=== PATIENT | female | born 1965 | race Caucasian/White ===

== ENCOUNTER 2023-11-10 11:01 | Outpatient (REF) | payer OTHER, SELFPAY ==
--- NOTE | ~2023-11-10 | XR_ITS ---
EXAMINATION: XR LUMBAR SPINE CLINICAL INFORMATION: Lumbar radiculopathy. COMPARISON: None available. TECHNIQUE: Three views of the lumbosacral spine. FINDINGS: Vertebral body heights are normal. No fracture or spondylolisthesis. Intervertebral disc heights are maintained. Small endplate osteophytes are present at most levels. There is mild degenerative disease in the lower thoracic spine at T10-T11 and T11-T12 with loss of intervertebral disc height. Facet arthropathy is suspected in the lower lumbar spine at L4-L5 and L5-S1. Bones appear osteopenic. Atherosclerotic calcifications are present in the abdominal aorta and iliac arteries. SI joints are unremarkable. XR/XR lumbar spine 2-3V IMPRESSION: 1. No acute fracture or malalignment in the lumbar spine. 2. Mild facet arthropathy in the lower lumbar spine. Minimal degenerative disc disease. Electronically signed by: Helder Bro MD 12/05/2023 05:37 PM EDT
[2023-11-10 11:26] LABS: MANUAL DIFF FLAG NO
[2023-11-10 12:14] LABS: Basophils Absolute Auto 0.1 X10*3/uL (0.0-0.2); Eosinophils Absolute Auto 0.2 X10*3/uL (0.0-0.4); Eosinophils Percent Auto 2.5 % (0-4); Hematocrit 44.6 % (37.0-47.0); Hemoglobin 14.2 g/dl (12.0-16.0); Imm Gran Abs Auto 0.03 X10*3/uL (0.00-0.03); Imm Gran Pct Auto 0.3 % (0.0-0.4); Lymphocytes Absolute Auto 2.6 X10*3/uL (1.2-4.9); Lymphocytes Percent Auto 27.8 % (20-40); Mean Corpuscular HGB Conc 31.8 g/dl (31.0-35.0); Mean Corpuscular Hemoglobin 29.3 pg (27.0-33.0); Mean Platelet Volume 11.5 fL (9.4-12.3); Monocytes Absolute Auto 0.8 X10*3/uL (0.1-1.2); Monocytes Percent Auto 8.1 % (2-11); Neutrophils Absolute Auto 5.6 x10*3/uL (2.0-8.3); Neutrophils Percent Auto 60.3 % (45-73); Platelet Count 321 X10*3/uL (160-400); Red Blood Count 4.85 X10*6/uL (4.20-5.50); Red Cell Distribution Width 13.1 % (11.0-16.0); White Blood Count 9.3 X10*3/uL (4.8-10.8)
[2023-11-10 12:46] LABS: Anion Gap 12 (12-20); Blood Urea Nitrogen 13 mg/dL (9-16); Calcium 10.5 mg/dL (8.4-10.2); Carbon Dioxide 29 mmol/L (22-29); Chloride 106 mmol/L (96-108); Estimated Glomerular Filt Rate > 60; Glucose Random 94 mg/dL (60-115); Potassium 4.6 mmol/L (3.3-5.1); Sodium 142 mmol/L (135-145)
[2023-11-10 13:07] LABS: T4 Thyroxine 4.9 ug/dL (4.5-12.0); Thyroid Stimulating Hormone 0.94 uIU/mL (0.32-4.0)
[2023-11-14 21:28] LABS: Lyme Abs Screen <0.90 index
[2023-11-15 14:53] LABS: Aldolase 4.7 U/L (<=8.1)
[2023-11-16 20:04] LABS: Anti Nuclear Antibody Screen NEGATIVE (NEGATIVE)
== END 2023-11-10 11:02 | disposition home or self-care (01) ==
LOC: HO.LAB 11:01
PROVIDERS: PCP Internal Medicine; Visit Provider Registered Nurse
DX: M79.10 Myalgia, unspecified site (principal); M54.16 Radiculopathy, lumbar region
CPT/HCPCS: 36415; 72100; 80048; 82085; 82550; 84436; 84443; 85025; 86038; 86617; 86618

== ENCOUNTER 2024-08-09 13:55 | Outpatient (REF) | payer OTHER, SELFPAY ==
--- NOTE | ~2024-08-09 | XR_ITS ---
CLINICAL HISTORY: KNEE PAIN --- Additional Notes or Special Instructions: WO 4 view right knee Comparison: None Findings: No fractures or dislocations. There are mild changes of osteoarthritis in the lateral compartment. No joint effusion. No radiopaque foreign body. IMPRESSION: 1. No acute findings. This document has been electronically signed by: Stanislav Carr MD on 08/10/2024 16:15:28
--- OUTSIDE RECORDS SUMMARY | 2024-08-09 14:01 | XMS_ITS | Continuity of Care Document ---
Author Organization [facility] [address] [place] [address] Phone [phone] Care Team Providers Care Toolroom Keeper Name Role Phone Josh Naranjo M.D. Care Team Information Recei sheila [phone] Problems Active Problems Provider Date Type 2 diabetes mellitus Sancho Bautista M.D. Onset: 10/06/2021 Obesity Sancho Bautista M.D. Onset: 0 10/06/2021 Coronary atherosclerosis Sancho Bautista M.D. Onset: 2022 Diabetic peripheral neuropathy Sancho Bautista M.D. Onset: 2022 Hyperlipidemia Sancho Bautista M.D. Onset: 0 2022 Essential hypertension Sancho Bautista M.D. O nset: 2022 Placement of stent in coronary artery Sancho Ahuja M.D. Onset: 2022 Social History Type Date Description Comments Sex Unknown Lives With Spouse Tobacco Use Start: Unknown End: Unknown Patient is a former smoker Smoking Status Reviewed: 10/22/22 Patient is a former smoker Allergies and adverse reactions Description No Known Drug Allergies Medications Active Medications SIG Qnty Indications Order ing Provider Date Ozempic (1 MG/Dose)4mg/3ML Solution Pen-Inject Inject 1 MG Subcutaneously One Time Per Week 3units Sancho Bautista M.D. 08/06/2024 [id number] Capsules 1 tab by mouth twice a day Sancho Bautista M.D. 02/28/2024 Mounjaro7.5mg/0.5ML Solution Auto-Inject Inject 7.5 MG Subcutaneously Once Every Week 2units Sancho Bautista M.D. 10/14/2023 Freestyle Lite Blood Glucose Monitoring SystemDevice as directed 1units Sancho Bautista M.D. 07/20/2022 Aspirin Low [id number] Tablets DR Take 1 Tablet By Mouth Every Day Josh Naranjo M.D. Freestyle Lite TestStrips Use as Directed 4 Times A Day For 90 Days 400units E11.9 Sancho Bautista M.D. [id number] Capsules DR Take 1 Capsule By Mouth Every Day Josh Naranjo M.D. [id number] Tablets Take 1 Tablet By Mouth Every Day Josh Naranjo M.D. Rosuvastatin [id number] Tablets Take 1 Tablet By Mouth Every Day 90tabs Sancho Bautista M.D. History Medications Ozempic (1 MG/Dose)4mg/3ML Solution Pen-Inject inject 1mg subcutaneously once weekly 3ml Sancho Bautista M.D. 09/13/2023 - 10/14/2023 Vital Signs Date Vital Result Comment 02/28/2024 3:51pm BP Systolic 110 mmHg BP Diastolic 70 mmHg Heart Rate 76 /min Height 69 inches 5'9 Weight 227.12 lb BMI (Body Mass Index) 33.5 kg/m2 Results Test Acquired Date Facility Test Result H/L Range N ote Hemoglobin A1c 02/28/2024 Inhouse Hemoglobin A1c 5.8% Glucose Fingerstick 02/28/2024 Inhouse Glucose Fingerstick 128 Glucose Fingerstick 11/08/2023 Inhouse Glucose Fingerstick 59 Hemoglobin A1c 11/08/2023 Inhouse Hemoglobin A1c 5.8% Glucose Fingerstick 08/03/2023 Inhouse Glucose Fingerstick 271 Hemoglobin A1c 08/03/2023 Inhouse Hemoglobin A1c 9.1% Glucose Fingerstick 04/29/2023 Inhouse Glucose Fingerstick 130 Hemoglobin A1c 04/29/2023 Inhouse Hemoglobin A1c 6.1% Glucose Fingerstick 01/25/2023 Inhouse Glucose Fingerstick 155 Hemoglobin A1c 01/25/2023 Inhouse Hemoglobin A1c 5.5% Glucose Fingerstick 10/22/2022 Inhouse Glucose Fingerstick 104 Hemoglobin A1c 10/22/2022 Inhouse Hemoglobin A1c 6.2% Glucose Fingerstick 07/20/2022 Inhouse Glucose Fingerstick 147 Hemoglobin A1c 07/20/2022 Inhouse Hemoglobin A1c 6.5% Glucose Fingerstick 2022 Inhouse Glucose Fingerstick 91 Hemoglobin A1c 2022 Inhouse Hemoglobin A1c 6.6 Glucose Fingerstick 01/15/2022 Inhouse Glucose Fingerstick 134 Hemoglobin A1c 01/15/2022 Inhouse Hemoglobin A1c 6.6 Glucose Fingerstick 10/09/2021 Inhouse Glucose Fingerstick 123 Hemoglobin A1c 10/09/2021 Inhouse Hemoglobin A1c 6.6 Medical Devices Description No Information Available Encounters Type Date Location Provider Dx Diagnosis Office Visit 02/28/2024 4:00p Main Office Sancho Bautista M.D. E11.9 Type 2 diabetes mellitus without complications I25.10 Athscl heart disease of [place] coronary artery w/o ang pctrs E66.9 Obesity, unspecified Assessments Date Code Description Provider 02/28/2024 E11.9 Type 2 diabetes mellitus without complications Sancho Bautista M.D. 02/28/2024 I25.10 Coronary atherosclerosis Elvira Bautista M.D. 02/28/2024 E66.9 Obesity Sancho phelan M.D. Plan of Treatment Future Appointment(s):* 10/02/2024 2:45 pm - Sancho Bautista M.D. at Main Office 02/28/2024 - Sancho Bautista M.D.* E11.9 Type 2 diabetes mellitus without complications * I25.10 Coronary atherosclerosis * E66.9 Obesity * * New Labs:* Lipid Panel, Ordered: 02/28/24 Functional Status Description No Information Available Mental Status Description No Information Available Referrals Description No Information Available
== END 2024-08-09 13:56 | disposition home or self-care (01) ==
LOC: HO.XRAY 13:55
PROVIDERS: PCP Internal Medicine; Visit Provider Registered Nurse
DX: M25.561 Pain in right knee (principal)
CPT/HCPCS: 73564

== ENCOUNTER → 2024-08-09 14:02 | Outpatient (BNV) | payer OTHER, SELFPAY | PROVIDERS: PCP Internal Medicine; Visit Provider Specialist | DX: M17.11 Unilateral primary osteoarthritis, right knee (principal) | CPT/HCPCS: 73564 ==

== ENCOUNTER 2024-08-25 01:27 | Inpatient (IN) | payer OTHER, SELFPAY ==
[2024-08-25] VITALS (13 sets, daily range): BP systolic 90–114; BP diastolic 38–78; PULSE 85–101; RESP 14–20; TEMP 35.7–37.1; O2SAT 88–100; BMI 35.7
--- NOTE | ~2024-08-25 | CT_ITS ---
CLINICAL HISTORY: tachy CT angiography chest using contrast. 3-D postprocessing Comparison: None Findings: Filling defects are identified within the right middle and right lower lobe pulmonary arteries as well as segmental right middle and right lower lobe branches and subsegmental right lower lobe branches. Filling defects present at the left lower lobe pulmonary artery, extending into segmental and subsegmental left lower lobe pulmonary arterial branches. No thoracic aorta aneurysm. Heart size within normal limits. Coronary artery calcifications and/or coronary artery stents are visualized. Mildly motion limited evaluation of the bilateral lungs. Azygous lobe present. Minimal bilateral lower lobe subsegmental atelectasis. No focal pulmonary consolidation, pneumothorax, or pleural effusion. Visualized upper abdomen unremarkable. No acute fractures. Multilevel degenerative endplate changes are present at the thoracic spine. Impression: 1. Mildly motion limited examination with a [id number] PE burden involving right middle and bilateral lower lobe pulmonary arterial branches as described above. No CT evidence for right heart strain. 2. Minimal bibasilar subsegmental atelectasis. This document has been electronically signed by: Gordon Ruiz MD on 08/27/2024 04:23:04
--- NOTE | ~2024-08-25 | FL_ITS ---
EXAMINATION: FL GUIDANCE ONLY HISTORY: left retrograde IM nail COMPARISON: Correlation is made with plain films of the left knee dated 08/25/2024. TECHNIQUE: Fluoroscopy time: 1.1 minutes. Cumulative Dose: 22.3 mGy. DAP: 0.286 mGym2 Images: 5. FINDINGS: Fluoroscopic spot films of the left knee demonstrate placement of an intramedullary geovany maintaining the previously seen comminuted fracture of the distal metaphysis in near anatomic alignment. FL/FL guidance in OR IMPRESSION: Fluoroscopy during procedure. Please see procedure report for additional information. Electronically signed by: Arnold Carnes MD 08/27/2024 07:06 AM EDT
--- NOTE | ~2024-08-25 | XR_ITS ---
CLINICAL HISTORY: preop Exam: AP portable chest x-ray. Comparison: None. Findings: Lungs are hypoinflated. Cardiac silhouette is within normal limits for degree of inflation. Streaky interstitial prominence in the lung bases suggest atelectasis. There may be a small left pleural effusion. No large area of consolidation. No pneumothorax. Impression: Likely linear bibasilar atelectasis with small left pleural effusion. This document has been electronically signed by: Josh Modi MD on 08/25/2024 06:39:27
--- NOTE | ~2024-08-25 | XR_ITS ---
CLINICAL HISTORY: fall 2 view left knee Comparison: None Findings: A left knee prosthesis is in place. The surgical hardware appears intact. Comminuted, displaced fracture present at the distal left femoral metadiaphysis with anterolateral displacement of the distal fracture fragment. Moderate suprapatellar enthesophyte at the site of the quadriceps tendon insertion. No significant suprapatellar effusion identified. IMPRESSION: 1. Comminuted, displaced fracture present at the distal left femoral metadiaphysis. This document has been electronically signed by: Gordon Ruiz MD on 08/25/2024 03:09:27
--- NOTE | ~2024-08-25 | CT_ITS ---
CLINICAL HISTORY: confusion, fall [address] head without contrast Comparison: None Findings: No intra-axial mass, midline shift, hydrocephalus, or acute hemorrhage. Age appropriate cerebral volume loss. Patchy low-density within the periventricular and subcortical white matter. Moderate left maxillary sinus mucosal thickening. The orbits are within normal limits. There is no acute fracture. IMPRESSION: 1. No acute intracranial findings. This document has been electronically signed by: Bridgette Perez MD on 08/29/2024 18:36:03
--- NOTE | ~2024-08-25 | US_ITS ---
EXAMINATION: US LOWER EXTREMITY VEINS BILATERAL HISTORY: ?DVT COMPARISON: There are no prior studies available for comparison. TECHNIQUE: Duplex and color Doppler sonographic examination of the deep venous system of the bilateral lower extremities was performed. FINDINGS: The right common femoral, superficial femoral, and popliteal veins are patent demonstrating normal compressibility, spontaneous flow, and augmentation. There is a normal color and spectral Doppler waveform appearance of the visualized deep venous system above the knee. The posterior tibial and peroneal veins are patent. The left common femoral and superficial femoral veins are patent demonstrating normal compressibility, spontaneous flow, and augmentation. There is thrombus in the left popliteal vein which is noncompressible. Thrombus is also seen in the posterior tibial and peroneal veins. US/US venous duplex LE BI IMPRESSION: 1. Deep venous thrombosis of the left popliteal vein extending into the calf veins. 2. No evidence of acute DVT in the right lower extremity. 3. Findings were sent to Dr. Yonatan Charles on 08/27/2024 at 11:45 AM. Electronically signed by: Arnold Carnes MD 08/27/2024 11:48 AM EDT
--- NOTE | 2024-08-25 01:35 | ED_ITS ---
HPI - Fall General Chief Complaint: Extremity Injury, Lower Stated Complaint: FELL DOWN STAIRS & TWISTED LFT KNEE Time Seen by Provider: 08/25/24 01:35 Source: patient Mode of arrival: ambulatory Limitations: no limitations History of Present Illness ED Provider: HPI Narrative: Patient status post left knee replacement about 10 years ago was going down stairs tripped and fell from last 3 steps landed on her left knee with obvious deformity unable to stand up no other injuries patient has received 100 mcg of fentanyl by EMS Related Data Allergies Allergy/AdvReac Type Severity Reaction Status Date / Time No Known Allergies Allergy Verified 08/25/24 01:38 [No Known Allergies*] Review of Systems 2 Review of Systems: Yes all other systems are reviewed and are negative PMFSH Social History Social History Smoked in Last 30 Days: No Use of substances other than those prescribed or required for medical reasons: No Advance Directives: No Advance Directives Information Provided: Yes Do you have a plan to hurt others: No Plan Physical Exam 2 Vital Signs: Vital Signs: Last Vital Signs Temp 97.4 F 08/25/24 07:08 Pulse 91 08/25/24 07:08 Resp 14 08/25/24 07:08 BP 94/51 L 08/25/24 07:08 Pulse Ox 97 08/25/24 07:08 O2 Del Method Room Air 08/25/24 07:08 O2 Flow Rate 2 08/25/24 05:46 BMI result Body Mass Index 35.7 Appearance: Alert. Oriented X3. Not do Eyes: No pallor or icterus ENT: Pharynx normal. Oral Mucosa moist Neck: Normal inspection. Neck supple. CVS: Normal heart rate and rhythm. Pulses normal. Respiratory: No respiratory distress. Equal air entry bilateral, no wheezing/rales/rhonchi Abdomen: Soft and nontender. Bowel sounds are present, no mass palpable, no CVA tenderness Skin: Skin warm and dry. Normal skin color. Normal skin turgor. Extremities: Left leg obvious deformity with soft swelling of lower thigh neurovascular intact dorsalis pedis 2+ sensations intact Neuro: Oriented X 3. No motor deficit. No sensory deficit.No cerebellar signs , cranial nerves II-XII intact Medications Administered Generic Name Dose Route Start Last Admin Trade Name Freq PRN Reason Stop Dose Admin Lactated Ringer's 1,000 mls @ 100 mls/hr 08/25/24 05:45 08/25/24 06:29 Lr IVCONT 100 mls/hr .Q10H KAITLIN Administration Insulin Human Lispro 0 unit 08/25/24 07:30 08/25/24 07:19 Insulin Lispro 100 Unit/Ml 3 Ml Vial SUBCUT Not Given QIDACHS KAITLIN Protocol Sodium Chloride 3 ml 08/25/24 08:00 08/25/24 07:19 0.9 % Sodium Chloride Flush 3 Ml Syringe IVFLUSH Not Given QSHIFT KAITLIN Discontinued Medications Generic Name Dose Route Start Last Admin Trade Name Harshal PRN Reason Stop Dose Admin Fentanyl 50 mcg 08/25/24 02:57 08/25/24 03:20 Fentanyl Citrate/Pf 100 Mcg/2 Ml Vial IVPUSH 08/25/24 02:58 50 mcg ONCE ONE Administration Protocol Sodium Chloride 1,000 mls @ 999 mls/hr 08/25/24 01:42 08/25/24 02:45 Ns IV 08/25/24 02:42 Infused .Q1H1M ONE Infusion Sodium Chloride 1,000 mls @ 999 mls/hr 08/25/24 04:58 08/25/24 06:29 Ns IV 08/25/24 05:58 Infused .Q1H1M ONE Infusion Medical Decision Making Medical Decision Making [facility] Narrative: Patient is status post mechanical fall with left knee prosthesis x-ray showed comminuted displaced fracture just above the prosthesis patient does have significant swelling of the lower thigh but it is soft no signs of compartment syndrome at this time neurovascular intact case discussed with ortho PA will take the patient to OR later after discussion with Dr. Harrison NPO for now Differential Diagnosis Differential Diagnoses: The differential diagnosis associated with the presentation includes Admission/Observation Consideration of admission/observation: Escalation of care including admission/observation considered Consult Healthcare Provider Management of the patient was discussed with: Hospitalist Lab Data [facility] Lab Attestation statement: I reviewed the patient's lab results. 08/25/24 04:31 08/25/24 04:31 Labs: Lab Results 08/25/24 08/25/24 Range/Units 02:17 03:29 WBC 14.5 H (4.8-10.8) X10*3/uL RBC 3.85 L D (4.20-5.50) X10*6/uL Hgb 11.4 L (12.0-16.0) g/dl Hct 34.2 L D (37.0-47.0) % MCV 88.8 (80.0-98.0) fL MCH 29.6 (27.0-33.0) pg MCHC 33.3 (31.0-35.0) g/dl RDW 13.1 (11.0-16.0) % Plt Count 220 D (160-400) X10*3/uL MPV 11.1 (9.4-12.3) fL Immature Gran % (Auto) 0.5 H (0.0-0.4) % Neut % (Auto) 72.0 (45-73) % Lymph % (Auto) 18.9 L (20-40) % [place] % (Auto) 6.7 (2-11) % Eos % (Auto) 1.4 (0-4) % Baso % (Auto) 0.5 (0-2) % Lymph # (Auto) 2.7 (1.2-4.9) X10*3/uL [place] # (Auto) 1.0 (0.1-1.2) X10*3/uL Eos # (Auto) 0.2 (0.0-0.4) X10*3/uL Baso # (Auto) 0.1 (0.0-0.2) X10*3/uL Abs Immat Gran (auto) 0.07 H (0.00-0.03) X10*3/uL Absolute Neuts (auto) 10.5 H (2.0-8.3) x10*3/uL Absolute Nucleated RBC 0.000 (0.0-0.012) X10*3/uL Nucleated RBC % (auto) 0.0 (0.0-0.2) /100WBC PT 11.5 (10.9-12.4) SEC INR 1.0 (0.9-1.1) Sodium 138 (135-145) mmol/L Potassium 4.0 (3.3-5.1) mmol/L Chloride 106 (96-108) mmol/L Carbon Dioxide 23 (22-29) mmol/L Anion Gap 13 (12-20) BUN 18 H (9-16) mg/dL Creatinine 0.84 (0.5-1.4) mg/dL Estim Creat Clear Calc 92.8 Estimated GFR > 60 Random Glucose 256 H (60-115) mg/dL Calcium 8.7 D (8.4-10.2) mg/dL Total Bilirubin 0.3 (0.0-1.0) mg/dL AST 20 (5-31) U/L ALT 14 (0-31) U/L Alkaline Phosphatase 66 (39-117) U/L Total Protein 6.2 L (6.5-8.0) g/dL Albumin 3.7 (3.5-5.0) g/dL Blood Type O Positive Antibody Screen NEGATIVE Independent Interpretation I performed an independent interpretation of an: EKG Interpretation: Normal sinus rhythm heart rate 80 beats per minute normal interval normal axis no acute ST-T changes no acute ischemia Radiology Impression Discussion of test interpretation with radiology: I have reviewed the radiologist's reading. Discharge Plan Discharge Clinical Impression: Femur fracture Qualifiers: Encounter type: initial encounter Femur location: distal, unspecified portion F racture type: open Open fracture type: open type I or II Fracture morphology: u nspecified fracture morphology Laterality: left Qualified Code(s): S72.402B - Unspecified fracture of lower end of left femur, initial encounter for open fracture type I or II Patient Disposition: Admitted As Inpatient
--- NOTE | 2024-08-25 01:35 | PC.NURSE ---
pt reports pain is at 6/10, slightly tolerable. took ibuprofen, tylenol and tramadol approx 2200, 100mcg fentanyl by ems. bp low as documented. pt in agreement to receive ivf and use ice pack for now.
[2024-08-25] MEDS: 0.9 % Sodium Chloride 1,000 ML 999 ML IV ×2 (01:44→05:20)
--- OUTSIDE RECORDS SUMMARY | 2024-08-25 01:51 | XMS_ITS | Continuity of Care Document ---
Author Organization [facility] [address] [place] [address] Phone [phone] Care Team Providers Care Bolt Man Name Role Phone Josh Naranjo M.D. Care Team Information Recei sheila [phone] Problems Active Problems Provider Date Type 2 [...] Per Week 3units Sancho Bautista M.D. 08/06/2024 [id number] Capsules 1 tab by mouth twice a day Sancho Bautista M.D. 02/28/2024 Mounjaro7.5mg/0.5ML Solution Auto-Inject Inject 7.5 MG Subcutaneously Once Every Week 2units Sancho Bautista M.D. 10/14/2023 Freestyle Lite Blood Glucose Monitoring SystemDevice as directed 1units Sancho Bautista M.D. 07/20/2022 Aspirin Low Gprw15xi Tablets DR Take 1 Tablet By Mouth Every Day Josh Naranjo M.D. Freestyle Lite TestStrips Use as Directed 4 Times A Day For 90 Days 400units E11.9 Sancho Bautista M.D. [id number] Tablets take 1 tablet by mouth in Am 90tabs Sancho Bautista M.D. [id number] Capsules DR Take 1 Capsule By Mouth Every Day Josh Naranjo M.D. Dqtvqupwmc5pw Tablets Take 1 Tablet By Mouth Every Day Josh Naranjo M.D. Rosuvastatin Iuhfimt01my Tablets Take 1 Tablet By Mouth Every [...] without complications I25.10 Athscl heart disease of [place] coronary artery w/o ang pctrs E66.9 Obesity, [...]
--- NOTE | 2024-08-25 02:20 | MHC.EDTECH ---
Patient wm mohre a fall ,vitals taken blood drawn and sent to lab ,All safety measure in Place .Call swan within Pt reach .
[2024-08-25 02:21] LABS: Basophils Absolute Auto 0.1 X10*3/uL (0.0-0.2); Basophils Percent Auto 0.5 % (0-2); Eosinophils Absolute Auto 0.2 X10*3/uL (0.0-0.4); Eosinophils Percent Auto 1.4 % (0-4); Hematocrit 34.2 % (37.0-47.0); Hemoglobin 11.4 g/dl (12.0-16.0); Imm Gran Abs Auto 0.07 X10*3/uL (0.00-0.03); Imm Gran Pct Auto 0.5 % (0.0-0.4); Lymphocytes Absolute Auto 2.7 X10*3/uL (1.2-4.9); Lymphocytes Percent Auto 18.9 % (20-40); Mean Corpuscular HGB Conc 33.3 g/dl (31.0-35.0); Mean Corpuscular Hemoglobin 29.6 pg (27.0-33.0); Mean Corpuscular Volume 88.8 fL (80.0-98.0); Mean Platelet Volume 11.1 fL (9.4-12.3); Monocytes Percent Auto 6.7 % (2-11); Neutrophils Absolute Auto 10.5 x10*3/uL (2.0-8.3); Platelet Count 220 X10*3/uL (160-400); Red Blood Count 3.85 X10*6/uL (4.20-5.50); Red Cell Distribution Width 13.1 % (11.0-16.0); White Blood Count 14.5 X10*3/uL (4.8-10.8)
[2024-08-25 02:22] LABS: MANUAL DIFF FLAG NO
--- NOTE | 2024-08-25 02:24 | PC.NURSE ---
pt screamed, reports pain worsened shooting to upper leg. leg appears to be increasing in swelling. MD Grove called to bedside.
[2024-08-25 02:27] LABS: Prothrombin Time 11.5 SEC (10.9-12.4)
[2024-08-25 02:44] LABS: Alanine Aminotransferase 14 U/L (0-31); Albumin Level 3.7 g/dL (3.5-5.0); Alkaline Phosphatase 66 U/L (39-117); Anion Gap 13 (12-20); Aspartate Amino Transferase 20 U/L (5-31); Bilirubin Total 0.3 mg/dL (0.0-1.0); Blood Urea Nitrogen 18 mg/dL (9-16); Calcium 8.7 mg/dL (8.4-10.2); Carbon Dioxide 23 mmol/L (22-29); Chloride 106 mmol/L (96-108); Creatinine Clr Calc Pharmacy 92.8; Estimated Glomerular Filt Rate > 60; Glucose Random 256 mg/dL (60-115); Sodium 138 mmol/L (135-145); Total Protein 6.2 g/dL (6.5-8.0)
[2024-08-25] MEDS: fentaNYL citrate/PF 100 MCG/2 ML VIAL 50 MCG IVPUSH (03:20)
--- NOTE | 2024-08-25 03:24 | PC.NURSE ---
o2 low after fentanyl ivp, placed on 2L NC. aware.
[2024-08-25 04:37] LABS: Basophils Absolute Auto 0.1 X10*3/uL (0.0-0.2); Basophils Percent Auto 0.4 % (0-2); Eosinophils Absolute Auto 0.1 X10*3/uL (0.0-0.4); Eosinophils Percent Auto 0.5 % (0-4); Hematocrit 34.3 % (37.0-47.0); Hemoglobin 11.5 g/dl (12.0-16.0); Imm Gran Abs Auto 0.06 X10*3/uL (0.00-0.03); Imm Gran Pct Auto 0.4 % (0.0-0.4); Lymphocytes Absolute Auto 1.9 X10*3/uL (1.2-4.9); Lymphocytes Percent Auto 12.1 % (20-40); MANUAL DIFF FLAG NO; Mean Corpuscular HGB Conc 33.5 g/dl (31.0-35.0); Mean Corpuscular Hemoglobin 29.7 pg (27.0-33.0); Mean Corpuscular Volume 88.6 fL (80.0-98.0); Mean Platelet Volume 11.2 fL (9.4-12.3); Monocytes Absolute Auto 0.9 X10*3/uL (0.1-1.2); Neutrophils Absolute Auto 12.7 x10*3/uL (2.0-8.3); Neutrophils Percent Auto 80.6 % (45-73); Platelet Count 221 X10*3/uL (160-400); Red Blood Count 3.87 X10*6/uL (4.20-5.50); White Blood Count 15.7 X10*3/uL (4.8-10.8)
[2024-08-25 04:51] LABS: Alanine Aminotransferase 15 U/L (0-31); Albumin Level 3.8 g/dL (3.5-5.0); Alkaline Phosphatase 67 U/L (39-117); Anion Gap 11 (12-20); Aspartate Amino Transferase 21 U/L (5-31); Bilirubin Total 0.3 mg/dL (0.0-1.0); Blood Urea Nitrogen 18 mg/dL (9-16); Calcium 8.6 mg/dL (8.4-10.2); Carbon Dioxide 26 mmol/L (22-29); Chloride 106 mmol/L (96-108); Creatinine Clr Calc Pharmacy 95.1; Estimated Glomerular Filt Rate > 60; Glucose Random 207 mg/dL (60-115); Potassium 4.1 mmol/L (3.3-5.1); Sodium 139 mmol/L (135-145); Total Protein 6.3 g/dL (6.5-8.0)
--- NOTE | 2024-08-25 04:54 | PC.NURSE ---
Addendum entered by Edilia Villalpando 08/25/24 04:58: another 1L NS bolus per MD. Original Note: pillows placed under back, neck, R. hip, L. knee and L. foot. pt reports improvement in pain. ice pack given. current bp 91/49, MD made aware.
--- NOTE | 2024-08-25 05:00 | ECG_ITS ---
Test Reason : PRE-OP Blood Pressure : */* mmHG Vent. Rate : 80 BPM Atrial Rate : 80 BPM P-R Int : 148 ms QRS Dur : 90 ms QT Int : 386 ms P-R-T Axes : 11 -2 4 degrees QTcB Int : 445 ms Normal sinus rhythm Inferior infarct , age undetermined Abnormal ECG When compared with ECG of 04-Dec-2013 11:15, Inferior infarct is now Present ST no longer elevated in Inferior leads Referred By: [place] Electronically Signed By: VIV FOSTER
--- NOTE | 2024-08-25 05:36 | P.HPHOSP_ITS ---
History of Present Illness Date of Service: 08/25/24 Chief Complaint: fall 59-year-old female with a past medical history of HTN, HLD, dm, CAD, arthritis presented to the hospital today with a chief complaint of fall. Patient reports that she was climbing down the stairs, and was at the 4 step from the bottom she tripped and fell and landed to the friend; denies any head strike or loss of consciousness. Denies any neck pain or back pain. Reports she had severe pain in her left thigh and was not able to move; her called ambulance and subsequently came to the ER for further evaluation. Reports ambulance gave her fentanyl. Denies any lightheadedness or dizziness. Denies any numbness tingling or focal weakness. Denies any chest pain or palpitations. Review of all other systems is negative except mentioned above ER course: Per ER team, patient noted to have left thigh swelling and tenderness; no ecchymosis; ROM limited secondary to the pain. X-ray showed femur fracture. Pulses palpable. Neurovascularly intact. Suspected small hematoma; patient's hemoglobin dropped from her baseline of 14.2-11.4. Repeat hemoglobin stable at 11.5. Patient blood pressure was on the soft side-presumed to be secondary to opiate medications. Given IV fluids. Orthopedics team was notified who mentioned to keep the patient NPO for possible surgery in a.m.. [facility] Social History Smoked in Last 30 Days: No Use of substances other than those prescribed or required for medical reasons: No Advance Directives: No Advance Directives Information Provided: Yes Do you have a plan to hurt others: No Plan Meds Allergies Allergy/AdvReac Type Severity Reaction Status Date / Time No Known Allergies Allergy Verified 08/25/24 01:38 [No Known Allergies*] Active Medications: Current Medications Acetaminophen (Acetaminophen 325 Mg Tablet) 650 mg PO Q6H PRN PRN Reason: Pain, Mild 1-3,fever,headache Calcium Carbonate (Calcium Carbonate 750 Mg Tab.Chew) 750 mg PO Q4H PRN PRN Reason: Heartburn Hydromorphone HCl (Hydromorphone Hcl 0.5 Mg/0.5 Ml Syringe) 0.5 mg IVPUSH Q4H PRN; Protocol PRN Reason: Pain, Severe (Pain Scale 7-10) Sodium Chloride (Ns) 1,000 mls @ 999 mls/hr IV .Q1H1M ONE Stop: 08/25/24 05:58 Last Admin: 08/25/24 05:20 Dose: 999 mls/hr Magnesium Hydroxide (Milk Of Magnesia 30 Ml Oral.Susp) 30 ml PO DAILY PRN PRN Reason: Constipation Melatonin (Melatonin 3 Mg Tablet) 6 mg PO BEDTIME PRN PRN Reason: Insomnia Sodium Chloride (0.9 % Sodium Chloride Flush 3 Ml Syringe) 3 ml IVFLUSH QSHIFT [facility] Physical Exam 2 Vital Signs and Narrative: Vital Signs: Last Vital Signs Temp 98.8 F 08/25/24 04:13 Pulse 97 08/25/24 04:13 Resp 18 08/25/24 04:13 BP 107/74 08/25/24 04:13 Pulse Ox 98 08/25/24 04:13 O2 Del Method Nasal Cannula 08/25/24 04:13 O2 Flow Rate 2 08/25/24 04:13 BMI result Body Mass Index 35.7 Gen: Appears be in no acute distress HEENT: NCAT, Moist mucosa. Pulmonary: Vesicular breath sounds, fair air entry CVS: Normal S1-S2 Abdomen: BS+, Soft, Nontender Extremities: Warm well perfused; distal left thigh is slightly swollen, tender to palpate. Distal pulses are palpable. Sensations intact bilaterally. Neuro: Alert and awake. Results Labs 08/25/24 04:31 08/25/24 04:31 Labs: Laboratory Results - last 24 hr 08/25/24 08/25/24 08/25/24 02:17 03:29 04:31 MCV 88.8 88.6 MCH 29.6 29.7 MCHC 33.3 33.5 RDW 13.1 13.0 Plt Count 220 D 221 MPV 11.1 11.2 Immature Gran % (Auto) 0.5 H 0.4 Neut % (Auto) 72.0 80.6 H Lymph % (Auto) 18.9 L 12.1 L [place] % (Auto) 6.7 6.0 Eos % (Auto) 1.4 0.5 Baso % (Auto) 0.5 0.4 Lymph # (Auto) 2.7 1.9 [place] # (Auto) 1.0 0.9 Eos # (Auto) 0.2 0.1 Baso # (Auto) 0.1 0.1 Abs Immat Gran (auto) 0.07 H 0.06 H Absolute Neuts (auto) 10.5 H 12.7 H Absolute Nucleated RBC 0.000 0.000 Nucleated RBC % (auto) 0.0 0.0 PT 11.5 INR 1.0 Anion Gap 13 11 L Estim Creat Clear Calc 92.8 95.1 Estimated GFR > 60 > 60 Random Glucose 256 H 207 H Calcium 8.7 D 8.6 Total Bilirubin 0.3 0.3 AST 20 21 ALT 14 15 Alkaline Phosphatase 66 67 Total Protein 6.2 L 6.3 L Albumin 3.7 3.8 Blood Type O Positive Antibody Screen NEGATIVE Assessment and Plan (1) Femur fracture: Qualifiers: Encounter type: initial encounter Femur location: distal, unspecified portion Fracture type: open Fracture morphology: unspecified fracture morphology Laterality: left Open fracture type: open type I or II Qualified Code(s): S72.402B - Unspecified fracture of lower end of left femur, initial encounter for open fracture type I or II Status: Acute Plan 59-year-old female with a past medical history of HLD, dm, CAD, arthritis presented to the hospital today with a chief complaint of fall. Noted a femur fracture. Left femur fracture: X-ray showed comminuted, displaced fracture at the distal left femoral metadiaphysis. Orthopedics team was notified-recommended NPO for possible surgery in a.m.. Pain control Hypertension: Patient blood pressure on the low normal side. Hold home lisinopril. Patient on IV fluids. Diabetes: Insulin sliding scale Anemia: Patient hemoglobin dropped from her baseline 14.2-11.5. Suspected small hematoma around the site. Follow up hemoglobin remained stable. No significant increase in swelling. Monitor vitals and trend H&H. Offered CT of the thigh-patient denied. Preop evaluation: Patient moderate to high risk for intermediate risk surgery. Hold home aspirin-last dose was on the day prior to coming to the hospital Depression: Continue home amitriptyline pending med rec to be done by pharmacy DVT prophylaxis: SCD boots Code status: Full code Quality Stroke Does the patient have a stroke diagnosis?: No VTE Prior VTE?: No VTE Risk Level:: Medical - moderate - high VTE Device Contraindication: Treatment Not Indicated VTE Drug Contraindication: N/A - Med Ordered
[2024-08-25] MEDS: Lactated Ringers 1,000 ML 100 ML IVCONT ×2 (06:29→15:33)
[2024-08-25 07:22] LABS: Glucose, Whole Blood 157 mg/dL (60-115)
--- NOTE | 2024-08-25 08:56 | PHA.MEDREC ---
Pharmacy Consult ? Medication Reconciliation Pharmacy has completed the medication reconciliation. Spoke with patient to confirm medications. She is no longer taking metformin, ozempic, or using lidocaine patches. She confirmed she is taking atorvastatin. She takes Mounjaro every Tuesday, had last Tuesday. She reports taking 1 tablet of amitriptyline 100 mg every night. She took her morning medications yesterday as well as ibuprofen and tramadol. She did not take her evening medications.
--- NOTE | 2024-08-25 09:00 | PC.NURSE ---
Patient is a 59-year-old female with a past medical history of HTN, HLD, dm, CAD, arthritis presented with a chief complaint of fall. Patient reports that she was climbing down the stairs, and was at the 4 step from the bottom she tripped and fell and landed. Noted to have a left femur fracture. linoleum layer helper maintained and NSR noted. SBP has been soft since arrival. IVF's infusing as ordered. Lungs clear bilat. Respirations even and non-labored. Abdomen large, soft, non-tender with positive bowel sounds. Positive pedal pulses with good CSM. left femur area swollen and painful. Unable to be re-positioned without significant pain. Pain control maintained with IV dilaudid.
[2024-08-25 09:01] LABS: Estimated Average Glucose 166 mg/dL; Hemoglobin A1c % 7.4 % (<6.0); Total Hemoglobin (HGBA1C) 3050.3548 umol/L
[2024-08-25] MEDS: HYDROmorphone HCl 0.5 MG/0.5 ML SYRINGE IVPUSH ×2 (09:12→13:15)
[2024-08-25 11:51] LABS: Glucose, Whole Blood 123 mg/dL (60-115)
--- NOTE | 2024-08-25 12:36 | P.PNIM_ITS ---
Subjective Subjective Date of Service: 08/25/24 Interval History: pain/swelling L thigh no chest pain or dyspnea Review of Systems Review of Systems: Yes all other systems are reviewed and are negative Physical Exam 2 Vital Signs: Vital Signs: Last Vital Signs Temp 97.4 F 08/25/24 07:08 Pulse 90 08/25/24 10:00 Resp 16 08/25/24 10:00 BP 101/59 L 08/25/24 10:00 Pulse Ox 100 08/25/24 10:00 O2 Del Method Nasal Cannula 08/25/24 10:00 O2 Flow Rate 2 08/25/24 10:00 BMI result Body Mass Index 35.7 Gen: in no acute distress HEENT: sclera anicteric, moist mucus membranes Neck: supple Lungs: clear to auscultation bilaterally Heart: regular rate and rhythm, no murmurs Abd: soft, non-tender, non-distended Ext: no edema, L thigh swollen and deformed Skin: warm/well-perfused Neuro: alert and oriented x3, no focal findings Psych: appropriate affect Objective Data Active Medications Acetaminophen (Acetaminophen 325 Mg Tablet) 650 mg PO Q6H PRN PRN Reason: Pain, Mild 1-3,fever,headache Calcium Carbonate (Calcium Carbonate 750 Mg Tab.Chew) 750 mg PO Q4H PRN PRN Reason: Heartburn Dextrose (Dextrose 50 % 25 Gm/50 Ml Syringe) 25 gm IVPUSH Q15M PRN; Protocol PRN Reason: per Hypoglycemia Standing Ord. Glucose (Glucose Gel 15 Gm Gel..Gram.) 15 gm PO Q15M PRN; Protocol PRN Reason: per Hypoglycemia Standing Ord. Hydromorphone HCl (Hydromorphone Hcl 0.5 Mg/0.5 Ml Syringe) 0.5 mg IVPUSH Q4H PRN; Protocol PRN Reason: Pain, Severe (Pain Scale 7-10) Last Admin: 08/25/24 09:12 Dose: 0.5 mg Documented By: ASHOK Lactated Ringer's (Lr) 1,000 mls @ 100 mls/hr IVCONT .Q10H [facility] Last Admin: 08/25/24 06:29 Dose: 100 mls/hr Documented By: DORIS Insulin Human Lispro (Insulin Lispro 100 Unit/Ml 3 Ml Vial) 0 unit SUBCUT QIDACHS [facility]; Protocol Last Admin: 08/25/24 11:51 Dose: Not Given Documented By: ASHOK Non-Admin Reason: No Insulin Coverage Magnesium Hydroxide (Milk Of Magnesia 30 Ml Oral.Susp) 30 ml PO DAILY PRN PRN Reason: Constipation Melatonin (Melatonin 3 Mg Tablet) 6 mg PO BEDTIME PRN PRN Reason: Insomnia Sodium Chloride (0.9 % Sodium Chloride Flush 3 Ml Syringe) 3 ml IVFLUSH [facility] Last Admin: 08/25/24 07:19 Dose: Not Given Documented By: ASHOK Non-Admin Reason: IV Running Labs 08/25/24 04:31 08/25/24 04:31 Labs: Laboratory Results - last 24 hr 08/25/24 08/25/24 08/25/24 02:17 03:29 04:31 MCV 88.8 88.6 MCH 29.6 29.7 MCHC 33.3 33.5 RDW 13.1 13.0 Plt Count 220 D 221 MPV 11.1 11.2 Immature Gran % (Auto) 0.5 H 0.4 Neut % (Auto) 72.0 80.6 H Lymph % (Auto) 18.9 L 12.1 L [place] % (Auto) 6.7 6.0 Eos % (Auto) 1.4 0.5 Baso % (Auto) 0.5 0.4 Lymph # (Auto) 2.7 1.9 [place] # (Auto) 1.0 0.9 Eos # (Auto) 0.2 0.1 Baso # (Auto) 0.1 0.1 Abs Immat Gran (auto) 0.07 H 0.06 H Absolute Neuts (auto) 10.5 H 12.7 H Absolute Nucleated RBC 0.000 0.000 Nucleated RBC % (auto) 0.0 0.0 PT 11.5 INR 1.0 Anion Gap 13 11 L Estim Creat Clear Calc 92.8 95.1 Estimated GFR > 60 > 60 POC Glucose Random Glucose 256 H 207 H Estimat Average Glucose 166 Hemoglobin A1c % 7.4 H Calcium 8.7 D 8.6 Total Bilirubin 0.3 0.3 AST 20 21 ALT 14 15 Alkaline Phosphatase 66 67 Total Protein 6.2 L 6.3 L Albumin 3.7 3.8 Blood Type O Positive Antibody Screen NEGATIVE 08/25/24 08/25/24 07:17 11:46 MCV MCH MCHC RDW Plt Count MPV Immature Gran % (Auto) Neut % (Auto) Lymph % (Auto) [place] % (Auto) Eos % (Auto) Baso % (Auto) Lymph # (Auto) [place] # (Auto) Eos # (Auto) Baso # (Auto) Abs Immat Gran (auto) Absolute Neuts (auto) Absolute Nucleated RBC Nucleated RBC % (auto) PT INR Anion Gap Estim Creat Clear Calc Estimated GFR POC Glucose 157 H 123 H Random Glucose Estimat Average Glucose Hemoglobin A1c % Calcium Total Bilirubin AST ALT Alkaline Phosphatase Total Protein Albumin Blood Type Antibody Screen Assessment and Plan (1) Femur fracture: Status: Acute Plan d1 for 59yo F with CAD s/p PCI 2014, DM2, HLD, arthritis s/p L TKA who had a mechanical fall on stairs and sustained a comminuted, displaced fracture at the distal left femoral metadiaphysis femur fx - Orthopedics consult, pain control with IV hydromorphone, NPO for OR; no anginal symptoms while walking or climbing stairs; intermediate risk for this procedure; HTN - hold lisinopril CAD - hold ASA, give atorvastatin DM2 - hold Mounjaro and GPZ, give maria isabel-dose lipsro neuropathic pain - pregabalin + amitriptylline VTE ppx - SCDs, enoxaparin postop dispo - TBD Total time managing care of this patient today: 35 minutes. Quality Stroke Does the patient have a stroke diagnosis?: No VTE Prior VTE?: No VTE Risk Level:: Medical - moderate - high VTE Device Contraindication: Treatment Not Indicated VTE Drug Contraindication: N/A - Med Ordered
--- NOTE | 2024-08-25 13:40 | PM.CNOR ---
History of Present Illness HPI Consult date: 08/25/24 Chief complaint: femur Fx Narrative: 59 yo female admitted to the medical service s/p mechanical fall at home. She lives at home and is functional with all activities. She states she was going down a set of stairs when she was at the bottom 4 and fell. She was unable to get up due to immediate pain and deformity of the left lower ext. EMS was called and she was transported to the ED. Xrays in the ED significant for distal femur periprosthetic fracture. Orthopedics was contacted for further remcommendations and surgical intervention. Patient states she does have a stent for her heart, otherwise no other cardiopulmonary abnormalities. She does not smoke. She does not use an assistive device for ambulation. Review of Systems Review of Systems: Yes all other systems are reviewed and are negative [facility] Social History Social History Smoked in Last 30 Days: No Use of substances other than those prescribed or required for medical reasons: No Advance Directives: No Advance Directives Information Provided: Yes Do you have a plan to hurt others: No Plan Meds Allergies Allergy/AdvReac Type Severity Reaction Status Date / Time No Known Allergies Allergy Verified 08/25/24 01:38 [No Known Allergies*] Active Medications: Current Medications Amitriptyline HCl (Amitriptyline Hcl 50 Mg Tablet) 100 mg PO BEDTIME [facility] Atorvastatin Calcium (Atorvastatin Calcium 20 Mg Tablet) 20 mg PO DAILY [facility] Calcium Carbonate (Calcium Carbonate 750 Mg Tab.Chew) 750 mg PO Q4H PRN PRN Reason: Heartburn Cyclobenzaprine HCl (Cyclobenzaprine Hcl 10 Mg Tablet) 10 mg PO BEDTIME PRN PRN Reason: Muscle Spasm Dextrose (Dextrose 50 % 25 Gm/50 Ml Syringe) 25 gm IVPUSH Q15M PRN; Protocol PRN Reason: per Hypoglycemia Standing Ord. Glucose (Glucose Gel 15 Gm Gel..Gram.) 15 gm PO Q15M PRN; Protocol PRN Reason: per Hypoglycemia Standing Ord. Hydromorphone HCl (Hydromorphone Hcl 0.5 Mg/0.5 Ml Syringe) 0.75 mg IVPUSH Q4H PRN; Protocol PRN Reason: Pain, Severe (Pain Scale 7-10) Lactated Ringer's (Lr) 1,000 mls @ 100 mls/hr IVCONT .Q10H [facility] Last Admin: 08/25/24 06:29 Dose: 100 mls/hr Acetaminophen (Ofirmev) 1,000 mg in 100 mls @ 400 mls/hr IV Q6H [facility] Insulin Human Lispro (Insulin Lispro 100 Unit/Ml 3 Ml Vial) 0 unit SUBCUT QIDACHS [facility]; Protocol Last Admin: 08/25/24 11:51 Dose: Not Given Magnesium Hydroxide (Milk Of Magnesia 30 Ml Oral.Susp) 30 ml PO DAILY PRN PRN Reason: Constipation Melatonin (Melatonin 3 Mg Tablet) 6 mg PO BEDTIME PRN PRN Reason: Insomnia Omeprazole (Omeprazole 20 Mg Capsule.Dr) 20 mg PO DAILY@629 [facility] Oxycodone HCl (Oxycodone Hcl Immed Release 5 Mg Tablet) 5 mg PO Q4H PRN PRN Reason: pain,moderate Pregabalin (Pregabalin 150 Mg Capsule) 300 mg PO BID [facility] Sodium Chloride (0.9 % Sodium Chloride Flush 3 Ml Syringe) 3 ml IVFLUSH QSHIFT [facility] Last Admin: 08/25/24 07:19 Dose: Not Given Home Medications ?Medication ?Instructions ?Recorded ?Confirmed ?Last Taken ?Type amitriptyline 100 mg tablet 100 mg PO BEDTIME 08/25/24 08/25/24 Unknown History aspirin 81 mg tablet,delayed 81 mg PO DAILY 08/25/24 08/25/24 08/24/24 History release atorvastatin 20 mg tablet 20 mg PO DAILY 08/25/24 08/25/24 Unknown History cyclobenzaprine 10 mg tablet 10 mg PO BEDTIME PRN Muscle Spasm 08/25/24 08/25/24 Unknown History glipizide 10 mg tablet 10 mg PO QAM 08/25/24 08/25/24 08/24/24 History ibuprofen 600 mg tablet 600 mg PO Q8H PRN Pain 08/25/24 08/25/24 08/24/24 History lisinopril 5 mg tablet 5 mg PO DAILY 08/25/24 08/25/24 08/24/24 History omeprazole 20 mg capsule,delayed 20 mg PO DAILY@30 08/25/24 08/25/24 08/24/24 History release pregabalin 300 mg capsule 300 mg PO BID 08/25/24 08/25/24 08/24/24 History tirzepatide 7.5 mg/0.5 mL 7.5 mg subcut HARDY 08/25/24 08/25/24 08/19/24 History subcutaneous pen injector (Rebecca) tramadol 50 mg tablet 50 mg PO Q8H PRN pain 08/25/24 08/25/24 08/24/24 History Physical Exam Vital Signs: Vital Signs: Last Vital Signs Temp 97.4 F 08/25/24 07:08 Pulse 90 08/25/24 12:53 Resp 20 08/25/24 12:53 BP 107/70 08/25/24 12:53 Pulse Ox 95 08/25/24 12:53 O2 Del Method Nasal Cannula 08/25/24 12:53 O2 Flow Rate 2 08/25/24 12:53 BMI result Body Mass Index 35.7 Const: General: cooperative and no acute distress Orientation/consciousness: patient oriented x3 Resp: Effort & Inspection: normal respiratory effort and able to speak in complete sentences Cardio: Peripheral pulses: Peripheral pulses 2+ throughout Neuro: General: patient oriented x3 Extrem: Other: Left leg held in ER with knee in flexion. She has pain with any attempt in extending the knee and rotating the femur. She is able to move the toes. NVI. Results Labs 08/25/24 04:31 08/25/24 04:31 Labs: Abnormal lab results 08/25/24 08/25/24 08/25/24 Range/Units 02:17 04:31 07:17 WBC 14.5 H 15.7 H (4.8-10.8) X10*3/uL RBC 3.85 L D 3.87 L (4.20-5.50) X10*6/uL Hgb 11.4 L 11.5 L (12.0-16.0) g/dl Hct 34.2 L D 34.3 L (37.0-47.0) % Immature Gran % (Auto) 0.5 H (0.0-0.4) % Neut % (Auto) 80.6 H (45-73) % Lymph % (Auto) 18.9 L 12.1 L (20-40) % Abs Immat Gran (auto) 0.07 H 0.06 H (0.00-0.03) X10*3/uL Absolute Neuts (auto) 10.5 H 12.7 H (2.0-8.3) x10*3/uL Anion Gap 11 L (12-20) BUN 18 H 18 H (9-16) mg/dL POC Glucose 157 H (60-115) mg/dL Random Glucose 256 H 207 H (60-115) mg/dL Hemoglobin A1c % 7.4 H (<6.0) % Total Protein 6.2 L 6.3 L (6.5-8.0) g/dL 08/25/24 Range/Units 11:46 WBC (4.8-10.8) X10*3/uL RBC (4.20-5.50) X10*6/uL Hgb (12.0-16.0) g/dl Hct (37.0-47.0) % Immature Gran % (Auto) (0.0-0.4) % Neut % (Auto) (45-73) % Lymph % (Auto) (20-40) % Abs Immat Gran (auto) (0.00-0.03) X10*3/uL Absolute Neuts (auto) (2.0-8.3) x10*3/uL Anion Gap (12-20) BUN (9-16) mg/dL POC Glucose 123 H (60-115) mg/dL Random Glucose (60-115) mg/dL Hemoglobin A1c % (<6.0) % Total Protein (6.5-8.0) g/dL H & H 08/25/24 08/25/24 Range/Units 02:17 04:31 Hgb 11.4 L 11.5 L (12.0-16.0) g/dl Hct 34.2 L D 34.3 L (37.0-47.0) % Coagulation 08/25/24 Range/Units 02:17 INR 1.0 (0.9-1.1) All other labs normal. Assessment and Plan (1) Periprosthetic fracture around internal prosthetic left knee joint, initial encounter: Status: Acute Plan I discussed the case with Dr Harrison and explained the extent of the injury to the patient and options available which include surgical intervention. I explained the procedure in detail along with the length of recovery and rehab course. I explained the risk, benefits and alternatives. Risk including, but not limited to infection, blood clots, bleeding, non union or malunion and nerve/tissue damage to surrounding areas. I answered all their questions and with their understanding they have consented to move forward with Operative Fixation of the left femur . The patient will be T&S, med clearance obtained and NPO after midnight. Procedures Date of Service Date of Service: 08/25/24
[2024-08-25] MEDS: Acetaminophen 1,000 MG/100 ML PIGGYBACK 400 MG IV ×2 (14:10→17:32)
[2024-08-25 16:55] LABS: Glucose, Whole Blood 114 mg/dL (60-115)
[2024-08-25] MEDS: HYDROmorphone HCl 0.5 MG/0.5 ML SYRINGE 0.75 MG IVPUSH ×2 (17:15→21:17)
[2024-08-25 18:09] LABS: Glucose, Whole Blood 120 mg/dL (60-115)
[2024-08-25 19:39] LABS: Glucose, Whole Blood 177 mg/dL (60-115)
[2024-08-25] MEDS: Pregabalin 150 MG CAPSULE 300 MG PO (21:16)
[2024-08-25] MEDS: Insulin Lispro 100 UNIT/ML 3 ML VIAL SUBCUT (21:16)
[2024-08-25] MEDS: Amitriptyline HCl 50 MG TABLET 100 MG PO (21:16)
[2024-08-26] VITALS (12 sets, daily range): BP systolic 92–119; BP diastolic 56–67; PULSE 92–124; RESP 16–20; TEMP 36.2–36.8; O2SAT 91–99
[2024-08-26] MEDS: Acetaminophen 1,000 MG/100 ML PIGGYBACK 400 MG IV ×4 (01:00→19:37)
[2024-08-26] MEDS: Cyclobenzaprine HCl 10 MG TABLET PO ×2 (01:01→23:46)
[2024-08-26] MEDS: Lactated Ringers 1,000 ML 100 ML IVCONT ×3 (01:03→23:41)
[2024-08-26] MEDS: HYDROmorphone HCl 0.5 MG/0.5 ML SYRINGE 0.75 MG IVPUSH ×4 (01:07→20:38)
[2024-08-26 07:13] LABS: Glucose, Whole Blood 121 mg/dL (60-115)
[2024-08-26 08:01] LABS: Hematocrit 33.2 % (37.0-47.0); Hemoglobin 10.7 g/dl (12.0-16.0); Mean Corpuscular HGB Conc 32.2 g/dl (31.0-35.0); Mean Corpuscular Hemoglobin 29.7 pg (27.0-33.0); Mean Corpuscular Volume 92.2 fL (80.0-98.0); Mean Platelet Volume 11.4 fL (9.4-12.3); Platelet Count 185 X10*3/uL (160-400); Red Cell Distribution Width 12.9 % (11.0-16.0); White Blood Count 8.9 X10*3/uL (4.8-10.8)
[2024-08-26] MEDS: Atorvastatin Calcium 20 MG TABLET PO (08:01)
[2024-08-26] MEDS: Pregabalin 150 MG CAPSULE 300 MG PO ×2 (08:01→19:34)
[2024-08-26 08:15] LABS: Anion Gap 12 (12-20); Blood Urea Nitrogen 8 mg/dL (9-16); Calcium 8.5 mg/dL (8.4-10.2); Carbon Dioxide 27 mmol/L (22-29); Chloride 109 mmol/L (96-108); Estimated Glomerular Filt Rate > 60; Glucose Random 148 mg/dL (60-115); Potassium 4.4 mmol/L (3.3-5.1); Sodium 144 mmol/L (135-145)
--- NOTE | 2024-08-26 08:47 | MHC.CM.PN ---
CM met with Patient and her Daughter at bedside. Patient lives in a duplex with her /HCP/Pipo and she required no services nor DME CONSULTING PRACTICE MANAGER. Patient will need a PT Eval to assist with disposition;[facility] is Patient's first choice. CM has initiated and will follow for dc planning. PCP is Dr. Josh Naranjo and BLS will likely be needed for transport to [facility].
[2024-08-26] MEDS: diazePAM 10 MG/2 ML CARTRIDGE 2.5 MG IVPUSH (09:45)
--- NOTE | 2024-08-26 09:49 | HO.ANESPROP2 ---
HPI - Anesthesia Eval Consult details Narrative: Left periprosthetic distal femur fracture Anesthesia Pre-Procedure Meds Is the patient on any of the following meds?: GLP1/DPP4 PMFSH Active Problems Active Problems: All Active Problems Periprosthetic fracture around internal prosthetic left knee joint, initial encounter (Acute) Femur fracture (Acute) Past Medical History Medical History (Updated 08/26/24 @ 09:54 by García Bright MD) Hypertension Obesity Diabetes mellitus Hyperlipidemia CAD (coronary artery disease) Family History Family history of problems with anesthesia: No Surgical History Surgical History (Updated 08/26/24 @ 09:53 by García Bright MD) History of percutaneous coronary intervention History of Problems with Anesthesia: No Social History Social History Household Members: Spouse Housing: House Do you presently have visiting nurse or other home services: Yes Patient Tobacco Use Status: Never used Tobacco e-Cigarette/Vaping Use: Never Used Second Hand Smoke Exposure: No service: No Meds Allergies Allergy/AdvReac Type Severity Reaction Status Date / Time No Known Allergies Allergy Verified 08/25/24 01:38 [No Known Allergies*] Active Medications: Current Medications Amitriptyline HCl (Amitriptyline Hcl 50 Mg Tablet) 100 mg PO BEDTIME [facility] Last Admin: 08/25/24 21:16 Dose: 100 mg Atorvastatin Calcium (Atorvastatin Calcium 20 Mg Tablet) 20 mg PO DAILY [facility] Last Admin: 08/26/24 08:01 Dose: 20 mg Calcium Carbonate (Calcium Carbonate 750 Mg Tab.Chew) 750 mg PO Q4H PRN PRN Reason: Heartburn Cyclobenzaprine HCl (Cyclobenzaprine Hcl 10 Mg Tablet) 10 mg PO BEDTIME PRN PRN Reason: Muscle Spasm Last Admin: 08/26/24 01:01 Dose: 10 mg Dextrose (Dextrose 50 % 25 Gm/50 Ml Syringe) 25 gm IVPUSH Q15M PRN; Protocol PRN Reason: per Hypoglycemia Standing Ord. Glucose (Glucose Gel 15 Gm Gel..Gram.) 15 gm PO Q15M PRN; Protocol PRN Reason: per Hypoglycemia Standing Ord. Hydromorphone HCl (Hydromorphone Hcl 0.5 Mg/0.5 Ml Syringe) 0.75 mg IVPUSH Q4H PRN; Protocol PRN Reason: Pain, Severe (Pain Scale 7-10) Last Admin: 08/26/24 08:12 Dose: 0.75 mg Lactated Ringer's (Lr) 1,000 mls @ 100 mls/hr IVCONT .Q10H [facility] Last Admin: 08/26/24 01:03 Dose: 100 mls/hr Acetaminophen (Ofirmev) 1,000 mg in 100 mls @ 400 mls/hr IV Q6H [facility] Last Infusion: 08/26/24 08:19 Dose: Infused Insulin Human Lispro (Insulin Lispro 100 Unit/Ml 3 Ml Vial) 0 unit SUBCUT QIDACHS [facility]; Protocol Last Admin: 08/26/24 07:18 Dose: Not Given Magnesium Hydroxide (Milk Of Magnesia 30 Ml Oral.Susp) 30 ml PO DAILY PRN PRN Reason: Constipation Melatonin (Melatonin 3 Mg Tablet) 6 mg PO BEDTIME PRN PRN Reason: Insomnia Omeprazole (Omeprazole 20 Mg Capsule.Dr) 20 mg PO DAILY@0630 [facility] Last Admin: 08/26/24 05:01 Dose: Not Given Oxycodone HCl (Oxycodone Hcl Immed Release 5 Mg Tablet) 5 mg PO Q4H PRN PRN Reason: pain,moderate Pregabalin (Pregabalin 150 Mg Capsule) 300 mg PO BID [facility] Last Admin: 08/26/24 08:01 Dose: 300 mg Sodium Chloride (0.9 % Sodium Chloride Flush 3 Ml Syringe) 3 ml IVFLUSH QSHIFT [facility] Last Admin: 08/26/24 08:03 Dose: Not Given Home Medications ?Medication ?Instructions ?Recorded ?Confirmed ?Last Taken ?Type amitriptyline 100 mg tablet 100 mg PO BEDTIME 08/25/24 08/25/24 Unknown History aspirin 81 mg tablet,delayed 81 mg PO DAILY 08/25/24 08/25/24 08/24/24 History release atorvastatin 20 mg tablet 20 mg PO DAILY 08/25/24 08/25/24 Unknown History cyclobenzaprine 10 mg tablet 10 mg PO BEDTIME PRN Muscle Spasm 08/25/24 08/25/24 Unknown History glipizide 10 mg tablet 10 mg PO QAM 08/25/24 08/25/24 08/24/24 History ibuprofen 600 mg tablet 600 mg PO Q8H PRN Pain 08/25/24 08/25/24 08/24/24 History lisinopril 5 mg tablet 5 mg PO DAILY 08/25/24 08/25/24 08/24/24 History omeprazole 20 mg capsule,delayed 20 mg PO DAILY@0630 08/25/24 08/25/24 08/24/24 History release pregabalin 300 mg capsule 300 mg PO BID 08/25/24 08/25/24 08/24/24 History tirzepatide 7.5 mg/0.5 mL 7.5 mg subcut HARDY 08/25/24 08/25/24 08/19/24 History subcutaneous pen injector (Rebecca) tramadol 50 mg tablet 50 mg PO Q8H PRN pain 08/25/24 08/25/24 08/24/24 History Exam Height,Weight and Vital Signs: Height 5 ft 9 in Weight 109.769 kg Last Vital Signs Temp 97.3 F 08/26/24 07:22 Pulse 98 08/26/24 07:22 Resp 18 08/26/24 07:22 BP 102/67 08/26/24 07:22 Pulse Ox 92 08/26/24 07:22 O2 Del Method Room Air 08/26/24 07:22 O2 Flow Rate 2 08/25/24 23:43 Pertinent Lab Results Pertinent Lab Results: Laboratory Tests 08/25/24 08/25/24 08/25/24 02:17 03:29 04:31 WBC 14.5 H 15.7 H RBC 3.85 L D 3.87 L Hgb 11.4 L 11.5 L Hct 34.2 L D 34.3 L MCV 88.8 88.6 MCH 29.6 29.7 MCHC 33.3 33.5 RDW 13.1 13.0 Plt Count 220 D 221 MPV 11.1 11.2 Immature Gran % (Auto) 0.5 H 0.4 Neut % (Auto) 72.0 80.6 H Lymph % (Auto) 18.9 L 12.1 L Schley % (Auto) 6.7 6.0 Eos % (Auto) 1.4 0.5 Baso % (Auto) 0.5 0.4 Lymph # (Auto) 2.7 1.9 Schley # (Auto) 1.0 0.9 Eos # (Auto) 0.2 0.1 Baso # (Auto) 0.1 0.1 Abs Immat Gran (auto) 0.07 H 0.06 H Absolute Neuts (auto) 10.5 H 12.7 H Absolute Nucleated RBC 0.000 0.000 Nucleated RBC % (auto) 0.0 0.0 PT 11.5 INR 1.0 Sodium 138 139 Potassium 4.0 4.1 Chloride 106 106 Carbon Dioxide 23 26 Anion Gap 13 11 L BUN 18 H 18 H Creatinine 0.84 0.82 Estim Creat Clear Calc 92.8 95.1 Estimated GFR > 60 > 60 POC Glucose Random Glucose 256 H 207 H Estimat Average Glucose 166 Hemoglobin A1c % 7.4 H Calcium 8.7 D 8.6 Total Bilirubin 0.3 0.3 AST 20 21 ALT 14 15 Alkaline Phosphatase 66 67 Total Protein 6.2 L 6.3 L Albumin 3.7 3.8 Blood Type O Positive Antibody Screen NEGATIVE 08/25/24 08/25/24 08/25/24 07:17 11:46 16:49 WBC RBC Hgb Hct MCV MCH MCHC RDW Plt Count MPV Immature Gran % (Auto) Neut % (Auto) Lymph % (Auto) Schley % (Auto) Eos % (Auto) Baso % (Auto) Lymph # (Auto) Schley # (Auto) Eos # (Auto) Baso # (Auto) Abs Immat Gran (auto) Absolute Neuts (auto) Absolute Nucleated RBC Nucleated RBC % (auto) PT INR Sodium Potassium Chloride Carbon Dioxide Anion Gap BUN Creatinine Estim Creat Clear Calc Estimated GFR POC Glucose 157 H 123 H 114 Random Glucose Estimat Average Glucose Hemoglobin A1c % Calcium Total Bilirubin AST ALT Alkaline Phosphatase Total Protein Albumin Blood Type Antibody Screen 08/25/24 08/25/24 08/26/24 18:05 19:32 06:50 WBC 8.9 RBC 3.60 L Hgb 10.7 L Hct 33.2 L MCV 92.2 MCH 29.7 MCHC 32.2 RDW 12.9 Plt Count 185 MPV 11.4 Immature Gran % (Auto) Neut % (Auto) Lymph % (Auto) Schley % (Auto) Eos % (Auto) Baso % (Auto) Lymph # (Auto) Schley # (Auto) Eos # (Auto) Baso # (Auto) Abs Immat Gran (auto) Absolute Neuts (auto) Absolute Nucleated RBC 0.000 Nucleated RBC % (auto) 0.0 PT INR Sodium 144 Potassium 4.4 Chloride 109 H Carbon Dioxide 27 Anion Gap 12 BUN 8 L Creatinine 0.60 Estim Creat Clear Calc 130.0 Estimated GFR > 60 POC Glucose 120 H 177 H Random Glucose 148 H Estimat Average Glucose Hemoglobin A1c % Calcium 8.5 Total Bilirubin AST ALT Alkaline Phosphatase Total Protein Albumin Blood Type Antibody Screen 08/26/24 06:59 WBC RBC Hgb Hct MCV MCH MCHC RDW Plt Count MPV Immature Gran % (Auto) Neut % (Auto) Lymph % (Auto) Schley % (Auto) Eos % (Auto) Baso % (Auto) Lymph # (Auto) Schley # (Auto) Eos # (Auto) Baso # (Auto) Abs Immat Gran (auto) Absolute Neuts (auto) Absolute Nucleated RBC Nucleated RBC % (auto) PT INR Sodium Potassium Chloride Carbon Dioxide Anion Gap BUN Creatinine Estim Creat Clear Calc Estimated GFR POC Glucose 121 H Random Glucose Estimat Average Glucose Hemoglobin A1c % Calcium Total Bilirubin AST ALT Alkaline Phosphatase Total Protein Albumin Blood Type Antibody Screen Airway Mallampati Class: II TM Dist: >3cm Neck ROM: Full Loose/Missing/Broken Teeth: No Heart: RRR Lungs: CTAB Assessment and Plan Assessment Anesthesia Assessment: Anesthesia Plan Discussed and Chart Reviewed Final Anesthetic Review Family History of Problems with Anesthesia: No History of Problems with Anesthesia: No NPO: Yes ASA Class: III Final Preanesthetic Review: No Changes in Pt Med Stat, Meds/Allgs Chart Reviewed, Consent Obtained/Reviewed and Anes Risks/Benef Reviewed Patient Risk: Intermediate Procedure Risk: Intermediate Anesthetic Plan Anesthetic Plan: GA Disposition: Standard PACU
--- NOTE | 2024-08-26 10:18 | MHC.SHP ---
Pre-Procedural Eval Section A - 24 Hr Update-Section A only Date of Service: 08/26/24 The patient is an INPATIENT: Yes Changes since office visit: No Cold of Flu in the past 2 weeks, No New Medical Problems, No Changes in Medication and No Patient answered all questions The patient has been examined within 24 hours of the surgical procedure. The History & Physical has been completed within 30 days and I have reviewed it.: Yes Section B - Complete if H&P > 30 days Chief Complaint: femur Fx Allergies: Allergies Allergy/AdvReac Type Severity Reaction Status Date / Time No Known Allergies Allergy Verified 08/25/24 01:38 [No Known Allergies*] Plan I have reviewed the history and physical and performed a pertinent physical examination on my patient. No changes have occurred unless specified. Time Spent With Patient Time: Total time managing care of this patient today ____ minutes.
--- NOTE | 2024-08-26 10:41 | HO.PM.IMPN ---
Subjective Subjective Date of Service: 08/26/24 Interval History: pain under better control; anxious Review of Systems Review of Systems: Yes all other systems are reviewed and are negative Physical Exam Vital Signs: Vital Signs: Last Vital Signs Temp 97.3 F 08/26/24 07:22 Pulse 98 08/26/24 07:22 Resp 18 08/26/24 07:22 BP 102/67 08/26/24 07:22 Pulse Ox 92 08/26/24 07:22 O2 Del Method Room Air 08/26/24 07:22 O2 Flow Rate 2 08/25/24 23:43 BMI result Body Mass Index 35.7 Gen: in no acute distress HEENT: sclera anicteric, moist mucus membranes Neck: supple Lungs: clear to auscultation bilaterally Heart: regular rate and rhythm, no murmurs Abd: soft, non-tender, non-distended Ext: no edema, L thigh swollen and deformed, unable to extend Skin: warm/well-perfused Neuro: alert and oriented x3, no focal findings Psych: appropriate affect Objective Data Active Medications Amitriptyline HCl (Amitriptyline Hcl 50 Mg Tablet) 100 mg PO BEDTIME [facility] Last Admin: 08/25/24 21:16 Dose: 100 mg Documented By: KYMBERLY Atorvastatin Calcium (Atorvastatin Calcium 20 Mg Tablet) 20 mg PO DAILY [facility] Last Admin: 08/26/24 08:01 Dose: 20 mg Documented By: MILAGROS Calcium Carbonate (Calcium Carbonate 750 Mg Tab.Chew) 750 mg PO Q4H PRN PRN Reason: Heartburn Cyclobenzaprine HCl (Cyclobenzaprine Hcl 10 Mg Tablet) 10 mg PO BEDTIME PRN PRN Reason: Muscle Spasm Last Admin: 08/26/24 01:01 Dose: 10 mg Documented By: KYMBERLY Dextrose (Dextrose 50 % 25 Gm/50 Ml Syringe) 25 gm IVPUSH Q15M PRN; Protocol PRN Reason: per Hypoglycemia Standing Ord. Fentanyl (Fentanyl Citrate/Pf 100 Mcg/2 Ml Vial) 50 mcg IVPUSH Q5M PRN PRN Reason: Pain, Severe (Pain Scale 7-10) Stop: 08/26/24 15:55 Glucose (Glucose Gel 15 Gm Gel..Gram.) 15 gm PO Q15M PRN; Protocol PRN Reason: per Hypoglycemia Standing Ord. Hydromorphone HCl (Hydromorphone Hcl 0.5 Mg/0.5 Ml Syringe) 0.75 mg IVPUSH Q4H PRN; Protocol PRN Reason: Pain, Severe (Pain Scale 7-10) Last Admin: 08/26/24 08:12 Dose: 0.75 mg Documented By: MILAGROS Hydromorphone HCl (Hydromorphone Hcl 0.5 Mg/0.5 Ml Syringe) 0.5 mg IVPUSH Q5M PRN PRN Reason: Pain, Moderate to Severe (Pain Scale 4-10) Stop: 08/26/24 15:55 Lactated Ringer's (Lr) 1,000 mls @ 100 mls/hr IVCONT .Q10H [facility] Last Admin: 08/26/24 10:21 Dose: 100 mls/hr Documented By: MILAGROS Acetaminophen (Ofirmev) 1,000 mg in 100 mls @ 400 mls/hr IV Q6H [facility] Last Infusion: 08/26/24 08:19 Dose: Infused Documented By: MILAGROS Insulin Human Lispro (Insulin Lispro 100 Unit/Ml 3 Ml Vial) 0 unit SUBCUT QIDACHS [facility]; Protocol Last Admin: 08/26/24 07:18 Dose: Not Given Documented By: MILAGROS Non-Admin Reason: No Insulin Coverage Magnesium Hydroxide (Milk Of Magnesia 30 Ml Oral.Susp) 30 ml PO DAILY PRN PRN Reason: Constipation Melatonin (Melatonin 3 Mg Tablet) 6 mg PO BEDTIME PRN PRN Reason: Insomnia Naloxone HCl (Naloxone Hcl 0.4 Mg/Ml Vial) 0.04 mg IVPUSH Q5M PRN PRN Reason: Excessive sedation or RR < 8 Omeprazole (Omeprazole 20 Mg Capsule.Dr) 20 mg PO DAILY@0630 [facility] Last Admin: 08/26/24 05:01 Dose: Not Given Documented By: SYEDB Non-Admin Reason: NPO Oxycodone HCl (Oxycodone Hcl Immed Release 5 Mg Tablet) 5 mg PO Q4H PRN PRN Reason: pain,moderate Pregabalin (Pregabalin 150 Mg Capsule) 300 mg PO BID [facility] Last Admin: 08/26/24 08:01 Dose: 300 mg Documented By: MILAGROS Promethazine HCl (Promethazine Hcl 25 Mg/Ml Vial) 6.25 mg IM ONCE PRN PRN Reason: Nausea and Vomiting Stop: 08/26/24 15:55 Sodium Chloride (0.9 % Sodium Chloride Flush 3 Ml Syringe) 3 ml IVFLUSH QSHIFT [facility] Last Admin: 08/26/24 08:03 Dose: Not Given Documented By: MILAGROS Non-Admin Reason: IV Running Labs 08/26/24 06:50 08/26/24 06:50 Labs: Laboratory Results - last 24 hr 08/25/24 08/25/24 08/25/24 11:46 16:49 18:05 MCV MCH MCHC RDW Plt Count MPV Absolute Nucleated RBC Nucleated RBC % (auto) Anion Gap Estim Creat Clear Calc Estimated GFR POC Glucose 123 H 114 120 H Random Glucose Calcium 08/25/24 08/26/24 08/26/24 19:32 06:50 06:59 MCV 92.2 MCH 29.7 MCHC 32.2 RDW 12.9 Plt Count 185 MPV 11.4 Absolute Nucleated RBC 0.000 Nucleated RBC % (auto) 0.0 Anion Gap 12 Estim Creat Clear Calc 130.0 Estimated GFR > 60 POC Glucose 177 H 121 H Random Glucose 148 H Calcium 8.5 Assessment and Plan (1) Femur fracture: Status: Acute Plan d2 for 59yo F with CAD s/p PCI 2014, DM2, HLD, arthritis s/p L TKA who had a mechanical fall on stairs and sustained a comminuted, displaced fracture at the distal left femoral metadiaphysis femur fx - Orthopedics consulted, pain control with IV hydromorphone + IV APAP, NPO for operative repair; no anginal symptoms while walking or climbing stairs; intermediate risk for this procedure anemia due to blood loss from fracture - monitor H+H; apears to have stabilized HTN - hold lisinopril CAD - hold ASA, give atorvastatin DM2 - hold Mounjaro and GPZ, give maria isabel-dose lipsro neuropathic pain - pregabalin + amitriptylline VTE ppx - SCDs, enoxaparin postop dispo - STR In my clinical judgment, the patient requires continued inpatient hospitalization for the following reasons: operative repair and postoperative care Total time managing care of this patient today: 35 minutes. Quality Stroke Does the patient have a stroke diagnosis?: No VTE Prior VTE?: No VTE Risk Level:: Medical - moderate - high VTE Device Contraindication: Treatment Not Indicated VTE Drug Contraindication: N/A - Med Ordered
[2024-08-26] MEDS: ceFAZolin Sodium/Dextrose,Iso 2 GM/50 ML PIGGYBACK IV (11:10)
--- NOTE | 2024-08-26 13:05 | P.BOP_ITS ---
Brief Operative Note Date of Service: 08/26/24 Pre-op diagnosis: Left distal femur periprosthetic fx Post-op diagnosis: same Procedure: Retrograde IMN left femur Implants: [place] 2 13x 360; 2 proximal and 5 distal interlocking screws Surgeon: Miko Harrison MD Anesthesia: GLMA and local Was an Marketing Intelligence Manager used for this Procedure?: No Estimated blood loss (mL): 150 IV fluids (mL): 1,000 Pathology: none sent Condition: stable Disposition: PACU
[2024-08-26 14:35] LABS: Glucose, Whole Blood 137 mg/dL (60-115)
[2024-08-26 16:11] LABS: Glucose, Whole Blood 143 mg/dL (60-115)
[2024-08-26] MEDS: 0.9 % Sodium Chloride Flush 3 ML SYRINGE IVFLUSH (19:33)
[2024-08-26] MEDS: Amitriptyline HCl 50 MG TABLET 100 MG PO (19:34)
[2024-08-26 19:51] LABS: Glucose, Whole Blood 162 mg/dL (60-115)
[2024-08-26] MEDS: Insulin Lispro 100 UNIT/ML 3 ML VIAL SUBCUT (21:15)
[2024-08-26] MEDS: oxyCODONE HCl Immed Release 5 MG TABLET PO (23:46)
[2024-08-27] VITALS (16 sets, daily range): BP systolic 100–119; BP diastolic 51–61; PULSE 107–119; RESP 16–18; TEMP 36.1–36.8; O2SAT 79–100
--- NOTE | 2024-08-27 | ECG_ITS ---
Test Reason : tachy Blood Pressure : */* mmHG Vent. Rate : 121 BPM Atrial Rate : 121 BPM P-R Int : 158 ms QRS Dur : 92 ms QT Int : 324 ms P-R-T Axes : 25 -5 27 degrees QTcB Int : 460 ms Sinus tachycardia Inferior infarct (cited on or before 25-Aug-2024) Abnormal ECG When compared with ECG of 25-Aug-2024 05:02, Vent. rate has increased by 41 bpm Non-specific change in ST segment in Lateral leads Referred By: Yonatan Charles Electronically Signed By: ESAU PATHAK MD
[2024-08-27] MEDS: HYDROmorphone HCl 0.5 MG/0.5 ML SYRINGE IVPUSH (00:50)
[2024-08-27] MEDS: iohexoL 300 MG/ML 100 ML INFUS..BTL 85 ML IV (02:55)
--- NOTE | 2024-08-27 04:31 | PM.EVENT ---
Event Note Date of Service: 08/27/24 Event Note: Pulmonary embolism: Patient was persistently tachycardic last night. Order for CT chest. While patient being moved to the CT scan patient noted to be hypoxic. Placed on supplemental oxygen. Not in respiratory distress. CT showed moderate pulmonary embolism burden. No CT evidence of right heart strain. pt Hgb 10.7-->8.5;No bruise. Pulses palpable. Notified Orthopedics team -> whether ok to start heparin drip from surgery stand point--> ortho agreed top start heparin drip Ordered echocardiogram Venous duplex Time Spent With Patient Time: Total time managing care of this patient today ____ minutes.
[2024-08-27] MEDS: HYDROmorphone HCl 0.5 MG/0.5 ML SYRINGE 0.75 MG IVPUSH ×4 (05:21→21:54)
[2024-08-27 05:26] LABS: Hematocrit 26.2 % (37.0-47.0); Hemoglobin 8.5 g/dl (12.0-16.0); Mean Corpuscular HGB Conc 32.4 g/dl (31.0-35.0); Mean Corpuscular Hemoglobin 29.7 pg (27.0-33.0); Mean Corpuscular Volume 91.6 fL (80.0-98.0); Mean Platelet Volume 11.5 fL (9.4-12.3); Platelet Count 165 X10*3/uL (160-400); Red Blood Count 2.86 X10*6/uL (4.20-5.50); White Blood Count 10.3 X10*3/uL (4.8-10.8)
[2024-08-27 05:30] LABS: INTERNATIONAL NORM RATIO 1.1 (0.9-1.1); Prothrombin Time 12.9 SEC (10.9-12.4)
[2024-08-27 05:38] LABS: MANUAL DIFF FLAG NO
[2024-08-27 05:40] LABS: Anion Gap 11 (12-20); Basophils Percent Auto 0.4 % (0-2); Blood Urea Nitrogen 6 mg/dL (9-16); Carbon Dioxide 26 mmol/L (22-29); Chloride 104 mmol/L (96-108); Creatinine Clr Calc Pharmacy 125.7; Eosinophils Absolute Auto 0.6 X10*3/uL (0.0-0.4); Eosinophils Percent Auto 5.3 % (0-4); Estimated Glomerular Filt Rate > 60; Glucose Random 194 mg/dL (60-115); Imm Gran Abs Auto 0.04 X10*3/uL (0.00-0.03); Imm Gran Pct Auto 0.4 % (0.0-0.4); Lymphocytes Absolute Auto 1.6 X10*3/uL (1.2-4.9); Lymphocytes Percent Auto 15.1 % (20-40); Monocytes Absolute Auto 0.9 X10*3/uL (0.1-1.2); Monocytes Percent Auto 8.6 % (2-11); Neutrophils Absolute Auto 7.2 x10*3/uL (2.0-8.3); Neutrophils Percent Auto 70.2 % (45-73); Potassium 4.1 mmol/L (3.3-5.1); Sodium 137 mmol/L (135-145)
[2024-08-27] MEDS: Omeprazole 20 MG CAPSULE.DR PO (05:46)
[2024-08-27] MEDS: Heparin Sodium,Porcine 5,000 UNIT/ML VIAL 8800 UNIT IVPUSH ×2 (05:46→19:19)
[2024-08-27] MEDS: Heparin Sodium,Porcine/1/2NS 25,000 UNIT/250 ML IV.SOLN 15.37 UNIT IVCONT (05:50)
--- NOTE | 2024-08-27 06:40 | PC.NURSE ---
Assumed care of this patient at 19:00. Pt underwent a left femur IM nailing during the day (08/26) after a fall at home resulting in a femur fx. Pt was A&Ox4 with daughters at bedside, anxious and c/o pain. Pt on tele showing sinus tachycardia 110's on assuming care. Pt remained tachycardic in 110's, later into 120's despite pt reporting improved pain with ice and medications administered. Pt denied chest pain or palpitations. Breathing observed even and unlabored without distress on room air. Pt was afebrile and normothermic to touch x4 extremities with +dp and pt pulses, +cms, denied chills. Covering Dr. Lacy Charles was notified of persistent tachycardia despite pain management. An EKG was obtained showing Sinus tachycardia with ventricular rate 120's. A CT chest to rule out PE was ordered by . Just prior to transporting this pt to CT, this procedure writer obtained a new set of vitals at which time the pt was found to have new desats with spo2 of 79-80% on room air. The pt was placed on an oxymask and continuous spo2 monitoring, and o2 was titrated as tolerated for spo2 >90%. The pt denied chest pain, palpitation, and sob during this time. The pt's breathing remained even and unlabored. Dr. Charles was immediately notified. As the pt remained stable and the spo2 was maintained on the oxymask, the pt was taken by the propellant charge loader and RN extermination supervisor on monitoring to CT as soon as CT was available per radiology. CT resulted at approximately 04:30 showing +PE (please see imaging results/interpretation). Dr. Charles was immediately notified and orders were placed for a heparin gtt and bolus. Phlebotomy was immediately requested to the bedside to draw a stat CBC, PTT, PT/INR prior to initiating ordered heparin gtt. orders for echo and BLE U/S to r/o DVT. advised this procedure writer to removed SCD, done per telephone verbal orders. Dr Charles presented to the bedside and made the pt aware of the CT results and need for heparin gtt, reinforced education on importance of repositioning which the pt has been resistive to overnight; this procedure writer was present. The became tearful and stated My sister from a blood clot ! Reassurance of plan and active listening was provided with +effect. Pt was agreeable to the heparin gtt, however, CBC results showed a drop in pt's H+H and an elevated PT level. Assessment of the patient's leg was unchanged from procedure writer's initial assessment and the surgical dressing remained c/d/i without bleeding. +dp and pt pulses. No visible signs of bleeding noted. Dr. Charles was made aware of labs and advised this procedure writer to hold the heparin bolus and gtt initiation pending confirmation of the plan with ortho covering provider. 05:40 this procedure writer was advised by Dr. Charles that it was okay to start the heparin gtt per ortho covering Dr. Martín Cruz. Heparin bolus was administered and gtt initated with propellant charge loader as witness. 06:45: Handoff report given to oncoming RN including heparin gtt verified and surgical site visualized with oncoming RN. Please see shift assessments, tasks, and MAR for full details.
--- NOTE | 2024-08-27 07:00 | CA_ITS ---
Transthoracic Echocardiogram Patient (Last, First, Middle): Ivana Roach, Gender: Female Date of : 1965 Age: 59 Procedure Date: 08/27/2024 Procedure Type: Transthoracic Echocardiogram Location: [facility] [place] Height: 175.26 cm Weight: 109.77 kg BSA: 2.24 m2 Heart Rate: bpm BP: 116 / 57 mmHg Bridge Worker Apprentice: Referring MD: Yonatan Charles MD Java [email or web address] Application Developer: Esdras Kaplan MD Symptoms: Pulmonary embolism Study Quality: Technically Difficult ECG Rhythm: Sinus Conclusions: - 1. Technically limited study despite use of contrast agent 2. Normal biventricular systolic function 3. Cardiac valvular Dopplers within normal limits 4. Normal measured RV systolic pressure Findings Left Ventricle Normal left ventricular size, thickness, and systolic function. The visually estimated ejection fraction is between 60-65%. Spectral Doppler is indicative of a normal filling pattern. Right Ventricle Normal right ventricular cavity size and systolic function. Atria The left atrium is normal in size. Interatrial shunt cannot be excluded. The right atrium was not well visualized. Aortic Valve The aortic valve was not well visualized. There is no aortic valve stenosis. There is no aortic valve regurgitation. Mitral Valve The mitral valve was not well visualized. There is trace mitral valve regurgitation. There is no mitral valve stenosis. Pulmonic Valve The pulmonic valve was not well visualized. Tricuspid Valve The tricuspid valve was not well visualized. There is trace tricuspid valve regurgitation. The right ventricular systolic pressure is normal. Normal right atrial pressure. Great Vessels The aorta was not well visualized. The pulmonary artery was not well visualized. Venous The inferior vena cava is normal in size. Pericardium/Pleural The pericardium was not well visualized. Prior Study Comparison No prior study available for comparison. Measurements 2D Linear Measurements IVSd: 1.03 0.6-0.9/0.6-1.0 cm LVIDd: 3.88 3.9-5.3/4.2-5.9 cm LVIDd Index: 1.73 2.4-3.2/2.2-3.1 cm/m2 LVIDs: 2.71 2.0-3.6 cm LVPWd: 0.96 0.7-1.1 cm Ao Root: 3.30 2.1-3.5 cm LA Diam: 2.90 2.7-3.8/3.0-4.0 cm LAIDs Index: 1.29 1.5-2.3 cm/m2 LV Mass: 149.18 67-162/88-224 g LV Mass Index: 66.60 43-95/49-115 g/m2 LVOT Diam: 2.30 3.0+(-)1.3 cm Mitral Valve MV Pk E: 0.51 MV PK A: 0.97 MV Decel Time: 115.00 E/A: 0.50 E'Lateral: 15.60 E'Medial: 6.20 E/E' Med: 8.30 E/E' Lat: 3.30 PHT: 34.00 MVA PHT: 6.47 Decel [place]: 4.48 Aortic Valve AoV Pk Craig: 1.66 AoV Mn Craig: 1.01 AoV VTI: 0.29 AoV Pk Grad: 11.00 Aov Mn Grad: 5.00 MIMI Cont.VTI: 3.98 LVOT LVOT Pk Craig: 1.21 LVOT Mn Craig: 0.74 LVOT VTI: 0.28 LVOT Pk Grad: 6.00 LVOT Mn Grad: 3.00 LVOT Diam: 2.30 LVOT Area: 4.15 Diastolic Function MV Pk E: 0.51 MV Pk A: 0.97 E/A: 0.50 E'Medial: 6.20 E/E' Med: 8.30 E' Laterial: 15.60 E/E' Lat: 3.30 Right Ventricle TAPSE (mm): 25.00 TVS' Craig: 15.00 Tricuspid Valve TR Pk Craig: 1.53 TR Pk Grad: 9.00 RA Press: 3.00 RVSP: 12.00 Great Vessels Aorta Ao Root-2D: 3.30 2.0-3.7 cm Ao Asc: 3.40 2.1-3.4 cm Pulmonary Valve PV Pk Craig: 1.19 Peak PV Grad: 6.00 Updated in Other Vendor System with Status of Final Esdras Kaplan MD electronically signed on 08/27/2024 4:01:20 PM with status of Final
[2024-08-27 07:20] LABS: Glucose, Whole Blood 203 mg/dL (60-115)
--- NOTE | 2024-08-27 08:27 | PM.PNORT ---
Subjective Subjective Date of Service: 08/27/24 Interval history: POD 1 status post left distal femur retrograde nail Overnight patient was found to be tachycardic and hypoxic, CT a positive for PE Patient is resting in bed with oxygen No other complaints Physical Exam Vital Signs: Vital Signs: Last Vital Signs Temp 97.0 F 08/27/24 07:04 Pulse 118 H 08/27/24 07:04 Resp 16 08/27/24 07:04 BP 116/57 L 08/27/24 07:04 Pulse Ox 95 08/27/24 07:04 O2 Del Method Oxymask 08/27/24 07:04 O2 Flow Rate 2 08/27/24 07:04 BMI result Body Mass Index 35.7 Const: General: cooperative, healthy appearing and no acute distress Resp: Effort & Inspection: normal respiratory effort and able to speak in complete sentences Cardio: Rate: regular rate Peripheral pulses: Peripheral pulses 2+ throughout GI: Palpation (GI): Soft to palpation Skin: General skin exam: no rashes or lesions noted Extrem: Other: Left knee incisions are clean dry and intact. Mild swelling. Calf supple and nontender. Compartments soft. Neurovascularly intact. Procedures Date of Service Date of Service: 08/27/24 Progress Note: A&P Assessment and plan (1) Periprosthetic fracture around internal prosthetic left knee joint, initial encounter: Status: Acute Assessment and Plan: Pain management Patient is started on heparin drip per Medicine for PE Vascular may take patient for a thrombectomy tomorrow PT/OT weightbearing as tolerated Dispo pending PT eval and med clearance Time Spent With Patient Time: Total time managing care of this patient today ____ minutes. Quality Stroke Does the patient have a stroke diagnosis?: No VTE Prior VTE?: No VTE Risk Level:: Medical - moderate - high VTE Device Contraindication: Treatment Not Indicated VTE Drug Contraindication: N/A - Med Ordered
[2024-08-27] MEDS: Acetaminophen 1,000 MG/100 ML PIGGYBACK 400 MG IV ×3 (08:47→19:48)
[2024-08-27] MEDS: Pregabalin 150 MG CAPSULE 300 MG PO ×2 (08:48→21:54)
[2024-08-27] MEDS: Atorvastatin Calcium 20 MG TABLET PO (08:48)
[2024-08-27] MEDS: Insulin Lispro 100 UNIT/ML 3 ML VIAL SUBCUT ×3 (08:49→16:25)
[2024-08-27 09:04] LABS: Troponin-I High Sensitivity 19.6 ng/L (<3.5-17.0)
[2024-08-27 09:07] LABS: B Type Natriuretic Peptide 28 pg/mL (<100)
--- NOTE | 2024-08-27 09:23 | HO.POSTANES ---
Post Anesthesia Evaluation Post Anesthesia Evaluation Date of Service: 08/27/24 Vital Signs: Vital Signs Temp Pulse Resp BP Pulse Ox O2 Del Method O2 Flow Rate 08/27/24 07:04 97.0 F 118 H 16 116/57 L 95 Oxymask 2 08/27/24 05:51 18 08/27/24 05:21 18 08/27/24 04:00 98.0 F 118 H 18 119/57 L 97 Oxymask 2 08/27/24 02:36 117 H 16 119/57 L 96 Oxymask 2 08/27/24 02:10 100 Oxymask 4 08/27/24 02:05 100 Oxymask 8 08/27/24 02:01 119 H 18 100 Oxymask 15 08/27/24 01:44 98.3 F 118 H 16 110/51 L 79 L Room Air 08/27/24 00:50 18 08/27/24 00:46 18 08/27/24 00:46 18 08/26/24 23:52 98.2 F 124 H 18 104/56 L 93 Room Air Anesthesia: General Mental Status: Awake Pain Control: Satisfactory Nausea/Vomiting: None Hydration: Adequate Anesthesia-Related Issues: No Anes. Related Issues (PE post op, on oxygen, monitored and surgery aware)
--- NOTE | 2024-08-27 11:12 | PM.CNGS ---
History of Present Illness Consult details Consult date: 08/27/24 Reason for consult: other (PE) Narrative: Very pleasant morbidly obese 59-year-old female presents for evaluation of pulmonary embolism. She had undergone left femur fracture repair and subsequently developed shortness of breath. It was discovered that the patient had a pulmonary embolism on CT scan. She now presents for vascular evaluation. Of note she has never had a prior history of this. She does note that she had a sister that from a pulmonary embolism. Review of Systems Review of Systems: Yes all other systems are reviewed and are negative Constitutional: Constitutional: Reports no additional constitutional complaints ENT: Reports Normal hearing present Cardiovascular: Cardiovascular: Denies chest pain, Denies chest pain at rest, Denies chest pain with activity and Denies pedal edema Respiratory: Respiratory: Denies cough Gastrointestinal: Gastrointestinal: Denies abdominal pain Musculoskeletal: Musculoskeletal: Denies abnormal gait, Denies muscle cramps and Denies radiating pain into limb Integumentary/Breasts: Skin/Breast: Denies skin ulcer and Denies wounds Neurologic: Reports Normal hearing present and Denies abnormal gait Psychiatric: Psychiatric: Reports no additional psychiatric complaints [facility] Past Medical History Medical History (Updated 08/27/24 @ 11:15 by Aj Wilson MD) Hypertension Obesity Diabetes mellitus Hyperlipidemia CAD (coronary artery disease) Surgical History Surgical History (Updated 08/26/24 @ 09:53 by García Bright MD) History of percutaneous coronary intervention Social History Social History Household Members: Spouse Housing: House Do you presently have visiting nurse or other home services: Yes Patient Tobacco Use Status: Never used Tobacco e-Cigarette/Vaping Use: Never Used Second Hand Smoke Exposure: No service: No Meds Allergies Allergy/AdvReac Type Severity Reaction Status Date / Time No Known Allergies Allergy Verified 08/25/24 01:38 [No Known Allergies*] Active Medications: Current Medications Amitriptyline HCl (Amitriptyline Hcl 50 Mg Tablet) 100 mg PO BEDTIME [facility] Last Admin: 08/26/24 19:34 Dose: 100 mg Atorvastatin Calcium (Atorvastatin Calcium 20 Mg Tablet) 20 mg PO DAILY [facility] Last Admin: 08/27/24 08:48 Dose: 20 mg Calcium Carbonate (Calcium Carbonate 750 Mg Tab.Chew) 750 mg PO Q4H PRN PRN Reason: Heartburn Cyclobenzaprine HCl (Cyclobenzaprine Hcl 10 Mg Tablet) 10 mg PO BEDTIME PRN PRN Reason: Muscle Spasm Last Admin: 08/26/24 23:46 Dose: 10 mg Dextrose (Dextrose 50 % 25 Gm/50 Ml Syringe) 25 gm IVPUSH Q15M PRN; Protocol PRN Reason: per Hypoglycemia Standing Ord. Glucose (Glucose Gel 15 Gm Gel..Gram.) 15 gm PO Q15M PRN; Protocol PRN Reason: per Hypoglycemia Standing Ord. Heparin Sodium (Porcine) (Heparin Sodium,Porcine 5,000 Unit/Ml Vial) 4,400 unit 40 unit/kg (4400 unit) IVPUSH PROTOCOL BOLUS PRN; Protocol PRN Reason: 40 unit/kg - Heparin Protocol Heparin Sodium (Porcine) (Heparin Sodium,Porcine 5,000 Unit/Ml Vial) 8,800 unit 80 unit/kg (8800 unit) IVPUSH PROTOCOL BOLUS PRN; Protocol PRN Reason: 80 unit/kg - Heparin Protocol Hydromorphone HCl (Hydromorphone Hcl 0.5 Mg/0.5 Ml Syringe) 0.75 mg IVPUSH Q4H PRN; Protocol PRN Reason: Pain, Severe (Pain Scale 7-10) Last Admin: 08/27/24 10:14 Dose: 0.75 mg Acetaminophen (Ofirmev) 1,000 mg in 100 mls @ 400 mls/hr IV Q6H [facility] Last Infusion: 08/27/24 09:20 Dose: Infused Cefazolin Sodium/Dextrose (Ancef) 2 gm in 50 mls @ 100 mls/hr IV POSTOP KAITLIN Heparin Sodium/Sodium Chloride (Heparin Sodium,Porcine/1/2ns) 25,000 unit in 250 mls @ 0 mls/hr IVCONT .Q0M [facility]; Protocol Last Admin: 08/27/24 05:50 Dose: 14 units/kg/hr, 15.37 mls/hr Insulin Human Lispro (Insulin Lispro 100 Unit/Ml 3 Ml Vial) 0 unit SUBCUT QIDACHS [facility]; Protocol Last Admin: 08/27/24 08:49 Dose: 4 unit Magnesium Hydroxide (Milk Of Magnesia 30 Ml Oral.Susp) 30 ml PO DAILY PRN PRN Reason: Constipation Melatonin (Melatonin 3 Mg Tablet) 6 mg PO BEDTIME PRN PRN Reason: Insomnia Omeprazole (Omeprazole 20 Mg Capsule.Dr) 20 mg PO DAILY@0630 [facility] Last Admin: 08/27/24 05:46 Dose: 20 mg Oxycodone HCl (Oxycodone Hcl Immed Release 5 Mg Tablet) 5 mg PO Q4H PRN PRN Reason: pain,moderate Last Admin: 08/26/24 23:46 Dose: 5 mg Pregabalin (Pregabalin 150 Mg Capsule) 300 mg PO BID [facility] Last Admin: 08/27/24 08:48 Dose: 300 mg Sodium Chloride (0.9 % Sodium Chloride Flush 3 Ml Syringe) 3 ml IVFLUSH QSHIFT [facility] Last Admin: 08/27/24 08:49 Dose: Not Given Home Medications ?Medication ?Instructions ?Recorded ?Confirmed ?Last Taken ?Type amitriptyline 100 mg tablet 100 mg PO BEDTIME 08/25/24 08/25/24 Unknown History aspirin 81 mg tablet,delayed 81 mg PO DAILY 08/25/24 08/25/24 08/24/24 History release atorvastatin 20 mg tablet 20 mg PO DAILY 08/25/24 08/25/24 Unknown History cyclobenzaprine 10 mg tablet 10 mg PO BEDTIME PRN Muscle Spasm 08/25/24 08/25/24 Unknown History glipizide 10 mg tablet 10 mg PO QAM 08/25/24 08/25/24 08/24/24 History ibuprofen 600 mg tablet 600 mg PO Q8H PRN Pain 08/25/24 08/25/24 08/24/24 History lisinopril 5 mg tablet 5 mg PO DAILY 08/25/24 08/25/24 08/24/24 History omeprazole 20 mg capsule,delayed 20 mg PO DAILY@0630 08/25/24 08/25/24 08/24/24 History release pregabalin 300 mg capsule 300 mg PO BID 08/25/24 08/25/24 08/24/24 History tirzepatide 7.5 mg/0.5 mL 7.5 mg subcut HARDY 08/25/24 08/25/24 08/19/24 History subcutaneous pen injector (Rebecca) tramadol 50 mg tablet 50 mg PO Q8H PRN pain 08/25/24 08/25/24 08/24/24 History Physical Exam Vital Signs: Vital Signs: Last Vital Signs Temp 97.0 F 08/27/24 07:04 Pulse 118 H 08/27/24 07:04 Resp 16 08/27/24 07:04 BP 116/57 L 08/27/24 07:04 Pulse Ox 95 08/27/24 07:04 O2 Del Method Oxymask 08/27/24 07:04 O2 Flow Rate 2 08/27/24 07:04 BMI result Body Mass Index 35.7 Const: General: cooperative, healthy appearing and comfortable Orientation/consciousness: oriented to person, oriented to place and oriented to time HEENT: Head: Yes normal to inspection Neck: Neck: Yes normal visual inspection Carotids: no bruits Chest: Chest palpation & inspection: normal inspection of the chest Resp: Effort & Inspection: normal respiratory effort and able to speak in complete sentences Auscultation: clear to auscultation bilaterally, no crackles, no rales, no rhonchi and no wheezes Cardio: Rate: regular rate Rhythm: regular rhythm Heart sounds: S1 normal heart sound present and S2 normal heart sound present Bruits: no carotid bruits Peripheral pulses: Peripheral pulses 2+ throughout GI: Inspection: Yes normal to inspection Skin: Wounds: no wounds Hair: normal Neuro: General: oriented to person, oriented to place and oriented to time Cranial nerves: Yes CN's II-XII intact bilaterally and Yes Normal hearing present Cognition (Neuro): normal cognition Motor exam (neuro): 5/5 motor strength present throughout Extrem: Other: venous exam: +1 edema left lower extremity Stan wrap around knee General: No clubbing, No cyanosis and No edema Psych: Appearance: grossly normal Mental Status: mental status grossly normal Speech and movement: Normal speech and movement present Results Labs 08/27/24 05:19 08/27/24 05:19 Labs: Abnormal lab results 08/26/24 08/26/24 08/26/24 Range/Units 14:32 16:01 19:43 RBC (4.20-5.50) X10*6/uL Hgb (12.0-16.0) g/dl Hct (37.0-47.0) % Lymph % (Auto) (20-40) % Eos % (Auto) (0-4) % Eos # (Auto) (0.0-0.4) X10*3/uL Abs Immat Gran (auto) (0.00-0.03) X10*3/uL PT (10.9-12.4) SEC aPTT Heparin Protocol (53-77.9) SEC Anion Gap (12-20) BUN (9-16) mg/dL POC Glucose 137 H 143 H 162 H (60-115) mg/dL Random Glucose (60-115) mg/dL Calcium (8.4-10.2) mg/dL Troponin I High Sens (<3.5-17.0) ng/L 08/27/24 08/27/24 08/27/24 Range/Units 05:19 07:06 08:14 RBC 2.86 L D (4.20-5.50) X10*6/uL Hgb 8.5 L D (12.0-16.0) g/dl Hct 26.2 L D (37.0-47.0) % Lymph % (Auto) 15.1 L (20-40) % Eos % (Auto) 5.3 H (0-4) % Eos # (Auto) 0.6 H (0.0-0.4) X10*3/uL Abs Immat Gran (auto) 0.04 H (0.00-0.03) X10*3/uL PT 12.9 H (10.9-12.4) SEC aPTT Heparin Protocol 27.0 L (53-77.9) SEC Anion Gap 11 L (12-20) BUN 6 L (9-16) mg/dL POC Glucose 203 H (60-115) mg/dL Random Glucose 194 H (60-115) mg/dL Calcium 8.0 L (8.4-10.2) mg/dL Troponin I High Sens 19.6 H (<3.5-17.0) ng/L Short CBC 08/27/24 Range/Units 05:19 WBC 10.3 (4.8-10.8) X10*3/uL Hgb 8.5 L D (12.0-16.0) g/dl Hct 26.2 L D (37.0-47.0) % Plt Count 165 (160-400) X10*3/uL BMP 08/27/24 05:19 Sodium 137 Potassium 4.1 Chloride 104 Carbon Dioxide 26 BUN 6 L Creatinine 0.62 Calcium 8.0 L All other labs normal. Imaging Additional studies: CT angiogram reviewed. DVT study pending Assessment and Plan (1) Pulmonary embolism: Qualifiers: Pulmonary embolism type: unspecified Chronicity: acute Acute cor pulmonale presence: unspecified Qualified Code(s): I26.99 - Other pulmonary embolism without acute cor pulmonale Status: Acute Plan In short patient has pulmonary embolism. Due to the clot burden and overall hemodynamics she will require pulmonary embolectomy. Risks benefits complications were discussed in detail with the patient. The patient's family was at bedside as well. She agreed and consented. We will schedule her for tomorrow morning. At the current time continue heparin drip. Thank you for allowing us to assist in her care. Procedures Date of Service Date of Service: 08/27/24
[2024-08-27 11:32] LABS: Glucose, Whole Blood 192 mg/dL (60-115)
[2024-08-27 11:58] LABS: PTT Heparin Drip 91.9 SEC (53-77.9)
--- NOTE | 2024-08-27 12:38 | P.PNIM_ITS ---
Subjective Subjective Date of Service: 08/27/24 Interval History: femur repaired yesterday became tachycardic and hypoxic overnight diagnosed with PE anxious Review of Systems Review of Systems: Yes all other systems are reviewed and are negative Physical Exam 2 Vital Signs: Vital Signs: Last Vital Signs Temp 97.6 F 08/27/24 11:34 Pulse 111 H 08/27/24 11:34 Resp 17 08/27/24 11:34 BP 113/61 08/27/24 11:34 Pulse Ox 96 08/27/24 11:34 O2 Del Method Oxymask 08/27/24 11:34 O2 Flow Rate 2 08/27/24 11:34 BMI result Body Mass Index 35.7 Gen: in no acute distress HEENT: sclera anicteric, moist mucus membranes Neck: supple Lungs: clear to auscultation bilaterally Heart: regular, tachycardic, no murmurs Abd: soft, non-tender, non-distended Ext: LLE swelling, L knee in dry dressing Skin: warm/well-perfused Neuro: alert and oriented x3, no focal findings Psych: appropriate affect Objective Data Active Medications Amitriptyline HCl (Amitriptyline Hcl 50 Mg Tablet) 100 mg PO BEDTIME [facility] Last Admin: 08/26/24 19:34 Dose: 100 mg Documented By: RADHA Atorvastatin Calcium (Atorvastatin Calcium 20 Mg Tablet) 20 mg PO DAILY [facility] Last Admin: 08/27/24 08:48 Dose: 20 mg Documented By: MILAGROS Calcium Carbonate (Calcium Carbonate 750 Mg Tab.Chew) 750 mg PO Q4H PRN PRN Reason: Heartburn Cyclobenzaprine HCl (Cyclobenzaprine Hcl 10 Mg Tablet) 10 mg PO BEDTIME PRN PRN Reason: Muscle Spasm Last Admin: 08/26/24 23:46 Dose: 10 mg Documented By: RADHA Dextrose (Dextrose 50 % 25 Gm/50 Ml Syringe) 25 gm IVPUSH Q15M PRN; Protocol PRN Reason: per Hypoglycemia Standing Ord. Glucose (Glucose Gel 15 Gm Gel..Gram.) 15 gm PO Q15M PRN; Protocol PRN Reason: per Hypoglycemia Standing Ord. Heparin Sodium (Porcine) (Heparin Sodium,Porcine 5,000 Unit/Ml Vial) 4,400 unit 40 unit/kg (4400 unit) IVPUSH PROTOCOL BOLUS PRN; Protocol PRN Reason: 40 unit/kg - Heparin Protocol Heparin Sodium (Porcine) (Heparin Sodium,Porcine 5,000 Unit/Ml Vial) 8,800 unit 80 unit/kg (8800 unit) IVPUSH PROTOCOL BOLUS PRN; Protocol PRN Reason: 80 unit/kg - Heparin Protocol Hydromorphone HCl (Hydromorphone Hcl 0.5 Mg/0.5 Ml Syringe) 0.75 mg IVPUSH Q4H PRN; Protocol PRN Reason: Pain, Severe (Pain Scale 7-10) Last Admin: 08/27/24 10:14 Dose: 0.75 mg Documented By: MILAGROS Acetaminophen (Ofirmev) 1,000 mg in 100 mls @ 400 mls/hr IV Q6H [facility] Last Admin: 08/27/24 12:29 Dose: 400 mls/hr Documented By: MILAGROS Cefazolin Sodium/Dextrose (Ancef) 2 gm in 50 mls @ 100 mls/hr IV POSTOP KAITLIN Heparin Sodium/Sodium Chloride (Heparin Sodium,Porcine/1/2ns) 25,000 unit in 250 mls @ 0 mls/hr IVCONT .Q0M [facility]; Protocol Last Titration: 08/27/24 12:25 Dose: 12 units/kg/hr, 13.17 mls/hr Documented By: MILAGROS Co-signed By: PAIGE Insulin Human Lispro (Insulin Lispro 100 Unit/Ml 3 Ml Vial) 0 unit SUBCUT QIDACHS [facility]; Protocol Last Admin: 08/27/24 11:50 Dose: 2 unit Documented By: MILAGROS Magnesium Hydroxide (Milk Of Magnesia 30 Ml Oral.Susp) 30 ml PO DAILY PRN PRN Reason: Constipation Melatonin (Melatonin 3 Mg Tablet) 6 mg PO BEDTIME PRN PRN Reason: Insomnia Omeprazole (Omeprazole 20 Mg Capsule.Dr) 20 mg PO DAILY@0630 [facility] Last Admin: 08/27/24 05:46 Dose: 20 mg Documented By: RADHA Oxycodone HCl (Oxycodone Hcl Immed Release 5 Mg Tablet) 5 mg PO Q4H PRN PRN Reason: pain,moderate Last Admin: 08/26/24 23:46 Dose: 5 mg Documented By: RADHA Pregabalin (Pregabalin 150 Mg Capsule) 300 mg PO BID [facility] Last Admin: 08/27/24 08:48 Dose: 300 mg Documented By: ARTING Sodium Chloride (0.9 % Sodium Chloride Flush 3 Ml Syringe) 3 ml IVFLUSH QSHIFT [facility] Last Admin: 08/27/24 08:49 Dose: Not Given Documented By: ARTING Non-Admin Reason: IV Running Labs 08/27/24 05:19 08/27/24 05:19 Labs: Laboratory Results - last 24 hr 08/26/24 08/26/24 08/26/24 14:32 16:01 19:43 MCV MCH MCHC RDW Plt Count MPV Immature Gran % (Auto) Neut % (Auto) Lymph % (Auto) [place] % (Auto) Eos % (Auto) Baso % (Auto) Lymph # (Auto) [place] # (Auto) Eos # (Auto) Baso # (Auto) Abs Immat Gran (auto) Absolute Neuts (auto) Absolute Nucleated RBC Nucleated RBC % (auto) PT INR aPTT Heparin Protocol Anion Gap Estim Creat Clear Calc Estimated GFR POC Glucose 137 H 143 H 162 H Random Glucose Calcium Troponin I High Sens B-Natriuretic Peptide 08/27/24 08/27/24 08/27/24 05:19 07:06 08:14 MCV 91.6 MCH 29.7 MCHC 32.4 RDW 13.0 Plt Count 165 MPV 11.5 Immature Gran % (Auto) 0.4 Neut % (Auto) 70.2 Lymph % (Auto) 15.1 L [place] % (Auto) 8.6 Eos % (Auto) 5.3 H Baso % (Auto) 0.4 Lymph # (Auto) 1.6 [place] # (Auto) 0.9 Eos # (Auto) 0.6 H Baso # (Auto) 0.0 Abs Immat Gran (auto) 0.04 H Absolute Neuts (auto) 7.2 Absolute Nucleated RBC 0.000 Nucleated RBC % (auto) 0.0 PT 12.9 H INR 1.1 aPTT Heparin Protocol 27.0 L Anion Gap 11 L Estim Creat Clear Calc 125.7 Estimated GFR > 60 POC Glucose 203 H Random Glucose 194 H Calcium 8.0 L Troponin I High Sens 19.6 H B-Natriuretic Peptide 28 08/27/24 08/27/24 11:17 11:42 MCV MCH MCHC RDW Plt Count MPV Immature Gran % (Auto) Neut % (Auto) Lymph % (Auto) [place] % (Auto) Eos % (Auto) Baso % (Auto) Lymph # (Auto) [place] # (Auto) Eos # (Auto) Baso # (Auto) Abs Immat Gran (auto) Absolute Neuts (auto) Absolute Nucleated RBC Nucleated RBC % (auto) PT INR aPTT Heparin Protocol 91.9 H D Anion Gap Estim Creat Clear Calc Estimated GFR POC Glucose 192 H Random Glucose Calcium Troponin I High Sens B-Natriuretic Peptide Impressions Guidance Fluoroscopy 08/26/24 11:15 IMPRESSION: Fluoroscopy during procedure. Please see procedure report for additional information. Electronically signed by: Arnold Carnes MD 08/27/2024 07:06 AM EDT RP Venous Duplex 08/27/24 10:41 IMPRESSION: 1. Deep venous thrombosis of the left popliteal vein extending into the calf veins. 2. No evidence of acute DVT in the right lower extremity. 3. Findings were sent to Dr. Yonatan Charles on 08/27/2024 at 11:45 AM. Electronically signed by: Arnold Carnes MD 08/27/2024 11:[address] angio chest 08/27/24 1. Mildly motion limited examination with a [id number] PE burden involving right middle and bilateral lower lobe pulmonary arterial branches as described above. No CT evidence for right heart strain. 2. Minimal bibasilar subsegmental atelectasis. Assessment and Plan (1) Femur fracture: Status: Acute Plan d3 for 59yo F with CAD s/p PCI 2014, DM2, HLD, arthritis s/p L TKA who had a mechanical fall on stairs and sustained a comminuted, displaced fracture at the distal left femoral metadiaphysis s/p retrograde IMN 08/26/24 developed RML, RLL, and LLL pulmonary artery PEs/L popliteal DVT acute PE/DVT, provoked [trauma/surgery] - heparin drip - Vascular Surgery consulted, plan thrombectomy tomorrow - transition to apixaban after thrombectomy - no obvious R heart strain though TTE pending - sister reportedly of PE so pt will require thrombophilia workup in future; refer to Heme-Onc as outpt acute hypoxic respiratory failure - supplemental O2, wean as tolerated distal L femoral metadiaphyseal fracture - POD1 retrograde IMN, pain control, PT anemia due to blood loss from fracture - monitor H+H HTN - held lisinopril CAD - held ASA, continue atorvastatin DM2 - held Mounjaro and GPZ, give maria isabel-dose lipsro neuropathic pain - continue pregabalin + amitriptylline VTE ppx - on treatment with heparin as above dispo - STR In my clinical judgment, the patient requires continued inpatient hospitalization for the following reasons: operative repair and postoperative care, hypoxia, PE Total time managing care of this patient today: 55 minutes. Quality Stroke Does the patient have a stroke diagnosis?: No VTE Prior VTE?: No VTE Risk Level:: Medical - moderate - high VTE Device Contraindication: Treatment Not Indicated VTE Drug Contraindication: N/A - Med Ordered
--- NOTE | 2024-08-27 14:35 | MHC.CM.PN ---
Per MD rounds patient is not medically cleared to discharge. She has been diagnosed with PE shayna Lower lobes and Rt side middle lobe. A vascular surgery consult has been ordered. The plan is for an Embolectomy in the OR tomorrow. DP [facility] choice [facility]. A clinical update has been sent to the facility. Patient will transport via BLS at discharge.
[2024-08-27 16:21] LABS: Glucose, Whole Blood 192 mg/dL (60-115)
[2024-08-27 18:47] LABS: PTT Heparin Drip 33.9 SEC (53-77.9)
[2024-08-27 20:09] LABS: Glucose, Whole Blood 171 mg/dL (60-115)
[2024-08-27] MEDS: Amitriptyline HCl 50 MG TABLET 100 MG PO (21:54)
[2024-08-27] MEDS: Heparin Sodium,Porcine/1/2NS 25,000 UNIT/250 ML IV.SOLN 17.56 UNIT IVCONT (23:46)
[2024-08-28] VITALS (30 sets, daily range): BP systolic 95–137; BP diastolic 52–79; PULSE 97–120; RESP 15–18; TEMP 36.1–37; O2SAT 93–100
[2024-08-28] MEDS: Acetaminophen 1,000 MG/100 ML PIGGYBACK 400 MG IV ×3 (02:01→20:47)
[2024-08-28 02:03] LABS: PTT Heparin Drip 101.6 SEC (53-77.9)
[2024-08-28] MEDS: Omeprazole 20 MG CAPSULE.DR PO (06:44)
[2024-08-28 07:16] LABS: INTERNATIONAL NORM RATIO 1.1 (0.9-1.1); Prothrombin Time 12.5 SEC (10.9-12.4)
[2024-08-28 07:19] LABS: Hematocrit 24.8 % (37.0-47.0); Hemoglobin 7.9 g/dl (12.0-16.0); Mean Corpuscular HGB Conc 31.9 g/dl (31.0-35.0); Mean Corpuscular Hemoglobin 29.4 pg (27.0-33.0); Mean Corpuscular Volume 92.2 fL (80.0-98.0); Mean Platelet Volume 11.5 fL (9.4-12.3); Platelet Count 177 X10*3/uL (160-400); Red Blood Count 2.69 X10*6/uL (4.20-5.50); Red Cell Distribution Width 13.2 % (11.0-16.0); White Blood Count 9.3 X10*3/uL (4.8-10.8)
[2024-08-28 07:36] LABS: Anion Gap 10 (12-20); Blood Urea Nitrogen 6 mg/dL (9-16); Calcium 8.4 mg/dL (8.4-10.2); Carbon Dioxide 29 mmol/L (22-29); Chloride 105 mmol/L (96-108); Estimated Glomerular Filt Rate > 60; Glucose Random 202 mg/dL (60-115); Potassium 4.4 mmol/L (3.3-5.1); Sodium 140 mmol/L (135-145)
[2024-08-28 07:38] LABS: Troponin-I High Sensitivity 12.6 ng/L (<3.5-17.0)
[2024-08-28 07:39] LABS: B Type Natriuretic Peptide < 10 pg/mL (<100)
--- NOTE | 2024-08-28 07:40 | PM.PNORT ---
Subjective Subjective Date of Service: 08/28/24 Interval history: POD 2 s/p lt knee retrograde nail No overnight events resting in bed no concerns at this time Physical Exam Vital Signs: Vital Signs: Last Vital Signs Temp 97.8 F 08/28/24 03:38 Pulse 105 H 08/28/24 03:38 Resp 16 08/28/24 03:38 BP 95/60 08/28/24 03:38 Pulse Ox 96 08/28/24 03:38 O2 Del Method Oxymask 08/28/24 03:38 O2 Flow Rate 5 08/28/24 03:38 BMI result Body Mass Index 35.7 Const: General: cooperative, healthy appearing and no acute distress Resp: Effort & Inspection: normal respiratory effort and able to speak in complete sentences Cardio: Rate: regular rate Peripheral pulses: Peripheral pulses 2+ throughout GI: Palpation (GI): Soft to palpation Skin: General skin exam: no rashes or lesions noted Extrem: Other: Left knee incisions are clean dry and intact. Mild swelling. Calf supple and nontender. Compartments soft. Neurovascularly intact. Procedures Date of Service Date of Service: 08/28/24 Progress Note: A&P Assessment and plan (1) Periprosthetic fracture around internal prosthetic left knee joint, initial encounter: Status: Acute Assessment and Plan: Pain management Patient is started on heparin drip per Medicine for PE Thrombectomy today with DR JAMA PT/OT weightbearing as tolerated Dispo pending PT eval and med clearance Time Spent With Patient Time: Total time managing care of this patient today ____ minutes. Quality Stroke Does the patient have a stroke diagnosis?: No VTE Prior VTE?: No VTE Risk Level:: Medical - moderate - high VTE Device Contraindication: Treatment Not Indicated VTE Drug Contraindication: N/A - Med Ordered
[2024-08-28 07:43] LABS: Glucose, Whole Blood 177 mg/dL (60-115)
[2024-08-28] MEDS: HYDROmorphone HCl 0.5 MG/0.5 ML SYRINGE 0.75 MG IVPUSH ×3 (07:46→21:25)
[2024-08-28 08:24] LABS: Glucose, Whole Blood 179 mg/dL (60-115)
--- NOTE | 2024-08-28 08:31 | PC.NURSE ---
Pt off unit at 0800, charge nurse transported pt down to OR, heparing gtt running @13u/kg/hr.
[2024-08-28] MEDS: Midazolam HCl 2 MG/2 ML VIAL 0.5 MG IVPUSH ×3 (09:03→09:56)
[2024-08-28] MEDS: fentaNYL citrate/PF 100 MCG/2 ML VIAL 25 MCG IVPUSH ×3 (09:03→09:56)
[2024-08-28] MEDS: Heparin Sodium,Porcine 10,000 UNIT/10 ML VIAL 10000 UNIT IVPUSH (09:28)
--- NOTE | 2024-08-28 11:18 | P.OP_ITS ---
Operative Note Operative Note Date of Service: 08/28/24 Narrative: Operative note by [facility] Preoperative diagnosis: DVT with PE Postoperative diagnosis: Same Procedure:1. Ultrasound-guided right common femoral vein access 2. Inferior vena cavogram 3. Selective right pulmonary artery angiogram 4. Selective left pulmonary artery angiogram 5. Mechanical thrombectomy of pulmonary embolism of bilateral pulmonary artery 6. Return of blood using flow Saver system 7. Radiologic supervision and interpretation. Surgeon:Aj Wilson M.D. Campus Rep: None Anesthesia: Local with moderate conscious sedation. Total intraservice moderate sedation time was 87 minutes. I monitored the patient's level of consciousness and physiologic status continuously throughout the procedure. Specimens: none Drains :none Estimated blood loss: Less than 50 ml Implant: None Comorbid conditions: Acute respiratory failure with hypoxia, obesity, diabetes , femur fracture Indications: Patient was noted to have submassive pulmonary embolism. Status post femur fracture repair. CT of the chest was reviewed and demonstrated clot in the right segmental and subsegmental branches. Heparin drip was initiated immediately. Due to the clot burden the patient now presents for pulmonary embolectomy. The patient has signed the informed consent after reviewing risks, complications, benefits, and alternatives previously discussed with the patient. The patient was given the opportunity to ask any additional questions or voice any concerns. All questions were answered to the patient's satisfaction. Procedure in detail: Patient was brought to the angiography suite prior to which a time-out was called for patient identification and site verification. Bilateral groins were prepped and draped in the standard surgical fashion. Under ultrasound guidance right common femoral vein was punctured with micro puncture needle and wire. Subsequently a precision 5 Mongolian sheath was then placed. Bentson wire was advanced to the level of the vena cava. 4 Mongolian Flush catheter was brought up and parked at the level of the renal arteries. Vena cavogram was then undertaken. The patient was systemically anticoagulated with heparin and therapeutic ACT was achieved of 270. We then advanced a Bentson wire all the way up into the inferior vena cava to the atrial junction. We then advanced a pigtail catheter through that from the right atrium to the right ventricle into the pulmonary artery. We then readvanced the Bentson wire through this. In order to confirm appropriate positioning and no trauma to cardiac tissue we advanced an insufflated 8 x 40 balloon. We met no resistance. At this time we did a selective image the right main pulmonary artery and subsequently the left main pulmonary artery. We then advanced the INTRI 24 Mongolian sheath. Over this we then placed TRIEVER 24 large-bore catheter. We had to place a smaller 20 angled catheter. This was directed towards the left pulmonary artery. We then successfully aspirated moderate clot burden. Once the syringe was filled we placed this through the flow Saver blood filtering system and returned the blood back to the patient. Several aspirations were performed until we had no thrombus return. Once this was all done completion imaging was then undertaken. No residual thrombus was noted. We then redirected over to the right side. We were able to easily enter the right main pulmonary artery. In a similar fashion we did several aspirations until there was no thrombus return. Completion angiogram demonstrated no clot burden. We did final PA pressures. Catheter wire and sheath were removed. Pursestring suture was placed.. Patient tolerated the procedure well and was returned to recovery with stable vitals. Interpretation of films: 1. Ultrasound was used to evaluate access site of the femoral vein. The femoral vein was noted to be patent with no thrombus. Ultrasound was used for visualization of needle entry. Image was saved to PACS 2. Vena cavogram demonstrated normal caliber vena cava with no evidence of thrombus. 3. Pulmonary artery imaging demonstrated - no significant clot burden on the left side, minimal clot burden on the right side 4. Completion imaging demonstrated no clot noted Conclusion: 1. Successful pulmonary venous thrombectomy. 2. Anticoagulation status: Continue heparin drip. Can restart formal oral anticoagulation tomorrow This note is constructed using voice recognition software. While every effort has been made to ensure accuracy, assembly line supervisor errors may have been included. Thank you for allowing me to participate in the care of your patient. Yours sincerely, Aj Wilson MD, FACS, R.P.V.I.
[2024-08-28 12:08] LABS: PTT Heparin Drip 188.2 SEC (53-77.9)
[2024-08-28 12:44] LABS: Glucose, Whole Blood 159 mg/dL (60-115)
--- NOTE | 2024-08-28 12:48 | PC.NURSE ---
Pt came up from OR with heparin gtt running at 13units/kg/hr despite documentation in the MAR that the heparin gtt was paused. There was a critical ptt of 188.2 while pt was in the OR. Per MAR it was documented as the heparin gtt was paused, however pt came up with heparin gtt still running at 13units/kg/hr. This RN paused the heparin gtt per protocol and ptt to be drawn every hour. When pt left unit heparin gtt was running in R arm IV. when pt arrived back onto unit heparin gtt was running thought L arm IV.
[2024-08-28] MEDS: Insulin Lispro 100 UNIT/ML 3 ML VIAL SUBCUT ×3 (12:59→21:31)
[2024-08-28 13:09] LABS: PTT Heparin Drip 91.3 SEC (53-77.9)
--- NOTE | 2024-08-28 14:14 | W.PM.OPN ---
Operative Note Operative Note Date of Service: 08/26/24 Narrative: Date of Service: 08/26/24 Pre-op diagnosis: Left distal femur periprosthetic fx Post-op diagnosis: same Procedure: Retrograde IMN left femur Implants: Gama Alpha 2 13x 360; 2 proximal and 5 distal interlocking screws Surgeon: Miko Harrison MD Anesthesia: GLMA and local Was an Assembler Garment Form used for this Procedure?: No Estimated blood loss (mL): 150 IV fluids (mL): 1,000 Pathology: none sent Condition: stable Disposition: PACU Procedure in detail: Patient was brought to the operating room and placed supine on the fracture table. She was prepped and draped in standard sterile fashion and a time out was called to identify proper site, proper procedure and IV antibiotics per weight were administered. I began by flexing the knee up and making a small 1 cm incision between the distal pole of the patella and the tibial tubercle directly midline. Using lateral and AP fluoro I placed the guidewire into the femur through the open box of the femoral prosthesis. I then made a larger incision transpatellar tendon. A tissue retractor was placed and I over-reamed with a 13mm opening reamer. A ball tipped guidewire was ten placed across the fracture. This was a comminuted fracture and the bone quality was moderate. With the fracture in a reduced position, I was able to pass a 14.5 reamer up the femoral canal to the level of the lesser without resistance. I then measured and placed a 360x13 mm nail. I was satisfied with the position of the nail proximally, the fracture reduction and the position of the nail distally. Using the targeting guide 3 lateral to medial distal screws and 2 oblique screws were placed through the nail. Using perfect [place] technique 2 proximal interlocking screws were placed without complication. Final radiographs showed excellent positioning of the hardware and fracture alignment. I irrigated copiously and then closed with absorbable sutures and skin pablo. Patient was then placed in sterile dressing and extubated. She was brought to the recovery room in stable condition. There were no known complications.
--- NOTE | 2024-08-28 14:19 | P.PNIM_ITS ---
Subjective Subjective Date of Service: 08/28/24 Interval History: thrombectomy done c/o aching in LLE no chest pain or dyspnea Review of Systems Review of Systems: Yes all other systems are reviewed and are negative Physical Exam 2 Vital Signs: Vital Signs: Last Vital Signs Temp 98 F 08/28/24 11:35 Pulse 109 H 08/28/24 11:35 Resp 18 08/28/24 11:35 BP 119/63 08/28/24 11:35 Pulse Ox 100 08/28/24 11:35 O2 Del Method Nasal Cannula 08/28/24 11:35 O2 Flow Rate 2 08/28/24 11:35 BMI result Body Mass Index 35.7 Gen: in no acute distress HEENT: sclera anicteric, moist mucus membranes Neck: supple Lungs: clear to auscultation bilaterally Heart: regular, tachcardic, no murmurs Abd: soft, non-tender, non-distended Ext: no edema, LLE with swelling around knee, dry dressing Skin: warm/well-perfused Neuro: alert and oriented x3, no focal findings Psych: appropriate affect Objective Data Active Medications Amitriptyline HCl (Amitriptyline Hcl 50 Mg Tablet) 100 mg PO BEDTIME REPLACED BY [facility] Last Admin: 08/27/24 21:54 Dose: 100 mg Documented By: VJ Atorvastatin Calcium (Atorvastatin Calcium 20 Mg Tablet) 20 mg PO DAILY REPLACED BY [facility] Last Admin: 08/28/24 10:50 Dose: Not Given Documented By: MILAGROS Non-Admin Reason: pt in OR Calcium Carbonate (Calcium Carbonate 750 Mg Tab.Chew) 750 mg PO Q4H PRN PRN Reason: Heartburn Cyclobenzaprine HCl (Cyclobenzaprine Hcl 10 Mg Tablet) 10 mg PO BEDTIME PRN PRN Reason: Muscle Spasm Last Admin: 08/26/24 23:46 Dose: 10 mg Documented By: RADHA Dextrose (Dextrose 50 % 25 Gm/50 Ml Syringe) 25 gm IVPUSH Q15M PRN; Protocol PRN Reason: per Hypoglycemia Standing Ord. Glucose (Glucose Gel 15 Gm Gel..Gram.) 15 gm PO Q15M PRN; Protocol PRN Reason: per Hypoglycemia Standing Ord. Heparin Sodium (Porcine) (Heparin Sodium,Porcine 5,000 Unit/Ml Vial) 4,400 unit 40 unit/kg (4400 unit) IVPUSH PROTOCOL BOLUS PRN; Protocol PRN Reason: 40 unit/kg - Heparin Protocol Heparin Sodium (Porcine) (Heparin Sodium,Porcine 5,000 Unit/Ml Vial) 8,800 unit 80 unit/kg (8800 unit) IVPUSH PROTOCOL BOLUS PRN; Protocol PRN Reason: 80 unit/kg - Heparin Protocol Last Admin: 08/27/24 19:19 Dose: 8,800 unit Documented By: MILAGROS Hydromorphone HCl (Hydromorphone Hcl 0.5 Mg/0.5 Ml Syringe) 0.75 mg IVPUSH Q4H PRN; Protocol PRN Reason: Pain, Severe (Pain Scale 7-10) Last Admin: 08/28/24 07:46 Dose: 0.75 mg Documented By: MILAGROS Acetaminophen (Ofirmev) 1,000 mg in 100 mls @ 400 mls/hr IV Q6H REPLACED BY [facility] Last Infusion: 08/28/24 13:44 Dose: Infused Documented By: MILAGROS Cefazolin Sodium/Dextrose (Ancef) 2 gm in 50 mls @ 100 mls/hr IV POSTOP KAITLIN Heparin Sodium/Sodium Chloride (Heparin Sodium,Porcine/1/2ns) 25,000 unit in 250 mls @ 0 mls/hr IVCONT .Q0M REPLACED BY [facility]; Protocol Last Titration: 08/28/24 13:27 Dose: 9 units/kg/hr, 9.88 mls/hr Documented By: MILAGROS Co-signed By: LANDON Insulin Human Lispro (Insulin Lispro 100 Unit/Ml 3 Ml Vial) 0 unit SUBCUT QIDACHS REPLACED BY [facility]; Protocol Last Admin: 08/28/24 12:59 Dose: 2 unit Documented By: MILAGROS Magnesium Hydroxide (Milk Of Magnesia 30 Ml Oral.Susp) 30 ml PO DAILY PRN PRN Reason: Constipation Melatonin (Melatonin 3 Mg Tablet) 6 mg PO BEDTIME PRN PRN Reason: Insomnia Omeprazole (Omeprazole 20 Mg Capsule.Dr) 20 mg PO DAILY@0630 REPLACED BY [facility] Last Admin: 08/28/24 06:44 Dose: 20 mg Documented By: VJ Oxycodone HCl (Oxycodone Hcl Immed Release 5 Mg Tablet) 5 mg PO Q4H PRN PRN Reason: pain,moderate Last Admin: 08/26/24 23:46 Dose: 5 mg Documented By: RADHA Pregabalin (Pregabalin 150 Mg Capsule) 300 mg PO BID REPLACED BY [facility] Last Admin: 08/28/24 10:50 Dose: Not Given Documented By: MILAGROS Non-Admin Reason: pt in OR Sodium Chloride (0.9 % Sodium Chloride Flush 3 Ml Syringe) 3 ml IVFLUSH QSHIFT REPLACED BY [facility] Last Admin: 08/28/24 10:50 Dose: Not Given Documented By: MILAGROS Non-Admin Reason: IV Running Labs 08/28/24 06:50 08/28/24 06:50 Labs: Laboratory Results - last 24 hr 08/27/24 08/27/24 08/27/24 16:15 18:29 20:02 MCV MCH MCHC RDW Plt Count MPV Absolute Nucleated RBC Nucleated RBC % (auto) PT INR aPTT Heparin Protocol 33.9 L D Anion Gap Estim Creat Clear Calc Estimated GFR POC Glucose 192 H 171 H Random Glucose Calcium Troponin I High Sens B-Natriuretic Peptide 08/28/24 08/28/24 08/28/24 01:49 06:50 07:40 MCV 92.2 MCH 29.4 MCHC 31.9 RDW 13.2 Plt Count 177 MPV 11.5 Absolute Nucleated RBC 0.000 Nucleated RBC % (auto) 0.0 PT 12.5 H INR 1.1 aPTT Heparin Protocol 101.6 H D Anion Gap 10 L Estim Creat Clear Calc 130.0 Estimated GFR > 60 POC Glucose 177 H Random Glucose 202 H Calcium 8.4 Troponin I High Sens 12.6 B-Natriuretic Peptide < 10 08/28/24 08/28/24 08/28/24 08:18 11:23 12:40 MCV MCH MCHC RDW Plt Count MPV Absolute Nucleated RBC Nucleated RBC % (auto) PT INR aPTT Heparin Protocol 188.2 H* D Anion Gap Estim Creat Clear Calc Estimated GFR POC Glucose 179 H 159 H Random Glucose Calcium Troponin I High Sens B-Natriuretic Peptide 08/28/24 12:54 MCV MCH MCHC RDW Plt Count MPV Absolute Nucleated RBC Nucleated RBC % (auto) PT INR aPTT Heparin Protocol 91.3 H D Anion Gap Estim Creat Clear Calc Estimated GFR POC Glucose Random Glucose Calcium Troponin I High Sens B-Natriuretic Peptide Assessment and Plan (1) Femur fracture: Status: Acute Plan d4 for 59yo F with CAD s/p PCI 2014, DM2, HLD, arthritis s/p L TKA who had a mechanical fall on stairs and sustained a comminuted, displaced fracture at the distal left femoral metadiaphysis s/p retrograde IMN 08/26/24 developed RML, RLL, and LLL pulmonary artery PEs/L popliteal DVT acute PE/DVT, provoked [trauma/surgery] - s/p pulmonary artery thrombectomy 08/[address] Wilson - heparin drip -> apixaban, 10 mg bid 08/28-09/04 then 5 mg bid x 6mo - no R heart strain. TTE 08/27/24: 1. Technically limited study despite use of contrast agent 2. Normal biventricular systolic function 3. Cardiac valvular Dopplers within normal limits 4. Normal measured RV systolic pressure - clarification per family: pt's sister of brain aneurysm, not PE; does not need thrombophilia workup acute hypoxic respiratory failure - supplemental O2, wean as tolerated distal L femoral metadiaphyseal fracture - POD2 retrograde IMN, pain control, PT anemia due to blood loss from fracture - monitor H+H HTN - held lisinopril CAD - held ASA, continue atorvastatin DM2 - held Mounjaro and GPZ, give maria isabel-dose lipsro neuropathic pain - continue pregabalin + amitriptylline VTE ppx - on treatment with heparin as above dispo - STR In my clinical judgment, the patient requires continued inpatient hospitalization for the following reasons: operative repair and postoperative care, hypoxia, PE Total time managing care of this patient today: 45 minutes. Quality Stroke Does the patient have a stroke diagnosis?: No VTE Prior VTE?: No VTE Risk Level:: Medical - moderate - high VTE Device Contraindication: Treatment Not Indicated VTE Drug Contraindication: N/A - Med Ordered
--- NOTE | 2024-08-28 14:27 | PC.NURSE ---
pt arrived on unit per Lisa RN note. PTT came back 188.2. This RN confirmed with phleb that blood was taken from R arm, where heparin gtt was previously running. gtt paused per protocol per MAY This RN called pharm and spoke with pharmacist Izzy House regarding gtt. per pharm hold gtt, re draw PTT stat ROXANA. re draw may be taken from either arm. PTT resulted at 91.3. per pharm restart gtt at 9units/kg/hr.
[2024-08-28 14:42] LABS: ACT 272 Celite s (79-173)
[2024-08-28 14:42] LABS: ACT 104 Celite s (79-173)
[2024-08-28] MEDS: Apixaban 5 MG TABLET 10 MG PO ×2 (15:02→20:51)
[2024-08-28] MEDS: 0.9 % Sodium Chloride Flush 3 ML SYRINGE IVFLUSH ×2 (15:05→20:52)
[2024-08-28 15:34] LABS: Glucose, Whole Blood 236 mg/dL (60-115)
[2024-08-28 20:51] LABS: Glucose, Whole Blood 178 mg/dL (60-115)
[2024-08-28] MEDS: Amitriptyline HCl 50 MG TABLET 100 MG PO (20:51)
[2024-08-28] MEDS: Pregabalin 150 MG CAPSULE 300 MG PO (20:51)
[2024-08-29] VITALS (10 sets, daily range): BP systolic 84–130; BP diastolic 50–70; PULSE 100–119; RESP 16–20; TEMP 36.2–37.3; O2SAT 96–98
[2024-08-29] MEDS: Acetaminophen 1,000 MG/100 ML PIGGYBACK 400 MG IV (02:46)
[2024-08-29] MEDS: oxyCODONE HCl Immed Release 5 MG TABLET PO ×2 (03:34→08:01)
[2024-08-29] MEDS: Omeprazole 20 MG CAPSULE.DR PO (06:42)
[2024-08-29 07:34] LABS: Glucose, Whole Blood 183 mg/dL (60-115)
[2024-08-29 07:48] LABS: Anion Gap 10 (12-20); Blood Urea Nitrogen 8 mg/dL (9-16); Calcium 8.4 mg/dL (8.4-10.2); Carbon Dioxide 28 mmol/L (22-29); Chloride 105 mmol/L (96-108); Estimated Glomerular Filt Rate > 60; Glucose Random 202 mg/dL (60-115); Potassium 4.1 mmol/L (3.3-5.1); Sodium 139 mmol/L (135-145)
[2024-08-29 07:55] LABS: Hematocrit 22.3 % (37.0-47.0); Hemoglobin 7.1 g/dl (12.0-16.0); Mean Corpuscular HGB Conc 31.8 g/dl (31.0-35.0); Mean Corpuscular Hemoglobin 29.5 pg (27.0-33.0); Mean Corpuscular Volume 92.5 fL (80.0-98.0); Mean Platelet Volume 11.6 fL (9.4-12.3); Platelet Count 195 X10*3/uL (160-400); Red Blood Count 2.41 X10*6/uL (4.20-5.50); Red Cell Distribution Width 13.2 % (11.0-16.0); White Blood Count 9.9 X10*3/uL (4.8-10.8)
--- NOTE | 2024-08-29 07:55 | PM.PNORT ---
Subjective Subjective Date of Service: 08/29/24 Interval history: POD 3 s/p lt knee retrograde nail No overnight events resting in bed no concerns at this time Physical Exam Vital Signs: Vital Signs: Last Vital Signs Temp 98.2 F 08/29/24 07:18 Pulse 109 H 08/29/24 07:18 Resp 18 08/29/24 07:18 BP 104/51 L 08/29/24 07:18 Pulse Ox 98 08/29/24 07:18 O2 Del Method Room Air 08/29/24 07:18 O2 Flow Rate 2 08/28/24 15:20 BMI result Body Mass Index 35.7 Const: General: cooperative, healthy appearing and no acute distress Resp: Effort & Inspection: normal respiratory effort and able to speak in complete sentences Cardio: Rate: regular rate Peripheral pulses: Peripheral pulses 2+ throughout GI: Palpation (GI): Soft to palpation Skin: General skin exam: no rashes or lesions noted Extrem: Other: Left knee incisions are clean dry and intact. Mild swelling. Calf supple and nontender. Compartments soft. Neurovascularly intact. Procedures Date of Service Date of Service: 08/29/24 Progress Note: A&P Assessment and plan (1) Periprosthetic fracture around internal prosthetic left knee joint, initial encounter: Status: Acute (2) Pulmonary embolism: Status: Acute Plan Pain management Thrombectomy yesterday with Dr. Wilson PT/OT weightbearing as tolerated Dispo pending PT eval and med clearance Time Spent With Patient Time: Total time managing care of this patient today ____ minutes. Quality Stroke Does the patient have a stroke diagnosis?: No VTE Prior VTE?: No VTE Risk Level:: Medical - moderate - high VTE Device Contraindication: Treatment Not Indicated VTE Drug Contraindication: N/A - Med Ordered
[2024-08-29] MEDS: Apixaban 5 MG TABLET 10 MG PO ×2 (07:59→20:51)
[2024-08-29] MEDS: Pregabalin 150 MG CAPSULE 300 MG PO ×2 (07:59→20:51)
[2024-08-29] MEDS: 0.9 % Sodium Chloride Flush 3 ML SYRINGE IVFLUSH ×2 (08:02→20:53)
[2024-08-29] MEDS: Insulin Lispro 100 UNIT/ML 3 ML VIAL SUBCUT ×4 (08:02→20:52)
[2024-08-29] MEDS: Atorvastatin Calcium 20 MG TABLET PO (08:02)
--- NOTE | 2024-08-29 09:46 | HO.VASCPN ---
Subjective Subjective Date of Service: 08/29/24 Interval history: Ivana is doing ok this morning. She continues to endorse significant pain s/p surgery on her left leg. She states her breathing is much better and she denies any shortness of breath, diff breathing, or CP. She is eating, drinking, and sleeping ok. She has no new concerns this morning. Physical Exam Vital Signs: Vital Signs: Last Vital Signs Temp 98.2 F 08/29/24 07:18 Pulse 109 H 08/29/24 07:18 Resp 18 08/29/24 07:18 BP 104/51 L 08/29/24 07:18 Pulse Ox 98 08/29/24 07:18 O2 Del Method Room Air 08/29/24 07:18 O2 Flow Rate 2 08/28/24 15:20 BMI result Body Mass Index 35.7 Const: General: comfortable and no acute distress Orientation/consciousness: patient oriented x3 HEENT: Ears: hearing grossly normal bilaterally Resp: Effort & Inspection: normal respiratory effort and able to speak in complete sentences Auscultation: clear to auscultation bilaterally Cardio: Rate: regular rate Rhythm: regular rhythm Heart sounds: S1 normal heart sound present and S2 normal heart sound present Bruits: no abdominal aortic bruits, no carotid bruits, no femoral bruits and no renal bruits GI: Palpation (GI): No Abdominal aortic bruit present : Other: Right groin: dressing taken down; no bleeding or discharge noted on dressing. Suture intact. Incision site C/D/I. Neuro: General: patient oriented x3 Cranial nerves: Yes CN's II-XII intact bilaterally Extrem: Other: Left knee: wrapped in brando. Progress Note: A&P Assessment and plan (1) Pulmonary embolism: Status: Acute Assessment and Plan: Ivana is s/p pulmonary vein thrombectomy with Dr Wilson yesterday. She states she is feeling much better in terms of breathing/shortness of breath; she denies any concerns with her breathing today. She does continue to endorse pain in the left leg/knee s/p ortho surgery for a distal femur fx. We discussed to have her follow up with us outpatient in 2w. We will continue to monitor. If there are any questions or concerns, please do not hesitate to reach out to us. Time Spent With Patient Time: Total time managing care of this patient today ____ minutes. Procedures Date of Service Date of Service: 08/29/24 Quality Stroke Does the patient have a stroke diagnosis?: No VTE Prior VTE?: No VTE Risk Level:: Medical - moderate - high VTE Device Contraindication: Treatment Not Indicated VTE Drug Contraindication: N/A - Med Ordered
--- NOTE | 2024-08-29 10:29 | HO.PM.IMPN ---
Subjective Subjective Date of Service: 08/29/24 Interval History: off O2, less short of breath but in pain from leg and severely anemic with Hb 7.1; BP dropped to 84/50 on commode but now 130/61 15 into transfusion Review of Systems Review of Systems: Yes all other systems are reviewed and are negative Physical Exam Vital Signs: Vital Signs: Last Vital Signs Temp 98.2 F 08/29/24 10:20 Pulse 111 H 08/29/24 10:20 Resp 20 08/29/24 10:20 BP 130/61 08/29/24 10:20 Pulse Ox 98 08/29/24 07:18 O2 Del Method Room Air 08/29/24 07:18 O2 Flow Rate 2 08/28/24 15:20 BMI result Body Mass Index 35.7 Gen: in no acute distress HEENT: sclera anicteric, moist but pale mucus membranes Neck: supple Lungs: clear to auscultation bilaterally Heart: regular, tachcardic, no murmurs Abd: soft, non-tender, non-distended Ext: no edema, LLE with swelling around knee, dry dressing Skin: warm/well-perfused Neuro: alert and oriented x3, no focal findings Psych: appropriate affect Objective Data Active Medications Amitriptyline HCl (Amitriptyline Hcl 50 Mg Tablet) 100 mg PO BEDTIME [facility] Last Admin: 08/28/24 20:51 Dose: 100 mg Documented By: VJ Apixaban (Apixaban 5 Mg Tablet) 10 mg PO BID [facility] Stop: 09/03/24 21:01 Last Admin: 08/29/24 07:59 Dose: 10 mg Documented By: RAN Atorvastatin Calcium (Atorvastatin Calcium 20 Mg Tablet) 20 mg PO DAILY [facility] Last Admin: 08/29/24 08:02 Dose: 20 mg Documented By: RAN Calcium Carbonate (Calcium Carbonate 750 Mg Tab.Chew) 750 mg PO Q4H PRN PRN Reason: Heartburn Cyclobenzaprine HCl (Cyclobenzaprine Hcl 10 Mg Tablet) 10 mg PO BEDTIME PRN PRN Reason: Muscle Spasm Last Admin: 08/26/24 23:46 Dose: 10 mg Documented By: RADHA Dextrose (Dextrose 50 % 25 Gm/50 Ml Syringe) 25 gm IVPUSH Q15M PRN; Protocol PRN Reason: per Hypoglycemia Standing Ord. Glucose (Glucose Gel 15 Gm Gel..Gram.) 15 gm PO Q15M PRN; Protocol PRN Reason: per Hypoglycemia Standing Ord. Hydromorphone HCl (Hydromorphone Hcl 0.5 Mg/0.5 Ml Syringe) 0.75 mg IVPUSH Q4H PRN; Protocol PRN Reason: Pain, Severe (Pain Scale 7-10) Last Admin: 08/28/24 21:25 Dose: 0.75 mg Documented By: VJ Acetaminophen (Ofirmev) 1,000 mg in 100 mls @ 400 mls/hr IV Q6H [facility] Last Admin: 08/29/24 08:16 Dose: Not Given Documented By: RAN Non-Admin Reason: Physician Held Med Cefazolin Sodium/Dextrose (Ancef) 2 gm in 50 mls @ 100 mls/hr IV POSTOP [facility] Lactated Ringer's (Lr) 1,000 mls @ 999 mls/hr IV .Q1H1M [facility] Stop: 08/29/24 10:45 Last Admin: 08/29/24 10:15 Dose: Not Given Documented By: RAN Non-Admin Reason: held blood running Insulin Human Lispro (Insulin Lispro 100 Unit/Ml 3 Ml Vial) 0 unit SUBCUT QIDACHS [facility]; Protocol Last Admin: 08/29/24 08:02 Dose: 2 unit Documented By: RAN Magnesium Hydroxide (Milk Of Magnesia 30 Ml Oral.Susp) 30 ml PO DAILY PRN PRN Reason: Constipation Melatonin (Melatonin 3 Mg Tablet) 6 mg PO BEDTIME PRN PRN Reason: Insomnia Omeprazole (Omeprazole 20 Mg Capsule.Dr) 20 mg PO DAILY@0630 [facility] Last Admin: 08/29/24 06:42 Dose: 20 mg Documented By: VJ Oxycodone HCl (Oxycodone Hcl Immed Release 5 Mg Tablet) 5 mg PO Q4H PRN PRN Reason: pain,moderate Last Admin: 08/29/24 08:01 Dose: 5 mg Documented By: RAN Pregabalin (Pregabalin 150 Mg Capsule) 300 mg PO BID [facility] Last Admin: 08/29/24 07:59 Dose: 300 mg Documented By: RAN Sodium Chloride (0.9 % Sodium Chloride Flush 3 Ml Syringe) 3 ml IVFLUSH QSHIFT [facility] Last Admin: 08/29/24 08:02 Dose: 3 ml Documented By: RAN Labs 08/29/24 07:14 08/29/24 07:14 Labs: Laboratory Results - last 24 hr 08/28/24 08/28/24 08/28/24 09:08 09:28 11:23 MCV MCH MCHC RDW Plt Count MPV Absolute Nucleated RBC Nucleated RBC % (auto) aPTT Heparin Protocol 188.2 H* D Activated Clotting Time 104 272 H Anion Gap Estim Creat Clear Calc Estimated GFR POC Glucose Random Glucose Calcium Blood Type Antibody Screen Crossmatch 08/28/24 08/28/24 08/28/24 12:40 12:54 15:21 MCV MCH MCHC RDW Plt Count MPV Absolute Nucleated RBC Nucleated RBC % (auto) aPTT Heparin Protocol 91.3 H D Activated Clotting Time Anion Gap Estim Creat Clear Calc Estimated GFR POC Glucose 159 H 236 H Random Glucose Calcium Blood Type Antibody Screen Crossmatch 08/28/24 08/29/24 08/29/24 20:46 07:14 07:27 MCV 92.5 MCH 29.5 MCHC 31.8 RDW 13.2 Plt Count 195 MPV 11.6 Absolute Nucleated RBC 0.000 Nucleated RBC % (auto) 0.0 aPTT Heparin Protocol Activated Clotting Time Anion Gap 10 L Estim Creat Clear Calc 130.0 Estimated GFR > 60 POC Glucose 178 H 183 H Random Glucose 202 H Calcium 8.4 Blood Type Antibody Screen Crossmatch 08/29/24 08:44 MCV MCH MCHC RDW Plt Count MPV Absolute Nucleated RBC Nucleated RBC % (auto) aPTT Heparin Protocol Activated Clotting Time Anion Gap Estim Creat Clear Calc Estimated GFR POC Glucose Random Glucose Calcium Blood Type O Positive Antibody Screen NEGATIVE Crossmatch See Detail Assessment and Plan (1) Femur fracture: Status: Acute Plan d5 for 59yo F with CAD s/p PCI 2014, DM2, HLD, arthritis s/p L TKA who had a mechanical fall on stairs and sustained a comminuted, displaced fracture at the distal left femoral metadiaphysis s/p retrograde IMN 08/26/24 developed RML, RLL, and LLL pulmonary artery PEs/L popliteal DVT anemia due to blood loss from fracture - transfusing 1u pRBCs, recheck CBC tomorrow; send FOBT but suspect due to femur fracture/hematoma acute PE/DVT, provoked [trauma/surgery] - s/p pulmonary artery thrombectomy 08/[address] Wilson - heparin drip -> apixaban, 10 mg bid 08/28-09/04 then 5 mg bid x 6mo - no R heart strain. TTE 08/27/24: 1. Technically limited study despite use of contrast agent 2. Normal biventricular systolic function 3. Cardiac valvular Dopplers within normal limits 4. Normal measured RV systolic pressure - clarification per family: pt's sister of brain aneurysm, not PE; does not need thrombophilia workup acute hypoxic respiratory failure - weaned off O2 distal L femoral metadiaphyseal fracture - POD3 retrograde IMN, pain control, PT HTN - held lisinopril CAD - held ASA, continue atorvastatin DM2 - held Mounjaro and GPZ, give maria isabel-dose lipsro neuropathic pain - continue pregabalin + amitriptylline VTE ppx - apixaban dispo - AIR In my clinical judgment, the patient requires continued inpatient hospitalization for the following reasons: postoperative care, anemia/hypotension requiring transfusion Total time managing care of this patient today: 45 minutes. Quality Stroke Does the patient have a stroke diagnosis?: No VTE Prior VTE?: No VTE Risk Level:: Medical - moderate - high VTE Device Contraindication: Treatment Not Indicated VTE Drug Contraindication: N/A - Med Ordered
[2024-08-29] MEDS: HYDROmorphone HCl 0.5 MG/0.5 ML SYRINGE 0.75 MG IVPUSH ×3 (10:45→20:51)
--- NOTE | 2024-08-29 10:56 | MHC.CM.PN ---
Addendum entered by Marcy Ceja 08/29/24 14:49: PT and OT evaluations recommend Acute Rehab. The documentation has been sent to [facility] for review. A request to initiate the insurance authorization process has been made. [facility] pending clinical review, a bed offer and insurance authorization. CM will continue to follow for placement. Transport will be via BLS at discharge. Original Note: Per MD rounds no DC today. H/H 7.1/22.3, She will receive a blood transfusion today. [facility] is following for OT eval and PT daily note. MD stated that therapy may be able to see the patient later this afternoon. [facility] via BLS. pending Therapy documentation, a bed offer and insurance authorization.
[2024-08-29 11:43] LABS: Glucose, Whole Blood 255 mg/dL (60-115)
[2024-08-29 16:52] LABS: Glucose, Whole Blood 179 mg/dL (60-115)
[2024-08-29 20:30] LABS: Glucose, Whole Blood 195 mg/dL (60-115)
[2024-08-29] MEDS: Amitriptyline HCl 50 MG TABLET 100 MG PO (20:51)
[2024-08-30] VITALS (14 sets, daily range): BP systolic 101–142; BP diastolic 55–69; PULSE 101–112; RESP 16–20; TEMP 36.2–36.7; O2SAT 93–97
[2024-08-30] MEDS: HYDROmorphone HCl 0.5 MG/0.5 ML SYRINGE 0.75 MG IVPUSH ×5 (00:29→23:26)
[2024-08-30] MEDS: Omeprazole 20 MG CAPSULE.DR PO (05:00)
[2024-08-30 07:10] LABS: Hematocrit 21.4 % (37.0-47.0)
[2024-08-30 07:24] LABS: Glucose, Whole Blood 232 mg/dL (60-115)
[2024-08-30] MEDS: Apixaban 5 MG TABLET 10 MG PO ×2 (07:36→21:08)
[2024-08-30] MEDS: Atorvastatin Calcium 20 MG TABLET PO (07:36)
[2024-08-30] MEDS: Pregabalin 150 MG CAPSULE 300 MG PO ×2 (07:36→21:08)
[2024-08-30] MEDS: Insulin Lispro 100 UNIT/ML 3 ML VIAL SUBCUT ×4 (07:36→21:08)
[2024-08-30 07:42] LABS: Hemoglobin 6.9 g/dl (12.0-16.0)
--- NOTE | 2024-08-30 08:03 | PC.NURSE ---
[employer] bladder scanned for 560 ml of urine. patient straight cathed for 640ml. patient then bladder scanned for 0ml
--- NOTE | 2024-08-30 08:54 | PM.PNORT ---
Subjective Subjective Date of Service: 08/30/24 Interval history: POD 4 s/p lt knee retrograde nail No overnight events resting in bed no concerns at this time Physical Exam Vital Signs: Vital Signs: Last Vital Signs Temp 97.5 F 08/30/24 07:09 Pulse 101 H 08/30/24 07:09 Resp 17 08/30/24 07:09 BP 111/61 08/30/24 07:09 Pulse Ox 93 08/30/24 07:09 O2 Del Method Room Air 08/30/24 07:09 O2 Flow Rate 2 08/28/24 15:20 BMI result Body Mass Index 35.7 Const: General: cooperative, healthy appearing and no acute distress Resp: Effort & Inspection: normal respiratory effort and able to speak in complete sentences Cardio: Rate: regular rate Peripheral pulses: Peripheral pulses 2+ throughout GI: Palpation (GI): Soft to palpation Skin: General skin exam: no rashes or lesions noted Extrem: Other: Left knee incisions are clean dry and intact. Mild swelling. Calf supple and nontender. Compartments soft. Neurovascularly intact. Procedures Date of Service Date of Service: 08/30/24 Progress Note: A&P Assessment and plan (1) Periprosthetic fracture around internal prosthetic left knee joint, initial encounter: Status: Acute (2) Pulmonary embolism: Status: Acute Plan Pain management Thrombectomy 08/28/[address] Wilson PT/OT weightbearing as tolerated Dispo pending PT eval and med clearance Time Spent With Patient Time: Total time managing care of this patient today ____ minutes. Quality Stroke Does the patient have a stroke diagnosis?: No VTE Prior VTE?: No VTE Risk Level:: Medical - moderate - high VTE Device Contraindication: Treatment Not Indicated VTE Drug Contraindication: N/A - Med Ordered
--- NOTE | 2024-08-30 09:30 | HO.VASCPN ---
Subjective Subjective Date of Service: 08/30/24 Interval history: Ivana is doing ok this morning. She continues to endorse pain in the left knee area, particularly with movement. She is also c/o low back pain; she states likely due to being in bed for the last couple of days. She is hoping to get out of bed today. She denies diff breathing, CP, and shortness of breath. She has been eating, drinking, and sleeping well. She has no new concerns this morning. Physical Exam Vital Signs: Vital Signs: Last Vital Signs Temp 97.5 F 08/30/24 07:09 Pulse 101 H 08/30/24 07:09 Resp 17 08/30/24 07:09 BP 111/61 08/30/24 07:09 Pulse Ox 93 08/30/24 07:09 O2 Del Method Room Air 08/30/24 07:09 O2 Flow Rate 2 08/28/24 15:20 BMI result Body Mass Index 35.7 Const: General: comfortable and no acute distress Orientation/consciousness: patient oriented x3 HEENT: Ears: hearing grossly normal bilaterally Resp: Effort & Inspection: normal respiratory effort and able to speak in complete sentences Auscultation: clear to auscultation bilaterally Cardio: Rate: regular rate Rhythm: regular rhythm Heart sounds: S1 normal heart sound present and S2 normal heart sound present Bruits: no abdominal aortic bruits, no carotid bruits, no femoral bruits and no renal bruits GI: Palpation (GI): No Abdominal aortic bruit present : Other: Incision site: suture intact. C/D/I. Neuro: General: patient oriented x3 Cranial nerves: Yes CN's II-XII intact bilaterally Progress Note: A&P Assessment and plan (1) Pulmonary embolism: Status: Acute Assessment and Plan: Ivana is s/p pulmonary thrombectomy with Dr Wilson on 08/28. She has been stable from a vascular standpoint. She continues to feel better everyday and has not had any diff breathing or shortness of breath s/p thrombectomy. Her H/H dropped this morning and is s/p 1u pRBCs yesterday. We will continue to monitor. If there are any questions or concerns, please do not hesitate to reach out to us. Time Spent With Patient Time: Total time managing care of this patient today ____ minutes. Procedures Date of Service Date of Service: 08/30/24 Quality Stroke Does the patient have a stroke diagnosis?: No VTE Prior VTE?: No VTE Risk Level:: Medical - moderate - high VTE Device Contraindication: Treatment Not Indicated VTE Drug Contraindication: N/A - Med Ordered
[2024-08-30] MEDS: 0.9 % Sodium Chloride Flush 3 ML SYRINGE IVFLUSH ×2 (10:07→21:17)
[2024-08-30] MEDS: Pantoprazole Sodium 40 MG/10 ML VIAL IVPUSH ×2 (10:07→16:37)
[2024-08-30] MEDS: oxyCODONE HCl Immed Release 5 MG TABLET PO ×3 (10:25→21:48)
--- NOTE | 2024-08-30 11:15 | P.PNIM_ITS ---
Subjective Subjective Date of Service: 08/30/24 Interval History: lightheaded + somewhat confused Hb 6.9 this AM no dyspnea Review of Systems Review of Systems: Yes all other systems are reviewed and are negative Physical Exam 2 Vital Signs: Vital Signs: Last Vital Signs Temp 97.7 F 08/30/24 10:20 Pulse 106 H 08/30/24 10:20 Resp 16 08/30/24 10:20 BP 114/55 L 08/30/24 10:20 Pulse Ox 93 08/30/24 07:09 O2 Del Method Room Air 08/30/24 07:09 O2 Flow Rate 2 08/28/24 15:20 BMI result Body Mass Index 35.7 Gen: in no acute distress HEENT: sclera anicteric, moist but pale mucus membranes Neck: supple Lungs: clear to auscultation bilaterally Heart: regular, tachycardic, no murmurs Abd: soft, non-tender, non-distended Ext: no edema, LLE with swelling around knee, dry dressing Skin: warm/well-perfused Neuro: alert and oriented x3, no focal findings but mildly confused Psych: appropriate affect Objective Data Active Medications Acetaminophen (Acetaminophen 325 Mg Tablet) 975 mg PO Q6H PRN PRN Reason: fever/mild pain Amitriptyline HCl (Amitriptyline Hcl 50 Mg Tablet) 100 mg PO BEDTIME [facility] Last Admin: 08/29/24 20:51 Dose: 100 mg Documented By: MAINE Apixaban (Apixaban 5 Mg Tablet) 10 mg PO BID [facility] Stop: 09/03/24 21:01 Last Admin: 08/30/24 07:36 Dose: 10 mg Documented By: RAN Atorvastatin Calcium (Atorvastatin Calcium 20 Mg Tablet) 20 mg PO DAILY [facility] Last Admin: 08/30/24 07:36 Dose: 20 mg Documented By: RAN Calcium Carbonate (Calcium Carbonate 750 Mg Tab.Chew) 750 mg PO Q4H PRN PRN Reason: Heartburn Cyclobenzaprine HCl (Cyclobenzaprine Hcl 10 Mg Tablet) 10 mg PO BEDTIME PRN PRN Reason: Muscle Spasm Last Admin: 08/26/24 23:46 Dose: 10 mg Documented By: RADHA Dextrose (Dextrose 50 % 25 Gm/50 Ml Syringe) 25 gm IVPUSH Q15M PRN; Protocol PRN Reason: per Hypoglycemia Standing Ord. Glucose (Glucose Gel 15 Gm Gel..Gram.) 15 gm PO Q15M PRN; Protocol PRN Reason: per Hypoglycemia Standing Ord. Hydromorphone HCl (Hydromorphone Hcl 0.5 Mg/0.5 Ml Syringe) 0.75 mg IVPUSH Q4H PRN; Protocol PRN Reason: Pain, Severe (Pain Scale 7-10) Last Admin: 08/30/24 04:59 Dose: 0.75 mg Documented By: MAINE Cefazolin Sodium/Dextrose (Ancef) 2 gm in 50 mls @ 100 mls/hr IV POSTOP [facility] Insulin Human Lispro (Insulin Lispro 100 Unit/Ml 3 Ml Vial) 0 unit SUBCUT QIDACHS [facility]; Protocol Last Admin: 08/30/24 07:36 Dose: 4 unit Documented By: RAN Magnesium Hydroxide (Milk Of Magnesia 30 Ml Oral.Susp) 30 ml PO DAILY PRN PRN Reason: Constipation Melatonin (Melatonin 3 Mg Tablet) 6 mg PO BEDTIME PRN PRN Reason: Insomnia Ondansetron HCl (Ondansetron Hcl 4 Mg/2 Ml Vial) 4 mg IVPUSH Q4H PRN PRN Reason: Nausea and Vomiting Oxycodone HCl (Oxycodone Hcl Immed Release 5 Mg Tablet) 5 mg PO Q4H PRN PRN Reason: pain,moderate Last Admin: 08/30/24 10:25 Dose: 5 mg Documented By: RAN Pantoprazole Sodium (Pantoprazole Sodium 40 Mg/10 Ml Vial) 40 mg IVPUSH BID@0630,1630 [facility] Last Admin: 08/30/24 10:07 Dose: 40 mg Documented By: RAN Pregabalin (Pregabalin 150 Mg Capsule) 300 mg PO BID [facility] Last Admin: 08/30/24 07:36 Dose: 300 mg Documented By: RAN Sodium Chloride (0.9 % Sodium Chloride Flush 3 Ml Syringe) 3 ml IVFLUSH QSHIFT [facility] Last Admin: 08/30/24 10:07 Dose: 3 ml Documented By: RAN Labs 08/30/24 06:37 08/29/24 07:14 Labs: Laboratory Results - last 24 hr 08/29/24 08/29/24 08/29/24 08:44 11:20 16:19 POC Glucose 255 H 179 H Blood Type O Positive Antibody Screen NEGATIVE Crossmatch See Detail 08/29/24 08/30/24 20:22 07:20 POC Glucose 195 H 232 H Blood Type Antibody Screen Crossmatch Assessment and Plan (1) Femur fracture: Status: Acute Plan d6 for 59yo F with CAD s/p PCI 2014, DM2, HLD, arthritis s/p L TKA who had a mechanical fall on stairs and sustained a comminuted, displaced fracture at the distal left femoral metadiaphysis s/p retrograde IMN 08/26/24 developed RML, RLL, and LLL pulmonary artery PEs/L popliteal DVT s/p thrombectomy 08/28/24 anemia due to blood loss from fracture - transfused 1u pRBCs 08/29, will give another 2u today; place on IV PPI and send FOBT but suspect due to femur fracture/hematoma rather than GI loss acute metabolic encephalopathy - suspect due to anemia/anesthesia x2, continue to monitor/re-orient; CT head 08/29 negative acute PE/DVT, provoked [trauma/surgery] - POD2 pulmonary artery thrombectomy - heparin drip -> apixaban, 10 mg bid 08/28-09/04 then 5 mg bid x 6mo - no R heart strain. TTE 08/27/24: 1. Technically limited study despite use of contrast agent 2. Normal biventricular systolic function 3. Cardiac valvular Dopplers within normal limits 4. Normal measured RV systolic pressure - clarification per family: pt's sister of brain aneurysm, not PE; does not need thrombophilia workup acute hypoxic respiratory failure - weaned off O2 distal L femoral metadiaphyseal fracture - POD4 retrograde IMN, pain control, PT HTN - held lisinopril CAD - held ASA, continue atorvastatin DM2 - held Mounjaro and GPZ, give maria isabel-dose lipsro neuropathic pain - continue pregabalin + amitriptylline VTE ppx - apixaban dispo - AIR In my clinical judgment, the patient requires continued inpatient hospitalization for the following reasons: postoperative care, anemia/hypotension requiring transfusion Total time managing care of this patient today: 45 minutes. Quality Stroke Does the patient have a stroke diagnosis?: No VTE Prior VTE?: No VTE Risk Level:: Medical - moderate - high VTE Device Contraindication: Treatment Not Indicated VTE Drug Contraindication: N/A - Med Ordered
[2024-08-30 12:04] LABS: Glucose, Whole Blood 214 mg/dL (60-115)
[2024-08-30] MEDS: Acetaminophen 325 MG TABLET 975 MG PO (13:10)
[2024-08-30 14:22] LABS: Appearance Urine Cloudy; Color Urine Yellow; Glucose Urine UA 250 mg/dL (Negative); Leukocyte Esterase Urine Moderate (2+) (Negative); Nitrite Urine Negative (Negative); UMIC TRIGGER UA YES; Urine Blood Negative (Negative); Urine Ketones Negative (Negative); Urine Protein Negative (Neg-Trace)
[2024-08-30 14:24] LABS: Bacteria Urine 4+ (None Seen); Hyaline Casts Urine 0-2 /LPF (0-2); RBC Urine 0-2 /HPF (0-2); Squamous Epithelial Cell Urine 0-2 /HPF (0-2)
[2024-08-30 16:19] LABS: Glucose, Whole Blood 197 mg/dL (60-115)
[2024-08-30 20:05] LABS: Glucose, Whole Blood 210 mg/dL (60-115)
[2024-08-30] MEDS: Amitriptyline HCl 50 MG TABLET 100 MG PO (21:08)
[2024-08-31 03:12] VITALS: BP 117/58; PULSE 102; RESP 18; TEMP 36.3; O2SAT 96
[2024-08-31] MEDS: Pantoprazole Sodium 40 MG/10 ML VIAL IVPUSH ×2 (03:30→18:34)
[2024-08-31] MEDS: HYDROmorphone HCl 0.5 MG/0.5 ML SYRINGE 0.75 MG IVPUSH ×2 (03:31→08:34)
[2024-08-31 07:00] LABS: Hematocrit 28.4 % (37.0-47.0); Hemoglobin 9.6 g/dl (12.0-16.0)
[2024-08-31 07:42] LABS: Glucose, Whole Blood 170 mg/dL (60-115)
[2024-08-31 07:54] VITALS: BP 104/57; PULSE 100; RESP 18; TEMP 36.4; O2SAT 98
[2024-08-31] MEDS: Atorvastatin Calcium 20 MG TABLET PO (08:46)
[2024-08-31] MEDS: Apixaban 5 MG TABLET 10 MG PO ×2 (08:46→20:31)
[2024-08-31] MEDS: 0.9 % Sodium Chloride Flush 3 ML SYRINGE IVFLUSH ×3 (08:47→20:32)
[2024-08-31] MEDS: Pregabalin 150 MG CAPSULE 300 MG PO ×2 (08:47→20:31)
[2024-08-31] MEDS: Insulin Lispro 100 UNIT/ML 3 ML VIAL SUBCUT ×4 (08:58→22:07)
[2024-08-31] MEDS: ondansetron HCL 4 MG/2 ML VIAL IVPUSH (10:52)
--- NOTE | 2024-08-31 11:13 | PM.DS ---
DS: Providers Provider Date of Service: 08/31/24 Date of admission: 08/25/24 03:30 Date of discharge: 08/31/24 Primary care physician: Josh Naranjo MD Consults: 08/25/24 03:30 Consult to Orthopedics Routine Consulting Provider: [facility] Orthopedic Surgeons Reason for consultation: femur fx 08/27/24 07:50 Consult to Vascular Surgery Routine Consulting Provider: [facility] Vascular Services Reason for consultation: postop PE DS: Diagnosis Discharge Diagnosis (1) Periprosthetic fracture around internal prosthetic left knee joint, initial encounter: Status: Acute (2) Pulmonary embolism: Status: Acute (3) DVT (deep venous thrombosis): Status: Acute (4) Acute blood loss anemia: Status: Acute (5) Acute metabolic encephalopathy: Status: Acute (6) Acute respiratory failure with hypoxia: Status: Acute DS: Summary Hospital Course Hospital Course: From the history and physical by the admitting hospitalist, Yonatan Charles, 08/25/24: 59-year-old female with a past medical history of HTN, HLD, dm, CAD, arthritis presented to the hospital today with a chief complaint of fall. Patient reports that she was climbing down the stairs, and was at the 4 step from the bottom she tripped and fell and landed to the friend; denies any head strike or loss of consciousness. Denies any neck pain or back pain. Reports she had severe pain in her left thigh and was not able to move; her called ambulance and subsequently came to the ER for further evaluation. Reports ambulance gave her fentanyl. Denies any lightheadedness or dizziness. Denies any numbness tingling or focal weakness. Denies any chest pain or palpitations. Review of all other systems is negative except mentioned above ER course: Per ER team, patient noted to have left thigh swelling and tenderness; no ecchymosis; ROM limited secondary to the pain. X-ray showed femur fracture. Pulses palpable. Neurovascularly intact. Suspected small hematoma; patient's hemoglobin dropped from her baseline of 14.2-11.4. Repeat hemoglobin stable at 11.5. Patient blood pressure was on the soft side-presumed to be secondary to opiate medications. Given IV fluids. Orthopedics team was notified who mentioned to keep the patient NPO for possible surgery in a.m. 59yo F with CAD s/p PCI 2014, DM2, HLD, arthritis s/p L TKA who had a mechanical fall on stairs and sustained a comminuted, displaced fracture at the distal left femoral metadiaphysis near her prosthesis. She was admitted to the hospitalist service and underwent retrograde IMN 08/26/24. Unfortunately, postoperatively she became tachycardic and hypoxic and was found to ahve RML, RLL, and LLL pulmonary artery PEs/L popliteal DVT. She underwent mechanical thrombectomy 08/28/24. Hospital course by problem: anemia due to blood loss from fracture - Hb vicki of 6.9. Transfused total 3u pRBCs with recover to 9.6. acute metabolic encephalopathy - suspect due to anemia/anesthesia x2, continue to monitor/re-orient; CT head 08/29 negative acute PE/DVT, provoked [trauma/surgery] - pulmonary artery thrombectomy done 08/28/24 as above - treated with IV heparin drip initially then converted to apixaban, 10 mg bid, then 5 mg bid x 6mo [switch to 5 mg bid on 09/04] - no R heart strain on TTE 08/27/24: 1. Technically limited study despite use of contrast agent 2. Normal biventricular systolic function 3. Cardiac valvular Dopplers within normal limits 4. Normal measured RV systolic pressure - clarification per family: pt's sister of brain aneurysm, not PE; does not need thrombophilia workup; I would consider this a provoked DVT/PE acute hypoxic respiratory failure - weaned off O2 distal L femoral metadiaphyseal fractue - underwent retrograde IMN 08/26/24 as above. Transferred to [facility] acute inpatient rehabilitation given her prior good functional status. Physical Exam Vital Signs: Vital Signs: Last Vital Signs Temp 97.5 F 08/31/24 07:54 Pulse 100 08/31/24 07:54 Resp 18 08/31/24 07:54 BP 104/57 L 08/31/24 07:54 Pulse Ox 98 08/31/24 07:54 O2 Del Method Room Air 08/31/24 07:54 O2 Flow Rate 2 08/28/24 15:20 BMI result Body Mass Index 35.7 Gen: in no acute distress HEENT: sclera anicteric, moist but pale mucus membranes Neck: supple Lungs: clear to auscultation bilaterally Heart: regular, tachycardic, no murmurs Abd: soft, non-tender, non-distended Ext: no edema, LLE with swelling around knee, dry dressing Skin: warm/well-perfused Neuro: alert and oriented x3, no focal findings but mildly confused Psych: appropriate affect DS: Data Data Completed and Pending Completed studies during hospitalization [Text1]: Laboratory Results WBC 9.9 X10*3/uL (4.8-10.8) 08/29/24 07:14 RBC 2.41 X10*6/uL (4.20-5.50) L 08/29/24 07:14 Hgb 9.6 g/dl (12.0-16.0) L D 08/31/24 06:16 Hct 28.4 % (37.0-47.0) L D 08/31/24 06:16 MCV 92.5 fL (80.0-98.0) 08/29/24 07:14 MCH 29.5 pg (27.0-33.0) 08/29/24 07:14 MCHC 31.8 g/dl (31.0-35.0) 08/29/24 07:14 RDW 13.2 % (11.0-16.0) 08/29/24 07:14 Plt Count 195 X10*3/uL (160-400) 08/29/24 07:14 MPV 11.6 fL (9.4-12.3) 08/29/24 07:14 Immature Gran % (Auto) 0.4 % (0.0-0.4) 08/27/24 05:19 Neut % (Auto) 70.2 % (45-73) 08/27/24 05:19 Lymph % (Auto) 15.1 % (20-40) L 08/27/24 05:19 [place] % (Auto) 8.6 % (2-11) 08/27/24 05:19 Eos % (Auto) 5.3 % (0-4) H 08/27/24 05:19 Baso % (Auto) 0.4 % (0-2) 08/27/24 05:19 Lymph # (Auto) 1.6 X10*3/uL (1.2-4.9) 08/27/24 05:19 [place] # (Auto) 0.9 X10*3/uL (0.1-1.2) 08/27/24 05:19 Eos # (Auto) 0.6 X10*3/uL (0.0-0.4) H 08/27/24 05:19 Baso # (Auto) 0.0 X10*3/uL (0.0-0.2) 08/27/24 05:19 Abs Immat Gran (auto) 0.04 X10*3/uL (0.00-0.03) H 08/27/24 05:19 Absolute Neuts (auto) 7.2 x10*3/uL (2.0-8.3) 08/27/24 05:19 Absolute Nucleated RBC 0.000 X10*3/uL (0.0-0.012) 08/29/24 07:14 Nucleated RBC % (auto) 0.0 /100WBC (0.0-0.2) 08/29/24 07:14 PT 12.5 SEC (10.9-12.4) H 08/28/24 06:50 INR 1.1 (0.9-1.1) 08/28/24 06:50 aPTT Heparin Protocol 91.3 SEC (53-77.9) H D 08/28/24 12:54 Activated Clotting Time 272 Celite s (79-173) H 08/28/24 09:28 Sodium 139 mmol/L (135-145) 08/29/24 07:14 Potassium 4.1 mmol/L (3.3-5.1) 08/29/24 07:14 Chloride 105 mmol/L (96-108) 08/29/24 07:14 Carbon Dioxide 28 mmol/L (22-29) 08/29/24 07:14 Anion Gap 10 (12-20) L 08/29/24 07:14 BUN 8 mg/dL (9-16) L 08/29/24 07:14 Creatinine 0.60 mg/dL (0.5-1.4) 08/29/24 07:14 Estim Creat Clear Calc 130.0 08/29/24 07:14 Estimated GFR > 60 08/29/24 07:14 POC Glucose 170 mg/dL (60-115) H 08/31/24 07:38 Random Glucose 202 mg/dL (60-115) H 08/29/24 07:14 Estimat Average Glucose 166 mg/dL 08/25/24 04:31 Hemoglobin A1c % 7.4 % (<6.0) H 08/25/24 04:31 Calcium 8.4 mg/dL (8.4-10.2) 08/29/24 07:14 Total Bilirubin 0.3 mg/dL (0.0-1.0) 08/25/24 04:31 AST 21 U/L (5-31) 08/25/24 04:31 ALT 15 U/L (0-31) 08/25/24 04:31 Alkaline Phosphatase 67 U/L (39-117) 08/25/24 04:31 Troponin I High Sens 12.6 ng/L (<3.5-17.0) 08/28/24 06:50 B-Natriuretic Peptide < 10 pg/mL (<100) 08/28/24 06:50 Total Protein 6.3 g/dL (6.5-8.0) L 08/25/24 04:31 Albumin 3.8 g/dL (3.5-5.0) 08/25/24 04:31 Urine Color Yellow 08/30/24 13:52 Urine Appearance Cloudy 08/30/24 13:52 Urine pH 6.0 (5.0-9.0) 08/30/24 13:52 Ur Specific [place] 1.010 (1.005-1.025) 08/30/24 13:52 Urine Protein Negative mg/dL (Neg-Trace) 08/30/24 13:52 Urine Glucose (UA) 250 mg/dL (Negative) H 08/30/24 13:52 Urine Ketones Negative mg/dL (Negative) 08/30/24 13:52 Urine Blood Negative (Negative) 08/30/24 13:52 Urine Nitrite Negative (Negative) 08/30/24 13:52 Ur Leukocyte Esterase Moderate (2+) (Negative) H 08/30/24 13:52 Urine RBC 0-2 /HPF (0-2) 08/30/24 13:52 Urine WBC 6-10 /HPF (0-5) H 08/30/24 13:52 Ur Squamous Epith Cells 0-2 /HPF (0-2) 08/30/24 13:52 Urine Bacteria 4+ (None Seen) 08/30/24 13:52 Hyaline Casts 0-2 /LPF (0-2) 08/30/24 13:52 Blood Type O Positive 08/29/24 08:44 Antibody Screen NEGATIVE 08/29/24 08:44 Crossmatch See Detail 08/29/24 08:44 Impressions Guidance Fluoroscopy 08/26/24 11:15 IMPRESSION: Fluoroscopy during procedure. Please see procedure report for additional information. Electronically signed by: Arnold Carnes MD 08/27/2024 07:06 AM EDT RP Venous Duplex 08/27/24 10:41 IMPRESSION: 1. Deep venous thrombosis of the left popliteal vein extending into the calf veins. 2. No evidence of acute DVT in the right lower extremity. 3. Findings were sent to Dr. Yonatan Charles on 08/27/2024 at 11:45 AM. Electronically signed by: Arnold Carnes MD 08/27/2024 11:48 AM EDT RP CTA chest 08/27/24 1. Mildly motion limited examination with a [id number] PE burden involving right middle and bilateral lower lobe pulmonary arterial branches as described above. No CT evidence for right heart strain. 2. Minimal bibasilar subsegmental atelectasis. TTE 08/27/24 1. Technically limited study despite use of contrast agent 2. Normal biventricular systolic function 3. Cardiac valvular Dopplers within normal limits 4. Normal measured RV systolic pressure Discharge Plan Discharge Anticipated Discharge Date/Time: 08/31/24 16:07 Patient Disposition: Xfer Inpatient Rehab Fac Discharge Diagnosis: periprosthetic femur fracture deep venous thrombosis and pulmonary embolism Referrals: Josh Naranjo MD [Primary Care Provider] - 1 Week [facility] Ar[facility] PA-C [Physician Traveling Sales Representative] - 09/14/24 9:00 am (09/14/24 at 9am with ) Discharge Medications: New Eliquis 5 mg Tablet See Rx Instructions .ROUTE .COMPLEX Qty: 68 0RF Rx Instructions: 10 mg (2 tabs) twice daily until 09/03/24; then 5 mg (1 tab) twice daily oxycodone 5 mg Tablet 10 mg PO Q4H PRN (Reason: pain,moderate) Qty: 30 0RF Rx Instructions: Partial Fill upon patient request. Continued cyclobenzaprine 10 mg tablet 10 mg PO BEDTIME PRN (Reason: Muscle Spasm) atorvastatin 20 mg tablet 20 mg PO DAILY glipizide 10 mg tablet 10 mg PO QAM omeprazole 20 mg capsule,delayed release(DR/EC) 20 mg PO DAILY@0630 amitriptyline 100 mg tablet 100 mg PO BEDTIME pregabalin 300 mg capsule 300 mg PO BID Mounjaro 7.5 mg/0.5 mL pen injector 7.5 mg SUBCUT HARDY Discontinued aspirin 81 mg tablet,delayed release (DR/EC) 81 mg PO DAILY tramadol 50 mg tablet 50 mg PO Q8H PRN (Reason: pain) lisinopril 5 mg tablet 5 mg PO DAILY ibuprofen 600 mg tablet 600 mg PO Q8H PRN (Reason: Pain) Diet: Advance to usual diet Activity on Discharge: see below Stand Alone Forms: Patient Portal Discharge page Print Language: Malaysian Activity Restrictions/Additional Instructions: Gait training, strengthening, ADLs WBAT Continue ASA for dvt ppx x6 weeks Keep dressing clean, dry and intact-no showering or tub baths Follow up with Orthopedics in 2 weeks Care Plan Goals: recovery from fracture and PE Health Concerns: periprosthetic femur fracture deep venous thrombosis and pulmonary embolism Plan of Treatment: transfer to acute inpatient rehabilitation apixaban 10 mg twice daily until 09/03; starting 09/04, take 5 mg twice daily; continue for at least 6 months pain control with acetaminophen and oxycodone follow up with [facility] Orthopedics in 2 weeks Please follow up with your primary care doctor within 1 week of discharge from rehabilitation. Return to the hospital if you experience recurrent or worsening symptoms. Assessment: See Discharge Summary.
--- NOTE | 2024-08-31 11:18 | MHC.CM.PN ---
EMR reviewed and per MD rounds, pt is medically cleared for discharge to acute rehab. Per [facility], they requested clinical updates prior to being able to initiate insurance auth. Referral updated, insurance auth now being initiated.
[2024-08-31 11:33] LABS: Glucose, Whole Blood 250 mg/dL (60-115)
[2024-08-31 11:34] VITALS: BP 115/57; PULSE 107; RESP 20; TEMP 36.4; O2SAT 96
--- NOTE | 2024-08-31 11:36 | P.PNIM_ITS ---
Subjective Subjective Date of Service: 08/31/24 Interval History: Hb improved confusion improved still in lots of pain around knee Review of Systems Review of Systems: Yes all other systems are reviewed and are negative Physical Exam 2 Vital Signs: Vital Signs: Last Vital Signs Temp 97.5 F 08/31/24 07:54 Pulse 100 08/31/24 07:54 Resp 18 08/31/24 07:54 BP 104/57 L 08/31/24 07:54 Pulse Ox 98 08/31/24 07:54 O2 Del Method Room Air 08/31/24 07:54 O2 Flow Rate 2 08/28/24 15:20 BMI result Body Mass Index 35.7 Gen: in no acute distress HEENT: sclera anicteric, moist but pale mucus membranes Neck: supple Lungs: clear to auscultation bilaterally Heart: regular, tachycardic, no murmurs Abd: soft, non-tender, non-distended Ext: no edema, LLE with swelling around knee, dry dressing Skin: warm/well-perfused Neuro: alert and oriented x3, no focal findings Psych: appropriate affect Objective Data Active Medications Acetaminophen (Acetaminophen 325 Mg Tablet) 975 mg PO Q6H PRN PRN Reason: fever/mild pain Last Admin: 08/30/24 13:10 Dose: 975 mg Documented By: RAN Amitriptyline HCl (Amitriptyline Hcl 50 Mg Tablet) 100 mg PO BEDTIME [facility] Last Admin: 08/30/24 21:08 Dose: 100 mg Documented By: KYMBERLY Apixaban (Apixaban 5 Mg Tablet) 10 mg PO BID [facility] Stop: 09/03/24 21:01 Last Admin: 08/31/24 08:46 Dose: 10 mg Documented By: JUDY Atorvastatin Calcium (Atorvastatin Calcium 20 Mg Tablet) 20 mg PO DAILY [facility] Last Admin: 08/31/24 08:46 Dose: 20 mg Documented By: JUDY Calcium Carbonate (Calcium Carbonate 750 Mg Tab.Chew) 750 mg PO Q4H PRN PRN Reason: Heartburn Cyclobenzaprine HCl (Cyclobenzaprine Hcl 10 Mg Tablet) 10 mg PO TID PRN PRN Reason: Muscle Spasm Dextrose (Dextrose 50 % 25 Gm/50 Ml Syringe) 25 gm IVPUSH Q15M PRN; Protocol PRN Reason: per Hypoglycemia Standing Ord. Glucose (Glucose Gel 15 Gm Gel..Gram.) 15 gm PO Q15M PRN; Protocol PRN Reason: per Hypoglycemia Standing Ord. Hydromorphone HCl (Hydromorphone Hcl 0.5 Mg/0.5 Ml Syringe) 1 mg IVPUSH Q4H PRN; Protocol PRN Reason: Pain, Severe (Pain Scale 7-10) Cefazolin Sodium/Dextrose (Ancef) 2 gm in 50 mls @ 100 mls/hr IV POSTOP [facility] Insulin Human Lispro (Insulin Lispro 100 Unit/Ml 3 Ml Vial) 0 unit SUBCUT QIDACHS [facility]; Protocol Last Admin: 08/31/24 08:58 Dose: 2 unit Documented By: JUDY Lidocaine (Lidocaine 4 % Patch Adh..Patch) 1 patch TRANSDERMA DAILY [facility]; Protocol Magnesium Hydroxide (Milk Of Magnesia 30 Ml Oral.Susp) 30 ml PO DAILY PRN PRN Reason: Constipation Melatonin (Melatonin 3 Mg Tablet) 6 mg PO BEDTIME PRN PRN Reason: Insomnia Ondansetron HCl (Ondansetron Hcl 4 Mg/2 Ml Vial) 4 mg IVPUSH Q4H PRN PRN Reason: Nausea and Vomiting Last Admin: 08/31/24 10:52 Dose: 4 mg Documented By: JUDY Oxycodone HCl (Oxycodone Hcl Immed Release 5 Mg Tablet) 10 mg PO Q4H PRN PRN Reason: Pain, Moderate(Pain Scale 4-6) Pantoprazole Sodium (Pantoprazole Sodium 40 Mg/10 Ml Vial) 40 mg IVPUSH BID@0630,1630 [facility] Last Admin: 08/31/24 03:30 Dose: 40 mg Documented By: MAINE Pregabalin (Pregabalin 150 Mg Capsule) 300 mg PO BID [facility] Last Admin: 08/31/24 08:47 Dose: 300 mg Documented By: JUDY Sodium Chloride (0.9 % Sodium Chloride Flush 3 Ml Syringe) [facility] Last Admin: 08/31/24 08:47 Dose: 3 ml Documented By: JUDY Labs 08/31/24 06:16 08/29/24 07:14 Labs: Laboratory Results - last 24 hr 08/29/24 08/30/24 08/30/24 08:44 11:15 13:52 POC Glucose 214 H Urine Color Yellow Urine Appearance Cloudy Urine pH 6.0 Ur Specific [place] 1.010 Urine Protein Negative Urine Glucose (UA) 250 H Urine Ketones Negative Urine Blood Negative Urine Nitrite Negative Ur Leukocyte Esterase Moderate (2+) H Urine RBC 0-2 Urine WBC 6-10 H Ur Squamous Epith Cells 0-2 Urine Bacteria 4+ Hyaline Casts 0-2 Blood Type O Positive Antibody Screen NEGATIVE Crossmatch See Detail 08/30/24 08/30/24 08/31/24 16:16 20:01 07:38 POC Glucose 197 H 210 H 170 H Urine Color Urine Appearance Urine pH Ur Specific [place] Urine Protein Urine Glucose (UA) Urine Ketones Urine Blood Urine Nitrite Ur Leukocyte Esterase Urine RBC Urine WBC Ur Squamous Epith Cells Urine Bacteria Hyaline Casts Blood Type Antibody Screen Crossmatch 08/31/24 11:28 POC Glucose 250 H Urine Color Urine Appearance Urine pH Ur Specific [place] Urine Protein Urine Glucose (UA) Urine Ketones Urine Blood Urine Nitrite Ur Leukocyte Esterase Urine RBC Urine WBC Ur Squamous Epith Cells Urine Bacteria Hyaline Casts Blood Type Antibody Screen Crossmatch Assessment and Plan (1) Femur fracture: Status: Acute Plan d7 for 59yo F with CAD s/p PCI 2014, DM2, HLD, arthritis s/p L TKA who had a mechanical fall on stairs and sustained a comminuted, displaced fracture at the distal left femoral metadiaphysis s/p retrograde IMN 08/26/24 developed RML, RLL, and LLL pulmonary artery PEs/L popliteal DVT s/p thrombectomy 08/28/24 anemia due to blood loss from fracture - transfused 1u pRBCs 08/29, 2u pRBCs 08/30, H+H appropriately responded acute metabolic encephalopathy - suspect due to anemia/anesthesia x2, continue to monitor/re-orient; CT head 08/29 negative acute PE/DVT, provoked [trauma/surgery] - POD3 pulmonary artery thrombectomy - heparin drip -> apixaban, 10 mg bid 08/28-09/04 then 5 mg bid x 6mo - no R heart strain. TTE 08/27/24: 1. Technically limited study despite use of contrast agent 2. Normal biventricular systolic function 3. Cardiac valvular Dopplers within normal limits 4. Normal measured RV systolic pressure - clarification per family: pt's sister of brain aneurysm, not PE; does not need thrombophilia workup acute hypoxic respiratory failure - weaned off O2 distal L femoral metadiaphyseal fracture - POD5 retrograde IMN, pain control, PT HTN - held lisinopril CAD - held ASA, continue atorvastatin DM2 - held Mounjaro and GPZ, give maria isabel-dose lipsro neuropathic pain - continue pregabalin + amitriptylline VTE ppx - apixaban dispo - AIR In my clinical judgment, the patient requires continued inpatient hospitalization for the following reasons: awaiting AIR placement Total time managing care of this patient today: 45 minutes. Quality Stroke Does the patient have a stroke diagnosis?: No VTE Prior VTE?: No VTE Risk Level:: Medical - moderate - high VTE Device Contraindication: Treatment Not Indicated VTE Drug Contraindication: N/A - Med Ordered
[2024-08-31] MEDS: HYDROmorphone HCl 1 MG/ML SYRINGE 0.75 MG IVPUSH (12:28)
[2024-08-31] MEDS: Lidocaine 4 % Patch ADH..PATCH 1 PATCH TRANSDERMA (12:29)
[2024-08-31 12:31] VITALS: BP 115/57; PULSE 107; O2SAT 96
[2024-08-31] MEDS: oxyCODONE HCl Immed Release 5 MG TABLET 10 MG PO (14:10)
[2024-08-31 16:31] LABS: Glucose, Whole Blood 249 mg/dL (60-115)
[2024-08-31] MEDS: Cyclobenzaprine HCl 10 MG TABLET PO (16:40)
[2024-08-31 18:29] LABS: Glucose, Whole Blood 253 mg/dL (60-115)
[2024-08-31] MEDS: HYDROmorphone HCl 0.5 MG/0.5 ML SYRINGE 1 MG IVPUSH ×2 (18:38→22:47)
[2024-08-31 19:18] VITALS: BP 120/62; PULSE 114; RESP 18; TEMP 36.8; O2SAT 95
[2024-08-31] MEDS: Amitriptyline HCl 50 MG TABLET 100 MG PO (20:31)
[2024-08-31] MEDS: Acetaminophen 325 MG TABLET 975 MG PO (20:34)
[2024-08-31 21:40] LABS: Glucose, Whole Blood 248 mg/dL (60-115)
[2024-08-31 23:58] VITALS: BP 117/55; PULSE 104; RESP 18; TEMP 36.1; O2SAT 93
[2024-09-01] MEDS: Acetaminophen 325 MG TABLET 975 MG PO ×2 (03:34→10:33)
[2024-09-01 03:35] VITALS: BP 126/66; PULSE 84; RESP 18; TEMP 36.3; O2SAT 94
[2024-09-01 07:37] VITALS: BP 117/67; PULSE 94; RESP 20; TEMP 36.2; O2SAT 94
[2024-09-01 07:49] LABS: Glucose, Whole Blood 219 mg/dL (60-115)
[2024-09-01] MEDS: Apixaban 5 MG TABLET 10 MG PO (08:15)
[2024-09-01] MEDS: Pregabalin 150 MG CAPSULE 300 MG PO (08:15)
[2024-09-01] MEDS: Insulin Lispro 100 UNIT/ML 3 ML VIAL SUBCUT (08:16)
[2024-09-01] MEDS: HYDROmorphone HCl 0.5 MG/0.5 ML SYRINGE 1 MG IVPUSH (08:17)
[2024-09-01] MEDS: 0.9 % Sodium Chloride Flush 3 ML SYRINGE IVFLUSH (08:18)
[2024-09-01] MEDS: Atorvastatin Calcium 20 MG TABLET PO (08:19)
[2024-09-01] MEDS: Lidocaine 4 % Patch ADH..PATCH 1 PATCH TRANSDERMA (08:21)
--- NOTE | 2024-09-01 08:50 | MHC.CM.PN ---
PT MEDICALLY CLEARED FOR DC TO [facility] FOR [facility], [facility] WILL [facility]ORT AT 12PM D/T [facility].
--- NOTE | 2024-09-01 09:47 | P.DS_ITS ---
DS: Providers Provider Date of Service: 09/01/24 Date of admission: 08/25/24 03:30 Date of discharge: 09/01/24 Primary care physician: Josh Naranjo MD Consults: 08/25/24 03:30 Consult to Orthopedics Routine Consulting Provider[place] [facility] Reason for consultation: femur fx 08/27/24 07:50 Consult to Vascular Surgery Routine Consulting Provider: [facility] Reason for consultation: postop PE DS: Diagnosis Discharge Diagnosis (1) Femur fracture: Status: Acute DS: Summary Hospital Course Hospital Course: From the history and physical by the admitting hospitalist, Yonatan Charles, 08/25/24: 59-year-old female with a past medical history of HTN, HLD, dm, CAD, arthritis presented to the hospital today with a chief complaint of fall. Patient reports that she was climbing down the stairs, and was at the 4 step from the bottom she tripped and fell and landed to the friend; denies any head strike or loss of consciousness. Denies any neck pain or back pain. Reports she had severe pain in her left thigh and was not able to move; her called ambulance and subsequently came to the ER for further evaluation. Reports ambulance gave her fentanyl. Denies any lightheadedness or dizziness. Denies any numbness tingling or focal weakness. Denies any chest pain or palpitations. Review of all other systems is negative except mentioned above ER course: Per ER team, patient noted to have left thigh swelling and tenderness; no ecchymosis; ROM limited secondary to the pain. X-ray showed femur fracture. Pulses palpable. Neurovascularly intact. Suspected small hematoma; patient's hemoglobin dropped from her baseline of 14.2-11.4. Repeat hemoglobin stable at 11.5. Patient blood pressure was on the soft side-presumed to be secondary to opiate medications. Given IV fluids. Orthopedics team was notified who mentioned to keep the patient NPO for possible surgery in a.m. 59yo F with CAD s/p PCI 2014, DM2, HLD, arthritis s/p L TKA who had a mechanical fall on stairs and sustained a comminuted, displaced fracture at the distal left femoral metadiaphysis near her prosthesis. She was admitted to the hospitalist service and underwent retrograde IMN 08/26/24. Unfortunately, postoperatively she became tachycardic and hypoxic and was found to ahve RML, RLL, and LLL pulmonary artery PEs/L popliteal DVT. She underwent mechanical thrombectomy 08/28/24. Hospital course by problem: anemia due to blood loss from fracture - Hb vicki of 6.9. Transfused total 3u pRBCs with recover to 9.6. acute metabolic encephalopathy - suspect due to anemia/anesthesia x2, continue to monitor/re-orient; CT head 08/29 negative acute PE/DVT, provoked [trauma/surgery] - pulmonary artery thrombectomy done 08/28/24 as above - treated with IV heparin drip initially then converted to apixaban, 10 mg bid, then 5 mg bid x 6mo [switch to 5 mg bid on 09/04] - no R heart strain on TTE 08/27/24: 1. Technically limited study despite use of contrast agent 2. Normal biventricular systolic function 3. Cardiac valvular Dopplers within normal limits 4. Normal measured RV systolic pressure - clarification per family: pt's sister of brain aneurysm, not PE; does not need thrombophilia workup; I would consider this a provoked DVT/PE acute hypoxic respiratory failure - weaned off O2 distal L femoral metadiaphyseal fractue - underwent retrograde IMN 08/26/24 as above. Transferred to [facility] acute inpatient rehabilitation given her prior good functional status. Time Attestation Discharge Coordination Time (in mins): 35 Quality: Safe Use of Opioids Does Pt have an Active Cancer Diagnosis on the Problem List?: No Quality: Stroke Does the patient have a stroke diagnosis?: No Physical Exam Vital Signs: Vital Signs: Last Vital Signs Temp 97.2 F 09/01/24 07:37 Pulse 94 09/01/24 07:37 Resp 20 09/01/24 07:37 BP 117/67 09/01/24 07:37 Pulse Ox 94 09/01/24 07:37 O2 Del Method Room Air 09/01/24 07:37 O2 Flow Rate 2 08/28/24 15:20 BMI result Body Mass Index 35.7 Const: Other: No acute distress Resp: Other: Clear to auscultation bilaterally no rales rhonchi or wheezes Cardio: Other: No S4; positive S1-S2; no S3 murmurs rubs or gallops GI: Other: Soft nontender nondistended normoactive bowel sounds Extrem: Other: No edema bilaterally DS: Data Data Completed and Pending Labs on day of discharge: Laboratory Results - last 24 hr 08/31/24 08/31/24 08/31/24 11:28 16:27 18:25 POC Glucose 250 H 249 H 253 H 08/31/24 09/01/24 21:37 07:35 POC Glucose 248 H 219 H Discharge Plan Discharge Anticipated Discharge Date/Time: 09/01/24 09:46 Patient Disposition: Xfer Inpatient Rehab Fac Discharge Diagnosis: periprosthetic femur fracture deep venous thrombosis and pulmonary embolism Referrals: [facility] [Outside] - 1 Day (ACUTE REHAB) Josh Naranjo MD [Primary Care Provider] - 1 Week Maria Del Carmen Arrington PA-C [Physician Equalizing Saw Operator] - 09/14/24 9:00 am (09/14/24 at 9am with ) Discharge Medications: New Eliquis 5 mg Tablet See Rx Instructions .ROUTE .COMPLEX Qty: 68 0RF Rx Instructions: 10 mg (2 tabs) twice daily until 09/03/24; then 5 mg (1 tab) twice daily oxycodone 5 mg Tablet 10 mg PO Q4H PRN (Reason: pain,moderate) Qty: 30 0RF Rx Instructions: Partial Fill upon patient request. Continued cyclobenzaprine 10 mg tablet 10 mg PO BEDTIME PRN (Reason: Muscle Spasm) atorvastatin 20 mg tablet 20 mg PO DAILY glipizide 10 mg tablet 10 mg PO QAM omeprazole 20 mg capsule,delayed release(DR/EC) 20 mg PO DAILY@0630 amitriptyline 100 mg tablet 100 mg PO BEDTIME pregabalin 300 mg capsule 300 mg PO BID Mounjaro 7.5 mg/0.5 mL pen injector 7.5 mg SUBCUT HARDY Discontinued aspirin 81 mg tablet,delayed release (DR/EC) 81 mg PO DAILY tramadol 50 mg tablet 50 mg PO Q8H PRN (Reason: pain) lisinopril 5 mg tablet 5 mg PO DAILY ibuprofen 600 mg tablet 600 mg PO Q8H PRN (Reason: Pain) Discharge Orders: Discharge Order (Routine); Ordered 09/01/24 Ordered By: Ulises Owens Diet: Advance to usual diet Activity on Discharge: see below Stand Alone Forms: Patient Portal Discharge page Print Language: Luxembourger Activity Restrictions/Additional Instructions: Gait training, strengthening, ADLs WBAT Continue ASA for dvt ppx x6 weeks Keep dressing clean, dry and intact-no showering or tub baths Follow up with Orthopedics in 2 weeks Care Plan Goals: recovery from fracture and PE Health Concerns: periprosthetic femur fracture deep venous thrombosis and pulmonary embolism Plan of Treatment: transfer to acute inpatient rehabilitation apixaban 10 mg twice daily until 09/03; starting 09/04, take 5 mg twice daily; continue for at least 6 months pain control with acetaminophen and oxycodone follow up with [facility] in 2 weeks Please follow up with your primary care doctor within 1 week of discharge from rehabilitation. Return to the hospital if you experience recurrent or worsening symptoms. Assessment: See Discharge Summary.
--- NOTE | 2024-09-01 10:35 | PC.NURSE ---
surgical dressing to left upper extremity dry and intact, surgical dressing to left knee is peeling off, pt reported discomfort to the incision site . Ortho surgery sales architect contacted , spoke with ADDI Joyce in regards dsg change instructions. Per Surgery : removed old non intact dsg , soak the old dsg with NS if if stuck to the incision , Apply xeroform to incision and cover with tegaderm . DSG to left knee was changed by RN as per surgery instruction , pt tolerated well
[2024-09-01] MEDS: oxyCODONE HCl Immed Release 5 MG TABLET 10 MG PO (11:51)
--- NOTE | 2024-09-18 14:28 | P.CDIM_ITS ---
PROVIDER RESPONSE TEXT: To clarify, the appropriate diagnosis supported by the clinical indicators: Acute blood loss anemia QUERY TEXT: PHYSICIAN'S DOCUMENTATION REQUEST Date of Query: 09/14/2024 08:54 AM EDT Patient Name: Ivana Roach Admit Date: 08/25/2024 Dear Ulises Owens DO, RETROSPECTIVE QUERY A review of the medical record indicates additional documentation may be needed. Please review below and update the documentation accordingly. Clinical Indicators: Discharge summary 09/01/24 - Anemia due to blood loss from fracture. Transfused 1 unit PRBC's 08/29/24, will give another [address] on IV PPI and send FOBT but suspect due to femur fracture/hematoma rather than GI loss. Based on the above, possible to specify the acuity of the noted anemia you are evaluating, treating, and/or monitoring? Acute blood loss anemia Acute postoperative blood loss anemia suspected, possible, probable, etc. Other (explain) Clinically unable to determine (explain) Thank you, Maria Esther Fisher, CCS, CDIS Use of terms such as suspected, likely, concern for, or probable (associated with a specific diagnosis that is being evaluated, monitored, or treated as if it exists) are acceptable and can be coded in the inpatient setting, when documented at the time of discharge. Please use your independent medical judgment in providing your response. THIS QUERY IS PART OF THE PERMANENT MEDICAL RECORD
== END 2024-09-01 12:15 | DRG 308 ==
LOC: HO.ED 01:57 → HO.EDOVER 04:20 → HO.IMC 15:29
PROVIDERS: Family Medicine; Orthopaedic Surgery; Student in an Organized Health Care Education/Training Program; Surgery Vascular Surgery; Admitting Provider Hospitalist; Emergency Provider Internal Medicine; PCP Internal Medicine; Visit Provider Hospitalist
PROC: 0QSC36Z Reposition Left Lower Femur with Intramedullary Internal Fixation Device, Percutaneous Approach (ICD-10-PCS; principal; 2024-08-26 11:00)
PROC: 02CR3ZZ Extirpation of Matter from Left Pulmonary Artery, Percutaneous Approach (ICD-10-PCS; principal; 2024-08-28 08:00)
DX: S72.402A Unspecified fracture of lower end of left femur, initial encounter for closed fracture (principal); I26.99 Other pulmonary embolism without acute cor pulmonale; J96.01 Acute respiratory failure with hypoxia; I82.432 Acute embolism and thrombosis of left popliteal vein; I82.442 Acute embolism and thrombosis of left tibial vein; I82.452 Acute embolism and thrombosis of left peroneal vein; E11.9 Type 2 diabetes mellitus without complications; M97.12XA Periprosthetic fracture around internal prosthetic left knee joint, initial encounter; W10.9XXA Fall (on) (from) unspecified stairs and steps, initial encounter; I25.10 Atherosclerotic heart disease of native coronary artery without angina pectoris; I10 Essential (primary) hypertension; D62 Acute posthemorrhagic anemia; J45.909 Unspecified asthma, uncomplicated; F32.A Depression, unspecified; Z79.84 Long term (current) use of oral hypoglycemic drugs; Z79.85 Long-term (current) use of injectable non-insulin antidiabetic drugs; Z79.899 Other long term (current) drug therapy
CPT/HCPCS: 36415; 37187; 70450; 71045; 71275; 73560; 80048; 80053; 81001; 82947; 83036; 83880; 84484; 85014; 85018; 85025; 85027; 85347; 85610; 85730; 86850; 86900; 86901; 86923; 93005; 93306; 93970; 97163; 97167; 97530; 99152; 99153; 99285; C1713; C1725; C1757; C1769; C1887; C1894; J0131; J0690; J1171; J1644; J2003; J2250; J2371; J2405; J2470; J2704; J2795; J3010; J3360; J7120; P9016; Q9957; Q9967

== ENCOUNTER → 2024-08-25 01:42 | Outpatient (BNV) | payer OTHER, SELFPAY | PROVIDERS: Emergency Provider Internal Medicine; PCP Internal Medicine; Visit Provider Radiology Diagnostic Radiology | DX: J98.11 Atelectasis (principal); S72.352A Displaced comminuted fracture of shaft of left femur, initial encounter for closed fracture | CPT/HCPCS: 71045; 73560 ==

== ENCOUNTER 2024-08-25 03:30 | Outpatient (BNV) | payer OTHER, SELFPAY | END 2024-08-27 01:20 | PROVIDERS: Admitting Provider Hospitalist; Emergency Provider Internal Medicine; PCP Internal Medicine; Visit Provider Radiology Diagnostic Radiology | DX: I26.99 Other pulmonary embolism without acute cor pulmonale (principal); I82.432 Acute embolism and thrombosis of left popliteal vein | CPT/HCPCS: 71275; 93970 ==

== ENCOUNTER 2024-08-25 03:30 | Outpatient (BNV) | payer OTHER, SELFPAY | END 2024-08-29 16:54 | PROVIDERS: Admitting Provider Hospitalist; Emergency Provider Internal Medicine; PCP Internal Medicine; Visit Provider Radiology Diagnostic Radiology | DX: R41.0 Disorientation, unspecified (principal) | CPT/HCPCS: 70450 ==

== ENCOUNTER 2024-08-25 03:30 | Outpatient (BNV) | payer OTHER, SELFPAY | END 2024-08-25 05:00 | PROVIDERS: Admitting Provider Hospitalist; Emergency Provider Internal Medicine; PCP Internal Medicine; Visit Provider Internal Medicine | DX: R94.31 Abnormal electrocardiogram [ECG] [EKG] (principal); Z01.810 Encounter for preprocedural cardiovascular examination | CPT/HCPCS: 93010 ==

== ENCOUNTER 2024-08-25 03:30 | Outpatient (BNV) | payer OTHER, SELFPAY | END 2024-08-27 01:33 | PROVIDERS: Admitting Provider Hospitalist; Emergency Provider Internal Medicine; PCP Internal Medicine; Visit Provider Internal Medicine Cardiovascular Disease | DX: R94.31 Abnormal electrocardiogram [ECG] [EKG] (principal); I26.99 Other pulmonary embolism without acute cor pulmonale | CPT/HCPCS: 93010; 93306 ==

== ENCOUNTER → 2024-08-25 03:30 | Outpatient (BNV) | payer OTHER, SELFPAY | PROVIDERS: Admitting Provider Hospitalist; Emergency Provider Internal Medicine; PCP Internal Medicine; Visit Provider Family Medicine | DX: S72.402B Unspecified fracture of lower end of left femur, initial encounter for open fracture type I or II (principal) | CPT/HCPCS: 99223; 99232; 99233; 99499 ==

== ENCOUNTER → 2024-08-25 03:30 | Outpatient (BNV) | payer OTHER, SELFPAY | PROVIDERS: Admitting Provider Hospitalist; Emergency Provider Internal Medicine; PCP Internal Medicine; Visit Provider Surgery Vascular Surgery | DX: I26.99 Other pulmonary embolism without acute cor pulmonale (principal) | CPT/HCPCS: 99222 ==

== ENCOUNTER → 2024-08-25 03:30 | Outpatient (BNV) | payer OTHER, SELFPAY | PROVIDERS: Admitting Provider Hospitalist; Emergency Provider Internal Medicine; PCP Internal Medicine; Visit Provider Physician Assistant | DX: M97.12XA Periprosthetic fracture around internal prosthetic left knee joint, initial encounter (principal); I26.99 Other pulmonary embolism without acute cor pulmonale | CPT/HCPCS: 27506; 99024 ==

== ENCOUNTER 2024-09-11 14:54 | Outpatient (AMB) | payer OTHER, SELFPAY ==
--- NOTE | 2024-09-11 14:56 | MHC.OFFVIS ---
Intake Visit Reasons: [facility] follow up/Rehab request DVT re-evaluation Intake Note: Patient presents for [facility] follow up. Patient has muscle spasms, cramps, and PE. States she has a DVT in her left leg. Ambulating in a wheelchair due to pain. Accompanied by: Family/Other Allergies No Known Allergies (No Known Allergies*) Allergy (Verified 09/11/24 15:02) [facility] follow up/Rehab request DVT re-evaluation: Details: 59-year-old female presents for follow-up status post pulmonary embolectomy. She acute left femur fracture and was subsequently treated by Orthopedics. CT of the chest demonstrated clots in the right segmental and subsegmental branches. She was started on a heparin drip and then subsequently underwent pulmonary embolectomy on 08/28/2024. At the current time she reports she is breathing fairly well. Her biggest complaint is poorly controlled left lower extremity pain. She now presents for routine follow-up. She is breathing comfortably on room air. [facility] Medical History Femur fracture Hypertension Obesity Diabetes mellitus Hyperlipidemia CAD (coronary artery disease) Surgical History History of percutaneous coronary intervention Social History Household Members: Spouse Housing: House Do you presently have visiting nurse or other home services: Yes Patient Tobacco Use Status: Never used Tobacco e-Cigarette/Vaping Use: Never Used Second Hand Smoke Exposure: No service: No Review of Systems Const All systems reviewed & are unremarkable except as noted in HPI and below Reports no additional complaints ENT Reports Normal hearing present Card Denies chest pain, Denies chest pain at rest, Denies chest pain with activity and Denies pedal edema Resp Denies cough GI Denies abdominal pain Musc Denies abnormal gait, Denies muscle cramps and Denies radiating pain into limb Skin/Breast Denies skin ulcer and Denies wounds Neuro Reports Normal hearing present and Denies abnormal gait Psych Reports no additional complaints Physical Exam Const General: cooperative, healthy appearing and comfortable Orientation/consciousness: oriented to person, oriented to place and oriented to time HEENT Head: Yes normal to inspection Neck Neck: Yes normal visual inspection Carotids: no bruits Chest Chest palpation & inspection: normal inspection of the chest Resp Effort & Inspection: normal respiratory effort and able to speak in complete sentences Auscultation: clear to auscultation bilaterally, no crackles, no rales, no rhonchi and no wheezes Cardio Rate: regular rate Rhythm: regular rhythm Heart sounds: S1 normal heart sound present and S2 normal heart sound present Bruits: no carotid bruits Peripheral pulses: Peripheral pulses 2+ throughout GI Inspection: Yes normal to inspection Skin Wounds: no wounds Hair: normal Neuro General: oriented to person, oriented to place and oriented to time Cranial nerves: Yes CN's II-XII intact bilaterally and Yes Normal hearing present Cognition (Neuro): normal cognition Motor exam (neuro): 5/5 motor strength present throughout Extrem Other: venous exam: No significant superficial varicosities or spider telangiectasias, minimal edema General: No clubbing, No cyanosis and No edema Psych Appearance: grossly normal Mental Status: mental status grossly normal Speech and movement: Normal speech and movement present Assessment & Plan Assessment & Plan (1) Pulmonary embolism: Code(s): I26.99 - Other pulmonary embolism without acute cor pulmonale Category: Medical Qualifiers: Pulmonary embolism type: unspecified Chronicity: acute Acute cor pulmonale presence: unspecified Qualified Code(s): I26.99 - Other pulmonary embolism without acute cor pulmonale Plan: In short patient is doing extremely well status post pulmonary embolectomy. She will require anticoagulation for a proximally 3-6 months as there was an inciting event that led to this. She is scheduled for follow-up with orthopedics this Tuesday. They should be able to better help with her pain control issues. She will follow up with us on an as-needed basis. Thank you for allowing us to assist in her care. If there are any questions or concerns please do not hesitate to contact us. Coding Level of Care Code Est Pt Level 3 (77654) Diagnoses Acute pulmonary embolism, unspecified pulmonary embolism type, unspecified whether acute cor pulmonale present I26.99 Pulmonary embolism type: unspecified Chronicity: acute Acute cor pulmonale presence: unspecified
--- OUTSIDE RECORDS SUMMARY | 2024-09-11 18:08 | XMS_ITS | Continuity of Care Document ---
Author Organization [facility] [address] [place] [address] Phone [phone] Care Team Providers Care Group Sales Manager Name Role Phone Josh Naranjo M.D. Care Team Information Recei sheila [phone] Problems Active Problems Provider Date Type 2 [...] Social History Type Date Description Comments Sex Female Sex Unknown Lives With Spouse Tobacco Use Start: Unknown End: Unknown Patient is a former smoker Smoking Status Reviewed: 10/22/22 Patient is a former smoker Allergies and adverse reactions Description No Known Drug Allergies Medications Active Medications SIG Qnty Indications Order ing Provider Date Ozempic (1 MG/Dose)4mg/3ML Solution Pen-Inject Inject 1 MG Subcutaneously One Time Per Week 3units Sancho Bautista M.D. 08/06/2024 Sgzgzk105we Capsules 1 tab by mouth twice a day Sancho Bautista M.D. 02/28/2024 Mounjaro7.5mg/0.5ML Solution Auto-Inject Inject 7.5 MG Subcutaneously Once Every Week 2units Sancho Bautista M.D. 10/14/2023 Freestyle Lite Blood Glucose Monitoring SystemDevice as directed 1units Sancho Bautista M.D. 07/20/2022 Aspirin Low Hlne59hm Tablets DR Take 1 Tablet By Mouth Every Day Josh Naranjo M.D. Freestyle Lite TestStrips Use as Directed 4 Times A Day For 90 Days 400units E11.9 Sancho Bautista M.D. Dtithsksd18ko Tablets take 1 tablet by mouth in Am 90tabs Sancho Bautista M.D. Scazwvhehc45xp Capsules DR Take 1 Capsule By Mouth Every Day Josh Naranjo M.D. Vcaqsnycen2ud Tablets Take 1 Tablet By Mouth Every Day Josh Naranjo M.D. Rosuvastatin Ciayuna70ds Tablets Take 1 Tablet By Mouth Every [...]
== END 2024-09-11 15:31 | disposition home or self-care (01) ==
LOC: HO.HVS 14:55
PROVIDERS: PCP Internal Medicine; Visit Provider Surgery Vascular Surgery
DX: I26.99 Other pulmonary embolism without acute cor pulmonale (principal)
CPT/HCPCS: 99213

== ENCOUNTER 2024-09-14 07:03 | Outpatient (REF) | payer OTHER, SELFPAY ==
--- NOTE | ~2024-09-14 | XR_ITS ---
EXAMINATION: XR FEMUR, LEFT CLINICAL INFORMATION: M97.12XA - Periprosthetic fracture around internal prosthetic left knee ... COMPARISON: None available. TECHNIQUE: AP and cross lateral views of the left femur were obtained. FINDINGS: Intramedullary geovany throughout the diaphysis of the femur. There is a comminuted displaced fracture in the distal diaphysis metaphysis of the femur. There is a total left knee arthroplasty prosthesis, intact and normal alignment. The left femoral head neck and intramedullary region are intact. The left coxofemoral joint is intact with normal alignment. XR/XR femur LT 2V IMPRESSION: Comminuted displaced fracture, distal diaphysis and metaphysis of the left femur. Electronically signed by: Carlos Manuel Norman MD 09/14/2024 09:32 AM EDT
--- OUTSIDE RECORDS SUMMARY | 2024-09-17 07:05 | XMS_ITS | Continuity of Care Document ---
Author Organization [facility] [address] [place] [address] Phone [phone] Care Team Providers Care Supervisor Customer Records Division Name Role Phone Josh Naranjo M.D. Care Team Information Recei sheila [phone] Problems Active Problems Provider Date Type 2 [...] Per Week 3units Sancho Bautista M.D. 08/06/2024 Cezwas317fu Capsules 1 tab by mouth twice a day Sancho Bautista M.D. 02/28/2024 Mounjaro7.5mg/0.5ML Solution Auto-Inject Inject 7.5 MG Subcutaneously Once Every Week 2units Sancho Bautista M.D. 10/14/2023 Freestyle Veros Systemse Blood Glucose Monitoring SystemDevice as directed 1units Sancho Bautista M.D. 07/20/2022 Aspirin Low Yehd75sb Tablets DR Take 1 Tablet By Mouth Every Day Josh Naranjo M.D. Freestyle Lite TestStrips Use as Directed 4 Times A Day For 90 Days 400units E11.9 Sancho Bautista M.D. Epqvehmpp01vx Tablets take 1 tablet by mouth in Am 90tabs Sancho Bautista M.D. Goreeuaxfq23aj Capsules DR Take 1 Capsule By Mouth Every Day Josh Naranjo M.D. Rynentifao7ll Tablets Take 1 Tablet By Mouth Every Day Josh Naranjo M.D. Rosuvastatin Cxjhpjz54ig Tablets Take 1 Tablet By Mouth Every [...] without complications I25.[address] disease of [place] coronary artery w/o ang pctrs E66.9 Obesity, [...]
== END 2024-09-14 07:04 | disposition home or self-care (01) ==
LOC: HO.HOSX 07:03
PROVIDERS: Visit Provider Physician Assistant
DX: M97.12XA Periprosthetic fracture around internal prosthetic left knee joint, initial encounter (principal)
CPT/HCPCS: 73552

== ENCOUNTER 2024-09-14 08:49 | Outpatient (AMB) | payer OTHER, SELFPAY ==
--- OUTSIDE RECORDS SUMMARY | 2024-09-14 09:05 | XMS_ITS | Continuity of Care Document ---
Author Organization [facility] [address] [place] [address] Phone [phone] Care Team Providers Care Green Promotions Specialist Name Role Phone Josh Naranjo M.D. Care Team Information Recei sheila [phone] Problems Active Problems Provider Date Type 2 [...] Per Week 3units Sancho Bautista M.D. 08/06/2024 Wvurts509iz Capsules 1 tab by mouth twice a day Sancho Bautista M.D. 02/28/2024 Mounjaro7.5mg/0.5ML Solution Auto-Inject Inject 7.5 MG Subcutaneously Once Every Week 2units Sancho Bautista M.D. 10/14/2023 Freestyle Back9 Networke Blood Glucose Monitoring SystemDevice as directed 1units Sancho Bautista M.D. 07/20/2022 Aspirin Low Uqao43ua Tablets DR Take 1 Tablet By Mouth Every Day Josh Naranjo M.D. Freestyle Lite TestStrips Use as Directed 4 Times A Day For 90 Days 400units E11.9 Sancho Bautista M.D. Dupdzambc90fy Tablets take 1 tablet by mouth in Am 90tabs Sancho Bautista M.D. Uethjvddej94jh Capsules DR Take 1 Capsule By Mouth Every Day Josh Naranjo M.D. Esymtjuewa6hf Tablets Take 1 Tablet By Mouth Every Day Josh Naranjo M.D. Rosuvastatin Qdrgvub07os Tablets Take 1 Tablet By Mouth Every Day 90tabs Sancho Bautista M.D. Vital Signs Date Vital Result Comment 02/28/2024 [...] without complications I25.10 Athscl heart disease of [place] coronary artery w/o ang pctrs E66.9 Obesity, [...]
--- NOTE | 2024-09-14 09:08 | MHC.OFFVIS ---
Intake Visit Reasons: s/p left femur retrograde nail 08/26/24 with NE Intake Note: Ivana is a 59 year old female who presents today for a post op appointment s/p left femur retrograde nail 08/26/24 with NE. Patient reports having a burning pain as well as spasms. Her current pain level is a 10 out of 10. Allergies No Known Allergies (No Known Allergies*) Allergy (Verified 09/14/24 09:10) HPI HPI s/p left femur retrograde nail 08/26/24 with NE: Details: Ms. Hernandez is a 59-year-old female who presents to the office today for routine follow-up status post left femur retrograde IM nail performed on 08/26/[address] Harrison. Patient states that she is currently at [facility] rehab and is working with physical therapy. Her anticipated discharge date is Tuesday09/16/2024. Patient states that she does not feel safe discharging home alone and reports that she has difficulty with ambulating even with the use of a walker. She feels unstable in his concerned with falling. She also reports that her pain is 10/10 and is given Dilaudid and a muscle relaxer at [facility] for pain. She also has neuropathy and feels a burning sensation that travels down the left lower extremity. Additionally, she is experiencing cramping in the thigh and calf of the left lower extremity. Of note when the patient was hospitalized it was noted that the patient had a pulmonary embolism and is currently on Eliquis. [facility] Medical History Femur fracture Hypertension Obesity Diabetes mellitus Hyperlipidemia CAD (coronary artery disease) Surgical History History of percutaneous coronary intervention Social History Household Members: Spouse Housing: House Do you presently have visiting nurse or other home services: Yes Patient Tobacco Use Status: Never used Tobacco e-Cigarette/Vaping Use: Never Used Second Hand Smoke Exposure: No service: No Review of Systems Const All systems reviewed & are unremarkable except as noted in HPI and below Physical Exam Const General: cooperative, healthy appearing and no acute distress Resp Effort & Inspection: normal respiratory effort and able to speak in complete sentences Extrem Other: Left lower extremity incision sites are clean dry and intact. David intact. No surrounding erythema or drainage. No signs of infection. NVI. Assessment & Plan Assessment & Plan (1) Periprosthetic fracture around internal prosthetic left knee joint, initial encounter: Code(s): M97.12XA - Periprosthetic fracture around internal prosthetic left knee joint, initial encounter Category: Medical (2) Pulmonary embolism: Code(s): I26.99 - Other pulmonary embolism without acute cor pulmonale Category: Medical Qualifiers: Pulmonary embolism type: unspecified Chronicity: acute Acute cor pulmonale presence: unspecified Qualified Code(s): I26.99 - Other pulmonary embolism without acute cor pulmonale (3) DVT (deep venous thrombosis): Code(s): I82.409 - Acute embolism and thrombosis of unspecified deep veins of unspecified lower extremity Category: Medical (4) Diabetes mellitus: Code(s): E11.9 - Type 2 diabetes mellitus without complications Category: Medical (5) Obesity: Code(s): E66.9 - Obesity, unspecified Category: Medical Plan Ms. Hernandez is a 59-year-old female who presents to the office today for routine follow-up status post left femur retrograde IM nail performed on 08/26/[address] Harrison. Patient states that she is currently at [facility] and is working with physical therapy. Her anticipated discharge date is Tuesday09/16/2024. Patient states that she does not feel safe discharging home alone and reports that she has difficulty with ambulating even with the use of a walker. She feels unstable in his concerned with falling. She also reports that her pain is 10/10 and is given Dilaudid and a muscle relaxer at [facility] for pain. She also has neuropathy and feels a burning sensation that travels down the left lower extremity. Additionally, she is experiencing cramping in the thigh and calf of the left lower extremity. Of note when the patient was hospitalized it was noted that the patient had a pulmonary embolism and is currently on Eliquis. Patient is tearful on interview. While in the office today, we discussed the nature of this injury and its severity as well as the x-ray images that were obtained. I believe that the pain that she is experiencing is exacerbated by her neuropathy in the nature of the injury. I explained with the patient that she is only a little over 2 weeks after surgery and reassured her that her complaints of pain and difficulty ambulating are valid and expected this soon after surgery. I have recommended that physical therapy continue working with the patient on glute core quad strengthening as well as gait training with a walker. She may weightbear as tolerated on the left lower extremity. David were removed and Steri-Strips were applied. She may begin to shower. No tub bath. She will continue taking Eliquis as directed. She will follow up in 4 weeks with repeat x-rays, sooner if needed. X-rays of the left femur which were obtained while in the office today and were reviewed by me, Maria Del Carmen Arrington PA-C, revealed intact orthopedic hardware with routine healing. Orders: Orders XR femur LT 2V Today M97.12XA - Periprosthetic fracture around internal prosthetic left knee joint, initial encounter Coding Level of Care Code Global (75818) Diagnoses Periprosthetic fracture around internal prosthetic left knee joint, initial encounter M97.12XA Acute pulmonary embolism, unspecified pulmonary embolism type, unspecified whether acute cor pulmonale present I26.99 Pulmonary embolism type: unspecified Chronicity: acute Acute cor pulmonale presence: unspecified DVT (deep venous thrombosis) I82.409 Diabetes mellitus E11.9 Obesity E66.9
== END 2024-09-14 10:00 | disposition home or self-care (01) ==
LOC: HO.HOS 08:49
PROVIDERS: PCP Internal Medicine; Visit Provider Physician Assistant
DX: M97.12XA Periprosthetic fracture around internal prosthetic left knee joint, initial encounter (principal); I26.99 Other pulmonary embolism without acute cor pulmonale; I82.409 Acute embolism and thrombosis of unspecified deep veins of unspecified lower extremity; E11.9 Type 2 diabetes mellitus without complications; E66.9 Obesity, unspecified
CPT/HCPCS: 99024

== ENCOUNTER → 2024-09-14 08:54 | Outpatient (BNV) | payer OTHER, SELFPAY | PROVIDERS: Visit Provider Radiology Diagnostic Radiology | DX: M97.12XA Periprosthetic fracture around internal prosthetic left knee joint, initial encounter (principal) | CPT/HCPCS: 73552 ==

== ENCOUNTER 2024-09-17 16:11 | Emergency (ER) | payer OTHER, SELFPAY ==
--- NOTE | ~2024-09-17 | CT_ITS ---
CLINICAL HISTORY: sob hx of PE CT angiography of the chest with IV contrast. 3D/MIP post processing reconstructions were performed. COMPARISON: CT angiogram chest dated 08/27/24 at 02:20 EDT FINDINGS: There are no intraluminal filling defects to suggest pulmonary embolism. No evidence of right heart strain. Visualized thyroid is unremarkable. No supraclavicular or axillary lymphadenopathy. Ascending aorta and main pulmonary artery are normal in caliber. Coronary artery calcifications present within the LAD, circumflex and RCA. No pericardial effusion. Normal esophagus. No mediastinal or hilar lymphadenopathy. No pleural effusion. Azygous fissure present. Minimal osteophyte fibrosis along the medial right lower lobe. Trachea and central airways are clear. No significant bronchial wall thickening. No bronchiectasis. Visualized portions of the upper abdomen are unremarkable. Flowing marginal osteophytes along the thoracic spine. No acute fracture or suspicious bone lesion. IMPRESSION: 1. No evidence of pulmonary embolism. Previously seen bilateral pulmonary emboli have resolved. 2. No acute intrathoracic findings. No evidence of pneumonia. This document has been electronically signed by: Steven Gagnon MD on 09/17/2024 18:37:15
--- NOTE | 2024-09-17 16:19 | ECG_ITS ---
Test Reason : CHEST PAIN Blood Pressure : */* mmHG Vent. Rate : 100 BPM Atrial Rate : 100 BPM P-R Int : 140 ms QRS Dur : 90 ms QT Int : 356 ms P-R-T Axes : 25 1 20 degrees QTcB Int : 459 ms Normal sinus rhythm Normal ECG When compared with ECG of 27-Aug-2024 01:33, No significant change was found Referred By: Yen Yañez Electronically Signed By: ESAU PATHAK MD
[2024-09-17 16:23] VITALS: BP 112/74; BP 126/72; PULSE 103; PULSE 99; RESP 18; TEMP 36.7; O2SAT 96; O2SAT 97; BMI 35.2
[2024-09-17 16:51] LABS: MANUAL DIFF FLAG NO
[2024-09-17 16:52] LABS: Basophils Percent Auto 0.3 % (0-2); Eosinophils Absolute Auto 0.5 X10*3/uL (0.0-0.4); Eosinophils Percent Auto 7.2 % (0-4); Hematocrit 32.8 % (37.0-47.0); Hemoglobin 10.7 g/dl (12.0-16.0); Imm Gran Abs Auto 0.02 X10*3/uL (0.00-0.03); Imm Gran Pct Auto 0.3 % (0.0-0.4); Lymphocytes Absolute Auto 1.7 X10*3/uL (1.2-4.9); Lymphocytes Percent Auto 24.9 % (20-40); Mean Corpuscular HGB Conc 32.6 g/dl (31.0-35.0); Mean Corpuscular Hemoglobin 30.4 pg (27.0-33.0); Mean Corpuscular Volume 93.2 fL (80.0-98.0); Mean Platelet Volume 10.9 fL (9.4-12.3); Monocytes Absolute Auto 0.7 X10*3/uL (0.1-1.2); Neutrophils Absolute Auto 3.7 x10*3/uL (2.0-8.3); Neutrophils Percent Auto 56.3 % (45-73); Platelet Count 270 X10*3/uL (160-400); Red Blood Count 3.52 X10*6/uL (4.20-5.50); Red Cell Distribution Width 14.4 % (11.0-16.0); White Blood Count 6.6 X10*3/uL (4.8-10.8)
--- NOTE | 2024-09-17 17:06 | ED.CHESTPAIN ---
HPI - Chest Pain General Chief Complaint: Chest Pain Stated Complaint: chest tightness hx 2hrs Time Seen by Provider: 09/17/24 17:05 Source: patient Mode of arrival: EMS Limitations: no limitations History of Present Illness ED Provider: HPI narrative: Patient is status post left femur fracture repair 08/26/24 pulmonary embolism post surgery and status post embolectomy on 08/28 on Eliquis comes from you have for having acute onset of chest heaviness and shortness a breath similar to that when she had pulmonary embolus patient's chest is very heavy and hard to breathe prior to this patient was in a good shape and stable health pain does have history of hypertension hyperlipidemia diabetes coronary artery disease and arthritis Related Data Home Medications ?Medication ?Instructions ?Recorded ?Confirmed amitriptyline 100 mg tablet 100 mg PO BEDTIME 08/25/24 08/25/24 atorvastatin 20 mg tablet 20 mg PO DAILY 08/25/24 08/25/24 cyclobenzaprine 10 mg tablet 10 mg PO BEDTIME PRN Muscle Spasm 08/25/24 08/25/24 glipizide 10 mg tablet 10 mg PO QAM 08/25/24 08/25/24 omeprazole 20 mg capsule,delayed 20 mg PO DAILY@0630 08/25/24 08/25/24 release pregabalin 300 mg capsule 300 mg PO BID 08/25/24 08/25/24 tirzepatide 7.5 mg/0.5 mL 7.5 mg subcut HARDY 08/25/24 08/25/24 subcutaneous pen injector (Rebecca) acetaminophen 325 mg capsule 975 mg PO Q8H 09/14/24 amitriptyline 25 mg tablet 25 mg PO BEDTIME 09/14/24 doxycycline hyclate 100 mg capsule 100 mg PO DAILY 09/14/24 hydromorphone 4 mg tablet 4 mg PO Q6H PRN 09/14/24 magnesium oxide 400 mg PO DAILY 09/14/24 melatonin 5 mg capsule mg PO PRN 09/14/24 Previous Rx's ?Medication ?Instructions ?Recorded apixaban 5 mg tablet (Eliquis) See Rx Instructions .Route 08/31/24 .COMPLEX #68 tabs oxycodone 10 mg tablet 10 mg PO Q6H PRN pain #30 tabs 09/01/24 Allergies Allergy/AdvReac Type Severity Reaction Status Date / Time No Known Allergies (No Known Allergy Verified 09/17/24 16:27 Allergies*) Review of Systems Review of Systems: Yes all other systems are reviewed and are negative [facility] Past Medical History Medical History Femur fracture Hypertension Obesity Diabetes mellitus Hyperlipidemia CAD (coronary artery disease) Surgical History History of percutaneous coronary intervention Social History Social History Household Members: Spouse Housing: House Do you presently have visiting nurse or other home services: Yes Patient Tobacco Use Status: Never used Tobacco e-Cigarette/Vaping Use: Never Used Second Hand Smoke Exposure: No service: No Physical Exam Vital Signs: Vital Signs: Last Vital Signs Temp 97.9 F 09/17/24 22:54 Pulse 104 H 09/17/24 22:54 Resp 19 09/17/24 22:54 BP 138/78 09/17/24 22:54 Pulse Ox 95 09/17/24 22:54 O2 Del Method Room Air 09/17/24 22:54 BMI result Body Mass Index 35.2 Appearance: Alert. Oriented X3. No acute distress. Eyes: PERRLA, No Nystagmus ENT: Pharynx normal. Oral Mucosa moist Neck: Normal inspection. Neck supple. CVS: Normal heart rate and rhythm. Pulses normal. Respiratory: No respiratory distress. Equal air entry bilateral, no wheezing/rales/rhonchi Abdomen: Soft and nontender. Bowel sounds are present, no mass palpable, no CVA tenderness Skin: Skin warm and dry. Normal skin color. Normal skin turgor. Extremities: No lower extremity edema. No calf tenderness Neuro: Oriented X 3. No motor deficit. No sensory deficit.No cerebellar signs , cranial nerves II-XII intact Medications Administered Discontinued Medications Generic Name Dose Route Start Last Admin Trade Name Freq PRN Reason Stop Dose Admin Al Hydroxide/Mg Hydroxide 30 ml 09/17/24 21:45 09/17/24 22:09 Magnesium Hydrox/Alum Hydrox 30 Ml Oral.Susp PO 09/17/24 21:46 30 ml ONCE ONE Administration Iohexol 65 ml 09/17/24 17:59 09/17/24 17:59 Iohexol 350 Mg/Ml 100 Ml Infus..Btl IV 09/17/24 18:00 65 ml ONCE ONE Administration Lidocaine HCl 15 ml 09/17/24 21:45 09/17/24 22:09 Lidocaine Hcl Viscous 2 % 15 Ml Solution MUCOUS MEM 09/17/24 21:46 15 ml ONCE ONE Administration Medical Decision Making Medical Decision Making [facility] Narrative: Patient with left femur fracture sta, pulmonary embolism status post embolectomy on Eliquis comes here for chest pain 2 sets of cardiac enzymes negative EKG without ischemic changes CTA chest was done also which was negative for PE patient is slightly anxious on arrival in the ER likely the cause noncardiac. Will discharge patient home advised to follow up with PCP Differential Diagnosis Differential Diagnoses: The differential diagnosis associated with the presentation includes PE/ACS/anxiety/musculoskeletal/ CHF Admission/Observation Consideration of admission/observation: Escalation of care including admission/observation considered Lab Data [facility] Lab Attestation statement: I reviewed the patient's lab results. 09/17/24 16:45 09/17/24 16:45 Labs: Lab Results 09/17/24 09/17/24 09/17/24 Range/Units 16:45 17:36 18:38 WBC 6.6 (4.8-10.8) X10*3/uL RBC 3.52 L D (4.20-5.50) X10*6/uL Hgb 10.7 L (12.0-16.0) g/dl Hct 32.8 L (37.0-47.0) % MCV 93.2 (80.0-98.0) fL MCH 30.4 (27.0-33.0) pg MCHC 32.6 (31.0-35.0) g/dl RDW 14.4 (11.0-16.0) % Plt Count 270 D (160-400) X10*3/uL MPV 10.9 (9.4-12.3) fL Immature Gran % (Auto) 0.3 (0.0-0.4) % Neut % (Auto) 56.3 (45-73) % Lymph % (Auto) 24.9 (20-40) % [place] % (Auto) 11.0 (2-11) % Eos % (Auto) 7.2 H (0-4) % Baso % (Auto) 0.3 (0-2) % Lymph # (Auto) 1.7 (1.2-4.9) X10*3/uL [place] # (Auto) 0.7 (0.1-1.2) X10*3/uL Eos # (Auto) 0.5 H (0.0-0.4) X10*3/uL Baso # (Auto) 0.0 (0.0-0.2) X10*3/uL Abs Immat Gran (auto) 0.02 (0.00-0.03) X10*3/uL Absolute Neuts (auto) 3.7 (2.0-8.3) x10*3/uL Absolute Nucleated RBC 0.000 (0.0-0.012) X10*3/uL Nucleated RBC % (auto) 0.0 (0.0-0.2) /100WBC PT 11.7 (10.9-12.4) SEC INR 1.0 (0.9-1.1) APTT 33.1 (26.0-36.8) SEC Sodium 142 (135-145) mmol/L Potassium 4.4 (3.3-5.1) mmol/L Chloride 110 H (96-108) mmol/L Carbon Dioxide 23 (22-29) mmol/L Anion Gap 13 (12-20) BUN 9 (9-16) mg/dL Creatinine 0.68 (0.5-1.4) mg/dL Estim Creat Clear Calc 113.8 Estimated GFR > 60 POC Glucose 104 (60-115) mg/dL Random Glucose 138 H (60-115) mg/dL Calcium 8.3 L (8.4-10.2) mg/dL Total Bilirubin 0.3 (0.0-1.0) mg/dL AST 35 H (5-31) U/L ALT 8 (0-31) U/L Alkaline Phosphatase 129 H (39-117) U/L Troponin I High Sens < 2.7 D (<3.5-17.0) ng/L B-Natriuretic Peptide (<100) pg/mL Total Protein 6.2 L (6.5-8.0) g/dL Albumin 3.2 L (3.5-5.0) g/dL Urine Color Urine Appearance Urine pH (5.0-9.0) Ur Specific [place] (1.005-1.025) Urine Protein (Neg-Trace) mg/dL Urine Glucose (UA) (Negative) mg/dL Urine Ketones (Negative) mg/dL Urine Blood (Negative) Urine Nitrite (Negative) Ur Leukocyte Esterase (Negative) Urine RBC (0-2) /HPF Urine WBC (0-5) /HPF Ur Squamous Epith Cells (0-2) /HPF Urine Bacteria (None Seen) Hyaline Casts (0-2) /LPF 09/17/24 09/17/24 09/17/24 Range/Units 19:32 20:49 21:50 WBC (4.8-10.8) X10*3/uL RBC (4.20-5.50) X10*6/uL Hgb (12.0-16.0) g/dl Hct (37.0-47.0) % MCV (80.0-98.0) fL MCH (27.0-33.0) pg MCHC (31.0-35.0) g/dl RDW (11.0-16.0) % Plt Count (160-400) X10*3/uL MPV (9.4-12.3) fL Immature Gran % (Auto) (0.0-0.4) % Neut % (Auto) (45-73) % Lymph % (Auto) (20-40) % [place] % (Auto) (2-11) % Eos % (Auto) (0-4) % Baso % (Auto) (0-2) % Lymph # (Auto) (1.2-4.9) X10*3/uL [place] # (Auto) (0.1-1.2) X10*3/uL Eos # (Auto) (0.0-0.4) X10*3/uL Baso # (Auto) (0.0-0.2) X10*3/uL Abs Immat Gran (auto) (0.00-0.03) X10*3/uL Absolute Neuts (auto) (2.0-8.3) x10*3/uL Absolute Nucleated RBC (0.0-0.012) X10*3/uL Nucleated RBC % (auto) (0.0-0.2) /100WBC PT (10.9-12.4) SEC INR (0.9-1.1) APTT (26.0-36.8) SEC Sodium (135-145) mmol/L Potassium (3.3-5.1) mmol/L Chloride (96-108) mmol/L Carbon Dioxide (22-29) mmol/L Anion Gap (12-20) BUN (9-16) mg/dL Creatinine (0.5-1.4) mg/dL Estim Creat Clear Calc Estimated GFR POC Glucose (60-115) mg/dL Random Glucose (60-115) mg/dL Calcium (8.4-10.2) mg/dL Total Bilirubin (0.0-1.0) mg/dL AST (5-31) U/L ALT (0-31) U/L Alkaline Phosphatase (39-117) U/L Troponin I High Sens < 2.7 (<3.5-17.0) ng/L B-Natriuretic Peptide 20 (<100) pg/mL Total Protein (6.5-8.0) g/dL Albumin (3.5-5.0) g/dL Urine Color Yellow Urine Appearance Clear Urine pH >= 9.0 (5.0-9.0) Ur Specific [place] 1.010 (1.005-1.025) Urine Protein Negative (Neg-Trace) mg/dL Urine Glucose (UA) Negative (Negative) mg/dL Urine Ketones Negative (Negative) mg/dL Urine Blood Negative (Negative) Urine Nitrite Negative (Negative) Ur Leukocyte Esterase Negative (Negative) Urine RBC 0-2 (0-2) /HPF Urine WBC 0-5 (0-5) /HPF Ur Squamous Epith Cells 0-2 (0-2) /HPF Urine Bacteria None Seen (None Seen) Hyaline Casts 0-2 (0-2) /LPF Independent Interpretation I performed an independent interpretation of an: EKG and CT Scan Interpretation: Normal sinus rhythm heart rate 100 beats per minute normal interval normal axis no acute STT wave changes no acute ischemia Radiology Impression Discussion of test interpretation with radiology: I have reviewed the radiologist's reading. Radiologist Impression: IMPRESSION: 1. No evidence of pulmonary embolism. Previously seen bilateral pulmonary emboli have resolved. 2. No acute intrathoracic findings. No evidence of pneumonia. Critical Care Time Critical Care Time Critical Care Time: Yes Total Critical Care Time: 60 Attestation: Time is exclusive of separately billable procedures. Time includes: direct patient care, patient reassessment, coordination of patient care, interpretation of data (laboratory data, pulse oximetry, arterial blood gases and chest xrays), review of patient's medical records, medical consultation and documentation of patient care. Procedures excluded from critical care time: central intravenous line placement and electrocardiography. Discharge Plan Discharge Clinical Impression: Atypical chest pain Patient Disposition: Home, Self-Care Instructions: Noncardiac Chest Pain (ED) Additional Instructions: Cause of chest pain is not clear likely from esophageal spasm Continue take your medication for acid and follow up with your PCP Prescriptions: No Action cyclobenzaprine 10 mg tablet 10 mg PO BEDTIME PRN (Reason: Muscle Spasm) atorvastatin 20 mg tablet 20 mg PO DAILY glipizide 10 mg tablet 10 mg PO QAM omeprazole 20 mg capsule,delayed release(DR/EC) 20 mg PO DAILY@0630 amitriptyline 100 mg tablet 100 mg PO BEDTIME pregabalin 300 mg capsule 300 mg PO BID Mounjaro 7.5 mg/0.5 mL pen injector 7.5 mg SUBCUT HARDY Eliquis 5 mg Tablet See Rx Instructions .ROUTE .COMPLEX Qty: 68 0RF Rx Instructions: 10 mg (2 tabs) twice daily until 09/03/24; then 5 mg (1 tab) twice daily oxycodone 10 mg tablet 10 mg PO Q6H MDD 40 PRN (Reason: pain) Qty: 30 0RF Rx Instructions: Partial Fill upon patient request. doxycycline hyclate 100 mg capsule 100 mg PO DAILY amitriptyline 25 mg tablet 25 mg PO BEDTIME hydromorphone 4 mg tablet 4 mg PO Q6H PRN acetaminophen 325 mg capsule 975 mg PO Q8H melatonin 5 mg capsule PO PRN magnesium oxide 400 mg magnesium capsule 400 mg PO DAILY Interventions: ED Discharge Assessment Last Done: 09/17/24 22:54 Discharge Date/Time: 09/17/24 23:12 Print Language: Wolof
[2024-09-17 17:14] LABS: Alanine Aminotransferase 8 U/L (0-31); Albumin Level 3.2 g/dL (3.5-5.0); Alkaline Phosphatase 129 U/L (39-117); Anion Gap 13 (12-20); Aspartate Amino Transferase 35 U/L (5-31); Bilirubin Total 0.3 mg/dL (0.0-1.0); Blood Urea Nitrogen 9 mg/dL (9-16); Calcium 8.3 mg/dL (8.4-10.2); Carbon Dioxide 23 mmol/L (22-29); Chloride 110 mmol/L (96-108); Creatinine Clr Calc Pharmacy 113.8; Estimated Glomerular Filt Rate > 60; Glucose Random 138 mg/dL (60-115); Potassium 4.4 mmol/L (3.3-5.1); Sodium 142 mmol/L (135-145); Total Protein 6.2 g/dL (6.5-8.0)
[2024-09-17 17:21] LABS: Troponin-I High Sensitivity < 2.7 ng/L (<3.5-17.0)
[2024-09-17 17:47] LABS: Prothrombin Time 11.7 SEC (10.9-12.4)
[2024-09-17 17:50] LABS: Partial Thromboplastin Time 33.1 SEC (26.0-36.8)
[2024-09-17] MEDS: iohexoL 350 MG/ML 100 ML INFUS..BTL 65 ML IV (17:59)
--- NOTE | 2024-09-17 18:29 | PC.NURSE ---
Pt to ED 17 via EMS. States she awoke from nap around 1230 today and felt intense chest pressure. Pt reports 8/10 pain to chest, non radiating. A/O x 3, speaking full clear sentences. David noted to MERLE, pt reports femur repair approx 1 week ago. #20 placed to right wrist, labs collected and sent. Purewick placed per pt request, voiding CYU. CTA chest pending.
[2024-09-17 18:42] LABS: Glucose, Whole Blood 104 mg/dL (60-115)
[2024-09-17 20:04] LABS: Troponin-I High Sensitivity < 2.7 ng/L (<3.5-17.0)
[2024-09-17 20:31] VITALS: BP 132/78; PULSE 98; RESP 18; TEMP 36.7; O2SAT 98
[2024-09-17 21:01] LABS: Appearance Urine Clear; Color Urine Yellow; Glucose Urine UA Negative (Negative); Leukocyte Esterase Urine Negative (Negative); Nitrite Urine Negative (Negative); PH >= 9.0 (5.0-9.0); Urine Blood Negative (Negative); Urine Ketones Negative (Negative); Urine Protein Negative (Neg-Trace)
[2024-09-17 21:05] LABS: Bacteria Urine None Seen (None Seen); Hyaline Casts Urine 0-2 /LPF (0-2); RBC Urine 0-2 /HPF (0-2); Squamous Epithelial Cell Urine 0-2 /HPF (0-2); WBC Urine 0-5 /HPF (0-5)
[2024-09-17] MEDS: Magnesium Hydrox/Alum Hydrox 30 ML ORAL.SUSP PO (22:09)
[2024-09-17] MEDS: Lidocaine HCl Viscous 2 % 15 ML SOLUTION MUCOUS MEM (22:09)
[2024-09-17 22:22] LABS: B Type Natriuretic Peptide 20 pg/mL (<100)
[2024-09-17 22:33] VITALS: BP 138/78; PULSE 104; RESP 19; TEMP 36.6; O2SAT 95
[2024-09-17 22:54] VITALS: BP 138/78; PULSE 104; RESP 19; TEMP 36.6; O2SAT 95
== END 2024-09-17 23:12 | disposition home or self-care (01) ==
PROVIDERS: Emergency Provider Internal Medicine; PCP Internal Medicine
DX: R07.89 Other chest pain (principal); R06.02 Shortness of breath; E11.9 Type 2 diabetes mellitus without complications; I10 Essential (primary) hypertension; E78.5 Hyperlipidemia, unspecified; Z79.02 Long term (current) use of antithrombotics/antiplatelets; Z79.01 Long term (current) use of anticoagulants; Z79.899 Other long term (current) drug therapy
CPT/HCPCS: 36415; 71275; 80053; 81001; 82947; 83880; 84484; 85025; 85610; 85730; 93005; 99285; 99291; Q9967

== ENCOUNTER → 2024-09-17 16:19 | Outpatient (BNV) | payer OTHER, SELFPAY | PROVIDERS: Emergency Provider Internal Medicine; PCP Internal Medicine; Visit Provider Internal Medicine Cardiovascular Disease | DX: R07.89 Other chest pain (principal) | CPT/HCPCS: 93010 ==

== ENCOUNTER → 2024-09-17 17:21 | Outpatient (BNV) | payer OTHER, SELFPAY | PROVIDERS: Emergency Provider Internal Medicine; PCP Internal Medicine; Visit Provider Radiology Diagnostic Radiology | DX: R06.02 Shortness of breath (principal); Z86.711 Personal history of pulmonary embolism | CPT/HCPCS: 71275 ==

== ENCOUNTER 2024-10-04 12:55 | Outpatient (REF) | payer OTHER, SELFPAY ==
--- NOTE | ~2024-10-04 | XR_ITS ---
EXAMINATION: XR FEMUR 2 VIEWS LEFT HISTORY: M97.12XA - Periprosthetic fracture around internal prosthetic left knee ... COMPARISON: Comparison is made with the prior examination dated 09/14/2024. FINDINGS: AP and lateral views of the femur are submitted. Osseous mineralization is normal. Again seen is a comminuted fracture of the distal femoral metaphysis status post internal fixation with an intramedullary geovany. A small amount of new callus formation is noted at the superomedial margin, consistent with healing. A left knee prosthesis is again noted. The soft tissues are unremarkable. XR/XR femur LT 2V IMPRESSION: Status post internal fixation of a healing comminuted fracture of the distal femoral metaphysis. Electronically signed by: Arnold Carnes MD 10/04/2024 02:01 PM EDT
--- OUTSIDE RECORDS SUMMARY | 2024-10-04 13:21 | XMS_ITS | Encounter Summary ---
Author Organization [facility] Address [address] [place] [address] Care Team Providers Care Seconds Grader Name Role Phone Evelin Patricio MD Primary Care Provider [phone] Encounter Details Date Type Department Care Team (Late st Contact Info) Description 09/06/2024 Lab Requisition [facility] Lab [address] [place] [address] Dudley Jean MD [address] [place] [id number] Encounter for other general examination Social History Tobacco Use Types Packs/Day Years Used Date Smoking Tobacco: Former Cigarettes Q uit: 02/02/2011 Smokeless Tobacco: Never Alcohol Use Standard Drinks/Week Comments No 0 (1 standard drink = 0.6 oz pur e alcohol) Comments Unknown Sex and Gender Information Value Date Recorded Sex Assigned at Not on file Legal Sex Female 3:02 PM EST Gender Identity Not on file Sexual Orientation Not on file documented as of this encounter Plan of Treatment Not on file documented as of this encounter Procedures Procedure Name Priority Date/Time Associated Diagnosis Comments COMPLETE BLOOD COUNT Routine 09/06/2024 5:10 AM EDT Encounter for other general examination COMPREHENSIVE METABOLIC PANEL Routine 09/06/2024 5:10 AM EDT Encounter for other general examination documented in this encounter Results * (ABNORMAL) Complete blood count (09/06/2024 5:10 AM EDT) [facility] Signature WBC 10.7 4.8 - 10.8 K/[facility] LAB HEMETOLOGY METHOD 09/06/2024 11:10 AM EDT [facility] RBC 3.80 3.80 - 4.80 M/mcL LAB HEMETOLOGY METHOD 09/06/2024 11:10 AM [facility] Hemoglobin 11.1(L) 11.5 - 16.0 g/dL LAB HEMETOLOGY METHOD 09/06/2024 11:10 AM [facility] Hematocrit 37.1 35.0 - 47.0 % LAB HEMETOLOGY METHOD 09/06/2024 11:10 AM [facility] MCV 97.1 79.0 - 98.0 FL LAB HEMETOLOGY METHOD 09/06/2024 11:10 AM [facility] MCH 29.1 27.0 - 32.0 pcg LAB HEMETOLOGY METHOD 09/06/2024 11:10 AM [facility] MCHC 29.9(L) 32.0 - 37.0 g/dL LAB HEMETOLOGY METHOD 09/06/2024 11:10 AM [facility] RDW 14.6 11.0 - 15.0 % LAB HEMETOLOGY METHOD 09/06/2024 11:10 AM [facility] Platelets 249 130 - 400 K/mcL LAB HEMETOLOGY METHOD 09/06/2024 11:10 AM [facility] MPV 10.8 7.0 - 11.0 FL LAB HEMETOLOGY METHOD 09/06/2024 11:10 AM [facility] NRBC 0.0 <1.0 % LAB HEMETOLOGY METHOD 09/06/2024 11:10 AM [facility] NRBC Absolute 0.00 <0.10 K/mcL LAB HEMETOLOGY METHOD 09/06/2024 11:10 AM [facility] Blood Venous blood specimen / Unknown Venipuncture / Unknown 09/06/2024 5:10 AM EDT 09/06/2024 10:24 AM EDT us Dudley Jean MD LAB BLOOD ORDERABLES Final Resu lt [facility] [address] [place] [address], * (ABNORMAL) Comprehensive metabolic panel (09/06/2024 5:10 AM EDT) Sodium 141 133 - 145 mmol/L LAB CHEMISTRY METHOD 09/06/2024 11:40 AM [facility] Potassium 4.5 3.5 - 5.5 mmol/L LAB CHEMISTRY METHOD 09/06/2024 11:40 AM [facility] Chloride 102 96 - 110 mmol/L LAB CHEMISTRY METHOD 09/06/2024 11:40 AM [facility] CO2 30 21 - 32 mmol/L LAB CHEMISTRY METHOD 09/06/2024 11:40 AM [facility] Anion Gap 9 3 - 11 LAB CHEMISTRY METHOD 09/06/2024 11:40 AM [facility] Glucose 136(H) 70 - 100 mg/dL LAB CHEMISTRY METHOD 09/06/2024 11:40 AM [facility] BUN 12 5 - 25 mg/dL LAB CHEMISTRY METHOD 09/06/2024 11:40 AM [facility] Creatinine 0.72 0.50 - 1.10 mg/dL LAB CHEMISTRY METHOD 09/06/2024 11:40 AM [facility] eGFR 95 >=60 mL/min/1. 73m2 LAB CHEMISTRY METHOD 09/06/2024 11:40 AM [facility] Comment:Calculation based on the Chronic Kidney Disease Epidemiology Collaboration (CKD-EPI) equation refit without adjustment for race. BUN/Creatinine Ratio 16.7 LAB CHEMISTRY METHOD 09/06/2024 11:40 AM [facility] Calcium 8.7 8.5 - 10.5 mg/dL LAB CHEMISTRY METHOD 09/06/2024 11:40 AM T [facility] AST (SGOT) 20 10 - 42 unit/L LAB CHEMISTRY METHOD 09/06/2024 11:40 AM [facility] ALT (SGPT) 14 10 - 60 unit/L LAB CHEMISTRY METHOD 09/06/2024 11:40 AM [facility] Alkaline Phosphatase 101 42 - 121 unit/L LAB CHEMISTRY METHOD 09/06/2024 11:40 AM EDT [facility] Total Protein 6.7 6.0 - 8.0 g/dL LAB CHEMISTRY METHOD 09/06/2024 11:40 AM [facility] Albumin 3.1(L) 3.2 - 5.0 g/dL LAB CHEMISTRY METHOD 09/06/2024 11:40 AM [facility] Total Bilirubin 0.7 0.0 - 1.4 mg/dL LAB CHEMISTRY METHOD 09/06/2024 11:40 AM [facility] Blood Venous blood specimen / Unknown Venipuncture / Unknown 09/06/2024 5:10 AM EDT 09/06/2024 10:24 AM EDT us Dudley Jean MD LAB BLOOD ORDERABLES Final Resu lt [facility] [address] [place] [address], documented in this encounter Visit Diagnoses Diagnosis Encounter for other general examination documented in this encounter Care Teams Seconds Grader Relationship Specialty Start Date End Date Evelin Patricio MD [address] [place] [id number] PCP - General Internal Medicine 12/13/13 documented as of this encounter
--- OUTSIDE RECORDS SUMMARY | 2024-10-04 13:21 | XMS_ITS | Continuity of Care Document ---
Author Organization [facility] [address] [address] [place] [address] Phone [phone] Care Team Providers Care Senior Risk Manager Name Role Phone Josh Naranjo M.D. Care Team Information Recei sheila [phone] Problems Active Problems Provider Date Type 2 [...] SIG Qnty Indications Order ing Provider Date [id number] Capsules 1 tab by mouth twice a day Sancho Bautista M.D. 02/28/2024 Mounjaro7.5mg/0.5ML Solution Auto-Inject Inject 7.5 MG Subcutaneously Once Every Week 2units Sancho Bautista M.D. 10/14/2023 Freestyle Lite Blood Glucose Monitoring SystemDevice as directed 1units Sancho Bautista M.D. 07/20/2022 Aspirin Low Doci12cr Tablets DR Take 1 Tablet By Mouth Every Day Josh Naranjo M.D. Freestyle Lite TestStrips Use as Directed 4 Times A Day For 90 Days 400units E11.9 Sancho Bautista M.D. [id number] Tablets take 1 tablet by mouth in Am 90tabs Sancho Bautista M.D. [id number] Capsules DR Take 1 Capsule By Mouth Every Day Josh Naranjo M.D. [id number] Tablets Take 1 Tablet By Mouth Every Day Josh Naranjo M.D. Rosuvastatin [id number] Tablets Take 1 Tablet By Mouth Twice Weekly 90tabs Sancho Bautista M.D. History Medications Ozempic (1 MG/Dose)4mg/3ML Solution Pen-Inject Inject 1 MG Subcutaneously One Time Per Week 3units Sancho Bautista M.D. 08/06/2024 - 10/02/2024 Vital Signs Date Vital Result Comment 10/02/2024 2:51pm BP Systolic 110 mmHg BP Diastolic 60 mmHg Heart Rate 72 /min Height 69 inches 5'9 Results Test Acquired Date Facility Test Result H/L Range [place] Hemoglobin A1c 10/02/2024 Inhouse Hemoglobin A1c 6.3% Glucose Fingerstick 10/02/2024 Inhouse Glucose Fingerstick 125 Glucose Fingerstick 02/28/2024 Inhouse Glucose Fingerstick 128 Hemoglobin A1c 02/28/2024 Inhouse Hemoglobin A1c 5.8% Glucose Fingerstick 11/08/2023 Inhouse Glucose Fingerstick 59 Hemoglobin A1c 11/08/2023 Inhouse Hemoglobin A1c 5.8% Glucose Fingerstick 08/03/2023 Inhouse Glucose Fingerstick 271 Hemoglobin A1c 08/03/2023 Inhouse Hemoglobin A1c 9.1% Glucose Fingerstick 04/29/2023 Inhouse Glucose Fingerstick 130 Hemoglobin A1c 04/29/2023 Inhouse Hemoglobin A1c 6.1% Hemoglobin A1c 01/25/2023 Inhouse Hemoglobin A1c 5.5% Glucose Fingerstick 01/25/2023 Inhouse Glucose Fingerstick 155 Glucose Fingerstick 10/22/2022 Inhouse Glucose Fingerstick 104 [...] Date Location Provider Dx Diagnosis Office Visit 10/02/2024 2:45p Main Office Sancho Bautista M.D. E11.8 Type 2 diabetes mellitus with unspecified complications E66.9 Obesity, unspecified Assessments Date Code Description Provider 10/02/2024 E11.8 Complication due to diabetes mellitus Sancho Bautista M.D. 10/02/2024 E66.9 Obesity Sancho phelan M.D. Plan of Treatment Future Appointment(s):* 02/06/2025 2:15 pm - Sancho Bautista M.D. at Main Office 10/02/2024 - Sancho Bautista M.D.* E11.8 Complication due to diabetes mellitus * E66.9 Obesity Functional Status Description No Information Available Mental Status Description No Information Available Referrals Description No Information Available
== END 2024-10-04 12:56 | disposition home or self-care (01) ==
LOC: HO.HOSX 12:55
PROVIDERS: Visit Provider Orthopaedic Surgery
DX: M97.12XD Periprosthetic fracture around internal prosthetic left knee joint, subsequent encounter (principal); M79.89 Other specified soft tissue disorders; M25.562 Pain in left knee; M25.462 Effusion, left knee
CPT/HCPCS: 73552

== ENCOUNTER 2024-10-04 13:11 | Outpatient (AMB) | payer OTHER, SELFPAY ==
--- NOTE | 2024-10-04 13:48 | MHC.OFFVIS ---
Intake Visit Reasons: PO-LT femur retrograde nail 08/26/24 with NE Intake Note: Ivana is a 59 year old female who presents today for a post op appointment s/p left femur retrograde nail 08/26/24 with NE. -This patient has had extreme difficulties managing her pain while she was in the hospital as well as on discharge. -Her nursing facility after discharge at one point had her on Dilaudid 4 mg p.o. to manage her pain without effect. -I also sent a one time prescription on 09/24/2024 for Dilaudid 2 mg p.o. q.6 hours for pain as well. Allergies No Known Allergies (No Known Allergies*) Allergy (Verified 09/17/24 16:27) HPI HPI PO-LT femur retrograde nail 08/26/24 with NE: Details: Ivana is now 6 weeks status post left femoral retrograde nail for periprosthetic fracture. She was doing well until she is went home and has been increasing her activity and having worsening pain. She denies fevers and chills but states that physical therapy has become increasingly difficult for her and she notes swelling of the left knee. [facility] Medical History Femur fracture Hypertension Obesity Diabetes mellitus Hyperlipidemia CAD (coronary artery disease) Surgical History History of percutaneous coronary intervention Social History Household Members: Spouse Housing: House Do you presently have visiting nurse or other home services: Yes Patient Tobacco Use Status: Never used Tobacco e-Cigarette/Vaping Use: Never Used Second Hand Smoke Exposure: No service: No Physical Exam Extrem Other: Physical exam she has a about 90 degrees of motion of the knee but there is swelling over the lateral aspect of the knee. There is no erythema or suggestion of infection. She is neurovascularly intact. There is 1 area over the lateral distal femur where I can palpate what is likely a screw head. Results Reviewed Results Reviewed: I personally reviewed relevant radiographs. Imaging Sophia reveals screw backout when the most distal screw. No change in hardware alignment or fracture alignment. Assessment & Plan Assessment & Plan (1) Periprosthetic fracture around internal prosthetic left knee joint, initial encounter: Code(s): M97.12XA - Periprosthetic fracture around internal prosthetic left knee joint, initial encounter Category: Medical Plan: There is screw back out in the most distal screw. At 2 weeks this was not present but something changed over the past month. The screw is backing out and I recommend screw removal. I I think the remaining 2 screws are sufficient. I discussed this with her. I discussed the risk of further implant complications as well as infection and pain. I think overall however this is a small procedure that will require mac and should be straight forward. She expressed understanding and we will do this as soon as possible. Orders: Orders XR femur LT 2V 10/04/24 M97.12XA - Periprosthetic fracture around internal prosthetic left knee joint, initial encounter Coding Level of Care Code Global (07551) Diagnoses Periprosthetic fracture around internal prosthetic left knee joint, initial encounter M97.12XA
== END 2024-10-04 14:29 | disposition home or self-care (01) ==
LOC: HO.HOS 13:12
PROVIDERS: PCP Internal Medicine; Visit Provider Orthopaedic Surgery
DX: M97.12XA Periprosthetic fracture around internal prosthetic left knee joint, initial encounter (principal)
CPT/HCPCS: 99024

== ENCOUNTER → 2024-10-04 13:38 | Outpatient (BNV) | payer OTHER, SELFPAY | PROVIDERS: Visit Provider Radiology Diagnostic Radiology | DX: M97.12XD Periprosthetic fracture around internal prosthetic left knee joint, subsequent encounter (principal); Z96.652 Presence of left artificial knee joint | CPT/HCPCS: 73552 ==

== ENCOUNTER 2024-10-09 10:17 | Day surgery (SDC) | payer OTHER, SELFPAY ==
--- OUTSIDE RECORDS SUMMARY | 2024-10-05 06:12 | XMS_ITS | Encounter Summary ---
Author Organization [facility] Address [address] [place] [address] Care Team Providers Care Government Affairs Director Name Role Phone Evelin Patricio MD Primary Care Provider [phone] Encounter Details Date Type Department Care Team (Late st Contact Info) Description 09/06/2024 Lab Requisition [facility] - Main Lab [address] [place] [address] Dudley Jean MD [address] [place] [id number] Encounter for other general examination Social History [...] Complete blood count (09/06/2024 5:10 AM EDT) [facility] Signature WBC 10.7 4.8 - 10.8 K/[facility] LAB HEMETOLOGY METHOD 09/06/2024 11:10 AM EDT [facility] LAB RBC 3.80 3.80 - 4.80 M/mcL [...] MD LAB BLOOD ORDERABLES Final Resu lt [facility] LAB [address] [place] [address], * (ABNORMAL) Comprehensive metabolic panel (09/06/2024 5:10 [...] LAB CHEMISTRY METHOD 09/06/2024 11:40 AM T [facility] LAB AST (SGOT) 20 10 - 42 unit/L LAB CHEMISTRY METHOD 09/06/2024 11:40 AM [facility] LAB ALT (SGPT) 14 10 - 60 unit/L LAB CHEMISTRY METHOD 09/06/2024 11:40 AM [facility] LAB Alkaline Phosphatase 101 42 - 121 unit/L LAB CHEMISTRY METHOD 09/06/2024 11:40 AM EDT [facility] LAB Total Protein 6.7 6.0 - [...] MD LAB BLOOD ORDERABLES Final Resu lt [facility] [address] [place] [address], documented in this encounter Visit Diagnoses Diagnosis Encounter for other general examination documented in this encounter Care Teams Government Affairs Director Relationship Specialty Start Date End Date Evelin Patricio MD [address] [place] [id number] PCP - General Internal Medicine 12/13/13 documented as of this encounter
--- OUTSIDE RECORDS SUMMARY | 2024-10-05 06:12 | XMS_ITS | Continuity of Care Document ---
Author Organization [facility] [address] [facility] [address] [place] [address] Phone [phone] Care Team Providers Care Chef Head Name Role Phone Josh Naranjo M.D. Care Team Information Recei sheila [phone] Problems Active Problems Provider Date Type 2 [...] SIG Qnty Indications Order ing Provider Date [id number] Capsules 1 tab by mouth twice a day Sancho Bautista M.D. 02/28/2024 Mounjaro7.5mg/0.5ML Solution Auto-Inject Inject 7.5 MG Subcutaneously Once Every Week 2units Sancho Bautista M.D. 10/14/2023 Freestyle Lite Blood Glucose Monitoring SystemDevice as directed 1units Sancho Bautista M.D. 07/20/2022 Aspirin Low [id number] Tablets DR Take 1 Tablet By Mouth Every Day Josh Naranjo M.D. Freestyle Lite TestStrips Use as Directed 4 Times A Day For 90 Days 400units E11.9 Sancho Bautista M.D. [id number] Tablets take 1 tablet by mouth in Am 90tabs Sancho Bautista M.D. [id number] Capsules DR Take 1 Capsule By Mouth Every Day Josh Naranjo M.D. [id number] Tablets Take 1 Tablet By Mouth Every Day Josh Naranjo M.D. Rosuvastatin [id number] Tablets Take 1 Tablet By Mouth Twice [...]
--- NOTE | 2024-10-08 07:55 | HO.ANESPROP2 ---
Documented by User: Carla Tan NP 10/08/24 10:35 HPI - Anesthesia Eval Consult details Narrative: 59 yr old female for left removal orthopedic hardware. s/p left femur fracture repair 08/26/24 pulmonary embolism post surgery and s/p embolectomy on 08/28 on [facility] ED visit for CP 09/17/24, neg cardiac enzymes x2, EKG unremarkable, chest CTA negative for PE; ?esophageal spasm DM: glucose 104 09/17, on mounjaro, glipizide CAD: s/p PCI 2014 Anesthesia Pre-Procedure Meds Is the patient on any of the following meds?: GLP1/DPP4 PMFSH Active Problems Active Problems: All Active Problems (Updated 09/18/24 @ 00:00 by Phillip Murphy) Acute respiratory failure with hypoxia (Acute) Acute metabolic encephalopathy (Acute) Acute blood loss anemia (Acute) DVT (deep venous thrombosis) (Acute) Pulmonary embolism (Acute) Hypertension (Acute) Obesity (Acute) Diabetes mellitus (Acute) Periprosthetic fracture around internal prosthetic left knee joint, initial encounter (Acute) Past Medical History Medical History Femur fracture Hypertension Obesity Diabetes mellitus Hyperlipidemia CAD (coronary artery disease) Family History Family history of problems with anesthesia: No Surgical History Surgical History History of cholecystectomy Total knee replacement status History of percutaneous coronary intervention History of Problems with Anesthesia: No Social History Social History Household Members: Spouse Housing: House Are you a primary manager critical care to a significant other at home: No Do you presently have visiting nurse or other home services: No Patient Tobacco Use Status: Former Tobacco user Tobacco use type: Cigarette Years Smoked: 8 Smoked in Last 30 Days: No e-Cigarette/Vaping Use: Never Used Second Hand Smoke Exposure: No Use of substances other than those prescribed or required for medical reasons: No Have you been hit, kicked, punched, or otherwise hurt by someone within the past year? If so, by whom?: No Are you DNR?: No Advance Directives: No Advance Directives Information Provided: No Advance Directives on File: No Patient : No : No Poor oral hygiene: No service: No Meds Allergies Allergy/AdvReac Type Severity Reaction Status Date / Time No Known Allergies (No Known Allergy Verified 10/09/24 10:58 Allergies*) Home Medications ?Medication ?Instructions ?Recorded ?Confirmed ?Last Taken ?Type amitriptyline 100 mg tablet 100 mg PO BEDTIME 08/25/24 10/09/24 Unknown History atorvastatin 20 mg tablet 20 mg PO DAILY 08/25/24 10/09/24 Unknown History glipizide 10 mg tablet 10 mg PO QAM 08/25/24 10/09/24 10/08/24 History omeprazole 20 mg capsule,delayed 20 mg PO DAILY@0630 08/25/24 10/09/24 10/09/24 History release pregabalin 300 mg capsule 300 mg PO BID 08/25/24 10/09/24 08/24/24 History tirzepatide 7.5 mg/0.5 mL 7.5 mg subcut HARDY 08/25/24 10/09/24 09/30/24 History subcutaneous pen injector (Mounjaro) acetaminophen 325 mg capsule 975 mg PO Q8H 09/14/24 10/09/24 Unknown History amitriptyline 25 mg tablet 25 mg PO BEDTIME 09/14/24 10/09/24 Unknown History Exam Pertinent Lab Results Pertinent Lab Results: Laboratory Tests 09/17/24 16:45 WBC 6.6 RBC 3.52 L D Hgb 10.7 L Hct 32.8 L Plt Count 270 D Sodium 142 Potassium 4.4 BUN 9 Creatinine 0.68 Narrative Narrative: Transthoracic echo 08/27/24 Conclusions: - 1. Technically limited study despite use of contrast agent 2. Normal biventricular systolic function 3. Cardiac valvular Dopplers within normal limits 4. Normal measured RV systolic pressure Assessment and Plan Final Anesthetic Review Family History of Problems with Anesthesia: No History of Problems with Anesthesia: No Documented by User: Aaliyah Rodriguez MD 10/09/24 13:13 [facility] Past Medical History Medical History Femur fracture Hypertension Obesity Diabetes mellitus Hyperlipidemia CAD (coronary artery disease) Surgical History Surgical History History of cholecystectomy Total knee replacement status History of percutaneous coronary intervention Social History Social History Household Members: Spouse Housing: House Are you a primary manager critical care to a significant other at home: No Do you presently have visiting nurse or other home services: No Patient Tobacco Use Status: Former Tobacco user Tobacco use type: Cigarette Years Smoked: 8 Smoked in Last 30 Days: No e-Cigarette/Vaping Use: Never Used Second Hand Smoke Exposure: No Use of substances other than those prescribed or required for medical reasons: No Have you been hit, kicked, punched, or otherwise hurt by someone within the past year? If so, by whom?: No Are you DNR?: No Advance Directives: No Advance Directives Information Provided: No Advance Directives on File: No Patient : No : No Poor oral hygiene: No service: No Meds Allergies Allergy/AdvReac Type Severity Reaction Status Date / Time No Known Allergies (No Known Allergy Verified 10/09/24 10:58 Allergies*) Home Medications ?Medication ?Instructions ?Recorded ?Confirmed ?Last Taken ?Type amitriptyline 100 mg tablet 100 mg PO BEDTIME 08/25/24 10/09/24 Unknown History atorvastatin 20 mg tablet 20 mg PO DAILY 08/25/24 10/09/24 Unknown History glipizide 10 mg tablet 10 mg PO QAM 08/25/24 10/09/24 10/08/24 History omeprazole 20 mg capsule,delayed 20 mg PO DAILY@0630 08/25/24 10/09/24 10/09/24 History release pregabalin 300 mg capsule 300 mg PO BID 08/25/24 10/09/24 08/24/24 History tirzepatide 7.5 mg/0.5 mL 7.5 mg subcut HARDY 08/25/24 10/09/24 09/30/24 History subcutaneous pen injector (Seamusunbetty) acetaminophen 325 mg capsule 975 mg PO Q8H 09/14/24 10/09/24 Unknown History amitriptyline 25 mg tablet 25 mg PO BEDTIME 09/14/24 10/09/24 Unknown History Exam Airway Mallampati Class: II TM Dist: >3cm Neck ROM: Full Heart: rrr Lungs: cta Assessment and Plan Assessment Anesthesia Assessment: Anesthesia Plan Discussed and Chart Reviewed Final Anesthetic Review NPO: Yes ASA Class: III Final Preanesthetic Review: No Changes in Pt Med Stat, Meds/Allgs Chart Reviewed, Consent Obtained/Reviewed and Anes Risks/Benef Reviewed Patient Risk: Intermediate Procedure Risk: Low Anesthetic Plan Anesthetic Plan: MAC: Disposition: Standard PACU
--- NOTE | ~2024-10-09 | FL_ITS ---
EXAMINATION: FL GUIDANCE ONLY HISTORY: hardware removal, left COMPARISON: Correlation is made with plain films of the left femur dated 09/04/2024. TECHNIQUE: Fluoroscopy time: Less than 0.1 minute. Cumulative Dose: 3.61 mGy. DAP: 0.88273 mGym2 Images: 3. FINDINGS: Fluoroscopic spot films of the left knee demonstrate a prosthesis and intramedullary geovany in place. Images demonstrate removal of a screw at the lateral aspect of the knee. FL/FL guidance in OR IMPRESSION: Fluoroscopy during procedure. Please see procedure report for additional information. Electronically signed by: Arnold Carnes MD 10/09/2024 02:51 PM EDT
[2024-10-09 11:19] VITALS: BMI 35.6
[2024-10-09 11:34] LABS: Glucose, Whole Blood 171 mg/dL (60-115)
[2024-10-09 11:37] VITALS: BP 138/81; PULSE 113; RESP 16; TEMP 36.3; O2SAT 96
--- NOTE | 2024-10-09 11:37 | MHC.SHP ---
Pre-Procedural Eval Section A - 24 Hr Update-Section A only Date of Service: 10/09/24 The patient is an INPATIENT: No Changes since office visit: No Cold of Flu in the past 2 weeks, No New Medical Problems, No Changes in Medication and No Patient answered all questions The patient has been examined within 24 hours of the surgical procedure. The History & Physical has been completed within 30 days and I have reviewed it.: Yes Section B - Complete if H&P > 30 days Chief Complaint: Encounter for removal of internal fixation device Allergies: Allergies Allergy/AdvReac Type Severity Reaction Status Date / Time No Known Allergies (No Known Allergy Verified 10/09/24 10:58 Allergies*) Plan I have reviewed the history and physical and performed a pertinent physical examination on my patient. No changes have occurred unless specified. Time Spent With Patient Time: Total time managing care of this patient today ____ minutes.
[2024-10-09] MEDS: Lactated Ringers 1,000 ML 100 ML IVCONT (11:42)
--- NOTE | 2024-10-09 13:09 | PC.NURSE ---
Patient in preop. Per patient, eliquis last taken yesterday morning at 730am. Dr. Harrison's office told me to stop my eliquis for 3 days before procedure however, my pcp told me not to, therefor my last dose was yesterday morning . Dr. Harrison made aware. Discussion between him and anesthesia whether or not case would proceed as local due to blood thinner being taken. Anesthesia to stay involved. Okay to proceed despite eliquis taken yesterday, per Dr. Harrison. OR nurse aware.
--- NOTE | 2024-10-09 13:46 | P.BOP_ITS ---
Brief Operative Note Date of Service: 10/09/24 Pre-op diagnosis: Retained ortho hardware left femur Post-op diagnosis: same Procedure: QUE left femur Surgeon: Miko Harrison MD Anesthesia: MAC and local Was an Business Executive used for this Procedure?: No Estimated blood loss (mL): 5 IV fluids (mL): 250 Pathology: none sent Condition: stable Disposition: PACU
[2024-10-09 13:48] VITALS: BP 97/66; PULSE 118; RESP 16; TEMP 36.4
[2024-10-09 14:03] VITALS: BP 114/83; PULSE 105; RESP 20; TEMP 36.4; O2SAT 97
--- NOTE | 2024-10-12 11:11 | W.PM.OPN ---
Operative Note Operative Note Date of Service: 10/09/24 Narrative: Date of Service: 10/09/24 Pre-op diagnosis: Retained ortho hardware left femur Post-op diagnosis: same Procedure: QUE left femur Surgeon: Miko Harrison MD Anesthesia: MAC and local Was an Court Collections Officer used for this Procedure?: No Estimated blood loss (mL): 5 IV fluids (mL): 250 Pathology: none sent Condition: stable Disposition: PACU Procedure in detail: Patient was brought to the operating room and placed in the supine position on the surgical table. She was prepped and draped in standard sterile fashion and a time out was called to identify proper site, proper procedure and IV antibiotics per weight were administered. The distal screw could be palpated. A maximo incision was made over the screw and I dissected down to the screw head. This was confirmed with fluoroscopy. Screwdriver was inserted and the screw was removed without difficulty. Radiographs were then taken with the screw absent I was satisfied this was the appropriate screws to been removed. I then irrigated copiously and closed with nylon suture. Local anesthetic was administered before and after incision. The patient was placed in sterile dressings, extubated and brought to the recovery room in stable condition.
== END 2024-10-09 14:27 | disposition home or self-care (01) ==
PROVIDERS: PCP Internal Medicine; Visit Provider Orthopaedic Surgery
PROC: (CPT 20670; principal; 2024-10-09 13:50)
DX: Z47.2 Encounter for removal of internal fixation device (principal); M97.12XA Periprosthetic fracture around internal prosthetic left knee joint, initial encounter; Z96.652 Presence of left artificial knee joint; I10 Essential (primary) hypertension; I25.10 Atherosclerotic heart disease of native coronary artery without angina pectoris; Z95.5 Presence of coronary angioplasty implant and graft; E78.5 Hyperlipidemia, unspecified; E11.9 Type 2 diabetes mellitus without complications; Z79.01 Long term (current) use of anticoagulants; Z79.85 Long-term (current) use of injectable non-insulin antidiabetic drugs; Z79.899 Other long term (current) drug therapy
CPT/HCPCS: 20670; 82947; J0690; J2704; J2795; J3010

== ENCOUNTER → 2024-10-09 10:17 | Outpatient (BNV) | payer OTHER, SELFPAY | PROVIDERS: PCP Internal Medicine; Visit Provider Orthopaedic Surgery | DX: T84.192A Other mechanical complication of internal fixation device of bone of right forearm, initial encounter (principal) | CPT/HCPCS: 20680 ==

== ENCOUNTER 2024-10-12 10:23 | Outpatient (REF) | payer OTHER, SELFPAY ==
--- OUTSIDE RECORDS SUMMARY | 2024-10-13 10:25 | XMS_ITS | Encounter Summary ---
Author Organization [facility] Address [address] [place] [address] Care Team Providers Care All Around Presser Name Role Phone Evelin Patricio MD Primary Care Provider [phone] Encounter Details Date Type Department Care Team (Late st Contact Info) Description 09/06/2024 Lab Requisition [facility] - Main Lab [address] [place] [address] Dudley Jean MD [address] [place] [id number] Encounter for other general examination Social History [...] Complete blood count (09/06/2024 5:10 AM EDT) [facility] Signature WBC 10.7 4.8 - 10.8 K/[facility] LAB HEMETOLOGY METHOD 09/06/2024 11:10 AM EDT [facility] ([facility] LAB RBC 3.80 3.80 - 4.80 M/mcL LAB HEMETOLOGY METHOD 09/06/2024 11:10 AM [facility] LAB Hemoglobin 11.1(L) 11.5 - 16.0 g/dL LAB HEMETOLOGY METHOD 09/06/2024 11:10 AM [facility] LAB Hematocrit 37.1 35.0 - 47.0 % LAB HEMETOLOGY METHOD 09/06/2024 11:10 AM [facility] LAB MCV 97.1 79.0 - 98.0 FL LAB HEMETOLOGY METHOD 09/06/2024 11:10 AM [facility] LAB MCH 29.1 27.0 - 32.0 pcg LAB HEMETOLOGY METHOD 09/06/2024 11:10 AM [facility] LAB MCHC 29.9(L) 32.0 - 37.0 g/dL LAB HEMETOLOGY METHOD 09/06/2024 11:10 AM [facility] LAB RDW 14.6 11.0 - 15.0 % LAB HEMETOLOGY METHOD 09/06/2024 11:10 AM [facility] LAB Platelets 249 130 - 400 K/mcL LAB HEMETOLOGY METHOD 09/06/2024 11:10 AM [facility] LAB MPV 10.8 7.0 - 11.0 FL LAB HEMETOLOGY METHOD 09/06/2024 11:10 AM [facility] LAB NRBC 0.0 <1.0 % LAB HEMETOLOGY METHOD 09/06/2024 11:10 AM [facility] LAB NRBC Absolute 0.00 <0.10 K/mcL LAB HEMETOLOGY METHOD 09/06/2024 11:10 AM [facility] LAB Blood Venous blood specimen / Unknown Venipuncture / Unknown 09/06/2024 5:10 AM EDT 09/06/2024 10:24 AM EDT us Dudley Jean MD LAB BLOOD ORDERABLES Final Resu lt [facility] LAB [address] [place] [address], * (ABNORMAL) Comprehensive metabolic panel (09/06/2024 5:10 AM EDT) Sodium 141 133 - 145 mmol/L LAB CHEMISTRY METHOD 09/06/2024 11:40 AM [facility] LAB Potassium 4.5 3.5 - 5.5 mmol/L LAB CHEMISTRY METHOD 09/06/2024 11:40 AM [facility] LAB Chloride 102 96 - 110 mmol/L LAB CHEMISTRY METHOD 09/06/2024 11:40 AM [facility] LAB CO2 30 21 - 32 mmol/L LAB CHEMISTRY METHOD 09/06/2024 11:40 AM [facility] LAB Anion Gap 9 3 - 11 LAB CHEMISTRY METHOD 09/06/2024 11:40 AM [facility] LAB Glucose 136(H) 70 - 100 mg/dL LAB CHEMISTRY METHOD 09/06/2024 11:40 AM [facility] LAB BUN 12 5 - 25 mg/dL LAB CHEMISTRY METHOD 09/06/2024 11:40 AM [facility] LAB Creatinine 0.72 0.50 - 1.10 mg/dL LAB CHEMISTRY METHOD 09/06/2024 11:40 AM [facility] LAB eGFR 95 >=60 mL/min/1. 73m2 LAB CHEMISTRY METHOD 09/06/2024 11:40 AM [facility] LAB Comment:Calculation based on the Chronic Kidney Disease Epidemiology Collaboration (CKD-EPI) equation refit without adjustment for race. BUN/Creatinine Ratio 16.7 LAB CHEMISTRY METHOD 09/06/2024 11:40 AM [facility] LAB Calcium 8.7 8.5 - 10.5 mg/dL LAB CHEMISTRY METHOD 09/06/2024 11:40 AM T [facility] LAB AST (SGOT) 20 10 - 42 unit/L LAB CHEMISTRY METHOD 09/06/2024 11:40 AM [facility] LAB ALT (SGPT) 14 10 - 60 unit/L LAB CHEMISTRY METHOD 09/06/2024 11:40 AM [facility] LAB Alkaline Phosphatase 101 42 - 121 unit/L LAB CHEMISTRY METHOD 09/06/2024 11:40 AM EDT [facility] LAB Total Protein 6.7 6.0 - 8.0 g/dL LAB CHEMISTRY METHOD 09/06/2024 11:40 AM [facility] LAB Albumin 3.1(L) 3.2 - 5.0 g/dL LAB CHEMISTRY METHOD 09/06/2024 11:40 AM [facility] LAB Total Bilirubin 0.7 0.0 - 1.4 mg/dL LAB CHEMISTRY METHOD 09/06/2024 11:40 AM [facility] LAB Blood Venous blood specimen / Unknown Venipuncture / Unknown 09/06/2024 5:10 AM EDT 09/06/2024 10:24 AM EDT us Dudley Jean MD LAB BLOOD ORDERABLES Final Resu lt [facility] LAB [address] [place] [address], documented in this encounter Visit Diagnoses Diagnosis Encounter for other general examination documented in this encounter Care Teams All Around Presser Relationship Specialty Start Date End Date Evelin Patricio MD [address] [place] [id number] PCP - General Internal Medicine 12/13/13 documented as of this encounter
--- OUTSIDE RECORDS SUMMARY | 2024-10-13 10:25 | XMS_ITS | Continuity of Care Document ---
Author Organization [facility] [address] [facility] [address] [place] [address] Phone [phone] Care Team Providers Care Assistant Produce Manager Name Role Phone Josh Naranjo M.D. Care Team Information Recei sheila [phone] Problems Active Problems Provider Date Type 2 [...] Time Per Week 3units Sancho Bautista M.D. 10/10/2024 [id number] Capsules 1 tab by mouth twice a day Sancho Bautista M.D. 02/28/2024 Mounjaro7.5mg/0.5ML Solution Auto-Inject Inject 7.5 MG Subcutaneously Once Every Week 2units Sancho Bautista M.D. 10/14/2023 Freestyle Lite Blood Glucose Monitoring SystemDevice as directed 1units Sancho Bautista M.D. 07/20/2022 Aspirin Low [id number] Tablets DR Take 1 Tablet By Mouth Every Day Josh Naranjo M.D. Freestyle Lite TestStrips Use as Directed 4 Times A Day For 90 Days 400units E11.9 Sancho Bautista M.D. [id number] Tablets take 1 tablet by mouth in Am 90tabs Sancho Bautista M.D. [id number] Capsules DR Take 1 Capsule By Mouth Every Day Josh Naranjo M.D. Rrsvxyjxeh6ts Tablets Take 1 Tablet By Mouth Every Day Josh Naranjo M.D. Rosuvastatin [id number] Tablets Take 1 Tablet By Mouth Twice [...]
== END 2024-10-12 10:24 | disposition home or self-care (01) ==
LOC: HO.HOSX 10:23
PROVIDERS: Visit Provider Physician Assistant
DX: Z13.89 Encounter for screening for other disorder (principal)

== ENCOUNTER 2024-10-18 09:43 | Outpatient (REF) | payer OTHER, SELFPAY ==
--- NOTE | ~2024-10-18 | XR_ITS ---
EXAMINATION: XR FEMUR, LEFT CLINICAL INFORMATION: M79.606 - Pain in leg, unspecified, follow-up fracture COMPARISON: October 04, 2024 TECHNIQUE: AP and lateral views of the left femur were obtained. FINDINGS: Again seen is intramedullary nail with distal locking screws traversing a comminuted fracture of the distal metadiaphysis of the left femur. There is periosteal new bone formation. There is also evidence of medullary bone regrowth. Fracture fragments are stable in their positioning. Total knee arthroplasty has been performed. There is a joint effusion. XR/XR femur LT 2V IMPRESSION: Healing distal left femur fracture post-ORIF Total knee arthroplasty with a joint effusion. Electronically signed by: Eduar Marie MD 10/18/2024 03:17 PM EDT
--- OUTSIDE RECORDS SUMMARY | 2024-10-18 10:13 | XMS_ITS | Continuity of Care Document ---
Author Organization [facility] 2 [facility] [address] [place] [address] Phone [phone] Care Team Providers Care Solar Crew Member Name Role Phone Josh Naranjo M.D. Care Team Information Recei sheila [phone] Problems Active Problems Provider Date Type 2 [...] SIG Qnty Indications Order ing Provider Date [id number] Capsules 1 tab by mouth twice a day Sancho Bautista M.D. 02/28/2024 Mounjaro7.5mg/0.5ML Solution Auto-Inject Inject 7.5 MG Subcutaneously Once Every Week 2units Sancho Bautista M.D. 10/14/2023 Freestyle Lite Blood Glucose Monitoring SystemDevice as directed 1units Sancho Bautista M.D. 07/20/2022 Aspirin Low Epkw55so Tablets DR Take 1 Tablet By Mouth Every Day Josh Naranjo M.D. Freestyle Lite TestStrips Use as Directed 4 Times A Day For 90 Days 400units E11.9 Sancho Bautista M.D. Arluzyofc36jo Tablets take 1 tablet by mouth in Am 90tabs Sancho Bautista M.D. Dmwivefwsj17an Capsules DR Take 1 Capsule By Mouth Every Day Josh Naranjo M.D. Cngmsyavom7jq Tablets Take 1 Tablet By Mouth Every Day Josh Naranjo M.D. Rosuvastatin Zhbypxc29oa Tablets Take 1 Tablet By Mouth Twice Weekly 90tabs Sancho Bautista M.D. History Medications Ozempic (1 MG/Dose)4mg/3ML Solution Pen-Inject Inject 1 MG Subcutaneously One Time Per Week 3ml Sancho Bautista M.D. 10/10/2024 - 10/16/2024 Ozempic (1 MG/Dose)4mg/3ML Solution Pen-Inject Inject 1 [...]
--- OUTSIDE RECORDS SUMMARY | 2024-10-18 10:13 | XMS_ITS | Encounter Summary ---
Author Organization [facility] Address [address] [place] [address] Care Team Providers Care Process Consultant Name Role Phone Evelin Patricio MD Primary Care Provider [phone] Encounter Details Date Type Department Care Team (Late st Contact Info) Description 09/06/2024 Lab Requisition [facility] - Main Lab [address] [place] [address] Dudley Jean MD [address] [place] [address] Encounter for other general examination Social History [...] Complete blood count (09/06/2024 5:10 AM EDT) [facility] Signature WBC 10.7 4.8 - 10.8 K/[facility] LAB HEMETOLOGY METHOD 09/06/2024 11:10 AM EDT [facility] RBC 3.80 3.80 - 4.80 M/mcL [...] Resu lt [facility] [address] [place] [address], * (ABNORMAL) Comprehensive metabolic panel (09/06/2024 5:10 [...] Resu lt [facility] [address] [place] [address], documented in this encounter Visit Diagnoses Diagnosis Encounter for other general examination documented in this encounter Care Teams Process Consultant Relationship Specialty Start Date End Date Evelin Patricio MD [address] [place] [id number] PCP - General Internal Medicine 12/13/13 documented as of this encounter
== END 2024-10-18 09:44 | disposition home or self-care (01) ==
LOC: HO.HOSX 09:43
PROVIDERS: Visit Provider Physician Assistant
DX: M97.12XA Periprosthetic fracture around internal prosthetic left knee joint, initial encounter (principal)
CPT/HCPCS: 73552

== ENCOUNTER 2024-10-18 14:38 | Outpatient (AMB) | payer OTHER, SELFPAY ==
--- NOTE | 2024-10-18 15:06 | A.OFFVIS_ITS ---
Vital Signs 10/18/24 15:14 Height 5 ft 9 in Weight 241 lb BMI 35.6 Intake Visit Reasons: PO LT femur QUE 10/09/24 NE Intake Note: Ivana is a 59 year old female who presents today post operatively after undergoing a left femur QUE, DOS 10/09/[address] Harrison. Patient reports she is still having a lot of pain located at the medial aspect of knee and her thigh area. States above her knee look weird when swelling is present. Her pain with increases with prolong standing, stating feels like a vibrating sensation. States her knee julia. Allergies No Known Allergies (No Known Allergies*) Allergy (Verified 10/18/24 15:16) Medication List - Last Reconciled 10/19/24 by Aron Cruz PA-C acetaminophen 975 mg PO Q8H amitriptyline 100 mg PO BEDTIME apixaban (Eliquis) 10 mg (2 tabs) twice daily until 09/03/24; then 5 mg (1 tab) twice daily atorvastatin 20 mg PO DAILY glipizide 10 mg PO QAM hydrocodone-acetaminophen 5-325 mg 1 tab PO Q8H PRN 7 days omeprazole 20 mg PO DAILY@0630 pregabalin 300 mg PO BID tirzepatide (Mounjaro) 7.5 mg subcut HARDY HPI HPI PO LT femur QUE 10/09/24 NE: Details: 59-year-old female returns to the office today status post removal of hardware l eft femur distal locking screw on 10/09/2024. She states since this procedure she does have some medial joint line tenderness and pain along the thigh region. She is ambulating with a walker but states she can not put full weight on it. [facility] Medical History Femur fracture Hypertension Obesity Diabetes mellitus Hyperlipidemia CAD (coronary artery disease) Surgical History History of cholecystectomy Total knee replacement status History of percutaneous coronary intervention Social History Household Members: Spouse Housing: House Are you a primary career counselor to a significant other at home: No Do you presently have visiting nurse or other home services: No Comment: COUNTS CORRECT Patient Tobacco Use Status: Former Tobacco user Tobacco use type: Cigarette Years Smoked: 8 e-Cigarette/Vaping Use: Never Used Second Hand Smoke Exposure: No service: No Review of Systems Const All systems reviewed & are unremarkable except as noted in HPI and below Physical Exam Vital Signs: BMI result Body Mass Index 35.6 Extrem Other: Left knee incision is clean dry and intact. She has no significant swelling or erythema. She can perform full range of motion. Mild tenderness over the medial femoral condyle. Calf supple and nontender neurovascularly intact. Results Reviewed Results Reviewed: X-rays of the left knee obtained in the office today and reviewed by me does show evidence of hardware removal. 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 I reviewed the images with Dr. Harrison who was also available to see the patient today and the decision was made to make her toe-touch weight-bearing with a walker at all times to help preserve the fracture stability and prevent further regression of the screws. The patient does express understanding. I did encourage her to work on range of motion of the knee and quad activation. I will see her back in 2 weeks with x- rays, sooner if needed. Orders: Orders XR femur LT 2V 10/18/24 M79.606 - Pain in leg, unspecified Coding Level of Care Code Global (29011) Diagnoses Periprosthetic fracture around internal prosthetic left knee joint, initial encounter M97.12XA
[2024-10-18 15:14] VITALS: BMI 35.6
== END 2024-10-18 15:41 | disposition home or self-care (01) ==
LOC: HO.HOS 14:38
PROVIDERS: PCP Internal Medicine; Visit Provider Physician Assistant
DX: M97.12XA Periprosthetic fracture around internal prosthetic left knee joint, initial encounter (principal)
CPT/HCPCS: 99024

== ENCOUNTER → 2024-10-18 14:42 | Outpatient (BNV) | payer OTHER, SELFPAY | PROVIDERS: Visit Provider Radiology Diagnostic Radiology | DX: M79.606 Pain in leg, unspecified (principal) | CPT/HCPCS: 73552 ==

== ENCOUNTER 2024-10-25 09:13 | Outpatient (REF) | payer OTHER, SELFPAY ==
--- NOTE | ~2024-10-25 | XR_ITS ---
EXAMINATION: XR KNEE, LEFT CLINICAL INFORMATION: M25.562 - Pain in left knee COMPARISON: August 25, 2024. TECHNIQUE: AP view in standing position both knees. Cross lateral view and sunrise projection of the left knee. FINDINGS: Comminuted displaced fracture distal diaphysis and metaphysis of the left femur. No gross callus formation or reactive bone formation.. Intramedullary geovany, left femur no fully included in the [id number]. Metallic prosthesis with a femoral and tibial component well-seated in the osseous structures. There is some anterior tibial component with surrounding loosening. Moderate to severe degenerative changes involving mostly the lateral compartment right knee. Soft tissue calcifications involving the medial femoral condyle. XR/XR knee LT 3V IMPRESSION: No gross healing in the comminuted displaced fracture distal diaphysis and metaphysis, left femur. Probable loosening at the tibial component of the left knee prosthesis. Electronically signed by: Carlos Manuel Norman MD 10/25/2024 10:54 AM EDT
--- OUTSIDE RECORDS SUMMARY | 2024-10-25 09:36 | XMS_ITS | Encounter Summary ---
Author Organization [facility] Address [address] [place] [address] Care Team Providers Care Movie Projectionist Name Role Phone Evelin Patricio MD Primary Care Provider [phone] Encounter Details Date Type Department Care Team (Late st Contact Info) Description 09/06/2024 Lab Requisition [facility] - Main Lab [address] [place] [address] Dudley Jean MD [address] [place] [id number] Encounter for other general examination Social History [...] Complete blood count (09/06/2024 5:10 AM EDT) [facility] Signature WBC 10.7 4.8 - 10.8 K/[facility] LAB HEMETOLOGY METHOD 09/06/2024 11:10 AM EDT [facility] RBC 3.80 3.80 - 4.80 M/mcL LAB HEMETOLOGY METHOD 09/06/2024 11:10 AM [facility] Hemoglobin 11.1(L) 11.5 - 16.0 g/dL LAB HEMETOLOGY METHOD 09/06/2024 11:10 AM [facility] LAB Hematocrit 37.1 35.0 - 47.0 % LAB HEMETOLOGY METHOD 09/06/2024 11:10 AM [facility] MCV 97.1 79.0 - 98.0 FL LAB HEMETOLOGY METHOD 09/06/2024 11:10 AM [facility] LAB MCH 29.1 27.0 - 32.0 pcg LAB HEMETOLOGY METHOD 09/06/2024 11:10 AM [facility] LAB MCHC 29.9(L) 32.0 - 37.0 g/dL LAB HEMETOLOGY METHOD 09/06/2024 11:10 AM [facility] RDW 14.6 11.0 - 15.0 % LAB HEMETOLOGY METHOD 09/06/2024 11:10 AM [facility] Platelets 249 130 - 400 K/mcL LAB HEMETOLOGY METHOD 09/06/2024 11:10 AM [facility] MPV 10.8 7.0 - 11.0 FL LAB HEMETOLOGY METHOD 09/06/2024 11:10 AM [facility] NRBC 0.0 <1.0 % LAB HEMETOLOGY METHOD 09/06/2024 11:10 AM [facility] NRBC Absolute 0.00 <0.10 K/mcL LAB HEMETOLOGY METHOD 09/06/2024 11:10 AM [facility] Blood Venous blood specimen / Unknown Venipuncture / Unknown 09/06/2024 5:10 AM EDT 09/06/2024 10:24 AM EDT us Dudley Jean MD LAB BLOOD ORDERABLES Final Resu lt [facility] [address] [place] [address], * (ABNORMAL) Comprehensive metabolic panel (09/06/2024 5:10 AM EDT) Sodium 141 133 - 145 mmol/L LAB CHEMISTRY METHOD 09/06/2024 11:40 AM [facility] Potassium 4.5 3.5 - 5.5 mmol/L LAB CHEMISTRY METHOD 09/06/2024 11:40 AM [facility] Chloride 102 96 - 110 mmol/L LAB CHEMISTRY METHOD 09/06/2024 11:40 AM [facility] CO2 30 21 - 32 mmol/L LAB CHEMISTRY METHOD 09/06/2024 11:40 AM [facility] Anion Gap 9 3 - 11 LAB CHEMISTRY METHOD 09/06/2024 11:40 AM [facility] Glucose 136(H) 70 - 100 mg/dL LAB CHEMISTRY METHOD 09/06/2024 11:40 AM [facility] BUN 12 5 - 25 mg/dL LAB CHEMISTRY METHOD 09/06/2024 11:40 AM [facility] Creatinine 0.72 0.50 - 1.10 mg/dL LAB CHEMISTRY METHOD 09/06/2024 11:40 AM [facility] eGFR 95 >=60 mL/min/1. 73m2 LAB CHEMISTRY METHOD 09/06/2024 11:40 AM [facility] Comment:Calculation based on the Chronic Kidney Disease Epidemiology Collaboration (CKD-EPI) equation refit without adjustment for race. BUN/Creatinine Ratio 16.7 LAB CHEMISTRY METHOD 09/06/2024 11:40 AM [facility] Calcium 8.7 8.5 - 10.5 mg/dL LAB CHEMISTRY METHOD 09/06/2024 11:40 AM T [facility] AST (SGOT) 20 10 - 42 unit/L LAB CHEMISTRY METHOD 09/06/2024 11:40 AM [facility] ALT (SGPT) 14 10 - 60 unit/L LAB CHEMISTRY METHOD 09/06/2024 11:40 AM [facility] Alkaline Phosphatase 101 42 - 121 unit/L LAB CHEMISTRY METHOD 09/06/2024 11:40 AM EDT [facility] Total Protein 6.7 6.0 - 8.0 g/dL LAB CHEMISTRY METHOD 09/06/2024 11:40 AM [facility] Albumin 3.1(L) 3.2 - 5.0 g/dL LAB CHEMISTRY METHOD 09/06/2024 11:40 AM [facility] Total Bilirubin 0.7 0.0 - 1.4 mg/dL LAB CHEMISTRY METHOD 09/06/2024 11:40 AM [facility] Blood Venous blood specimen / Unknown Venipuncture / Unknown 09/06/2024 5:10 AM EDT 09/06/2024 10:24 AM EDT us Dudley Jean MD LAB BLOOD ORDERABLES Final Resu lt [facility] [address] [place] [address], documented in this encounter Visit Diagnoses Diagnosis Encounter for other general examination documented in this encounter Care Teams Movie Projectionist Relationship Specialty Start Date End Date Evelin Patricio MD [address] [place] [phone] PCP - General Internal Medicine 12/13/13 documented as of this encounter
--- OUTSIDE RECORDS SUMMARY | 2024-10-25 09:36 | XMS_ITS | Continuity of Care Document ---
Author Organization [facility] 2 [facility] [address] [place] [address] Phone [phone] Care Team Providers Care Microbiological Analyst Name Role Phone Josh Naranjo M.D. Care Team Information Recei sheila [phone] Problems Active Problems Provider Date Type 2 [...] End: Unknown Patient is a former smoker Allergies and adverse reactions Description No Known Drug Allergies Medications Active Medications SIG Qnty Indications Order ing Provider Date [id number] Capsules 1 tab by mouth twice a day Sancho Bautista M.D. 02/28/2024 Mounjaro7.5mg/0.5ML Solution Auto-Inject Inject 7.5 MG Subcutaneously Once Every Week 2units Sancho Bautista M.D. 10/14/2023 Freestyle Lite Blood Glucose Monitoring SystemDevice as directed 1units Sancho Bautista M.D. 07/20/2022 Aspirin Low Xeki53nh Tablets DR Take 1 Tablet By Mouth Every Day Josh Naranjo M.D. Freestyle Lite TestStrips Use as Directed 4 Times A Day For 90 Days 400units E11.9 Sancho Bautista M.D. Bzaqlpdib94xw Tablets take 1 tablet by mouth in Am 90tabs Sancho Bautista M.D. Kuxhsocaja15hi Capsules DR Take 1 Capsule By Mouth Every Day Josh Naranjo M.D. Kkaxuhfdvh4bq Tablets Take 1 Tablet By Mouth Every Day Josh Naranjo M.D. Rosuvastatin Jgflyrd26zz Tablets Take 1 Tablet By Mouth Twice [...]
== END 2024-10-25 09:14 | disposition home or self-care (01) ==
LOC: HO.HOSX 09:13
PROVIDERS: Visit Provider Physician Assistant
DX: M97.12XD Periprosthetic fracture around internal prosthetic left knee joint, subsequent encounter (principal)
CPT/HCPCS: 73562

== ENCOUNTER 2024-10-25 10:12 | Outpatient (AMB) | payer OTHER, SELFPAY ==
--- NOTE | 2024-10-25 10:30 | A.OFFVIS_ITS ---
Vital Signs 10/25/24 11:11 Height 5 ft 9 in Weight 241 lb BMI 35.6 BP 120/70 Blood Pressure Location Rt brachial Position Sitting Pulse 108 H Pulse Source Monitor Intake Visit Reasons: PO- LT femur QUE 10/09/24 NE Intake Note: Ivana is a 59 year old female who presents today with concerns of increased pain status post left femur QUE, DOS 10/09/[address] Harrison. Patient reports an increase of pain that started Tuesday. States her pain has increased and is now unable to apply weight. She feels pressure and crunching inside her knee. Denies any injury. Allergies No Known Allergies (No Known Allergies*) Allergy (Verified 10/25/24 10:37) HPI HPI PO- LT femur QUE 10/09/24 NE: Details: 59-year-old female returns to the office today status post left femur removal of hardware on 10/09/2024. Initial surgery for the left femur was on 08/26/2024 where she had a left femur retrograde IM nail placed with Dr. Harrison. This procedure was then complicated by a pulmonary emboli postop day 1. She was treated by Dr. Wilson with a pulmonary embolectomy. She was then placed on Eliquis which she continues to take. I saw her last week for a routine postop appointment and she was doing well although she did have some increased discomfort along the medial side of the knee she was toe-touch weight-bearing with a walker. This past Tuesday she mentioned she was sitting in a chair with her leg in extension and she went to move the leg when she felt some awkward sensations in the knee and felt the knee was unstable. This was also followed by an increase in pain. She contacted the office with concerns to an increase in discomfort. She denies fall. [facility] Medical History Femur fracture Hypertension Obesity Diabetes mellitus Hyperlipidemia CAD (coronary artery disease) Surgical History History of cholecystectomy Total knee replacement status History of percutaneous coronary intervention Social History Household Members: Spouse Housing: House Are you a primary care advocate to a significant other at home: No Do you presently have visiting nurse or other home services: No Comment: COUNTS CORRECT Patient Tobacco Use Status: Former Tobacco user Tobacco use type: Cigarette Years Smoked: 8 e-Cigarette/Vaping Use: Never Used Second Hand Smoke Exposure: No service: No Review of Systems Const All systems reviewed & are unremarkable except as noted in HPI and below Physical Exam Vital Signs: Last Vital Signs Pulse 108 H 10/25/24 11:11 BP 120/70 10/25/24 11:11 BMI result Body Mass Index 35.6 Extrem Other: Left knee skin is intact. No erythema or joint effusion. There is discomfort along the distal femur. Patient has difficulty with extension. Neurovascularly intact. Results Reviewed Results Reviewed: X-rays of the left knee obtained in the office today and reviewed by me show distal femur fracture without significant healing. There is evidence of hardware failure. Assessment & Plan Assessment & Plan (1) Periprosthetic fracture around internal prosthetic left knee joint, initial encounter: Code(s): M97.12XA - Periprosthetic fracture around internal prosthetic left knee joint, initial encounter Category: Medical Plan: I reviewed the images with Dr. Harrison along with the patient's current concerns of increased pain. The decision was made to proceed with removal of hardware followed by ORIF left femur. The patient does understand nonsurgical intervention would result in significantly limited function, continued pain and potentially nonunion or malunion. Given the patient is active and weightbear at baseline, it would be recommended to pursue surgical intervention. We discussed the procedure in detail along with the risks benefits and alternatives. Risks including but not limited to infection, injury to surrounding nerves and tissue and bone, small and large vessels, hardware failure, stiffness,need for further surgery, DVT/PE along with intraoperative complications including but not limited to . We discussed postoperative recovery which includes The patient does express understanding we would like to proceed with ORIF left femur with possible removal of retrograde nail with Dr. Harrison. The patient will be booked accordingly The patient is on Eliquis and we will need to consult with Dr. Wilson prior to surgery to determine the next step in proceeding with a surgery involving gener al anesthesia whether this be bridging with another anticoagulant such as Lovenox or placing an IVC filter. Once this has been determined we can proceed with surgical booking. The patient was placed in a knee immobilizer in the office today and she will remain nonweightbearing on the left lower extremity. All questions were answered. Orders: Orders XR knee LT 3V Today M25.562 - Pain in left knee Coding Level of Care Code Global (73991) Diagnoses Periprosthetic fracture around internal prosthetic left knee joint, initial encounter M97.12XA
[2024-10-25 11:11] VITALS: BP 120/70; PULSE 108; BMI 35.6
== END 2024-10-25 11:27 | disposition home or self-care (01) ==
LOC: HO.HOS 10:13
PROVIDERS: Visit Provider Physician Assistant
DX: M97.12XA Periprosthetic fracture around internal prosthetic left knee joint, initial encounter (principal)
CPT/HCPCS: 99024

== ENCOUNTER → 2024-10-25 10:14 | Outpatient (BNV) | payer OTHER, SELFPAY | PROVIDERS: Visit Provider Radiology Diagnostic Radiology | DX: M25.562 Pain in left knee (principal) | CPT/HCPCS: 73562 ==

== ENCOUNTER 2024-11-01 10:38 | Outpatient (AMB) | payer OTHER, SELFPAY ==
[2024-11-01 10:49] VITALS: BMI 35.6
--- NOTE | 2024-11-01 10:49 | MHC.OFFVIS ---
Vital Signs 11/01/24 10:49 Height 5 ft 9 in Weight 241 lb BMI 35.6 Intake Visit Reasons: Add-On IVC filter pre op Intake Note: Referral for IVC filter for femur sx on 11/07/24 w/ ortho Tube Bender Hand Required: No Accompanied by: Daughter Allergies No Known Allergies (No Known Allergies*) Allergy (Verified 11/01/24 10:53) HPI HPI Add-On IVC filter pre op: Details: Very pleasant 59-year-old female presents for evaluation regarding IVC filter placement. She had an acute left femur fracture and subsequently treated by Orthopedics. Postprocedure should developed a pulmonary embolism which demonstrated clots in the right segmental and subsegmental branches. She underwent pulmonary embolectomy on 08/28/2024. She has been doing fairly well in terms of that since that time. She is being maintained on Eliquis. She is scheduled for removal of hardware followed by ORIF of left femur. She now presents to us for re-evaluation. [facility] Medical History History of femur fracture (08/26/24) Femur fracture Hypertension Obesity Diabetes mellitus Hyperlipidemia CAD (coronary artery disease) Surgical History History of thrombectomy (08/28/24) Status post hardware removal (10/09/24) History of cholecystectomy Total knee replacement status (~2014) History of percutaneous coronary intervention Social History Household Members: Spouse Housing: House Are you a primary career guidance counselor to a significant other at home: No Do you presently have visiting nurse or other home services: No Comment: COUNTS CORRECT Patient Tobacco Use Status: Former Tobacco user Tobacco use type: Cigarette Years Smoked: 8 e-Cigarette/Vaping Use: Never Used Second Hand Smoke Exposure: No service: No Review of Systems Const All systems reviewed & are unremarkable except as noted in HPI and below Reports no additional complaints ENT Reports Normal hearing present Card Denies chest pain, Denies chest pain at rest, Denies chest pain with activity and Denies pedal edema Resp Denies cough GI Denies abdominal pain Musc Denies abnormal gait, Denies muscle cramps and Denies radiating pain into limb Skin/Breast Denies skin ulcer and Denies wounds Neuro Reports Normal hearing present and Denies abnormal gait Psych Reports no additional complaints Physical Exam Vital Signs: BMI result Body Mass Index 35.6 Const General: cooperative, healthy appearing and comfortable Orientation/consciousness: oriented to person, oriented to place and oriented to time HEENT Head: Yes normal to inspection Neck Neck: Yes normal visual inspection Carotids: no bruits Chest Chest palpation & inspection: normal inspection of the chest Resp Effort & Inspection: normal respiratory effort and able to speak in complete sentences Auscultation: clear to auscultation bilaterally, no crackles, no rales, no rhonchi and no wheezes Cardio Rate: regular rate Rhythm: regular rhythm Heart sounds: S1 normal heart sound present and S2 normal heart sound present Bruits: no carotid bruits Peripheral pulses: Peripheral pulses 2+ throughout GI Inspection: Yes normal to inspection Skin Wounds: no wounds Hair: normal Neuro General: oriented to person, oriented to place and oriented to time Cranial nerves: Yes CN's II-XII intact bilaterally and Yes Normal hearing present Cognition (Neuro): normal cognition Motor exam (neuro): 5/5 motor strength present throughout Extrem Other: venous exam: No significant superficial varicosities or spider telangiectasias, minimal edema General: No clubbing, No cyanosis and No edema Psych Appearance: grossly normal Mental Status: mental status grossly normal Speech and movement: Normal speech and movement present Results Reviewed Results Reviewed: Previous imaging from 08/28/2024 was reviewed. Assessment & Plan Assessment & Plan (1) Pulmonary embolism: Code(s): I26.99 - Other pulmonary embolism without acute cor pulmonale Category: Medical Qualifiers: Pulmonary embolism type: unspecified Chronicity: acute Acute cor pulmonale presence: unspecified Qualified Code(s): I26.99 - Other pulmonary embolism without acute cor pulmonale Plan: In short patient has prior history of DVT with PE. She will require IVC filter placement. This is in anticipation of future orthopedic surgery where she will be off of anticoagulants in the perioperative period. Risks benefits complications of the procedure were discussed in detail with the patient. She understood and consented. We will place as soon as possible. Thank you for allowing us to assist in her care. Coding Level of Care Code Est Pt Level 4 (86183) Complex EM visit Add On G2211 Diagnoses Acute pulmonary embolism, unspecified pulmonary embolism type, unspecified whether acute cor pulmonale present I26.99 Pulmonary embolism type: unspecified Chronicity: acute Acute cor pulmonale presence: unspecified
--- OUTSIDE RECORDS SUMMARY | 2024-11-01 11:47 | XMS_ITS | Encounter Summary ---
Author Organization [facility] Address [address] [place] [address] Care Team Providers Care Exploration Geologist Name Role Phone Evelin Patricio MD Primary Care Provider Encounter Details Date Type Department Care Team (Late st Contact Info) Description 09/06/2024 Lab Requisition [facility] - Main Lab [address] [place] [address] Dudley Jean MD [address] [place] [id number] Encounter for other general examination Social History [...] Complete blood count (09/06/2024 5:10 AM EDT) [facility] Signature WBC 10.7 4.8 - 10.8 K/[facility] LAB HEMETOLOGY METHOD 09/06/2024 11:10 AM EDT [facility] LAB RBC 3.80 3.80 - 4.80 M/mcL LAB HEMETOLOGY METHOD 09/06/2024 11:10 AM [facility] LAB Hemoglobin 11.1(L) 11.5 - 16.0 g/dL LAB HEMETOLOGY METHOD 09/06/2024 11:10 AM [facility] LAB Hematocrit 37.1 35.0 - 47.0 % LAB HEMETOLOGY METHOD 09/06/2024 11:10 AM [facility] LAB MCV 97.1 79.0 - 98.0 FL LAB HEMETOLOGY METHOD 09/06/2024 11:10 AM [facility] LAB MCH 29.1 27.0 - 32.0 pcg LAB HEMETOLOGY METHOD 09/06/2024 11:10 AM [facility] LAB MCHC 29.9(L) 32.0 - 37.0 g/dL LAB HEMETOLOGY METHOD 09/06/2024 11:10 AM [facility] LAB RDW 14.6 11.0 - 15.0 % LAB HEMETOLOGY METHOD 09/06/2024 11:10 AM [facility] LAB Platelets 249 130 - 400 K/mcL LAB HEMETOLOGY METHOD 09/06/2024 11:10 AM [facility] LAB MPV 10.8 7.0 - 11.0 FL LAB HEMETOLOGY METHOD 09/06/2024 11:10 AM [facility] LAB NRBC 0.0 <1.0 % LAB HEMETOLOGY METHOD 09/06/2024 11:10 AM [facility] LAB NRBC Absolute 0.00 <0.10 K/mcL LAB HEMETOLOGY METHOD 09/06/2024 11:10 AM [facility] LAB Blood Venous blood specimen / Unknown Venipuncture / Unknown 09/06/2024 5:10 AM EDT 09/06/2024 10:24 AM EDT us Dudley Jean MD LAB BLOOD ORDERABLES Final Resu lt [facility] LAB [address] [place] [address], * (ABNORMAL) Comprehensive metabolic panel (09/06/2024 5:10 AM EDT) Sodium 141 133 - 145 mmol/L LAB CHEMISTRY METHOD 09/06/2024 11:40 AM [facility] LAB Potassium 4.5 3.5 - 5.5 mmol/L LAB CHEMISTRY METHOD 09/06/2024 11:40 AM [facility] LAB Chloride 102 96 - 110 mmol/L LAB CHEMISTRY METHOD 09/06/2024 11:40 AM [facility] LAB CO2 30 21 - 32 mmol/L LAB CHEMISTRY METHOD 09/06/2024 11:40 AM [facility] LAB Anion Gap 9 3 - 11 LAB CHEMISTRY METHOD 09/06/2024 11:40 AM [facility] LAB Glucose 136(H) 70 - 100 mg/dL LAB CHEMISTRY METHOD 09/06/2024 11:40 AM [facility] LAB BUN 12 5 - 25 mg/dL LAB CHEMISTRY METHOD 09/06/2024 11:40 AM [facility] LAB Creatinine 0.72 0.50 - 1.10 mg/dL LAB CHEMISTRY METHOD 09/06/2024 11:40 AM [facility] LAB eGFR 95 >=60 mL/min/1. 73m2 LAB CHEMISTRY METHOD 09/06/2024 11:40 AM [facility] LAB Comment:Calculation based on the Chronic Kidney Disease Epidemiology Collaboration (CKD-EPI) equation refit without adjustment for race. BUN/Creatinine Ratio 16.7 LAB CHEMISTRY METHOD 09/06/2024 11:40 AM [facility] LAB Calcium 8.7 8.5 - 10.5 mg/dL LAB CHEMISTRY METHOD 09/06/2024 11:40 AM T [facility] LAB AST (SGOT) 20 10 - 42 unit/L LAB CHEMISTRY METHOD 09/06/2024 11:40 AM [facility] LAB ALT (SGPT) 14 10 - 60 unit/L LAB CHEMISTRY METHOD 09/06/2024 11:40 AM [facility] LAB Alkaline Phosphatase 101 42 - 121 unit/L LAB CHEMISTRY METHOD 09/06/2024 11:40 AM EDT [facility] LAB Total Protein 6.7 6.0 - 8.0 g/dL LAB CHEMISTRY METHOD 09/06/2024 11:40 AM [facility] LAB Albumin 3.1(L) 3.2 - 5.0 g/dL LAB CHEMISTRY METHOD 09/06/2024 11:40 AM [facility] LAB Total Bilirubin 0.7 0.0 - 1.4 mg/dL LAB CHEMISTRY METHOD 09/06/2024 11:40 AM [facility] LAB Blood Venous blood specimen / Unknown Venipuncture / Unknown 09/06/2024 5:10 AM EDT 09/06/2024 10:24 AM EDT us Dudley Jean MD LAB BLOOD ORDERABLES Final Resu lt [facility] LAB [address] [place] [address], documented in this encounter Visit Diagnoses Diagnosis Encounter for other general examination documented in this encounter Care Teams Exploration Geologist Relationship Specialty Start Date End Date Evelin Patricio MD [address] [place] [id number] PCP - General Internal Medicine 12/13/13 documented as of this encounter
--- OUTSIDE RECORDS SUMMARY | 2024-11-01 11:47 | XMS_ITS | Continuity of Care Document ---
Author Organization [facility] [address] [facility] [address] [place] [address] Phone [phone] Care Team Providers Care Technology Applications Teacher Name Role Phone Josh Naranjo M.D. Care Team Information Recei sheila [phone] Problems Active Problems Provider Date Type 2 [...] SIG Qnty Indications Order ing Provider Date [id number] Capsules 1 tab by mouth twice a day Sancho Bautista M.D. 02/28/2024 Mounjaro7.5mg/0.5ML Solution Auto-Inject Inject 7.5 MG Subcutaneously Once Every Week 2units Sancho Bautista M.D. 10/14/2023 Freestyle Lite Blood Glucose Monitoring SystemDevice as directed 1units Sancho Bautista M.D. 07/20/2022 Aspirin Low [id number] Tablets DR Take 1 Tablet By Mouth Every Day Josh Naranjo M.D. Freestyle Lite TestStrips Use as Directed 4 Times A Day For 90 Days 400units E11.9 Sancho Bautista M.D. [id number] Tablets take 1 tablet by mouth in Am 90tabs Sancho Bautista M.D. Ngcikbmpck06it Capsules DR Take 1 Capsule By Mouth Every Day Josh Naranjo M.D. Jxuwhegabi8dd Tablets Take 1 Tablet By Mouth Every Day Josh Naranjo M.D. Rosuvastatin Eyiqafo14gw Tablets Take 1 Tablet By Mouth Twice [...]
== END 2024-11-01 11:18 | disposition home or self-care (01) ==
LOC: HO.HVS 10:40
PROVIDERS: PCP Internal Medicine; Visit Provider Surgery Vascular Surgery
DX: I26.99 Other pulmonary embolism without acute cor pulmonale (principal)
CPT/HCPCS: 99214; G2211

== ENCOUNTER → 2024-11-05 06:18 | Day surgery (SDC) | payer OTHER, SELFPAY ==
--- OUTSIDE RECORDS SUMMARY | 2024-11-02 06:21 | XMS_ITS | Encounter Summary ---
Author Organization [facility] Address [address] [place] [address] Care Team Providers Care Pipeline Systems Operator Name Role Phone Evelin Patricio MD Primary Care Provider [phone] Encounter Details Date Type Department Care Team (Late st Contact Info) Description 09/06/2024 Lab Requisition [facility] - Main Lab [address] [place] [address] Dudley Jean MD [address] [place] [phone] Encounter for other general examination Social History [...] Complete blood count (09/06/2024 5:10 AM EDT) [facility] Signature WBC 10.7 4.8 - 10.8 K/[facility] LAB HEMETOLOGY METHOD 09/06/2024 11:10 AM EDT [facility] LAB RBC 3.80 3.80 - 4.80 M/mcL LAB HEMETOLOGY METHOD 09/06/2024 11:10 AM [facility] LAB Hemoglobin 11.1(L) 11.5 - 16.0 g/dL LAB HEMETOLOGY METHOD 09/06/2024 11:10 AM [facility] LAB Hematocrit 37.1 35.0 - 47.0 % LAB HEMETOLOGY METHOD 09/06/2024 11:10 AM [facility] LAB MCV 97.1 79.0 - 98.0 FL LAB HEMETOLOGY METHOD 09/06/2024 11:10 AM [facility] LAB MCH 29.1 27.0 - 32.0 pcg LAB HEMETOLOGY METHOD 09/06/2024 11:10 AM [facility] LAB MCHC 29.9(L) 32.0 - 37.0 g/dL LAB HEMETOLOGY METHOD 09/06/2024 11:10 AM [facility] LAB RDW 14.6 11.0 - 15.0 % LAB HEMETOLOGY METHOD 09/06/2024 11:10 AM [facility] LAB Platelets 249 130 - 400 K/mcL LAB HEMETOLOGY METHOD 09/06/2024 11:10 AM [facility] LAB MPV 10.8 7.0 - 11.0 FL LAB HEMETOLOGY METHOD 09/06/2024 11:10 AM [facility] LAB NRBC 0.0 <1.0 % LAB HEMETOLOGY METHOD 09/06/2024 11:10 AM [facility] LAB NRBC Absolute 0.00 <0.10 K/mcL LAB HEMETOLOGY METHOD 09/06/2024 11:10 AM [facility] LAB Blood Venous blood specimen / Unknown Venipuncture / Unknown 09/06/2024 5:10 AM EDT 09/06/2024 10:24 AM EDT us Dudley Jean MD LAB BLOOD ORDERABLES Final Resu lt [facility] LAB [address] [place] [address], * (ABNORMAL) Comprehensive metabolic panel (09/06/2024 5:10 AM EDT) Sodium 141 133 - 145 mmol/L LAB CHEMISTRY METHOD 09/06/2024 11:40 AM [facility] LAB Potassium 4.5 3.5 - 5.5 mmol/L LAB CHEMISTRY METHOD 09/06/2024 11:40 AM [facility] LAB Chloride 102 96 - 110 mmol/L LAB CHEMISTRY METHOD 09/06/2024 11:40 AM [facility] LAB CO2 30 21 - 32 mmol/L LAB CHEMISTRY METHOD 09/06/2024 11:40 AM [facility] LAB Anion Gap 9 3 - 11 LAB CHEMISTRY METHOD 09/06/2024 11:40 AM [facility] LAB Glucose 136(H) 70 - 100 mg/dL LAB CHEMISTRY METHOD 09/06/2024 11:40 AM [facility] LAB BUN 12 5 - 25 mg/dL LAB CHEMISTRY METHOD 09/06/2024 11:40 AM [facility] LAB Creatinine 0.72 0.50 - 1.10 mg/dL LAB CHEMISTRY METHOD 09/06/2024 11:40 AM [facility] LAB eGFR 95 >=60 mL/min/1. 73m2 LAB CHEMISTRY METHOD 09/06/2024 11:40 AM [facility] LAB Comment:Calculation based on the Chronic Kidney Disease Epidemiology Collaboration (CKD-EPI) equation refit without adjustment for race. BUN/Creatinine Ratio 16.7 LAB CHEMISTRY METHOD 09/06/2024 11:40 AM [facility] LAB Calcium 8.7 8.5 - 10.5 mg/dL LAB CHEMISTRY METHOD 09/06/2024 11:40 AM T [facility] LAB AST (SGOT) 20 10 - 42 unit/L LAB CHEMISTRY METHOD 09/06/2024 11:40 AM [facility] LAB ALT (SGPT) 14 10 - 60 unit/L LAB CHEMISTRY METHOD 09/06/2024 11:40 AM [facility] LAB Alkaline Phosphatase 101 42 - 121 unit/L LAB CHEMISTRY METHOD 09/06/2024 11:40 AM EDT [facility] LAB Total Protein 6.7 6.0 - 8.0 g/dL LAB CHEMISTRY METHOD 09/06/2024 11:40 AM [facility] LAB Albumin 3.1(L) 3.2 - 5.0 g/dL LAB CHEMISTRY METHOD 09/06/2024 11:40 AM [facility] LAB Total Bilirubin 0.7 0.0 - 1.4 mg/dL LAB CHEMISTRY METHOD 09/06/2024 11:40 AM [facility] LAB Blood Venous blood specimen / Unknown Venipuncture / Unknown 09/06/2024 5:10 AM EDT 09/06/2024 10:24 AM EDT us Dudley Jean MD LAB BLOOD ORDERABLES Final Resu lt [facility] LAB [address] [place] [address], documented in this encounter Visit Diagnoses Diagnosis Encounter for other general examination documented in this encounter Care Teams Pipeline Systems Operator Relationship Specialty Start Date End Date Evelin Patricio MD [address] [place] [phone] PCP - General Internal Medicine 12/13/13 documented as of this encounter
[2024-11-05 06:45] VITALS: BMI 35.7
[2024-11-05 07:04] LABS: MANUAL DIFF FLAG NO
[2024-11-05 07:06] LABS: Hematocrit 37.0 % (37.0-47.0); Hemoglobin 12.2 g/dl (12.0-16.0); Imm Gran Abs Auto 0.03 X10*3/uL (0.00-0.03); Imm Gran Pct Auto 0.3 % (0.0-0.4); Lymphocytes Absolute Auto 1.7 X10*3/uL (1.2-4.9); Mean Corpuscular HGB Conc 33.0 g/dl (31.0-35.0); Mean Corpuscular Hemoglobin 29.0 pg (27.0-33.0); Mean Corpuscular Volume 88.1 fL (80.0-98.0); NRBC Abs Auto 0.000 X10*3/uL (0.0-0.012); NRBC Pct Auto 0.0 /100WBC (0.0-0.2); Platelet Count 286 X10*3/uL (160-400); Red Blood Count 4.20 X10*6/uL (4.20-5.50); White Blood Count 10.7 X10*3/uL (4.8-10.8)
[2024-11-05 07:10] LABS: Glucose, Whole Blood 209 mg/dL (60-115)
[2024-11-05 07:16] VITALS: BP 111/69; PULSE 110; RESP 18; TEMP 36.7; O2SAT 95
[2024-11-05 07:29] LABS: Blood Urea Nitrogen 10 mg/dL (9-16); Creatinine Clr Calc Pharmacy 102.6; Estimated Glomerular Filt Rate > 60
[2024-11-05 07:46] VITALS: PULSE 105
--- NOTE | 2024-11-05 08:52 | PC.NURSE ---
Patient arrived preop A+Ox3. Dressed self, got into bed with 1 staff assist. answered all questions appropriately. vs wnl. stated only took amitriptyline this morning. author texted dr. reyes due to bilateral yeast like groin rashes. dr. reyes to assess and at bedside for consent. Patient was now very sleepy and not answering questions appropriately and speech was slurry at times. alert to person and place only now. bedside neuros checked and wnl. patient smiling and sticking out tongue and arms on command appropriately. Having difficulty staying awake. vs wnl still brought into room from waiting room and was updated regarding symptoms. stated I found her on the floor last night and it appeared that she fell from her chair that lifts up. EMS was not contacted per . Patient was helped to her bed per . unaware of medications that the patient took this a.m. Patient brought to emergency room, and belongings at bedside. stated that he has not seen her like this before.
--- NOTE | 2024-11-05 08:57 | PM.EVENT ---
Event Note Date of Service: 11/05/24 Event Note: Patient was preop for IVC filter placement. In preop holding she was very somnolent and significant mental confusion. She was aware to location and person. Confused to date and time. was brought to bedside. He did state that this is a change from her baseline mental status. She was then sent to the ER for further evaluation and workup. Case was canceled. Dr. Harrison was notified. Time Spent With Patient Time: Total time managing care of this patient today ____ minutes.
== END ==
LOC: HO.SSS 06:19
PROVIDERS: PCP Internal Medicine; Visit Provider Surgery Vascular Surgery
DX: I82.512 Chronic embolism and thrombosis of left femoral vein (principal); Z53.8 Procedure and treatment not carried out for other reasons; R40.0 Somnolence; R41.0 Disorientation, unspecified
CPT/HCPCS: 36415; 82565; 82947; 84520; 85025; J1644; J2003; J2250; J3010; Q9967

== ENCOUNTER 2024-11-05 08:24 | Emergency (ER) | payer OTHER, SELFPAY ==
--- NOTE | ~2024-11-05 | CT_ITS ---
EXAMINATION: CT HEAD WITHOUT IV CONTRAST STROKE HISTORY: AMS fall on eliquis. TECHNIQUE: Unenhanced helical CT of the head was performed per standard departmental protocol. Coronal and sagittal reformats of the head were also evaluated. One or more of the following techniques was used for dose reduction: Automated exposure control, adjustment of the mA and/or kV according to patient size, use of iterative reconstruction technique. DLP: 778 mGy-cm COMPARISON: Comparison is made with the prior examination dated 08/29/2024. FINDINGS: BRAIN: The brain parenchyma is unremarkable. There is normal graves/white differentiation. The ventricular system is normal in size and configuration. There is no mass effect or midline shift. No intra- or extra-axial fluid collections are identified. SINUSES: The visualized paranasal sinuses are clear. The mastoid air cells and middle ear cavities are well pneumatized. ORBITS: The visualized orbits are unremarkable. BONES/SOFT TISSUES: The extracranial soft tissues are unremarkable. The calvarium is intact. No suspicious lytic or sclerotic lesions. CT/CT head for STROKE IMPRESSION: No acute intracranial abnormality. Findings were discussed with Dr. Lawrence in the emergency room on 11/05/2024 at 9:02 AM. Electronically signed by: Arnold Carnes MD 11/05/2024 09:03 AM EDT
--- NOTE | ~2024-11-05 | CT_ITS ---
EXAMINATION: CT CERVICAL SPINE WITHOUT CONTRAST CLINICAL INFORMATION: Fall, neck pain. COMPARISON: None available. TECHNIQUE: Spiral CT imaging of the cervical spine performed in axial plane without contrast. Multiplanar reformatted images were constructed from the axial data set. This CT examination was performed using dose optimization techniques as appropriate, variously including the following: *Automated exposure control *Adjustment of mA and/or kV according to patient size (this includes techniques or standardized protocols for targeted exams where dose is matched to indication/reason for exam; i.e. extremities or head) *Use of iterative reconstruction technique FINDINGS: Patient unable to remain still for the exam. Examination is severely motion degraded, borderline nondiagnostic. CORONAL ALIGNMENT: -Minimal levoconvex scoliosis. SAGITTAL ALIGNMENT: -Normal lordosis. -No evidence of traumatic subluxation. C1-C2 AND CRANIOCERVICAL JUNCTION: -Intact and grossly aligned. VERTEBRAL BODIES AND FACETS: -Within the confines of motion, no fracture or compression deformity. No traumatic malalignment. No bone lesion. DISCS: -Mild disc degeneration throughout. CENTRAL CANAL: -No evidence of high-grade central canal narrowing or large disc herniation allowing for motion and modality limitations. PREVERTEBRAL AND PARAVERTEBRAL SOFT TISSUES: -No prevertebral or paravertebral soft tissue edema or swelling. -Thyroid is heavily motion degraded but grossly without lesion. LUNG APICES: -No pneumothorax. CT/CT cervical spine wo IV con IMPRESSION: 1. Severely motion degraded examination. Exam is borderline nondiagnostic. 2. Within these confines, no CT evidence of acute cervical spine fracture or injury. Electronically signed by: Helder Dangelo MD 11/05/2024 09:51 AM EDT
--- NOTE | ~2024-11-05 | XR_ITS ---
EXAMINATION: XR CHEST CLINICAL INFORMATION: weakness COMPARISON: 08/25/2024. TECHNIQUE: Frontal view of the chest was obtained. FINDINGS: The cardiac, hilar, and mediastinal contours are normal. Low lung volumes bilaterally. Mild bronchovascular crowding bilaterally. Patchy opacity right upper lobe distribution. No effusion or pneumothorax. No focal osseous or soft tissue abnormality. There are degenerative changes in the shoulder joints and throughout the spine. XR/XR chest 1V IMPRESSION: Low lung volumes with subtle patchy opacity in the right upper lobe distribution. Findings could represent pneumonia in the appropriate clinical setting. Electronically signed by: Helder Dangelo MD 11/05/2024 09:10 AM EDT
--- NOTE | 2024-11-05 08:26 | ECG_ITS ---
Test Reason : AMS Blood Pressure : */* mmHG Vent. Rate : 96 BPM Atrial Rate : 96 BPM P-R Int : 164 ms QRS Dur : 100 ms QT Int : 368 ms P-R-T Axes : 11 -17 19 degrees QTcB Int : 464 ms Normal sinus rhythm Inferior infarct , age undetermined Abnormal ECG When compared with ECG of 17-Sep-2024 16:21, Nonspecific T wave abnormality, worse in Inferior leads Referred By: Jennifer Lawrence Electronically Signed By: ESAU PATHAK MD
[2024-11-05 08:31] VITALS: BP 106/64; PULSE 96; RESP 13; O2SAT 94; BMI 36.5
[2024-11-05 08:36] VITALS: BP 106/64; PULSE 96; RESP 13; O2SAT 94
--- NOTE | 2024-11-05 09:18 | ED.AMS ---
HPI - Altered Mental Status General Chief Complaint: Altered Mental Status Stated Complaint: AMS Time Seen by Provider: 11/05/24 08:26 Source: patient, family and old records reviewed Mode of arrival: other (stretcher from OR) Limitations: no limitations History of Present Illness ED Provider: ANTHONY MIKE narrative: 59 yo female with PMH of PE/DVT on eliquis, HTN, obesity, DM, HLD, CAD s/p PCI in 2014, L TKA, hx of respiratory failure, she was due to have IVC filter with Katie today - preop staff note she was okay at 730am then around 8am became more confused, weak. She admits to taking amitryptiline last night but that is a normal medication. She then told her she fell last night but it is unclear what happened. She denies taking any pain medications or sedatives this AM. She has no new weakness on exam. She is sedated on arrival but I see no deficits she is oriented but needs prompting. It is unclear during the fall if she had a LOC. Patient states she was possibly on the ground for 3 hours. She has been off her eliquis since Tuesday of note she has amitryptiline, hydroxyzine, oxycodone, pregabalin, flexeril prescriptions complaint: altered mental status Onset (ago): hour(s) (8am ) Timing confirmed by: family member Severity: moderate Consistency of symptoms: waxing and waning Context: trauma Associated symptoms: denies other symptoms Related Data Home Medications ?Medication ?Instructions ?Recorded ?Confirmed amitriptyline 100 mg tablet 100 mg PO BEDTIME 08/25/24 11/05/24 atorvastatin 20 mg tablet 20 mg PO DAILY 08/25/24 11/05/24 glipizide 10 mg tablet 10 mg PO QAM 08/25/24 11/05/24 omeprazole 20 mg capsule,delayed 20 mg PO DAILY@0630 08/25/24 11/05/24 release pregabalin 300 mg capsule 300 mg PO BID 08/25/24 11/05/24 tirzepatide 7.5 mg/0.5 mL 7.5 mg subcut HARDY 08/25/24 11/05/24 subcutaneous pen injector (Rebecca) acetaminophen 325 mg capsule 325 mg PO Q8H 09/14/24 11/05/24 apixaban 5 mg tablet (Eliquis) 5 mg PO BID 10/25/24 11/05/24 aspirin 81 mg tablet 81 mg PO DAILY 10/25/24 11/05/24 hydroxyzine HCl 25 mg tablet 25 mg PO Q8H 10/25/24 11/05/24 lisinopril 5 mg tablet 5 mg PO DAILY 10/25/24 11/05/24 Previous Rx's ?Medication ?Instructions ?Recorded oxycodone 5 mg tablet 5 mg PO Q6H PRN pain 7 days #42 10/22/24 tabs Allergies Allergy/AdvReac Type Severity Reaction Status Date / Time No Known Allergies (No Known Allergy Verified 11/05/24 08:36 Allergies*) Review of Systems Review of Systems: Constitutional : No Fever, No Chills, No Fatigue ENT/Mouth : No sore throat, No Rhinorrhea Eyes: No Eye Pain, No Swelling, No Redness Cardiovascular : No Chest Pain, No SOB, No Dyspnea on Exertion Respiratory : No Cough, No Sputum Gastrointestinal : No Nausea, No Vomiting, No Diarrhea, No abdominal Pain Genitourinary : No Dysuria, No Urinary Frequency, No Hematuria, Musculoskeletal : No joint pain, No Myalgias, No Joint Swelling Skin : No Skin Lesions, No rash Neuro : No Weakness, No Numbness, No Dizziness, positive Headache All other systems reviewed and are negative [facility] Past Medical History Attestation statement: The following information was validated with the patient. Source: old records reviewed Medical History History of femur fracture (08/26/24) Femur fracture Hypertension Obesity Diabetes mellitus Hyperlipidemia CAD (coronary artery disease) Surgical History History of thrombectomy (08/28/24) Status post hardware removal (10/09/24) History of cholecystectomy Total knee replacement status (~2014) History of percutaneous coronary intervention Social History Social History Household Members: Spouse Housing: House Are you a primary child care associate teacher to a significant other at home: No Do you presently have visiting nurse or other home services: No Comment: COUNTS CORRECT Patient Tobacco Use Status: Former Tobacco user Tobacco use type: Cigarette Years Smoked: 8 Smoked in Last 30 Days: No e-Cigarette/Vaping Use: Never Used Second Hand Smoke Exposure: No Use of substances other than those prescribed or required for medical reasons: No Advance Directives: No Advance Directives Information Provided: Yes Do you have a plan to hurt others: No Plan Patient : No service: No Physical Exam ED Vital Signs: Vital Signs - 24 hr 11/05/24 08:31 11/05/24 08:36 Pulse Rate 96 96 Respiratory Rate 13 13 Blood Pressure 106/64 106/64 Pulse Oximetry 94 94 Oxygen Delivery Method Room Air Room Air BMI result Body Mass Index 36.5 Appearance: Somnolent. Oriented X3. Mild acute distress. appears to keep falling asleep but then wakes up and able to answer questions. Eyes: Pupils equal, round and reactive to light. ENT: Pharynx normal. atraumatic Neck: Normal inspection. Neck supple. CVS: Normal heart rate and rhythm. Pulses normal. Respiratory: No respiratory distress. Breath sounds normal. Abdomen: Soft and nontender. Skin: Skin warm and dry. Normal skin color. Extremities: No lower extremity edema. Neuro: Oriented X 3. No motor deficit. No sensory deficit. CN2-12 intact NIH Stroke Scale Internal: Initial- Upon Arrival Level of Consciousness: Not Alert; but arousable by minor stimulation Level of Consciousness Questions: Answers both questions correctly Level of Consciousness Commands: Performs both tasks correctly Best Gaze: Normal Visual: No visual loss Facial Palsy: Normal Motor Arm (Right): No drift Motor Arm (Left): No drift Motor Leg (Right): No drift Motor Leg (Left): No drift Limb Ataxia: Absent Sensory: Normal Best Language: No aphasia Dysarthia: Normal Extinction and Inattention: No abnormality Score: 1 Course Course Course Narrative: 1255pm making more sense she admits to taking extra medication last night due to nerves - she thinks it was for pain - hydroxyzine and pregabalin are suspected when talking to her she notes she thinks she took them Medical Decision Making Medical Decision Making MDM Narrative: 59 yo female with PMH of PE/DVT on eliquis, HTN, obesity, DM, HLD, CAD s/p PCI in 2014, L TKA, hx of respiratory failure, now here with sudden sedation/falling asleep she admits to head trauma last night and being on the floor ?3 hours she has no focal deficits to suggest LVO she will get stat head CT for ICH, vbg for retention, holt labs, CXR, UA she denies any infectious symptoms. She states she only took amitryptiline last night but when you review her meds she is at risk for polypharmacy and sedation Differential Diagnosis Differential Diagnoses: The differential diagnosis associated with the presentation includes CO2 retention, polypharmacy, given fall ICH, metabolic encephalopaty she has no focal deficits it is more sedation and diffuse weakness doubt LVO or stroke Admission/Observation Consideration of admission/observation: Escalation of care including admission/observation considered once more awake will DC home suspect med use waking up 440pm wants to go home at baseline per if she has steady gait will DC home using walker no issue has very dry mouth does not have her oral lubricant - at this time she and state her speech is due to dry mouth Lab Data MDM Lab Attestation statement: I reviewed the patient's lab results. 11/05/24 09:14 11/05/24 09:14 Labs: Lab Results 11/05/24 11/05/24 Range/Units 09:14 09:23 WBC 9.9 (4.8-10.8) X10*3/uL RBC 4.08 L (4.20-5.50) X10*6/uL Hgb 11.9 L (12.0-16.0) g/dl Hct 36.3 L (37.0-47.0) % MCV 89.0 (80.0-98.0) fL MCH 29.2 (27.0-33.0) pg MCHC 32.8 (31.0-35.0) g/dl RDW 13.2 (11.0-16.0) % Plt Count 289 (160-400) X10*3/uL MPV 10.6 (9.4-12.3) fL Immature Gran % (Auto) 0.3 (0.0-0.4) % Neut % (Auto) 66.7 (45-73) % Lymph % (Auto) 20.4 (20-40) % [place] % (Auto) 9.1 (2-11) % Eos % (Auto) 3.0 (0-4) % Baso % (Auto) 0.5 (0-2) % Lymph # (Auto) 2.0 (1.2-4.9) X10*3/uL [place] # (Auto) 0.9 (0.1-1.2) X10*3/uL Eos # (Auto) 0.3 (0.0-0.4) X10*3/uL Baso # (Auto) 0.1 (0.0-0.2) X10*3/uL Abs Immat Gran (auto) 0.03 (0.00-0.03) X10*3/uL Absolute Neuts (auto) 6.6 (2.0-8.3) x10*3/uL Absolute Nucleated RBC 0.000 (0.0-0.012) X10*3/uL Nucleated RBC % (auto) 0.0 (0.0-0.2) /100WBC PT 11.2 (10.9-12.4) SEC INR 1.0 (0.9-1.1) VBG pH 7.48 H (7.32-7.43) VBG pCO2 37 mmHg VBG pO2 60 mmHg VBG HCO3 28 H (22-26) mmol/L VBG O2 Saturation 86.0 % VBG Base Excess 4.8 mmol/L Sodium 139 (135-145) mmol/L Potassium 4.0 (3.3-5.1) mmol/L Chloride 106 (96-108) mmol/L Carbon Dioxide 25 (22-29) mmol/L Anion Gap 12 (12-20) BUN 9 (9-16) mg/dL Creatinine 0.72 (0.5-1.4) mg/dL Estim Creat Clear Calc 113.0 Estimated GFR > 60 Random Glucose 139 H (60-115) mg/dL Lactic Acid 1.3 (0.5-2.0) mmol/L Calcium 9.1 D (8.4-10.2) mg/dL Magnesium 2.0 (1.6-2.6) mg/dL Total Bilirubin 0.2 (0.0-1.0) mg/dL Direct Bilirubin < 0.2 (0.0-0.5) mg/dL AST 22 (5-31) U/L ALT 10 (0-31) U/L Alkaline Phosphatase 115 (39-117) U/L Total Creatine Kinase 101 (26-140) U/L Troponin I High Sens < 2.7 (<3.5-17.0) ng/L C-Reactive Protein 1.96 H (< or = 0.50) mg/dL Total Protein 7.0 (6.5-8.0) g/dL Albumin 3.9 (3.5-5.0) g/dL Lipase 16 (8-78) U/L Procalcitonin < 0.02 ng/mL Ethyl Alcohol < 10 mg/dL Influenza Type A (PCR) NEGATIVE (Negative) Influenza Type B (PCR) NEGATIVE (Negative) RSV RNA Qual (PCR) NEGATIVE (Negative) SARS-CoV-2 RNA (RT-PCR) NEGATIVE (Negative) Independent Interpretation I performed an independent interpretation of an: EKG, Plain X-Ray (low lung volumes) and CT Scan (no ICH) Interpretation: Rate: 96 Rhythm: NSR [place]: left Normal P waves. Normal [place]. Normal QRS complex. ST T wave : artifact, no THONY qTC: 464 prior studies: no acute ischemia The study has been interpreted contemporaneously by me. . Radiology Impression Discussion of test interpretation with radiology: I have reviewed the radiologist's reading. Radiologist Impression: clinically she has no cough, dyspnea, URI symptoms no wbc count I do not suspect she has pneumonia Independent Historian Clinical information obtained from an independent historian. History obtained from or confirmed by: Spouse and Other External Record Review External record reviewed: Inpatient record and Outpatient record Discharge Plan Discharge Clinical Impression: Polypharmacy Patient Disposition: Home, Self-Care Instructions: Medication Safety for Older Adults (ED) Additional Instructions: do not take any extra medications tonight you need to rest please follow up with your doctor return for any worsening symptoms or concerns please stay with responsible adult for 24 hours you need to talk to your doctor about resuming your eliquis since surgery was held. Prescriptions: No Action oxycodone 5 mg tablet 5 mg PO Q6H PRN (Reason: pain) 7 Days Qty: 42 0RF Rx Instructions: Partial Fill upon patient request. atorvastatin 20 mg tablet 20 mg PO DAILY glipizide 10 mg tablet 10 mg PO QAM omeprazole 20 mg capsule,delayed release(DR/EC) 20 mg PO DAILY@0630 amitriptyline 100 mg tablet 100 mg PO BEDTIME pregabalin 300 mg capsule 300 mg PO BID Mounjaro 7.5 mg/0.5 mL pen injector 7.5 mg SUBCUT HARDY aspirin 81 mg Tablet 81 mg PO DAILY Eliquis 5 mg Tablet 5 mg PO BID hydroxyzine HCl 25 mg tablet 25 mg PO Q8H lisinopril 5 mg tablet 5 mg PO DAILY acetaminophen 325 mg capsule 325 mg PO Q8H Referrals: [facility] [Provider Group, Vascular Surgery] Print Language: [place]
[2024-11-05 09:23] LABS: MANUAL DIFF FLAG NO
[2024-11-05 09:25] LABS: Hematocrit 36.3 % (37.0-47.0); Hemoglobin 11.9 g/dl (12.0-16.0); Imm Gran Abs Auto 0.03 X10*3/uL (0.00-0.03); Imm Gran Pct Auto 0.3 % (0.0-0.4); Lymphocytes Absolute Auto 2.0 X10*3/uL (1.2-4.9); Mean Corpuscular HGB Conc 32.8 g/dl (31.0-35.0); Mean Corpuscular Hemoglobin 29.2 pg (27.0-33.0); Mean Corpuscular Volume 89.0 fL (80.0-98.0); NRBC Abs Auto 0.000 X10*3/uL (0.0-0.012); NRBC Pct Auto 0.0 /100WBC (0.0-0.2); Platelet Count 289 X10*3/uL (160-400); Red Blood Count 4.08 X10*6/uL (4.20-5.50); White Blood Count 9.9 X10*3/uL (4.8-10.8)
[2024-11-05 09:28] LABS: VBG HCO3 28 mmol/L (22-26); VBG O2 % Saturation 86.0 %
[2024-11-05 09:30] LABS: INTERNATIONAL NORM RATIO 1.0 (0.9-1.1); Prothrombin Time 11.2 SEC (10.9-12.4)
--- OUTSIDE RECORDS SUMMARY | 2024-11-05 09:48 | XMS_ITS | Encounter Summary ---
Author Organization [facility] Address [address] [place] [address] Care Team Providers Care Med Spa Manager Name Role Phone Evelin Patricio MD Primary Care Provider [phone] Encounter Details Date Type Department Care Team (Late st Contact Info) Description 09/06/2024 Lab Requisition [facility] - Main Lab [address] [place] [address] Dudley Jean MD [address] [place] [id number] Encounter for other general examination Social History [...] Complete blood count (09/06/2024 5:10 AM EDT) [facility] Signature WBC 10.7 4.8 - 10.8 K/[facility] LAB HEMETOLOGY METHOD 09/06/2024 11:10 AM EDT [facility] RBC 3.80 3.80 - 4.80 M/mcL [...] MD LAB BLOOD ORDERABLES Final Resu lt [facility] [address] [place] [address], * (ABNORMAL) Comprehensive metabolic panel (09/06/2024 5:10 [...] LAB CHEMISTRY METHOD 09/06/2024 11:[address] [facility] AST (SGOT) 20 10 - 42 unit/L LAB CHEMISTRY METHOD 09/06/2024 11:40 AM [facility] ALT (SGPT) 14 10 - 60 unit/L LAB CHEMISTRY METHOD 09/06/2024 11:40 AM [facility] Alkaline Phosphatase 101 42 - 121 unit/L LAB CHEMISTRY METHOD 09/06/2024 11:[address] [facility] Total Protein 6.7 6.0 - [...] MD LAB BLOOD ORDERABLES Final Resu lt [facility] [address] [place] [address], documented in this encounter Visit Diagnoses Diagnosis Encounter for other general examination documented in this encounter Care Teams Med Spa Manager Relationship Specialty Start Date End Date Evelin Patricio MD [address] [place] [id number] PCP - General Internal Medicine 12/13/13 documented as of this encounter
--- OUTSIDE RECORDS SUMMARY | 2024-11-05 09:48 | XMS_ITS | Continuity of Care Document ---
Author Organization [facility] [address] [facility] [address] [place] [address] Phone [phone] Care Team Providers Care Crusher Feeder Name Role Phone Josh Naranjo M.D. Care Team Information Recei sheila [phone] Problems Active Problems Provider Date Type 2 [...] SIG Qnty Indications Order ing Provider Date [id number] Capsules 1 tab by mouth twice a day Sancho Bautista M.D. 02/28/2024 Mounjaro7.5mg/0.5ML Solution Auto-Inject Inject 7.5 MG Subcutaneously Once Every Week 2units Sancho Bautista M.D. 10/14/2023 Freestyle Lite Blood Glucose Monitoring SystemDevice as directed 1units Sancho Bautista M.D. 07/20/2022 Aspirin Low [id number] Tablets DR Take 1 Tablet By Mouth Every Day Josh Naranjo M.D. Freestyle Lite TestStrips Use as Directed 4 Times A Day For 90 Days 400units E11.9 Sancho Bautista M.D. [id number] Tablets take 1 tablet by mouth in Am 90tabs Sancho Bautista M.D. [id number] Capsules DR Take 1 Capsule By Mouth Every Day Josh Naranjo M.D. [id number] Tablets Take 1 Tablet By Mouth Every Day Josh Naranjo M.D. Rosuvastatin [id number] Tablets Take 1 Tablet By Mouth Twice [...]
[2024-11-05 09:49] LABS: Venous Blood Gas Refer to POC result
[2024-11-05 10:03] LABS: Alanine Aminotransferase 10 U/L (0-31); Albumin Level 3.9 g/dL (3.5-5.0); Alkaline Phosphatase 115 U/L (39-117); Anion Gap 12 (12-20); Aspartate Amino Transferase 22 U/L (5-31); Blood Urea Nitrogen 9 mg/dL (9-16); Calcium 9.1 mg/dL (8.4-10.2); Carbon Dioxide 25 mmol/L (22-29); Chloride 106 mmol/L (96-108); Creatinine Clr Calc Pharmacy 113.0; Estimated Glomerular Filt Rate > 60; Lipase 16 U/L (8-78); Magnesium 2.0 mg/dL (1.6-2.6); Potassium 4.0 mmol/L (3.3-5.1); Sodium 139 mmol/L (135-145); Total Protein 7.0 g/dL (6.5-8.0); Troponin-I High Sensitivity < 2.7 ng/L (<3.5-17.0)
[2024-11-05 10:04] LABS: Resp Syncy Virus RNA Qual PCR NEGATIVE (Negative); SARS COV2 PCR INHOUSE NEGATIVE (Negative)
[2024-11-05 10:14] LABS: Procalcitonin < 0.02 ng/mL
--- NOTE | 2024-11-05 13:49 | PC.NURSE ---
patient given ice chips per provider ok
[2024-11-05 16:58] VITALS: BP 112/74; PULSE 98; RESP 16; O2SAT 94
[2024-11-05 17:32] VITALS: BP 112/74; PULSE 98; RESP 16; TEMP 36.2; O2SAT 94
[2024-11-06 12:35] LABS: B Type Natriuretic Peptide < 10 pg/mL (<100)
== END 2024-11-05 17:33 | disposition home or self-care (01) ==
PROVIDERS: Emergency Provider Emergency Medicine
DX: R41.82 Altered mental status, unspecified (principal); I10 Essential (primary) hypertension; Z86.718 Personal history of other venous thrombosis and embolism; Z79.01 Long term (current) use of anticoagulants; E11.8 Type 2 diabetes mellitus with unspecified complications; Z79.899 Other long term (current) drug therapy; Z03.818 Encounter for observation for suspected exposure to other biological agents ruled out
CPT/HCPCS: 36415; 70450; 71045; 72125; 80048; 80076; 80307; 82550; 82803; 83605; 83690; 83735; 83880; 84145; 84484; 85025; 85610; 86140; 87040; 87637; 93005; 99284; 99285

== ENCOUNTER → 2024-11-05 08:26 | Outpatient (BNV) | payer OTHER, SELFPAY | PROVIDERS: Emergency Provider Emergency Medicine; Visit Provider Internal Medicine Cardiovascular Disease | DX: R94.31 Abnormal electrocardiogram [ECG] [EKG] (principal); R41.82 Altered mental status, unspecified | CPT/HCPCS: 93010 ==

== ENCOUNTER → 2024-11-05 08:27 | Outpatient (BNV) | payer OTHER, SELFPAY | PROVIDERS: Emergency Provider Emergency Medicine; Visit Provider Radiology Diagnostic Radiology | DX: M54.2 Cervicalgia (principal); R41.82 Altered mental status, unspecified; R53.1 Weakness | CPT/HCPCS: 70450; 71045; 72125 ==

== ENCOUNTER 2024-11-07 05:46 | Day surgery (SDC) | payer OTHER, SELFPAY ==
--- OUTSIDE RECORDS SUMMARY | 2024-11-06 10:29 | XMS_ITS | Encounter Summary ---
Author Organization [facility] Address [address] [place] [address] Care Team Providers Care Geodetic Surveyor Technologist Name Role Phone Evelin Patricio MD Primary Care Provider [phone] Encounter Details Date Type Department Care Team (Late st Contact Info) Description 09/06/2024 Lab Requisition [facility] - Main Lab [address] [place] [address] Dudley Jean MD [address] [place] [phone] Encounter for other general examination Social History [...] Complete blood count (09/06/2024 5:10 AM EDT) [facility] Signature WBC 10.7 4.8 - 10.8 K/[facility] LAB HEMETOLOGY METHOD 09/06/2024 11:10 AM EDT [facility] RBC 3.80 3.80 - 4.80 M/mcL LAB HEMETOLOGY METHOD 09/06/2024 11:10 AM [facility] Hemoglobin 11.1(L) 11.5 - 16.0 g/dL LAB HEMETOLOGY METHOD 09/06/2024 11:10 AM [facility] Hematocrit 37.1 35.0 - 47.0 % LAB HEMETOLOGY METHOD 09/06/2024 11:10 AM [facility] MCV 97.1 79.0 - 98.0 FL LAB HEMETOLOGY METHOD 09/06/2024 11:10 AM [facility] MCH 29.1 27.0 - 32.0 pcg LAB HEMETOLOGY METHOD 09/06/2024 11:10 AM [facility] MCHC 29.9(L) 32.0 - 37.0 g/dL LAB HEMETOLOGY METHOD 09/06/2024 11:10 AM [facility] RDW 14.6 11.0 - 15.0 % LAB HEMETOLOGY METHOD 09/06/2024 11:10 AM [facility] Platelets 249 130 - 400 K/mcL LAB HEMETOLOGY METHOD 09/06/2024 11:10 AM [facility] MPV 10.8 7.0 - 11.0 FL LAB HEMETOLOGY METHOD 09/06/2024 11:10 AM [facility] NRBC 0.0 <1.0 % LAB HEMETOLOGY METHOD 09/06/2024 11:10 AM [facility] NRBC Absolute 0.00 <0.10 K/mcL LAB HEMETOLOGY METHOD 09/06/2024 11:10 AM [facility] Blood Venous blood specimen / Unknown Venipuncture / Unknown 09/06/2024 5:10 AM EDT 09/06/2024 10:24 AM EDT us Dudley Jean MD LAB BLOOD ORDERABLES Final Resu lt [facility] [address] [place] [address], * (ABNORMAL) Comprehensive metabolic panel (09/06/2024 5:10 AM EDT) Sodium 141 133 - 145 mmol/L LAB CHEMISTRY METHOD 09/06/2024 11:40 AM [facility] Potassium 4.5 3.5 - 5.5 mmol/L LAB CHEMISTRY METHOD 09/06/2024 11:40 AM [facility] Chloride 102 96 - 110 mmol/L LAB CHEMISTRY METHOD 09/06/2024 11:40 AM [facility] CO2 30 21 - 32 mmol/L LAB CHEMISTRY METHOD 09/06/2024 11:40 AM [facility] Anion Gap 9 3 - 11 LAB CHEMISTRY METHOD 09/06/2024 11:40 AM [facility] Glucose 136(H) 70 - 100 mg/dL LAB CHEMISTRY METHOD 09/06/2024 11:40 AM [facility] BUN 12 5 - 25 mg/dL LAB CHEMISTRY METHOD 09/06/2024 11:40 AM [facility] Creatinine 0.72 0.50 - 1.10 mg/dL LAB CHEMISTRY METHOD 09/06/2024 11:40 AM [facility] eGFR 95 >=60 mL/min/1. 73m2 LAB CHEMISTRY METHOD 09/06/2024 11:40 AM [facility] Comment:Calculation based on the Chronic Kidney Disease Epidemiology Collaboration (CKD-EPI) equation refit without adjustment for race. BUN/Creatinine Ratio 16.7 LAB CHEMISTRY METHOD 09/06/2024 11:40 AM [facility] Calcium 8.7 8.5 - 10.5 mg/dL LAB CHEMISTRY METHOD 09/06/2024 11:40 AM T [facility] AST (SGOT) 20 10 - 42 unit/L LAB CHEMISTRY METHOD 09/06/2024 11:40 AM [facility] ALT (SGPT) 14 10 - 60 unit/L LAB CHEMISTRY METHOD 09/06/2024 11:40 AM [facility] Alkaline Phosphatase 101 42 - 121 unit/L LAB CHEMISTRY METHOD 09/06/2024 11:40 AM EDT [facility] Total Protein 6.7 6.0 - 8.0 g/dL LAB CHEMISTRY METHOD 09/06/2024 11:40 AM [facility] Albumin 3.1(L) 3.2 - 5.0 g/dL LAB CHEMISTRY METHOD 09/06/2024 11:40 AM [facility] Total Bilirubin 0.7 0.0 - 1.4 mg/dL LAB CHEMISTRY METHOD 09/06/2024 11:40 AM [facility] Blood Venous blood specimen / Unknown Venipuncture / Unknown 09/06/2024 5:10 AM EDT 09/06/2024 10:24 AM EDT us Dudley Jean MD LAB BLOOD ORDERABLES Final Resu lt [facility] [address] [place] [address], documented in this encounter Visit Diagnoses Diagnosis Encounter for other general examination documented in this encounter Care Teams Geodetic Surveyor Technologist Relationship Specialty Start Date End Date Evelin Patricio MD [address] [place] [phone] PCP - General Internal Medicine 12/13/13 documented as of this encounter
--- OUTSIDE RECORDS SUMMARY | 2024-11-06 10:29 | XMS_ITS | Continuity of Care Document ---
Author Organization [facility] [address] [facility] [address] [place] [address] Phone [phone] Care Team Providers Care Building Maintenance Technician Name Role Phone Josh Naranjo M.D. Care Team Information Recei sheila [phone] Problems Active Problems Provider Date Type 2 [...] SIG Qnty Indications Order ing Provider Date [id number] Capsules 1 tab by mouth twice a day Sancho Bautista M.D. 02/28/2024 Mounjaro7.5mg/0.5ML Solution Auto-Inject Inject 7.5 MG Subcutaneously Once Every Week 2units Sancho Bautista M.D. 10/14/2023 Freestyle Lite Blood Glucose Monitoring SystemDevice as directed 1units Sancho Bautista M.D. 07/20/2022 Aspirin Low Mqyk53su Tablets DR Take 1 Tablet By Mouth Every Day Josh Naranjo M.D. Freestyle Lite TestStrips Use as Directed 4 Times A Day For 90 Days 400units E11.9 Sancho Bautista M.D. Yymvwrlof85kf Tablets take 1 tablet by mouth in Am 90tabs Sancho Bautista M.D. Vizkaotftj21gm Capsules DR Take 1 Capsule By Mouth Every Day Josh Naranjo M.D. Rwfojpinsp1jd Tablets Take 1 Tablet By Mouth Every Day Josh Naranjo M.D. Rosuvastatin Sjlhuzz54qk Tablets Take 1 Tablet By Mouth Twice [...]
[2024-11-07] VITALS (12 sets, daily range): BP systolic 112–139; BP diastolic 60–84; PULSE 88–100; RESP 14–20; TEMP 36.6–36.7; O2SAT 93–100; BMI 35.9
[2024-11-07 07:34] LABS: Glucose, Whole Blood 169 mg/dL (60-115)
--- NOTE | 2024-11-07 08:34 | P.OP_ITS ---
Operative Note Operative Note Date of Service: 11/07/24 Narrative: Angiogram report from [facility] Preoperative diagnosis: Deep venous thrombosis Postoperative diagnosis: Same Procedure: 1. Ultrasound-guided right common femoral vein access 2. Inferior vena cavogram 3. Placement of inferior vena cava filter Surgeon:Aj Wilson M.D., FACS, RPVI Scout Sniper:None Anesthesia: Local only Specimens:none Drains:none Estimated blood loss: Less than 10 ml Radiation dose: 99.3 mGy Implant: Bard Greenup retrievable vena cava filter Indications: 59-year-old female with prior history of DVT scheduled to undergo orthopedic intervention. She was originally scheduled for Tuesday but due to confusion was rescheduled for today. Today was much more coherent and oriented to person place and time. She now presents for prophylactic IVC filter placement for the perioperative period for her orthopedic intervention. The patient has signed the informed consent after reviewing risks, complications, benefits, and alternatives previously discussed with the patient. The patient was given the opportunity to ask any additional questions or voice any concerns. All questions were answered to the patient's satisfaction. Procedure in detail: Patient was brought to the angiography suite prior to which a time-out was called for patient identification and site verification. Bilateral groins were prepped and draped in the standard surgical fashion. Under ultrasound guidance [] common femoral vein was punctured with micro puncture needle and wire. Subsequently a precision 5 Tuvaluan sheath was then placed. Wholey wire was advanced to the level of the vena cava. Vena cavogram was then undertaken through the 5 Tuvaluan sheath. This was a baseline study to define the variant anatomy, caval size, location and number of renal veins, and to evaluate for ileo caval thrombus. Under direct fluoroscopic guidance we exchanged out the 5 Tuvaluan sheath for the Bard Rita sheath. We brought the filter into position. This was then subsequently deployed. The inner cannula was then removed. Through the sheath a hand injection was performed to assess filter position. Once this was accomplished the sheath was then removed, and hemostasis was achieved with 10 minutes of direct compression. No immediate complications occurred and the patient was returned to the recovery suite with no complications Interpretation of films: 1. Ultrasound demonstrates appropriate femoral vein puncture. Image of which was saved. 2. There was no ileal caval thrombus noted 3. There are single renal veins bilaterally and the IVC is normal in caliber. There is no aberrant anatomy. 4. The filter was deployed appropriately and position below the lowest renal vein. Conclusion: 1. Successful placement of Bard Rita IVC filter 2. Anticoagulation status: Resume regular anticoagulation as indicated This note is constructed using voice recognition software. While every effort has been made to ensure accuracy, attorney lawyer errors may have been included. Thank you for allowing me to participate in the care of your patient. Yours sincerely, Aj Wilson MD, FACS, R.P.V.I.
== END 2024-11-07 10:52 | disposition home or self-care (01) ==
PROVIDERS: PCP Internal Medicine; Visit Provider Surgery Vascular Surgery
DX: I82.511 Chronic embolism and thrombosis of right femoral vein (principal); I26.99 Other pulmonary embolism without acute cor pulmonale; Z79.01 Long term (current) use of anticoagulants; Z87.81 Personal history of (healed) traumatic fracture; I10 Essential (primary) hypertension; E78.5 Hyperlipidemia, unspecified; E11.9 Type 2 diabetes mellitus without complications; I25.10 Atherosclerotic heart disease of native coronary artery without angina pectoris; Z95.5 Presence of coronary angioplasty implant and graft; E66.9 Obesity, unspecified; Z68.35 Body mass index [BMI] 35.0-35.9, adult; Z90.49 Acquired absence of other specified parts of digestive tract; Z96.652 Presence of left artificial knee joint; Z87.891 Personal history of nicotine dependence
CPT/HCPCS: 37191; 82947; C1769; C1880; C1894; J1644; J2003; J2250; J3010; Q9967

== ENCOUNTER → 2024-11-07 05:46 | Outpatient (BNV) | payer OTHER, SELFPAY | PROVIDERS: PCP Internal Medicine; Visit Provider Surgery Vascular Surgery | DX: I82.402 Acute embolism and thrombosis of unspecified deep veins of left lower extremity (principal) | CPT/HCPCS: 37191 ==

== ENCOUNTER 2024-11-12 09:25 | Outpatient (REF) | payer OTHER, SELFPAY ==
--- NOTE | ~2024-11-12 | XR_ITS ---
EXAMINATION: XR FEMUR, LEFT CLINICAL INFORMATION: M79.606 - Pain in leg, unspecified COMPARISON: October 18, 2024 and September 14, 2024. TECHNIQUE: AP and lateral views of the left femur were obtained. FINDINGS: Again seen is intramedullary nail with 2 proximal screws and 3 distal screws traversing the femur where there is a comminuted fracture of the metaphysis and adjacent diaphysis. The distal 2 screw is broken at the medial margin of the intramedullary nail and angled upward. The screw just cephalad to the aforementioned broken screw has migrated laterally since the prior study approximately 1 cm. Intramedullary nail is slightly curved, convex medially and convex anteriorly.. There is increasing periosteal new bone formation and increasing medullary bone density. Total knee arthroplasty has been performed. There is a joint effusion. XR/XR femur LT 2V IMPRESSION: Postoperative changes related to ORIF of a distal metadiaphysis fracture of the left femur. 2 distal most screws have broken. The screw in the metadiaphysis, the most cephalad screw in the distal femur, has migrated laterally by 1 cm since the prior exam. The intramedullary nail appears bowed medially and anteriorly, slightly more than on the initial exam. There has been interval healing of the fracture with increasing density of periosteal new bone and cancellous bone. Electronically signed by: dEuar Marie MD 11/12/2024 09:52 AM EDT
--- OUTSIDE RECORDS SUMMARY | 2024-11-12 10:11 | XMS_ITS | Encounter Summary ---
Author Organization [facility] Address [address] [place] [address] Care Team Providers Care Child Care Director Name Role Phone Evelin Patricio MD Primary Care Provider [phone] Encounter Details Date Type Department Care Team (Late st Contact Info) Description 09/06/2024 Lab Requisition [facility] - Main Lab [address] [place] [address] Dudley Jean MD [address] [place] [id number] Encounter for other general examination Social History [...] Complete blood count (09/06/2024 5:10 AM EDT) [facility] Signature WBC 10.7 4.8 - 10.8 K/[facility] LAB HEMETOLOGY METHOD 09/06/2024 11:10 AM EDT [facility] RBC 3.80 3.80 - 4.80 M/mcL LAB HEMETOLOGY METHOD 09/06/2024 11:10 AM [facility] LAB Hemoglobin 11.1(L) 11.5 - 16.0 g/dL LAB HEMETOLOGY METHOD 09/06/2024 11:10 AM [facility] LAB Hematocrit 37.1 35.0 - 47.0 % LAB HEMETOLOGY METHOD 09/06/2024 11:10 AM [facility] LAB MCV 97.1 79.0 - 98.0 FL LAB HEMETOLOGY METHOD 09/06/2024 11:10 AM [facility] LAB MCH 29.1 27.0 - 32.0 pcg LAB HEMETOLOGY METHOD 09/06/2024 11:10 AM [facility] LAB MCHC 29.9(L) 32.0 - 37.0 g/dL LAB HEMETOLOGY METHOD 09/06/2024 11:10 AM [facility] LAB RDW 14.6 11.0 - 15.0 % LAB HEMETOLOGY METHOD 09/06/2024 11:10 AM [facility] LAB Platelets 249 130 - 400 K/mcL LAB HEMETOLOGY METHOD 09/06/2024 11:10 AM [facility] LAB MPV 10.8 7.0 - 11.0 FL LAB HEMETOLOGY METHOD 09/06/2024 11:10 AM [facility] NRBC 0.0 <1.0 % LAB HEMETOLOGY METHOD 09/06/2024 11:10 AM [facility] LAB NRBC Absolute 0.00 <0.10 K/mcL LAB HEMETOLOGY METHOD 09/06/2024 11:10 AM [facility] LAB Blood Venous blood specimen / Unknown Venipuncture / Unknown 09/06/2024 5:10 AM EDT 09/06/2024 10:24 AM EDT us Dudley Jean MD LAB BLOOD ORDERABLES Final Resu lt [facility] [address] [place] [address], * (ABNORMAL) Comprehensive metabolic panel (09/06/2024 5:10 AM EDT) Sodium 141 133 - 145 mmol/L LAB CHEMISTRY METHOD 09/06/2024 11:40 AM [facility] Potassium 4.5 3.5 - 5.5 mmol/L LAB CHEMISTRY METHOD 09/06/2024 11:40 AM [facility] Chloride 102 96 - 110 mmol/L LAB CHEMISTRY METHOD 09/06/2024 11:40 AM [facility] CO2 30 21 - 32 mmol/L LAB CHEMISTRY METHOD 09/06/2024 11:40 AM [facility] Anion Gap 9 3 - 11 LAB CHEMISTRY METHOD 09/06/2024 11:40 AM [facility] Glucose 136(H) 70 - 100 mg/dL LAB CHEMISTRY METHOD 09/06/2024 11:40 AM [facility] BUN 12 5 - 25 mg/dL LAB CHEMISTRY METHOD 09/06/2024 11:40 AM [facility] Creatinine 0.72 0.50 - 1.10 mg/dL LAB CHEMISTRY METHOD 09/06/2024 11:40 AM [facility] eGFR 95 >=60 mL/min/1. 73m2 LAB CHEMISTRY METHOD 09/06/2024 11:40 AM [facility] Comment:Calculation based on the Chronic Kidney Disease Epidemiology Collaboration (CKD-EPI) equation refit without adjustment for race. BUN/Creatinine Ratio 16.7 LAB CHEMISTRY METHOD 09/06/2024 11:40 AM [facility] Calcium 8.7 8.5 - 10.5 mg/dL LAB CHEMISTRY METHOD 09/06/2024 11:40 AM T [facility] AST (SGOT) 20 10 - 42 unit/L LAB CHEMISTRY METHOD 09/06/2024 11:40 AM [facility] ALT (SGPT) 14 10 - 60 unit/L LAB CHEMISTRY METHOD 09/06/2024 11:40 AM [facility] Alkaline Phosphatase 101 42 - 121 unit/L LAB CHEMISTRY METHOD 09/06/2024 11:40 AM EDT [facility] Total Protein 6.7 6.0 - 8.0 g/dL LAB CHEMISTRY METHOD 09/06/2024 11:40 AM [facility] Albumin 3.1(L) 3.2 - 5.0 g/dL LAB CHEMISTRY METHOD 09/06/2024 11:40 AM [facility] Total Bilirubin 0.7 0.0 - 1.4 mg/dL LAB CHEMISTRY METHOD 09/06/2024 11:40 AM [facility] Blood Venous blood specimen / Unknown Venipuncture / Unknown 09/06/2024 5:10 AM EDT 09/06/2024 10:24 AM EDT us Dudley Jean MD LAB BLOOD ORDERABLES Final Resu lt [facility] [address] [place] [address], documented in this encounter Visit Diagnoses Diagnosis Encounter for other general examination documented in this encounter Care Teams Child Care Director Relationship Specialty Start Date End Date Evelin Patricio MD [address] [place] [phone] PCP - General Internal Medicine 12/13/13 documented as of this encounter
--- OUTSIDE RECORDS SUMMARY | 2024-11-12 10:11 | XMS_ITS | Continuity of Care Document ---
Author Organization [facility] [address] [place] [address] Phone [phone] Care Team Providers Care Provider Network Mgr Name Role Phone Josh Naranjo M.D. Care Team Information Recei sheila [phone] Problems Active Problems Provider Date Type 2 diabetes mellitus Sancho Bautista M.D. Onset: 10/06/2021 Obesity Sancho Bauitsta M.D. Onset: 0 10/06/2021 Coronary atherosclerosis Sancho [...] SIG Qnty Indications Order ing Provider Date Swlcts614mn Capsules 1 tab by mouth twice a day Sancho Bautista M.D. 02/28/2024 Mounjaro7.5mg/0.5ML Solution Auto-Inject Inject 7.5 MG Subcutaneously Once Every Week 2units Sancho Bautista M.D. 10/14/2023 Freestyle Lite Blood Glucose Monitoring SystemDevice as directed 1units Sancho Bautista M.D. 07/20/2022 Aspirin Low Khwb18gc Tablets DR Take 1 Tablet By Mouth Every Day Josh Naranjo M.D. Freestyle Lite TestStrips Use as Directed 4 Times A Day For 90 Days 400units E11.9 Sancho Bautista M.D. Aujewxpyk76xq Tablets take 1 tablet by mouth in Am 90tabs Sancho Bautista M.D. Tpicgcntcb96tf Capsules DR Take 1 Capsule By Mouth Every Day Josh Naranjo M.D. Zpsuvholny7hw Tablets Take 1 Tablet By Mouth Every Day Josh Naranjo M.D. Rosuvastatin Lmtqbdj91hr Tablets Take 1 Tablet By Mouth Twice [...]
== END 2024-11-12 09:26 | disposition home or self-care (01) ==
LOC: HO.HOSX 09:25
PROVIDERS: Visit Provider Physician Assistant
DX: M97.12XA Periprosthetic fracture around internal prosthetic left knee joint, initial encounter (principal); M79.606 Pain in leg, unspecified
CPT/HCPCS: 73552

== ENCOUNTER 2024-11-12 09:28 | Outpatient (AMB) | payer OTHER, SELFPAY ==
--- NOTE | 2024-11-12 09:50 | A.OFFVIS_ITS ---
Vital Signs 11/12/24 10:01 BP 121/71 Blood Pressure Location Rt brachial Position Sitting Pulse 100 Pulse Source Monitor Intake Visit Reasons: Preop LT femur ORIF/QUE IMN 11/13/24 NE Intake Note: Ivana is a 59 year old female who presents today for a preoperative visit to discuss left femur ORIF/QUE IMN, DOS 11/13/[address] Harrison. Pain management agreement reviewed and signed. Patient reports that on Tuesday she felt a shift in her knee, states her pain has increased. Denies injury. Allergies No Known Allergies (No Known Allergies*) Allergy (Verified 11/12/24 09:54) Medication List - Last Reconciled 11/12/24 by Aron Cruz PA-C acetaminophen 325 mg PO Q8H amitriptyline 100 mg PO BEDTIME apixaban (Eliquis) 5 mg PO BID aspirin 81 mg PO DAILY atorvastatin 20 mg PO DAILY glipizide 10 mg PO QAM lisinopril 5 mg PO DAILY omeprazole 20 mg PO DAILY@0630 pregabalin 300 mg PO BID tirzepatide (Mounjaro) 7.5 mg subcut HARDY HPI HPI Preop LT femur ORIF/QUE IMN 11/13/24 NE: Details: A 59-year-old female presents today for follow-up left femur periprosthetic fracture retrograde nail done on 08/26/[address] Harrison. Since the procedure the patient has had 1 distal screw removed. Subsequent follow-ups showed 2 other screws that demonstrated hardware failure. Throughout all this the patient's fracture appeared to remain stable. She does complain of pain at baseline. Patient recently had a IV filter placed with Dr. 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 Patient is currently on Eliquis. Of note the patient was recently seen in the emergency department because the date she was supposed to have her IVC filter placed she appeared confused. Reports from the emergency department suggest polypharmacy with oxycodone and hydroxyzine. Patient does admit that she was taking these medications but did not have a clear understanding of why. She has since stopped both medications. She is tentatively scheduled for removal of hardware and ORIF of the left femur 11/13/[address] Harrison. [facility] Medical History (Updated 11/06/24 @ 00:00 by Phillip Murphy) History of femur fracture (08/26/24) Femur fracture Hypertension Obesity Diabetes mellitus Hyperlipidemia CAD (coronary artery disease) Surgical History S/P IVC filter History of thrombectomy (08/28/24) Status post hardware removal (10/09/24) History of cholecystectomy Total knee replacement status (~2014) History of percutaneous coronary intervention Social History Household Members: Spouse Housing: House Are you a primary resident caregiver to a significant other at home: No Do you presently have visiting nurse or other home services: No Comment: COUNTS CORRECT Patient Tobacco Use Status: Former Tobacco user Tobacco use type: Cigarette Years Smoked: 8 e-Cigarette/Vaping Use: Never Used Second Hand Smoke Exposure: No service: No Review of Systems Const All systems reviewed & are unremarkable except as noted in HPI and below Physical Exam Vital Signs: Last Vital Signs Pulse 100 11/12/24 10:01 BP 121/71 11/12/24 10:01 Extrem Other: Left knee skin is intact. No erythema or joint effusion. There is discomfort along the distal femur. She is able to actively flex and extend the knee lacking approximately 10-15 degrees of extension.. Neurovascularly intact. Results Reviewed Results Reviewed: X-rays of the left knee obtained in the office today and reviewed by me show distal femur fracture without significant healing. There is evidence of hardware failure. Assessment & Plan Assessment & Plan (1) Periprosthetic fracture around internal prosthetic left knee joint, initial encounter: Code(s): M97.12XA - Periprosthetic fracture around internal prosthetic left knee joint, initial encounter Category: Medical Plan: Dr. Harrison was available to see the patient with me today and discussed with the patient the treatment options which at this time we will be continued conservative management. While the x-rays do demonstrate some hardware failure with the distal screws, the fracture itself appears to be stable when comparing last several sets of imaging studies. We explained to the patient and her spouse in the office today the risks associated with surgery which include but are not limited to ongoing pain, blood loss, nerve tissue damage, injury to bone and surrounding structures along with intraoperative complications including mortality. Given the stability of the fracture, the risks of surgery do not outweigh the benefits therefore we will cancel the procedure at this time. The patient will continue to remain nonweightbearing on the left lower extremity. She will continue with her home exercises to maintain her range of motion and quad strength. We will see her back in 2 weeks with repeat x-rays, sooner if needed. Orders: Orders XR femur LT 2V 11/12/24 M79.606 - Pain in leg, unspecified Referrals [facility] Referral M97.12XA - Periprosthetic fracture around internal prosthetic left knee joint, initial encounter Coding Level of Care Code Est Pt Level 4 (10740) Complex EM visit Add On G2211 Diagnoses Periprosthetic fracture around internal prosthetic left knee joint, initial encounter M97.12XA
[2024-11-12 10:01] VITALS: BP 121/71; PULSE 100
== END 2024-11-12 10:54 | disposition home or self-care (01) ==
LOC: HO.HOS 09:29
PROVIDERS: PCP Internal Medicine; Visit Provider Physician Assistant
DX: M97.12XA Periprosthetic fracture around internal prosthetic left knee joint, initial encounter (principal)
CPT/HCPCS: 99024

== ENCOUNTER → 2024-11-12 09:30 | Outpatient (BNV) | payer OTHER, SELFPAY | PROVIDERS: Visit Provider Radiology Diagnostic Radiology | DX: M79.606 Pain in leg, unspecified (principal) | CPT/HCPCS: 73552 ==

== ENCOUNTER 2024-11-29 13:47 | Outpatient (AMB) | payer OTHER, SELFPAY ==
--- NOTE | 2024-11-29 13:58 | MHC.OFFVIS ---
Intake Visit Reasons: PO- LT femur QUE, DOS 10/09/24 NE Intake Note: Ivana is a 59 year old female who presents today for a post operative left femur QUE, performed by Dr. Harrison on 10/09/24. At her last visit she was instructed to remain non weight bearing on the left lower extremity, continue with her home exercises, and follow up in 2 weeks with x-rays. Patient reports her pain has increased since her last visit. She feels something is not right. She also complains of right knee pain. Allergies No Known Allergies (No Known Allergies*) Allergy (Verified 11/29/24 14:32) Medication List - Last Reconciled 11/29/24 by Aron Cruz PA-C acetaminophen 325 mg PO Q8H amitriptyline 100 mg PO BEDTIME apixaban (Eliquis) 5 mg PO BID aspirin 81 mg PO DAILY atorvastatin 20 mg PO DAILY glipizide 10 mg PO QAM lisinopril 5 mg PO DAILY omeprazole 20 mg PO DAILY@0630 pregabalin 300 mg PO BID tirzepatide (Mounjaro) 7.5 mg subcut HARDY HPI HPI PO- LT femur QUE, DOS 10/09/24 NE: Details: 59-year-old female returns to the office today left femur periprosthetic fracture status post retrograde nail 08/26/[address] Harrison. Patient states she has increased pain however she is resting comfortably in a wheelchair. [facility] Medical History (Updated 11/06/24 @ 00:00 by Phillip Murphy) History of femur fracture (08/26/24) Femur fracture Hypertension Obesity Diabetes mellitus Hyperlipidemia CAD (coronary artery disease) Surgical History S/P IVC filter History of thrombectomy (08/28/24) Status post hardware removal (10/09/24) History of cholecystectomy Total knee replacement status (~2014) History of percutaneous coronary intervention Social History Household Members: Spouse Housing: House Are you a primary infant childcare provider to a significant other at home: No Do you presently have visiting nurse or other home services: No Comment: COUNTS CORRECT Patient Tobacco Use Status: Former Tobacco user Tobacco use type: Cigarette Years Smoked: 8 e-Cigarette/Vaping Use: Never Used Second Hand Smoke Exposure: No service: No Review of Systems Const All systems reviewed & are unremarkable except as noted in HPI and below Physical Exam Extrem Other: Left knee skin is intact. No erythema or joint effusion. There is discomfort along the distal femur. She is able to actively flex and extend the knee lacking approximately 10-15 degrees of extension.. Neurovascularly intact. Results Reviewed Results Reviewed: X-rays of the left knee obtained in the office today and reviewed by me show distal femur fracture without significant healing. There is evidence of hardware failure. Assessment & Plan Assessment & Plan (1) Periprosthetic fracture around internal prosthetic left knee joint, initial encounter: Code(s): M97.12XA - Periprosthetic fracture around internal prosthetic left knee joint, initial encounter Category: Medical Plan: Dr. Harrison was available to meet with the patient with me today and we discussed continued conservative management as her fracture remains stable. We encouraged her to remain as sedentary as she can to avoid more discomfort in the leg. She should use the knee immobilizer when she is transferring. She can remove it at rest but should sleep in the knee immobilizer. She can attempt to work with physical therapy for passive range of motion only no active range of motion. Patient will follow up in 4 weeks for x-rays sooner if needed. Orders: Orders XR femur LT 2V Today M79.606 - Pain in leg, unspecified XR tibia fibula LT 2V Today M79.605 - Pain in left leg Coding Level of Care Code Global (53583) Diagnoses Periprosthetic fracture around internal prosthetic left knee joint, initial encounter M97.12XA
--- OUTSIDE RECORDS SUMMARY | 2024-11-29 17:36 | XMS_ITS | Continuity of Care Document ---
Author Organization [facility] 2 [facility] [address] [place] [address] Phone [phone] Care Team Providers Care Structures Assembler Name Role Phone Josh Naranjo M.D. Care Team Information Recei sheila [phone] Problems Active Problems Provider Date Type 2 [...] SIG Qnty Indications Order ing Provider Date Bdeyds123ka Capsules 1 tab by mouth twice a day Sancho Bautista M.D. 02/28/2024 Mounjaro7.5mg/0.5ML Solution Auto-Inject Inject 7.5 MG Subcutaneously Once Every Week 2units Sancho Bautista M.D. 10/14/2023 Freestyle Lite Blood Glucose Monitoring SystemDevice as directed 1units Sancho Bautista M.D. 07/20/2022 Aspirin Low Cgth11mt Tablets DR Take 1 Tablet By Mouth Every Day Josh Naranjo M.D. Freestyle Lite TestStrips Use as Directed 4 Times A Day For 90 Days 400units E11.9 Sancho Bautista M.D. Ouwoqlopb17mg Tablets take 1 tablet by mouth in Am 90tabs Sancho Bautista M.D. Hsynkfzvws94il Capsules DR Take 1 Capsule By Mouth Every Day Josh Naranjo M.D. Nwllwelyeb3rv Tablets Take 1 Tablet By Mouth Every Day Josh Naranjo M.D. Rosuvastatin Tuompbh10ti Tablets Take 1 Tablet By Mouth Twice [...]
== END 2024-11-29 15:01 | disposition home or self-care (01) ==
LOC: HO.HOS 13:47
PROVIDERS: Visit Provider Physician Assistant
DX: M97.12XA Periprosthetic fracture around internal prosthetic left knee joint, initial encounter (principal)
CPT/HCPCS: 99024

== ENCOUNTER → 2024-11-29 13:52 | Outpatient (BNV) | payer OTHER, SELFPAY | PROVIDERS: Visit Provider Radiology Diagnostic Radiology | DX: S72.352K Displaced comminuted fracture of shaft of left femur, subsequent encounter for closed fracture with nonunion (principal) | CPT/HCPCS: 73552 ==

== ENCOUNTER 2024-11-29 14:38 | Outpatient (REF) | payer OTHER, SELFPAY ==
--- NOTE | ~2024-11-29 | XR_ITS ---
EXAMINATION: XR FEMUR, LEFT CLINICAL INFORMATION: M79.606 - Pain in leg, unspecified COMPARISON: November 12, 2024 TECHNIQUE: AP and cross lateral view. FINDINGS: There is no gross callus formation or periosteal bone reaction in the comminuted fracture distal diaphysis metaphysis of the left femur. The metallic intramedullary geovany and screws demonstrated the no gross change with the likely broken screw in the distal metaphysis region. Total of the left knee arthroplasty prosthesis not fully evaluated. Left coxofemoral joint is intact with normal alignment. XR/XR femur LT 2V IMPRESSION: No gross healing in the comminuted fracture distal diaphysis/metaphysis left femur. No gross change. Electronically signed by: Carlos Manuel Norman MD 11/29/2024 02:39 PM EDT
--- OUTSIDE RECORDS SUMMARY | 2024-11-29 18:17 | XMS_ITS | Encounter Summary ---
Author Organization [facility] Address [address] [place] [address] Care Team Providers Care Deputy Commissioner Name Role Phone Evelin Patricio MD Primary Care Provider [phone] Encounter Details Date Type Department Care Team (Late st Contact Info) Description 09/15/[address] [facility] - Main Lab [address] [facility] [place] [address] Sofia Valencia PA [address] [place] [address] Encounter for other general examination Social History [...] Procedure Name Priority Date/Time Associated Diagnosis Comments MAGNESIUM Routine 09/15/2024 6:29 AM EDT Encounter for other general examination documented in this encounter Results * (ABNORMAL) Magnesium (09/15/2024 6:29 AM EDT) Magnesium 1.8(L) 1.9 - 2.6 mg/dL LAB CHEMISTRY METHOD 09/15/2024 11:38 AM EDT [facility] Blood Venous blood specimen / Unknown Venipuncture / Unknown 09/15/2024 6:29 AM EDT 09/15/2024 10:35 AM EDT us Sofia FONTANA LAB BLOOD ORDERABLES Final Resul t [facility] [address] [place] [address], documented in this encounter Visit Diagnoses Diagnosis Encounter for other general examination documented in this encounter Care Teams Deputy Commissioner Relationship Specialty Start Date End Date Evelin Patricio MD [address] [place] [phone] PCP - General Internal Medicine 12/13/13 documented as of this encounter
--- OUTSIDE RECORDS SUMMARY | 2024-11-29 18:17 | XMS_ITS | Encounter Summary ---
Author Organization [facility] Address [address] [place] [address] Care Team Providers Care Manual Arts Therapy Teacher Name Role Phone Evelin Patricio MD Primary Care Provider [phone] Encounter Details Date Type Department Care Team (Late st Contact Info) Description 09/02/2024 Lab Requisition [facility] - Main Lab [address] [facility] [place] [address] Dudley Jean MD [address] [place] [phone] Encounter for other general examination Social History [...] Procedure Name Priority Date/Time Associated Diagnosis Comments CBC WITH AUTO DIFFERENTIAL Routine 09/02/2024 6:04 AM EDT Encounter for other general examination CBC AND DIFFERENTIAL Routine 09/02/2024 6:04 AM EDT Encounter for other general examination MAGNESIUM Routine 09/02/2024 6:04 AM EDT Encounter for other general examination COMPREHENSIVE METABOLIC PANEL Routine 09/02/2024 6:04 AM EDT Encounter for other general examination documented in this encounter Results * (ABNORMAL) CBC auto differential (09/02/2024 6:04 AM EDT) [facility] WBC 9.5 4.8 - 10.8 K/mcL LAB HEMETOLOGY METHOD 09/02/2024 10:21 AM [facility] LAB RBC 3.40(L) 3.80 - 4.80 M/mcL LAB HEMETOLOGY METHOD 09/02/2024 10:21 AM [facility] LAB Hemoglobin 9.9(L) 11.5 - 16.0 g/dL LAB HEMETOLOGY METHOD 09/02/2024 10:21 AM [facility] LAB Hematocrit 31.5(L) 35.0 - 47.0 % LAB HEMETOLOGY METHOD 09/02/2024 10:21 AM [facility] LAB MCV 93.8 79.0 - 98.0 FL LAB HEMETOLOGY METHOD 09/02/2024 10:21 AM [facility] LAB MCH 29.5 27.0 - 32.0 pcg LAB HEMETOLOGY METHOD 09/02/2024 10:21 AM [facility] LAB MCHC 31.4(L) 32.0 - 37.0 g/dL LAB HEMETOLOGY METHOD 09/02/2024 10:21 AM [facility] LAB RDW 14.0 11.0 - 15.0 % LAB HEMETOLOGY METHOD 09/02/2024 10:21 AM [facility] LAB Platelets 308 130 - 400 K/mcL LAB HEMETOLOGY METHOD 09/02/2024 10:21 AM [facility] LAB MPV 10.6 7.0 - 11.0 FL LAB HEMETOLOGY METHOD 09/02/2024 10:21 AM [facility] LAB NRBC 0.0 <1.0 % LAB HEMETOLOGY METHOD 09/02/2024 10:21 AM [facility] LAB NRBC Absolute 0.00 <0.10 K/mcL LAB HEMETOLOGY METHOD 09/02/2024 10:21 AM [facility] LAB Neutrophils Relative 63.3 % LAB HEMETOLOGY METHOD 09/02/2024 10:21 AM [facility] LAB Comment:This is an appended report. These results have been appended to a previously preliminary verified report. Lymphocytes Relative 22.2 % LAB HEMETOLOGY METHOD 09/02/2024 10:21 AM [facility] LAB Comment:This is an appended report. These results have been appended to a previously preliminary verified report. Monocytes Relative 7.6 % LAB HEMETOLOGY METHOD 09/02/2024 10:21 AM [facility] LAB Comment:This is an appended report. These results have been appended to a previously preliminary verified report. Eosinophils Relative 5.2 % LAB HEMETOLOGY METHOD 09/02/2024 10:21 AM [facility] LAB Comment:This is an appended report. These results have been appended to a previously preliminary verified report. Basophils Relative 0.6 % LAB HEMETOLOGY METHOD 09/02/2024 10:21 AM [facility] LAB Comment:This is an appended report. These results have been appended to a previously preliminary verified report. Immature Granulocytes Relative 1.1 % LAB HEMETOLOGY METHOD 09/02/2024 10:21 AM [facility] LAB Comment:This is an appended report. These results have been appended to a previously preliminary verified report. Neutrophils Absolute 5.99 1.50 - 7.00 K/mcL LAB HEMETOLOGY METHOD 09/02/2024 10:21 AM [facility] LAB Comment:This is an appended report. These results have been appended to a previously preliminary verified report. Lymphocytes Absolute 2.10 1.00 - 5.00 K/mcL LAB HEMETOLOGY METHOD 09/02/2024 10:21 AM [facility] LAB Comment:This is an appended report. These results have been appended to a previously preliminary verified report. Monocytes Absolute 0.72 0.20 - 1.00 K/mcL LAB HEMETOLOGY METHOD 09/02/2024 10:21 AM EDT [facility] LAB Comment:This is an appended report. These results have been appended to a previously preliminary verified report. Eosinophils Absolute 0.49 0.00 - 0.50 K/mcL LAB HEMETOLOGY METHOD 09/02/2024 10:21 AM EDT [facility] Comment:This is an appended report. These results have been appended to a previously preliminary verified report. Basophils Absolute 0.06 0.00 - 0.20 K/mcL [facility] 09/02/2024 10:21 AM EDT [facility] Comment:This is an appended report. These results have been appended to a previously preliminary verified report. Immature Granulocytes Absolute 0.10(H) 0.00 - 0.03 K/mcL LAB [facility] 09/02/2024 10:21 AM EDT [facility] Comment:This is an appended report. These results have been appended to a previously preliminary verified report. Blood Venous blood specimen / Unknown Venipuncture / Unknown 09/02/2024 6:04 AM EDT 09/02/2024 8:32 AM EDT us Dudley Jean MD LAB BLOOD ORDERABLES Final Resu lt [facility] [address] [place] [address], * (ABNORMAL) Magnesium (09/02/2024 6:04 AM EDT) Magnesium 1.7(L) 1.9 - 2.6 mg/dL LAB CHEMISTRY METHOD 09/02/2024 10:54 AM EDT [facility] Blood Venous blood specimen / Unknown Venipuncture / Unknown 09/02/2024 6:04 AM EDT 09/02/2024 8:32 AM EDT us Dudley Jean MD LAB BLOOD ORDERABLES Final Resu lt [facility] [address] [place] [address], [place] [phone] * (ABNORMAL) Comprehensive metabolic panel (09/02/2024 6:04 AM EDT) Sodium 136 133 - 145 mmol/L LAB CHEMISTRY METHOD 09/02/2024 10:55 AM [facility] Potassium 4.2 3.5 - 5.5 mmol/L LAB CHEMISTRY METHOD 09/02/2024 10:55 AM [facility] Chloride 99 96 - 110 mmol/L LAB CHEMISTRY METHOD 09/02/2024 10:55 AM [facility] CO2 30 21 - 32 mmol/L LAB CHEMISTRY METHOD 09/02/2024 10:55 AM [facility] LAB Anion Gap 7 3 - 11 LAB CHEMISTRY METHOD 09/02/2024 10:55 AM [facility] Glucose 234(H) 70 - 100 mg/dL LAB CHEMISTRY METHOD 09/02/2024 10:55 AM [facility] BUN 13 5 - 25 mg/dL LAB CHEMISTRY METHOD 09/02/2024 10:55 AM [facility] LAB Creatinine 0.58 0.50 - 1.10 mg/dL LAB CHEMISTRY METHOD 09/02/2024 10:55 AM [facility] LAB eGFR 103 >=60 mL/min/1. 73m2 LAB CHEMISTRY METHOD 09/02/2024 10:55 AM [facility] LAB Comment:Calculation based on the Chronic Kidney Disease Epidemiology Collaboration (CKD-EPI) equation refit without adjustment for race. BUN/Creatinine Ratio 22.4 LAB CHEMISTRY METHOD 09/02/2024 10:55 AM [facility] LAB Calcium 8.5 8.5 - 10.5 mg/dL LAB CHEMISTRY METHOD 09/02/2024 10:55 AM [facility] LAB AST (SGOT) 13 10 - 42 unit/L LAB CHEMISTRY METHOD 09/02/2024 10:55 AM [facility] LAB ALT (SGPT) 17 10 - 60 unit/L LAB CHEMISTRY METHOD 09/02/2024 10:55 AM [facility] LAB Alkaline Phosphatase 86 42 - 121 unit/L LAB CHEMISTRY METHOD 09/02/2024 10:55 AM [facility] LAB Total Protein 5.9(L) 6.0 - 8.0 g/dL LAB CHEMISTRY METHOD 09/02/2024 10:55 AM [facility] Albumin 2.5(L) 3.2 - 5.0 g/dL LAB CHEMISTRY METHOD 09/02/2024 10:55 AM [facility] Total Bilirubin 0.8 0.0 - 1.4 mg/dL LAB CHEMISTRY METHOD 09/02/2024 10:55 AM [facility] Blood Venous blood specimen / Unknown Venipuncture / Unknown 09/02/2024 6:04 AM EDT 09/02/2024 8:32 AM EDT us Dudley Jean MD LAB BLOOD ORDERABLES Final Resu lt [facility] [address] [place] [address], documented in this encounter Visit Diagnoses Diagnosis Encounter for other general examination documented in this encounter Care Teams Manual Arts Therapy Teacher Relationship Specialty Start Date End Date Evelin Patricio MD [address] [place] [phone] PCP - General Internal Medicine 12/13/13 documented as of this encounter
--- OUTSIDE RECORDS SUMMARY | 2024-11-29 18:17 | XMS_ITS | Encounter Summary ---
Author Organization [facility] Address [address] [place] [address] Care Team Providers Care Top Carrier Name Role Phone Evelin Patricio MD Primary Care Provider [phone] Encounter Details Date Type Department Care Team (Late st Contact Info) Description 09/13/2024 Lab Requisition [facility] - Main Lab [address] [place] [address] Cheryl Arizmendi PA [address] [place] [address] Encounter for other general examination Social History [...] Associated Diagnosis Comments COMPLETE BLOOD COUNT Routine 09/13/2024 5:16 AM EDT Encounter for other general examination COMPREHENSIVE METABOLIC PANEL Routine 09/13/2024 5:16 AM EDT Encounter for other general examination documented in this encounter Results * (ABNORMAL) Comprehensive metabolic panel (09/13/2024 5:16 AM EDT) Sodium 141 133 - 145 mmol/L LAB CHEMISTRY METHOD 09/13/2024 10:05 AM EDT [facility] Potassium 4.6 3.5 - 5.5 mmol/L LAB CHEMISTRY METHOD 09/13/2024 10:05 AM [facility] LAB Chloride 104 96 - 110 mmol/L LAB CHEMISTRY METHOD 09/13/2024 10:05 AM [facility] CO2 30 21 - 32 mmol/L LAB CHEMISTRY METHOD 09/13/2024 10:05 AM [facility] Anion Gap 7 3 - 11 LAB CHEMISTRY METHOD 09/13/2024 10:05 AM [facility] Glucose 113(H) 70 - 100 mg/dL LAB CHEMISTRY METHOD 09/13/2024 10:05 AM [facility] BUN 15 5 - 25 mg/dL LAB CHEMISTRY METHOD 09/13/2024 10:05 AM [facility] Creatinine 0.69 0.50 - 1.10 mg/dL LAB CHEMISTRY METHOD 09/13/2024 10:05 AM [facility] LAB eGFR 99 >=60 mL/min/1. 73m2 LAB CHEMISTRY METHOD 09/13/2024 10:05 AM [facility] LAB Comment:Calculation based on the Chronic Kidney Disease Epidemiology Collaboration (CKD-EPI) equation refit without adjustment for race. BUN/Creatinine Ratio 21.7 LAB CHEMISTRY METHOD 09/13/2024 10:05 AM [facility] Calcium 8.7 8.5 - 10.5 mg/dL LAB CHEMISTRY METHOD 09/13/2024 10:05 AM [facility] AST (SGOT) 18 10 - 42 unit/L LAB CHEMISTRY METHOD 09/13/2024 10:05 AM [facility] ALT (SGPT) 15 10 - 60 unit/L LAB CHEMISTRY METHOD 09/13/2024 10:05 AM [facility] Alkaline Phosphatase 172(H) 42 - 121 unit/L LAB CHEMISTRY METHOD 09/13/2024 10:05 AM [facility] Total Protein 6.9 6.0 - 8.0 g/dL LAB CHEMISTRY METHOD 09/13/2024 10:05 AM T [facility] LAB Albumin 3.3 3.2 - 5.0 g/dL LAB CHEMISTRY METHOD 09/13/2024 10:05 AM [facility] Total Bilirubin 0.4 0.0 - 1.4 mg/dL LAB CHEMISTRY METHOD 09/13/2024 10:05 AM [facility] Blood Venous blood specimen / Unknown Venipuncture / Unknown 09/13/2024 5:16 AM EDT 09/13/2024 8:04 AM EDT us Cheryl FONTANA LAB BLOOD ORDERABLES Final Re sult [facility] [address] [place] [address], * (ABNORMAL) Complete blood count (09/13/2024 5:16 AM EDT) WBC 7.8 4.8 - 10.8 K/mcL LAB HEMETOLOGY METHOD 09/13/2024 9:07 AM [facility] RBC 4.10 3.80 - 4.80 M/mcL LAB HEMETOLOGY METHOD 09/13/2024 9:07 AM [facility] Hemoglobin 11.7 11.5 - 16.0 g/dL LAB HEMETOLOGY METHOD 09/13/2024 9:07 AM [facility] Hematocrit 40.8 35.0 - 47.0 % LAB HEMETOLOGY METHOD 09/13/2024 9:07 AM [facility] LAB MCV 100.2(H) 79.0 - 98.0 FL LAB HEMETOLOGY METHOD 09/13/2024 9:07 AM [facility] LAB MCH 28.7 27.0 - 32.0 pcg LAB HEMETOLOGY METHOD 09/13/2024 9:07 AM EDT [facility] MCHC 28.7(L) 32.0 - 37.0 g/dL LAB HEMETOLOGY METHOD 09/13/2024 9:07 AM EDT [facility] RDW 14.5 11.0 - 15.0 % LAB HEMETOLOGY METHOD 09/13/2024 9:07 AM EDT [facility] LAB Platelets 316 130 - 400 K/mcL LAB HEMETOLOGY METHOD 09/13/2024 9:07 AM EDT [facility] MPV 11.0 7.0 - 11.0 FL LAB HEMETOLOGY METHOD 09/13/2024 9:07 AM EDT [facility] NRBC 0.0 <1.0 % LAB HEMETOLOGY METHOD 09/13/2024 9:07 AM EDT [facility] NRBC Absolute 0.00 <0.10 K/mcL LAB HEMETOLOGY METHOD 09/13/2024 9:07 AM EDT [facility] Blood Venous blood specimen / Unknown Venipuncture / Unknown 09/13/2024 5:16 AM EDT 09/13/2024 8:04 AM EDT us Cheryl FONTANA LAB BLOOD ORDERABLES Final Re sult [facility] [address] [place] [address], documented in this encounter Visit Diagnoses Diagnosis Encounter for other general examination documented in this encounter Care Teams Top Carrier Relationship Specialty Start Date End Date Evelin Patricio MD [address] [place] [address] PCP - General Internal Medicine 12/13/13 documented as of this encounter
--- OUTSIDE RECORDS SUMMARY | 2024-11-29 18:17 | XMS_ITS | Encounter Summary ---
Author Organization [facility] Address [address] [place] [address] Care Team Providers Care Lead Slot Technician Name Role Phone Evelin Patricio MD Primary Care Provider [phone] Encounter Details Date Type Department Care Team (Late st Contact Info) Description 09/06/2024 Lab Requisition [facility] - Main Lab [address] [place] [address] Dudley Jean MD [address] [place] [phone] Encounter for other general examination Social History [...] Complete blood count (09/06/2024 5:10 AM EDT) [facility] Signature WBC 10.7 4.8 - 10.8 K/[facility] LAB HEMETOLOGY METHOD 09/06/2024 11:10 AM EDT [facility] RBC 3.80 3.80 - 4.80 M/mcL LAB HEMETOLOGY METHOD 09/06/2024 11:10 AM [facility] LAB Hemoglobin 11.1(L) 11.5 - 16.0 g/dL LAB HEMETOLOGY METHOD 09/06/2024 11:10 AM [facility] LAB Hematocrit 37.1 35.0 - 47.0 % LAB HEMETOLOGY METHOD 09/06/2024 11:10 AM [facility] LAB MCV 97.1 79.0 - 98.0 FL LAB HEMETOLOGY METHOD 09/06/2024 11:10 AM [facility] LAB MCH 29.1 27.0 - 32.0 pcg LAB HEMETOLOGY METHOD 09/06/2024 11:10 AM [facility] LAB MCHC 29.9(L) 32.0 - 37.0 g/dL LAB HEMETOLOGY METHOD 09/06/2024 11:10 AM [facility] LAB RDW 14.6 11.0 - 15.0 % LAB HEMETOLOGY METHOD 09/06/2024 11:10 AM [facility] LAB Platelets 249 130 - 400 K/mcL LAB HEMETOLOGY METHOD 09/06/2024 11:10 AM [facility] LAB MPV 10.8 7.0 - 11.0 FL LAB HEMETOLOGY METHOD 09/06/2024 11:10 AM [facility] LAB NRBC 0.0 <1.0 % LAB HEMETOLOGY METHOD 09/06/2024 11:10 AM [facility] LAB NRBC Absolute 0.00 <0.10 K/mcL LAB HEMETOLOGY METHOD 09/06/2024 11:10 AM [facility] LAB Blood Venous blood specimen / Unknown Venipuncture / Unknown 09/06/2024 5:10 AM EDT 09/06/2024 10:24 AM EDT us Dudley Jean MD LAB BLOOD ORDERABLES Final Resu lt [facility] [address] [place] [address], * (ABNORMAL) Comprehensive metabolic panel (09/06/2024 5:10 AM EDT) Sodium 141 133 - 145 mmol/L LAB CHEMISTRY METHOD 09/06/2024 11:40 AM [facility] Potassium 4.5 3.5 - 5.5 mmol/L LAB CHEMISTRY METHOD 09/06/2024 11:40 AM [facility] LAB Chloride 102 96 - 110 mmol/L LAB CHEMISTRY METHOD 09/06/2024 11:40 AM [facility] LAB CO2 30 21 - 32 mmol/L LAB CHEMISTRY METHOD 09/06/2024 11:40 AM [facility] LAB Anion Gap 9 3 - 11 LAB CHEMISTRY METHOD 09/06/2024 11:40 AM [facility] Glucose 136(H) 70 - 100 mg/dL LAB CHEMISTRY METHOD 09/06/2024 11:40 AM [facility] BUN 12 5 - 25 mg/dL LAB CHEMISTRY METHOD 09/06/2024 11:40 AM [facility] LAB Creatinine 0.72 0.50 - 1.10 mg/dL LAB CHEMISTRY METHOD 09/06/2024 11:40 AM [facility] LAB eGFR 95 >=60 mL/min/1. 73m2 LAB CHEMISTRY METHOD 09/06/2024 11:40 AM [facility] LAB Comment:Calculation based on the Chronic Kidney Disease Epidemiology Collaboration (CKD-EPI) equation refit without adjustment for race. BUN/Creatinine Ratio 16.7 LAB CHEMISTRY METHOD 09/06/2024 11:40 AM [facility] LAB Calcium 8.7 8.5 - 10.5 mg/dL LAB CHEMISTRY METHOD 09/06/2024 11:40 AM T [facility] AST (SGOT) 20 10 - 42 unit/L LAB CHEMISTRY METHOD 09/06/2024 11:40 AM [facility] ALT (SGPT) 14 10 - 60 unit/L LAB CHEMISTRY METHOD 09/06/2024 11:40 AM [facility] LAB Alkaline Phosphatase 101 42 - 121 unit/L LAB CHEMISTRY METHOD 09/06/2024 11:40 AM EDT [facility] Total Protein 6.7 6.0 - 8.0 g/dL LAB CHEMISTRY METHOD 09/06/2024 11:40 AM [facility] Albumin 3.1(L) 3.2 - 5.0 g/dL LAB CHEMISTRY METHOD 09/06/2024 11:40 AM [facility] Total Bilirubin 0.7 0.0 - 1.4 mg/dL LAB CHEMISTRY METHOD 09/06/2024 11:40 AM [facility] LAB Blood Venous blood specimen / Unknown Venipuncture / Unknown 09/06/2024 5:10 AM EDT 09/06/2024 10:24 AM EDT us Dudley Jean MD LAB BLOOD ORDERABLES Final Resu lt [facility] [address] [place] [address], documented in this encounter Visit Diagnoses Diagnosis Encounter for other general examination documented in this encounter Care Teams Lead Slot Technician Relationship Specialty Start Date End Date Evelin Patricio MD [address] [place] [phone] PCP - General Internal Medicine 12/13/13 documented as of this encounter
--- OUTSIDE RECORDS SUMMARY | 2024-11-29 18:17 | XMS_ITS | Clinical Summary ---
Author Organization [address] [facility] Address [address] [place] [address] Phone Care Team Providers Care Glove Former Name Role Phone Evelin Patricio MD Primary Care Provider [phone] Encounters Date Type Department Care Team Description 09/15/[address] [facility] Lab [address] [place] [address] Sofia Valencia PA Encounter for other general examination 09/13/[address] [facility] Lab [address] [place] [address] Cheryl Arizmendi PA Encounter for other general examination 09/06/[address] [facility] Lab [address] [place] [address] Dudley Jean MD Encounter for other general examination 09/02/[address] [facility] Lab [address] [place] [address] Dudley Jean MD Encounter for other general examination from Last 3 Months Surgical History Surgery Date Site/Laterality Comments CHOLECYSTECTOMY PROCEDURE: HISTORICAL CHOLECYSTECTOMY Medical History Medical History Date Comments Headache(784.0) DX:Headache(784. 0) Esophageal reflux DX:Esophageal reflux Hidradenitis 09/09/2012 DX:Hidradenitis Hyperlipidemia 09/11/2012 DX:Hyperlipidemi a Family History Medical History Relation Name Comments Breast cancer Neg Hx Ovarian cancer Neg Hx Uterine cancer Neg Hx Social History Tobacco Use Types Packs/Day Years [...] on file Sexual Orientation Not on file Obstetrics History Plan of Treatment Health Maintenance Due Date Last Done Comments Breast Cancer Screening 1963 Cervical Cancer Screening: P ap Smear 1984 Pneumococcal Vaccine: 50+ Years (1 of 1 - PCV) 2013 Zoster Vaccines (1 of 2) 2013 DTaP,Tdap,and Td Vaccines (2 - Td or Tdap) 09/09/2022 09/09/2012 Depression Screening 03/21/2024 Cholesterol Screening (Lipid Panel) 09/14/2024 HIV Screening 09/14/2024 Hepatitis C Screening 09/14/2024 Social Influencers of Health Screening 09/14/2024 COVID-19 Vaccine (1 - 2023-2 5 season) 2024 Influenza Vaccine (#1) 2024 Hypertension/CHF/CAD Annual BMP Blood Test 09/13/2025 09/13/2024, 09/06/2024, 09/02/2024 Colorectal Cancer Screening: FIT-DNA (Cologuard) 07/17/2027 07/16/2024, 07/16/2024 RSV Immunization Adult Patients (1 - 1-dose 75+ series) 2038 HIB Vaccines Aged Out No longer eligi ble based on patient's age to complete this topic HPV Vaccines Aged Out No longer eligi ble based on patient's age to complete this topic Hepatitis A Vaccines Aged Out No long er eligible based on patient's age to complete this topic Hepatitis B Vaccines Aged Out No long er eligible based on patient's age to complete this topic IPV Vaccines Aged Out No longer eligi ble based on patient's age to complete this topic MMR Vaccines Aged Out No longer eligi ble based on patient's age to complete this topic Meningococcal ACWY Vaccine Aged Out N o longer eligible based on patient's age to complete this topic Meningococcal B Vaccine Aged Out No l onger eligible based on patient's age to complete this topic RSV Immunization Patients Under 20 months Aged Out No longer eligible b ased on patient's age to complete this topic Varicella Vaccines Aged Out No longer eligible based on patient's age to complete this topic Procedures Procedure Name Priority Date/Time Associated Diagnosis Comments MAGNESIUM Routine 09/15/2024 6:29 AM EDT Encounter for other general examination COMPREHENSIVE METABOLIC PANEL Routine 09/13/2024 5:16 AM EDT Encounter for other general examination COMPLETE BLOOD COUNT Routine 09/13/2024 5:16 AM EDT Encounter for other general examination COMPLETE BLOOD COUNT Routine 09/06/2024 5:10 AM EDT Encounter for other general examination COMPREHENSIVE METABOLIC PANEL Routine 09/06/2024 5:10 AM EDT Encounter for other general examination CBC WITH AUTO DIFFERENTIAL Routine 09/02/2024 6:04 AM EDT Encounter for other general examination MAGNESIUM Routine 09/02/2024 6:04 AM EDT Encounter for other general examination CBC AND DIFFERENTIAL Routine 09/02/2024 6:04 AM EDT Encounter for other general examination COMPREHENSIVE METABOLIC PANEL Routine 09/02/2024 6:04 AM EDT Encounter for other general examination from Last 3 Months Results * (ABNORMAL) Magnesium (09/15/2024 6:29 AM EDT) Only the most recent of2 resultswithin the time period is included. Magnesium 1.8(L) 1.9 - 2.6 mg/dL LAB CHEMISTRY METHOD 09/15/2024 11:38 AM EDT [facility] Blood Venous blood specimen / Unknown Venipuncture / Unknown 09/15/2024 6:29 AM EDT 09/15/2024 10:35 AM EDT us Sofia FONTANA LAB BLOOD ORDERABLES Final Resul t [facility] [address] [place] [address], * (ABNORMAL) Complete blood count (09/13/2024 5:16 AM EDT) Only the most recent of2 resultswithin the time period is included. WBC 7.8 4.8 - 10.8 K/mcL LAB HEMETOLOGY METHOD 09/13/2024 9:07 AM [facility] RBC 4.10 3.80 - 4.80 M/mcL LAB HEMETOLOGY METHOD 09/13/2024 9:07 AM [facility] Hemoglobin 11.7 11.5 - 16.0 g/dL LAB HEMETOLOGY METHOD 09/13/2024 9:07 AM [facility] Hematocrit 40.8 35.0 - 47.0 % LAB HEMETOLOGY METHOD 09/13/2024 9:07 AM [facility] MCV 100.2(H) 79.0 - 98.0 FL LAB HEMETOLOGY METHOD 09/13/2024 9:07 AM [facility] MCH 28.7 27.0 - 32.0 pcg LAB HEMETOLOGY METHOD 09/13/2024 9:07 AM [facility] MCHC 28.7(L) 32.0 - 37.0 g/dL LAB HEMETOLOGY METHOD 09/13/2024 9:07 AM [facility] RDW 14.5 11.0 - 15.0 % LAB HEMETOLOGY METHOD 09/13/2024 9:07 AM [facility] Platelets 316 130 - 400 K/mcL LAB HEMETOLOGY METHOD 09/13/2024 9:07 AM [facility] MPV 11.0 7.0 - 11.0 FL LAB HEMETOLOGY METHOD 09/13/2024 9:07 AM [facility] NRBC 0.0 <1.0 % LAB HEMETOLOGY METHOD 09/13/2024 9:07 AM EDT [facility] NRBC Absolute 0.00 <0.10 K/mcL LAB HEMETOLOGY METHOD 09/13/2024 9:07 AM [facility] Blood Venous blood specimen / Unknown Venipuncture / Unknown 09/13/2024 5:16 AM EDT 09/13/2024 8:04 AM EDT us Cheryl FONTANA LAB BLOOD ORDERABLES Final Re sult [facility] [address] [place] [address], [place] [phone] * (ABNORMAL) Comprehensive metabolic panel (09/13/2024 5:16 AM EDT) Only the most recent of3 resultswithin the time period is included. Sodium 141 133 - 145 mmol/L LAB CHEMISTRY METHOD 09/13/2024 10:05 AM [facility] Potassium 4.6 3.5 - 5.5 mmol/L LAB CHEMISTRY METHOD 09/13/2024 10:05 AM [facility] Chloride 104 96 - 110 mmol/L LAB CHEMISTRY METHOD 09/13/2024 10:05 AM [facility] CO2 30 21 - 32 mmol/L LAB CHEMISTRY METHOD 09/13/2024 10:05 AM [facility] Anion Gap 7 3 - 11 LAB CHEMISTRY METHOD 09/13/2024 10:05 AM [facility] Glucose 113(H) 70 - 100 mg/dL LAB CHEMISTRY METHOD 09/13/2024 10:05 AM [facility] BUN 15 5 - 25 mg/dL LAB CHEMISTRY METHOD 09/13/2024 10:05 AM [facility] Creatinine 0.69 0.50 - 1.10 mg/dL LAB CHEMISTRY METHOD 09/13/2024 10:05 AM [facility] eGFR 99 >=60 mL/min/1. 73m2 LAB CHEMISTRY METHOD 09/13/2024 10:05 AM [facility] Comment:Calculation based on the Chronic Kidney Disease Epidemiology Collaboration (CKD-EPI) equation refit without adjustment for race. BUN/Creatinine Ratio 21.7 LAB CHEMISTRY METHOD 09/13/2024 10:05 AM [facility] Calcium 8.7 8.5 - 10.5 mg/dL LAB CHEMISTRY METHOD 09/13/2024 10:05 AM [facility] AST (SGOT) 18 10 - 42 unit/L LAB CHEMISTRY METHOD 09/13/2024 10:05 AM [facility] ALT (SGPT) 15 10 - 60 unit/L LAB CHEMISTRY METHOD 09/13/2024 10:05 AM [facility] Alkaline Phosphatase 172(H) 42 - 121 unit/L LAB CHEMISTRY METHOD 09/13/2024 10:05 AM [facility] Total Protein 6.9 6.0 - 8.0 g/dL LAB CHEMISTRY METHOD 09/13/2024 10:05 AM [facility] Albumin 3.3 3.2 - 5.0 g/dL LAB CHEMISTRY METHOD 09/13/2024 10:05 AM [facility] Total Bilirubin 0.4 0.0 - 1.4 mg/dL LAB CHEMISTRY METHOD 09/13/2024 10:05 AM [facility] Blood Venous blood specimen / Unknown Venipuncture / Unknown 09/13/2024 5:16 AM EDT 09/13/2024 8:04 AM EDT us Cheryl FONTANA LAB BLOOD ORDERABLES Final Re sult [facility] [address] [place], [place] [address] [phone] * (ABNORMAL) CBC auto differential (09/02/2024 6:04 AM EDT) [facility] WBC 9.5 4.8 - 10.8 K/mcL LAB HEMETOLOGY METHOD 09/02/2024 10:21 AM [facility] RBC 3.40(L) 3.80 - 4.80 M/mcL LAB HEMETOLOGY METHOD 09/02/2024 10:21 AM [facility] Hemoglobin 9.9(L) 11.5 - 16.0 g/dL LAB HEMETOLOGY METHOD 09/02/2024 10:21 AM [facility] Hematocrit 31.5(L) 35.0 - 47.0 % LAB HEMETOLOGY METHOD 09/02/2024 10:21 AM [facility] MCV 93.8 79.0 - 98.0 FL LAB HEMETOLOGY METHOD 09/02/2024 10:21 AM [facility] MCH 29.5 27.0 - 32.0 pcg LAB HEMETOLOGY METHOD 09/02/2024 10:21 AM [facility] MCHC 31.4(L) 32.0 - 37.0 g/dL LAB HEMETOLOGY METHOD 09/02/2024 10:21 AM [facility] RDW 14.0 11.0 - 15.0 % LAB HEMETOLOGY METHOD 09/02/2024 10:21 AM [facility] Platelets 308 130 - 400 K/mcL LAB HEMETOLOGY METHOD 09/02/2024 10:21 AM [facility] MPV 10.6 7.0 - 11.0 FL LAB HEMETOLOGY METHOD 09/02/2024 10:21 AM [facility] NRBC 0.0 <1.0 % LAB HEMETOLOGY METHOD 09/02/2024 10:21 AM [facility] NRBC Absolute 0.00 <0.10 K/mcL LAB HEMETOLOGY METHOD 09/02/2024 10:21 AM [facility] Neutrophils Relative 63.3 % LAB HEMETOLOGY METHOD 09/02/2024 10:21 AM [facility] Comment:This is an appended report. These results have been appended to a previously preliminary verified report. Lymphocytes Relative 22.2 % LAB HEMETOLOGY METHOD 09/02/2024 10:21 AM [facility] Comment:This is an appended report. These results have been appended to a previously preliminary verified report. Monocytes Relative 7.6 % LAB HEMETOLOGY METHOD 09/02/2024 10:21 AM [facility] Comment:This is an appended report. These results have been appended to a previously preliminary verified report. Eosinophils Relative 5.2 % LAB HEMETOLOGY METHOD 09/02/2024 10:21 AM [facility] Comment:This is an appended report. These results have been appended to a previously preliminary verified report. Basophils Relative 0.6 % LAB HEMETOLOGY METHOD 09/02/2024 10:21 AM [facility] Comment:This is an appended report. These results have been appended to a previously preliminary verified report. Immature Granulocytes Relative 1.1 % LAB HEMETOLOGY METHOD 09/02/2024 10:21 AM [facility] Comment:This is an appended report. These results have been appended to a previously preliminary verified report. Neutrophils Absolute 5.99 1.50 - 7.00 K/mcL LAB HEMETOLOGY METHOD 09/02/2024 10:21 AM [facility] Comment:This is an appended report. These results have been appended to a previously preliminary verified report. Lymphocytes Absolute 2.10 1.00 - 5.00 K/mcL LAB HEMETOLOGY METHOD 09/02/2024 10:21 AM [facility] Comment:This is an appended report. These results have been appended to a previously preliminary verified report. Monocytes Absolute 0.72 0.20 - 1.00 K/mcL LAB HEMETOLOGY METHOD 09/02/2024 10:21 AM EDT [facility] Comment:This is an appended report. These results have been appended to a previously preliminary verified report. Eosinophils Absolute 0.49 0.00 - 0.50 K/mcL LAB [facility] METHOD 09/02/2024 10:21 AM EDT [facility] Comment:This is an appended report. These results have been appended to a previously preliminary verified report. Basophils Absolute 0.06 0.00 - 0.20 [facility] METHOD 09/02/2024 10:21 AM EDT [facility] Comment:This is an appended report. These results have been appended to a previously preliminary verified report. Immature Granulocytes Absolute 0.10(H) 0.00 - 0.03 [facility] 09/02/2024 10:21 AM EDT [facility] Comment:This is an appended report. These results have been appended to a previously preliminary verified report. Blood Venous blood specimen / Unknown Venipuncture / Unknown 09/02/2024 6:04 AM EDT 09/02/2024 8:32 AM EDT us Dudley Jean MD LAB BLOOD ORDERABLES Final Resu lt [facility]) [facility] [address] [place] [address], from Last 3 Months Care Teams Glove Former Relationship Specialty Start Date End Date Evelin Patricio MD [address] [place] [address] PCP - General Internal Medicine 12/13/13
== END 2024-11-29 14:39 | disposition home or self-care (01) ==
LOC: HO.HOSX 14:38
PROVIDERS: Visit Provider Physician Assistant
DX: Z47.89 Encounter for other orthopedic aftercare (principal); M97.12XA Periprosthetic fracture around internal prosthetic left knee joint, initial encounter
CPT/HCPCS: 73552

== ENCOUNTER 2024-12-20 09:19 | Outpatient (REF) | payer OTHER, SELFPAY ==
--- NOTE | ~2024-12-20 | XR_ITS ---
EXAMINATION: XR FEMUR, LEFT CLINICAL INFORMATION: M79.606 - Pain in leg, unspecified COMPARISON: None available. TECHNIQUE: AP and lateral views of the left femur were obtained. FINDINGS: Postoperative changes are present related to ORIF of a distal left femoral fracture. There is an intramedullary nail with 2 proximal interlocking screws and 4 distal screws. In the distal femur, shows interval migration. On the prior, the screw tip extended medial to the intramedullary nail 6 mm, on the current, it extends 4 mm medial to the intramedullary nail. There is also lucency between the callus laterally and the region of the head of the screw. Lucency measures 4 mm, unchanged. The distal 3 screws in the intramedullary nail appears broken. Fracture fragments appear stable Changes from total knee arthroplasty also noted. XR/XR femur LT 2V IMPRESSION: ORIF of the distal left femoral fracture. 3 distal screws securing intramedullary nail are again noted to be broken. There has been interval 2 mm migration of the most cephalad screw in the distal femur. There is also lucency between that screw in the callus. Electronically signed by: Eduar Marie MD 12/20/2024 10:43 AM EDT
--- OUTSIDE RECORDS SUMMARY | 2024-12-20 10:16 | XMS_ITS | Encounter Summary ---
Author Organization [facility] Address [address] [place] [address] Care Team Providers Care Medical Records Receptionist Name Role Phone Evelin Patricio MD Primary Care Provider [phone] Encounter Details Date Type Department Care Team (Late st Contact Info) Description 09/13/2024 Lab Requisition [facility] - Main Lab [address] [place] [address] Cheryl Arizmendi PA [address] [place] [address] Encounter for other general examination [...] LAB CHEMISTRY METHOD 09/13/2024 10:05 AM EDT [facility] Potassium 4.6 3.5 - 5.5 mmol/L LAB CHEMISTRY METHOD 09/13/2024 10:05 AM [facility] Chloride 104 96 - 110 mmol/L LAB CHEMISTRY METHOD 09/13/2024 10:05 AM [facility] CO2 30 21 - 32 mmol/L LAB CHEMISTRY METHOD 09/13/2024 10:05 AM [facility] Anion Gap 7 3 - 11 LAB CHEMISTRY METHOD 09/13/2024 10:05 AM [facility] Glucose 113(H) 70 - 100 mg/dL LAB CHEMISTRY METHOD 09/13/2024 10:05 AM [facility] BUN 15 5 - 25 mg/dL LAB CHEMISTRY METHOD 09/13/2024 10:05 AM [facility] Creatinine 0.69 0.50 - 1.10 mg/dL LAB CHEMISTRY METHOD 09/13/2024 10:05 AM [facility] eGFR 99 >=60 mL/min/1. 73m2 LAB CHEMISTRY METHOD 09/13/2024 10:05 AM [facility] Comment:Calculation based on the Chronic Kidney Disease Epidemiology Collaboration (CKD-EPI) equation refit without adjustment for race. BUN/Creatinine Ratio 21.7 LAB CHEMISTRY METHOD 09/13/2024 10:05 AM [facility] Calcium 8.7 8.5 - 10.5 mg/dL LAB CHEMISTRY METHOD 09/13/2024 10:05 AM [facility] AST (SGOT) 18 10 - 42 unit/L LAB CHEMISTRY METHOD 09/13/2024 10:05 AM [facility] ALT (SGPT) 15 10 - 60 unit/L LAB CHEMISTRY METHOD 09/13/2024 10:05 AM [facility] Alkaline Phosphatase 172(H) 42 - 121 unit/L LAB CHEMISTRY METHOD 09/13/2024 10:05 AM [facility] Total Protein 6.9 6.0 - 8.0 g/dL LAB CHEMISTRY METHOD 09/13/2024 10:05 AM T [facility] Albumin 3.3 3.2 - 5.0 g/dL LAB CHEMISTRY METHOD 09/13/2024 10:05 AM [facility] Total Bilirubin 0.4 0.0 - 1.4 mg/dL LAB CHEMISTRY METHOD 09/13/2024 10:05 AM [facility] Blood Venous blood specimen / Unknown Venipuncture / Unknown 09/13/2024 5:16 AM EDT 09/13/2024 8:04 AM EDT us Cheryl FONTANA LAB BLOOD ORDERABLES Final Re sult [facility] [address] [place] [address], * (ABNORMAL) Complete blood count (09/13/2024 5:16 AM EDT) WBC 7.8 4.8 - 10.8 K/mcL LAB HEMETOLOGY METHOD 09/13/2024 9:07 AM [facility] RBC 4.10 3.80 - 4.80 M/mcL LAB HEMETOLOGY METHOD 09/13/2024 9:07 AM [facility] Hemoglobin 11.7 11.5 - 16.0 g/dL LAB HEMETOLOGY METHOD 09/13/2024 9:07 AM [facility] Hematocrit 40.8 35.0 - 47.0 % LAB HEMETOLOGY METHOD 09/13/2024 9:07 AM [facility] MCV 100.2(H) 79.0 - 98.0 FL LAB HEMETOLOGY METHOD 09/13/2024 9:07 AM [facility] MCH 28.7 27.0 - 32.0 pcg LAB HEMETOLOGY METHOD 09/13/2024 9:07 AM EDT [facility] MCHC 28.7(L) 32.0 - 37.0 g/dL LAB HEMETOLOGY METHOD 09/13/2024 9:07 AM EDT [facility] RDW 14.5 11.0 - 15.0 % LAB HEMETOLOGY METHOD 09/13/2024 9:07 AM EDT [facility] Platelets 316 130 - 400 K/mcL LAB HEMETOLOGY METHOD 09/13/2024 9:07 AM EDT [facility] MPV 11.0 7.0 - 11.0 FL LAB HEMETOLOGY METHOD 09/13/2024 9:07 AM EDT [facility] NRBC 0.0 <1.0 % LAB HEMETOLOGY METHOD 09/13/2024 9:07 AM EDT [facility] NRBC Absolute 0.00 <0.10 K/mcL LAB HEMETOLOGY METHOD 09/13/2024 9:07 AM EDT [facility] Blood Venous blood specimen / Unknown Venipuncture / Unknown 09/13/2024 5:16 AM EDT 09/13/2024 8:04 AM EDT us Cheryl FONTANA LAB BLOOD ORDERABLES Final Re sult [facility] [address] [place] [address], documented in this encounter Visit Diagnoses Diagnosis Encounter for other general examination documented in this encounter Care Teams Medical Records Receptionist Relationship Specialty Start Date End Date Evelin Patricio MD [address] [place] [address] PCP - General Internal Medicine 12/13/13 documented as of this encounter
--- OUTSIDE RECORDS SUMMARY | 2024-12-20 10:16 | XMS_ITS | Encounter Summary ---
Author Organization [facility] Address [address] [place] [address] Care Team Providers Care [employer] Miner Name Role Phone Evelin Patricio MD Primary Care Provider [phone] Encounter Details Date Type Department Care Team (Late st Contact Info) Description 09/15/2024 Lab Requisition [facility] - Main Lab [address] [facility] [place] [address] Sofia Valencia PA [address] [place] [address] Encounter for other general examination [...] LAB CHEMISTRY METHOD 09/15/2024 11:38 AM EDT [facility] Blood Venous blood specimen / Unknown Venipuncture / Unknown 09/15/2024 6:29 AM EDT 09/15/2024 10:35 AM EDT us Sofia FONTANA LAB BLOOD ORDERABLES Final Resul t [facility] [address] [place] [address], documented in this encounter Visit Diagnoses Diagnosis Encounter for other general examination documented in this encounter Care Teams [employer] Miner Relationship Specialty Start Date End Date Evelin Patricio MD [address] [place] [id number] PCP - General Internal Medicine 12/13/13 documented as of this encounter
--- OUTSIDE RECORDS SUMMARY | 2024-12-20 10:16 | XMS_ITS | Continuity of Care Document ---
Author Organization [facility] [address] [place] [address] Phone [phone] Care Team Providers Care Contract Administration Manager Name Role Phone Josh Naranjo M.D. Care Team Information Recei sheila [phone] Problems Active Problems Provider Date Type 2 [...] SIG Qnty Indications Order ing Provider Date [id number] Capsules 1 tab by mouth twice a day Sancho Bautista M.D. 02/28/2024 Mounjaro7.5mg/0.5ML Solution Auto-Inject Inject 7.5 MG Subcutaneously Once Every Week 2units Sancho Bautista M.D. 10/14/2023 Freestyle Lite Blood Glucose Monitoring SystemDevice as directed 1units Sancho Bautista M.D. 07/20/2022 Aspirin Low [id number] Tablets DR Take 1 Tablet By Mouth Every Day Josh Naranjo M.D. Freestyle Lite TestStrips Use as Directed 4 Times A Day For 90 Days 400units E11.9 Sancho Bautista M.D. [id number] Tablets take 1 tablet by mouth in Am 90tabs Sancho Bautista M.D. [id number] Capsules DR Take 1 Capsule By Mouth Every Day Josh Naranjo M.D. [id number] Tablets Take 1 Tablet By Mouth Every Day Josh Naranjo M.D. Rosuvastatin [id number] Tablets Take 1 Tablet By Mouth Twice [...]
--- OUTSIDE RECORDS SUMMARY | 2024-12-20 10:16 | XMS_ITS | Clinical Summary ---
Author Organization [address] Address [address] [place] [address] Phone Care Team Providers Care Voucher Examiner Name Role Phone Evelin Patricio MD Primary Care Provider Surgical History Surgery Date Site/Laterality Comments CHOLECYSTECTOMY [...] 09/13/2024, 09/06/2024, 09/02/2024 Colorectal Cancer Screening: FIT-DNA (Renetta) 07/17/2027 07/16/2024, 07/16/2024 RSV Immunization Adult Patients [...] Procedure Name Priority Date/Time Associated Diagnosis Comments COMPREHENSIVE METABOLIC PANEL Routine 09/13/2024 5:16 AM EDT Encounter for other general examination from Last 3 Months or Most Recently Relevant to Health Maintenance Results * (ABNORMAL) Comprehensive metabolic panel (09/13/2024 5:16 AM EDT) Sodium 141 133 - 145 mmol/L LAB CHEMISTRY METHOD 09/13/2024 10:05 AM [facility] Potassium 4.6 3.5 - 5.5 mmol/L LAB CHEMISTRY METHOD 09/13/2024 10:05 AM [facility] Chloride 104 96 - 110 mmol/L LAB CHEMISTRY METHOD 09/13/2024 10:05 AM [facility] CO2 30 21 - 32 mmol/L LAB CHEMISTRY METHOD 09/13/2024 10:05 AM [facility] Anion Gap 7 3 - 11 LAB CHEMISTRY METHOD 09/13/2024 10:05 AM [facility] Glucose 113(H) 70 - 100 mg/dL LAB CHEMISTRY METHOD 09/13/2024 10:05 AM [facility] BUN 15 5 - 25 mg/dL LAB CHEMISTRY METHOD 09/13/2024 10:05 AM [facility] Creatinine 0.69 0.50 - 1.10 mg/dL LAB CHEMISTRY METHOD 09/13/2024 10:05 AM [facility] eGFR 99 >=60 mL/min/1. 73m2 LAB CHEMISTRY METHOD 09/13/2024 10:05 AM [facility] Comment:Calculation based on the Chronic Kidney Disease Epidemiology Collaboration (CKD-EPI) equation refit without adjustment for race. BUN/Creatinine Ratio 21.7 LAB CHEMISTRY METHOD 09/13/2024 10:05 AM [facility] Calcium 8.7 8.5 - 10.5 mg/dL LAB CHEMISTRY METHOD 09/13/2024 10:05 AM [facility] AST (SGOT) 18 10 - 42 unit/L LAB CHEMISTRY METHOD 09/13/2024 10:05 AM [facility] ALT (SGPT) 15 10 - 60 unit/L LAB CHEMISTRY METHOD 09/13/2024 10:05 AM [facility] Alkaline Phosphatase 172(H) 42 - 121 unit/L LAB CHEMISTRY METHOD 09/13/2024 10:05 AM [facility] Total Protein 6.9 6.0 - 8.0 g/dL LAB CHEMISTRY METHOD 09/13/2024 10:05 AM [facility] Albumin 3.3 3.2 - 5.0 g/dL LAB CHEMISTRY METHOD 09/13/2024 10:05 AM [facility] Total Bilirubin 0.4 0.0 - 1.4 mg/dL LAB CHEMISTRY METHOD 09/13/2024 10:05 AM EDT [facility] Blood Venous blood specimen / Unknown Venipuncture / Unknown 09/13/2024 5:16 AM EDT 09/13/2024 8:04 AM EDT us Cheryl FONTANA LAB BLOOD ORDERABLES Final Re sult [facility] [address] [place] [address], from Last 3 Months or Most Recently Relevant to Health Maintenance Care Teams Voucher Examiner Relationship Specialty Start Date End Date Evelin Patricio MD [address] [place] [id number] PCP - General Internal Medicine 12/13/13
--- OUTSIDE RECORDS SUMMARY | 2024-12-20 10:16 | XMS_ITS | Encounter Summary ---
Author Organization [facility] Address [address] [place] [address] Care Team Providers Care Director Of Slot Operations Name Role Phone Evelin Patricio MD Primary Care Provider [phone] Encounter Details Date Type Department Care Team (Late st Contact Info) Description 09/06/2024 Lab Requisition [facility] - Main Lab [address] [place] [address] Dudley Jean MD [address] [place] [id number] Encounter for other general examination Social History [...] Complete blood count (09/06/2024 5:10 AM EDT) [facility] Signature WBC 10.7 4.8 - 10.8 K/[facility] LAB HEMETOLOGY METHOD 09/06/2024 11:10 AM EDT [facility] RBC 3.80 3.80 - 4.80 M/mcL [...] Resu lt [facility] [address] [place] [address], * (ABNORMAL) Comprehensive metabolic panel (09/06/2024 5:10 [...] Resu lt [facility] [address] [place] [address], documented in this encounter Visit Diagnoses Diagnosis Encounter for other general examination documented in this encounter Care Teams Director Of Slot Operations Relationship Specialty Start Date End Date Evelin Patricio MD [address] [place] [phone] PCP - General Internal Medicine 12/13/13 documented as of this encounter
--- OUTSIDE RECORDS SUMMARY | 2024-12-20 10:16 | XMS_ITS | Encounter Summary ---
Author Organization [facility] Address [address] [place] [address] Care Team Providers Care Research And Development Director Name Role Phone Evelin Patricio MD Primary Care Provider [phone] Encounter Details Date Type Department Care Team (Late st Contact Info) Description 09/02/2024 Lab Requisition [facility] - Main Lab [address] [facility] [place] [address] Dudley Jean MD [address] [place] [phone] Encounter for other general examination Social History [...] CBC auto differential (09/02/2024 6:04 AM EDT) [facility] WBC 9.5 4.8 - 10.8 K/mcL LAB HEMETOLOGY METHOD 09/02/2024 10:[address] [facility] RBC 3.40(L) 3.80 - 4.80 M/mcL LAB HEMETOLOGY METHOD 09/02/2024 10:[address] [facility] Hemoglobin 9.9(L) 11.5 - 16.0 g/dL LAB HEMETOLOGY METHOD 09/02/2024 10:[address] [facility] Hematocrit 31.5(L) 35.0 - 47.0 % LAB HEMETOLOGY METHOD 09/02/2024 10:[address] [facility] MCV 93.8 79.0 - 98.0 FL LAB HEMETOLOGY METHOD 09/02/2024 10:[address] [facility] MCH 29.5 27.0 - 32.0 pcg LAB HEMETOLOGY METHOD 09/02/2024 10:[address] [facility] MCHC 31.4(L) 32.0 - 37.0 g/dL LAB HEMETOLOGY METHOD 09/02/2024 10:[address] [facility] RDW 14.0 11.0 - 15.0 % LAB HEMETOLOGY METHOD 09/02/2024 10:[address] [facility] Platelets 308 130 - 400 K/mcL LAB HEMETOLOGY METHOD 09/02/2024 10:[address] [facility] MPV 10.6 7.0 - 11.0 FL LAB HEMETOLOGY METHOD 09/02/2024 10:[address] [facility] NRBC 0.0 <1.0 % LAB HEMETOLOGY METHOD 09/02/2024 10:[address] [facility] NRBC Absolute 0.00 <0.10 K/mcL LAB HEMETOLOGY METHOD 09/02/2024 10:[address] [facility] Neutrophils Relative 63.3 % LAB HEMETOLOGY METHOD 09/02/2024 10:[address] [facility] Comment:This is an appended report. These results have been appended to a previously preliminary verified report. Lymphocytes Relative 22.2 % LAB HEMETOLOGY METHOD 09/02/2024 10:[address] [facility] Comment:This is an appended report. These results have been appended to a previously preliminary verified report. Monocytes Relative 7.6 % LAB HEMETOLOGY METHOD 09/02/2024 10:[address] [facility] Comment:This is an appended report. These results have been appended to a previously preliminary verified report. Eosinophils Relative 5.2 % LAB HEMETOLOGY METHOD 09/02/2024 10:[address] [facility] Comment:This is an appended report. These results have been appended to a previously preliminary verified report. Basophils Relative 0.6 % LAB HEMETOLOGY METHOD 09/02/2024 10:[address] [facility] Comment:This is an appended report. These results have been appended to a previously preliminary verified report. Immature Granulocytes Relative 1.1 % LAB HEMETOLOGY METHOD 09/02/2024 10:[address] [facility] Comment:This is an appended report. These results have been appended to a previously preliminary verified report. Neutrophils Absolute 5.99 1.50 - 7.00 K/mcL LAB HEMETOLOGY METHOD 09/02/2024 10:[address] [facility] Comment:This is an appended report. These results have been appended to a previously preliminary verified report. Lymphocytes Absolute 2.10 1.00 - 5.00 K/mcL LAB HEMETOLOGY METHOD 09/02/2024 10:[address] [facility] Comment:This is an appended report. These results have been appended to a previously preliminary verified report. Monocytes Absolute 0.72 0.20 - 1.00 K/mcL LAB HEMETOLOGY METHOD 09/02/2024 10:21 AM EDT [facility] Comment:This is an appended report. These results have been appended to a previously preliminary verified report. Eosinophils Absolute 0.49 0.00 - 0.50 K/mcL LAB HEMETOLOGY METHOD 09/02/2024 10:21 AM EDT [facility] Comment:This is an appended report. These results have been appended to a previously preliminary verified report. Basophils Absolute 0.06 0.00 - 0.20 K/mcL [facility] 09/02/2024 10:21 AM EDT [facility] Comment:This is an appended report. These results have been appended to a previously preliminary verified report. Immature Granulocytes Absolute 0.10(H) 0.00 - 0.03 K/mcL [facility] 09/02/2024 10:21 AM EDT [facility] Comment:This is an appended report. These results have been appended to a previously preliminary verified report. Blood Venous blood specimen / Unknown Venipuncture / Unknown 09/02/2024 6:04 AM EDT 09/02/2024 8:32 AM EDT us Dudley Jean MD LAB BLOOD ORDERABLES Final Resu lt [facility] [address] [place] [address], * (ABNORMAL) Magnesium (09/02/2024 6:04 AM EDT) Magnesium 1.7(L) 1.9 - 2.6 mg/dL LAB CHEMISTRY METHOD 09/02/2024 10:54 AM EDT [facility] Blood Venous blood specimen / Unknown Venipuncture / Unknown 09/02/2024 6:04 AM EDT 09/02/2024 8:32 AM EDT us Dudley Jean MD LAB BLOOD ORDERABLES Final Resu lt [facility] [address] [place] [address], [place] [phone] * (ABNORMAL) Comprehensive metabolic panel (09/02/2024 6:04 AM EDT) Sodium 136 133 - 145 mmol/L LAB CHEMISTRY METHOD 09/02/2024 10:[address] [facility] Potassium 4.2 3.5 - 5.5 mmol/L LAB CHEMISTRY METHOD 09/02/2024 10:[address] [facility] Chloride 99 96 - 110 mmol/L LAB CHEMISTRY METHOD 09/02/2024 10:[address] [facility] CO2 30 21 - 32 mmol/L LAB CHEMISTRY METHOD 09/02/2024 10:[address] [facility] Anion Gap 7 3 - 11 LAB CHEMISTRY METHOD 09/02/2024 10:[address] [facility] Glucose 234(H) 70 - 100 mg/dL LAB CHEMISTRY METHOD 09/02/2024 10:[address] [facility] BUN 13 5 - 25 mg/dL LAB CHEMISTRY METHOD 09/02/2024 10:[address] [facility] Creatinine 0.58 0.50 - 1.10 mg/dL LAB CHEMISTRY METHOD 09/02/2024 10:[address] [facility] eGFR 103 >=60 mL/min/1. 73m2 LAB CHEMISTRY METHOD 09/02/2024 10:[address] [facility] Comment:Calculation based on the Chronic Kidney Disease Epidemiology Collaboration (CKD-EPI) equation refit without adjustment for race. BUN/Creatinine Ratio 22.4 LAB CHEMISTRY METHOD 09/02/2024 10:[address] [facility] Calcium 8.5 8.5 - 10.5 mg/dL LAB CHEMISTRY METHOD 09/02/2024 10:[address] [facility] AST (SGOT) 13 10 - 42 unit/L LAB CHEMISTRY METHOD 09/02/2024 10:[address] [facility] ALT (SGPT) 17 10 - 60 unit/L LAB CHEMISTRY METHOD 09/02/2024 10:[address] [facility] Alkaline Phosphatase 86 42 - 121 unit/L LAB CHEMISTRY METHOD 09/02/2024 10:[address] [facility] Total Protein 5.9(L) 6.0 - 8.0 g/dL LAB CHEMISTRY METHOD 09/02/2024 10:[address] [facility] Albumin 2.5(L) 3.2 - 5.0 g/dL LAB CHEMISTRY METHOD 09/02/2024 10:[address] [facility] Total Bilirubin 0.8 0.0 - 1.4 mg/dL LAB CHEMISTRY METHOD 09/02/2024 10:[address] [facility] Blood Venous blood specimen / Unknown Venipuncture / Unknown 09/02/2024 6:04 AM EDT 09/02/2024 8:32 AM EDT us Dudley Jean MD LAB BLOOD ORDERABLES Final Resu lt [facility] [address] [place] [address], documented in this encounter Visit Diagnoses Diagnosis Encounter for other general examination documented in this encounter Care Teams Research And Development Director Relationship Specialty Start Date End Date Evelin Patricio MD [address] [place] [phone] PCP - General Internal Medicine 12/13/13 documented as of this encounter
== END 2024-12-20 09:20 | disposition home or self-care (01) ==
LOC: HO.HOSX 09:19
PROVIDERS: Visit Provider Physician Assistant
DX: M97.12XA Periprosthetic fracture around internal prosthetic left knee joint, initial encounter (principal)
CPT/HCPCS: 73552

== ENCOUNTER → 2024-12-20 10:03 | Outpatient (BNV) | payer OTHER, SELFPAY | PROVIDERS: Visit Provider Radiology Diagnostic Radiology | DX: M97.12XD Periprosthetic fracture around internal prosthetic left knee joint, subsequent encounter (principal) | CPT/HCPCS: 73552 ==

== ENCOUNTER 2024-12-20 10:27 | Outpatient (AMB) | payer OTHER, SELFPAY ==
--- NOTE | 2024-12-20 10:32 | MHC.OFFVIS ---
Intake Visit Reasons: PO- LT femur QUE, DOS 10/09/24 NE- Intake Note: Ivana is a 59 year old female who presents today in a wheel chair post operatively status post left femur QUE, performed by Dr. Harrison on 10/09/24. Patient reports an increase of pain the past few days that has been radiating up and down her leg. She was working with at home therapy and was noted area was hot to touch even after applying ice. She is requesting medication to help with her pain especially at night as she is not sleeping. Accompanied by: Daughter Allergies No Known Allergies (No Known Allergies*) Allergy (Verified 12/20/24 10:36) Medication List - Last Reconciled 12/20/24 by Aron Cruz PA-C acetaminophen 325 mg PO Q8H amitriptyline 100 mg PO BEDTIME apixaban (Eliquis) 5 mg PO BID aspirin 81 mg PO DAILY atorvastatin 20 mg PO DAILY glipizide 10 mg PO QAM lisinopril 5 mg PO DAILY omeprazole 20 mg PO DAILY@0630 pregabalin 300 mg PO BID tirzepatide (Mounjaro) 7.5 mg subcut HARDY HPI HPI PO- LT femur QUE, DOS 10/09/24 NE-: Details: 59-year-old female returns to the office today status post left femur retrograde nail on 08/26/2024 followed by a removal of hardware on 10/09/[address] Harrison. Patient comes in today complaining of worsening pain in the left knee. It is more so burning sensation that she feels which goes into the rocha. She continues to remain nonweightbearing in his working with home physical therapy. She denies any recent injuries and no changes since her last visit. [facility] Medical History (Updated 11/06/24 @ 00:00 by Phillip Murphy) History of femur fracture (08/26/24) Femur fracture Hypertension Obesity Diabetes mellitus Hyperlipidemia CAD (coronary artery disease) Surgical History S/P IVC filter History of thrombectomy (08/28/24) Status post hardware removal (10/09/24) History of cholecystectomy Total knee replacement status (~2014) History of percutaneous coronary intervention Social History Household Members: Spouse Housing: House Are you a primary healthcare applications analyst to a significant other at home: No Do you presently have visiting nurse or other home services: No Comment: COUNTS CORRECT Patient Tobacco Use Status: Former Tobacco user Tobacco use type: Cigarette Years Smoked: 8 e-Cigarette/Vaping Use: Never Used Second Hand Smoke Exposure: No service: No Review of Systems Const All systems reviewed & are unremarkable except as noted in HPI and below Physical Exam Extrem Other: Left knee skin is intact. No erythema or joint effusion. There is discomfort along the distal femur. She is able to actively flex and extend the knee lacking approximately 10-15 degrees of extension.. Neurovascularly intact. Results Reviewed Results Reviewed: X-rays of the left knee obtained in the office today and reviewed by me show distal femur fracture with interval healing. There is evidence of hardware failure. Assessment & Plan Assessment & Plan (1) Periprosthetic fracture around internal prosthetic left knee joint, initial encounter: Code(s): M97.12XA - Periprosthetic fracture around internal prosthetic left knee joint, initial encounter Category: Medical Plan: I reassured the patient the fracture is stable and healing. I also feel as though her pain is likely related to her neuropathy. I advised her to contact her primary care doctor to discuss management of this as they already treat her for it with Yin. I did give her a 1 time dose of tramadol to take at night. I stressed the importance of continuing nonweightbearing of the left lower extremity but emphasizing quad strength glute strength and core stabilization with physical therapy. I will see her back in 4-6 weeks with x-rays, sooner if needed. Orders: Orders XR femur LT 2V Today M79.606 - Pain in leg, unspecified Medications: New tramadol 50 mg PO BEDTIME 7 tabs 0RF 7 days Coding Level of Care Code Global (22792) Diagnoses Periprosthetic fracture around internal prosthetic left knee joint, initial encounter M97.12XA
== END 2024-12-20 10:45 | disposition home or self-care (01) ==
LOC: HO.HOS 10:27
PROVIDERS: Visit Provider Physician Assistant
DX: M97.12XA Periprosthetic fracture around internal prosthetic left knee joint, initial encounter (principal)
CPT/HCPCS: 99024